=== PATIENT | female | born 1980 | race Caucasian/White ===

== ENCOUNTER → 2016-03-27 | Outpatient (CLI) | payer OTHER ==
--- NOTE | 2016-03-27 14:39 | P.CONS ---
History of Present Illness - Chief Complaint Mid and lower back pain - History of Present Illness This is a 35-year-old female with history of mid and lower back pain for the last 5 years and recent weight loss and nocturnal pain. The pain occasionally radiates down both legs however most of her pain is in the lower back and mid back area. He has any bowel or bladder dysfunction or any weakness in the lower extremities. She did do was to 10 pounds of her weight lately. There is no numbness or tingling in the lower extremities. The pain does not radiate around her chest wall. This pain improves when she lies on her back and gets worse with sitting for prolonged the patient has been on [place] Valium and Lyrica for a few years now but her physician has left but down and she is to give her a different physician now. Prescriptions for these medications. She had an MRI of the lumbar spine which showed only mild degenerative changes and small posterior disc bulge at L5-S1 level with posterior annular fissure. 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 Review of Systems All systems: negative Past Medical History Past Medical History: No Reported History (FM,RLS) History of Any Multi-Drug Resistant Organisms: None Reported Past Surgical History: No Surgical Hx Reported Past Psychological History: Anxiety Smoking Status: Current every day smoker Past Alcohol Use History: None Reported Past Drug Use History: None Reported Medications and Allergies Home Medications Medication Instructions Recorded Confirmed Type Pregabalin [Lyrica] 75 mg PO BID PRN 06/05/15 06/05/15 History oxyCODONE-APAP 10-325MG [Percocet 1 tab PO Q6HR PRN 06/05/15 06/05/15 History 10-325 mg] rOPINIRole HCL [Requip Xl] 12 mg PO HS 06/05/15 06/05/15 History DULoxetine HCL [Cymbalta] 60 mg PO DAILY 03/27/16 03/27/16 History Diazepam [Valium] 10 PO BID 03/27/16 History Allergies Allergy/AdvReac Type Severity Reaction Status Date / Time No Known Allergies Allergy Verified 03/27/16 13:53 Physical Exam Vitals: Vital Signs Temp Pulse Resp BP Pulse Ox 03/27/16 13:35 98.5 F 106 H 16 132/91 97 Intake and Output 03/26/16 03/27/16 03/27/16 22:59 06:59 14:59 Other: Weight 52.163 kg Patient Weight 03/28/16 06:59 Weight 52.163 kg - Constitutional General appearance: thin - EENT Eyes: PERRLA Ears: bilateral: normal - Respiratory Respiratory: bilateral: CTA - Cardiovascular Rhythm: regular Heart sounds: normal: S1, S2 - Gastrointestinal General gastrointestinal: soft - Psychiatric Psychiatric: A&O x's 3 (The patient has widespread tenderness in the thoracic and lumbar paravertebral areas.) Neuro exam of the lower extremities showed normal and symmetrical deep tendon reflexes decreased knee extension to 4 out of 5 bilaterally and symmetrically the rest of the muscle strength exam is within normal limits. She has tenderness in the lumbar and thoracic paravertebral musculature. Straight leg raising test negative bilaterally. She has normal range of motion of the lumbar spine. Amari's test negative bilaterally internal and external rotation of the hip joints did not elicit any pain. Assessment and Plan Plan: This is a 35-year-old female with history of fibromyalgia and mid and lower back pain with no significant changes on the MRI of the lumbar spine. The patient doesn't report weight loss of 10 pounds over the last few months and nocturnal pain that's why I'm going to order an MRI on the thoracic spine without and with contrast. With the current objective findings I cannot justify prescribing opioids for this patient. The patient was not happy about that but she was willing to try tramadol for her pain and I will continue with her Lyrica but I will not prescribe Valium for her. The patient tried physical therapy for long time ago on a think she might benefit FROM ANOTHER SESSION OF PHYSICAL THERAPY. WE WILL AWAIT THE RESULTS OF THE THORACIC MRI BUT ifTHE SPINE DOES NOT SHOW ANY SIGNIFICANT CHANGE I THINK MOST OF HER PAIN may be comingFROM HER FIBROMYALGIA AND THEN SHE WILL NEED TO BE TREATED WITH THE TYPICAL TREATMENTS FOR FIBROMYALGIA, WHICH INCLUDES NO OPIOIDS.
== END | disposition home or self-care (01) ==
CPT/HCPCS: 99211

== ENCOUNTER → 2016-04-23 | Outpatient (CLI) | payer OTHER ==
[2016-04-23 13:22] VITALS: BP 123/79; PULSE 97; RESP 20
--- NOTE | 2016-04-23 14:15 | P.PN ---
Progress Note - Text This is a 35-year-old female with thoracic and lumbar spine pain with radiation to both legs down to the feet as the patient states. The patient's previous lumbar spine MRI did not show significant changes however she does feel pain in the thoracic spine that as the patient states that has been getting worse. The patient denies any weight loss however. 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 She does see another pain clinic and receives [facility]. The patient claims that she comes to our clinic because it is close and she feels that we do more for her job than her other pain clinic. The patient understands that we will not prescribe her any controlled substances. I send the patient last month to have thoracic spine MRI however she has not done that some going to send her lidocaine the thoracic and lumbar spine MRIs and if there isn't any significant change in on this MRI the patient would not be a candidate for any opioid treatment. I think this patient is at high risk for opioid abuse and we should be careful in the future prescribing any opioids for her. Her treatment should be dependent on objective measures including the results of the MRI and if there are no reasonable objective changes we do not have to prescribe strong analgesics . I will see the patient next month for reevaluation after she gets her MRI done. No prescriptions are given today.
== END | disposition home or self-care (01) ==
LOC: PNWHC3 13:04
PROVIDERS: ATTEND Anesthesiology
DX: M54.5 Low back pain (principal); M54.6 Pain in thoracic spine
CPT/HCPCS: 99211

== ENCOUNTER → 2016-05-02 | Outpatient (CLI) | payer OTHER ==
[2016-05-02 15:44] LABS: Basophils # (A) 0.1 k/uL (0-0.2); Basophils % (A) 1 %; CH 30.2; CHCM 32.9; Eosinophils % (A) 0 %; HCT 38.5 % (34.0-46.0); HDW 2.27; Luc # (Auto) 0.14; Luc % (Auto) 3; Lymphocytes # (A) 1.4 k/uL (1.0-4.8); Lymphocytes % (A) 28 %; MCH 31.2 pg (25.0-35.0); MCHC 33.8 g/dL (31.0-37.0); MCV 92.3 fL (80.0-100.0); Mean Platelet Volume 7.4; Monocytes # (A) 0.4 k/uL (0-1.0); Monocytes % (A) 7 %; Neutrophils # (A) 3.2 k/uL (1.3-7.7); Neutrophils % (A) 61 %; RBC 4.17 m/uL (3.80-5.40); RDW 13.3 % (11.5-15.5); WBC 5.2 k/uL (3.8-10.6); WBC (Perox) 5.38
[2016-05-02 16:36] LABS: ALT 72 U/L (9-52); AST 25 U/L (14-36); Alkaline Phosphatase 80 U/L (38-126); Anion Gap 11 mmol/L; Bilirubin, Delta 0.2 mg/dL (0.0-0.2); Blood Urea Nitrogen 10 mg/dL (7-17); Calcium 9.1 mg/dL (8.4-10.2); Carbon Dioxide 23 mmol/L (22-30); Chloride 107 mmol/L (98-107); Glucose 88 mg/dL (74-99); Non-African American GFR(MDRD) >60 (>60 ml/min/1.73 sqM); Potassium 3.7 mmol/L (3.5-5.1); Sodium 141 mmol/L (137-145); Total Bilirubin 0.4 mg/dL (0.2-1.3)
[2016-05-02 17:52] LABS: Hemoglobin A1C 5.2 % (4.2-6.1)
== END | disposition home or self-care (01) ==
LOC: LABWHC1 15:06
PROVIDERS: ATTEND Psychiatry & Neurology Psychiatry
DX: F31.32 Bipolar disorder, current episode depressed, moderate (principal)
CPT/HCPCS: 36415; 80053; 82248; 83036; 84439; 84443; 84479; 85025

== ENCOUNTER → 2016-05-29 | Outpatient (CLI) | payer OTHER ==
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
== END | disposition home or self-care (01) ==
LOC: RADMRIMAIN 20:37
PROVIDERS: ATTEND Anesthesiology
DX: M46.96 Unspecified inflammatory spondylopathy, lumbar region (principal); R93.7 Abnormal findings on diagnostic imaging of other parts of musculoskeletal system; M47.814 Spondylosis without myelopathy or radiculopathy, thoracic region
CPT/HCPCS: 72157; 72158; A9577

== ENCOUNTER → 2016-06-27 | Outpatient (CLI) | payer OTHER ==
[2016-06-27 14:48] VITALS: BP 108/69; PULSE 80; RESP 18; TEMP 98.7
--- NOTE | 2016-06-27 15:13 | P.PN ---
Progress Note - Text Patient returns for followup for chronic back pain with radiation to the hips and down the legs. Patient denies adverse drug effects from medications. Today , pt denies new-onset weakness, bowel/bladder incontinence, or any other signs or symptoms of cauda equina syndrome. There are no signs of acute intoxication, and no indications of medication diversion or overuse. In addition to above, 13-point review of systems is also negative for chest pain , shortness of breath, changes in vision, changes in hearing, new onset weakness , abdominal pain, diarrhea, extreme fatigue, malaise, fever, skin changes, homicidal or suicidal ideation, or bowel or bladder incontinence. Vital Signs: Reviewed in EMR Gen: WDWN, AAOx3, NAD HEENT: NCAT, EOMI, hearing grossly normal Pulm: resp unlabored Abd: soft, NT, ND Neck: supple, trachea midline ROM in flexion lumbar spine: reduced ROM in extension lumbar spine: reduced Lumbar paravertebral tenderness: + Facet loading: +bilateral SI joint tenderness: + L > R Amari's test: + L > R Straight leg raise: neg bilateral Lower extremity: decreased ROM dorsiflexion/plantarflexion strength, hip flexion/extension, and knee flexion/extension secondary to pain Neuro: CN II-XII grossly intact, muscle strength lower extremities PRESERVED Imaging: MRI lumbar spine demonstrates only some facet arthropathy without any focal disc herniation or spinal stenosis. MRI thoracic spine demonstrates only some abnormal signal enhancement in the upper thoracic spinal cord which may be consistent with myelitis. There is no demonstrated disc herniations or spondylosis in the thoracic spine. Assessment: 1. SI joint dysfunction 2. lumbar spondylosis without myelopathy 3. chronic pain syndrome Plan: 1. Explanation: Opioid and psychological risk scores were reviewed. Diagnoses , prognoses, and multiple treatment options including but not limited to physical therapy, interventional therapies, adjuvant medical therapies, narcotic medication therapies, and surgery were discussed with the patient and all questions were answered to the patient's satisfaction. 2. Opioid agreement: no opioids prescribed today 3. Counseling: The patient was counseled extensively on SMOKING CESSATION, BODY MASS INDEX, EXERCISE. Specifically, the patient was instructed regarding the importance of smoking cessation, obesity, and exercise in the context of both chronic pain and overall health. 4. Procedures: bilateral SIJ injection 5. Consultations: None 6. Investigations: None 7. Medications: none prescribed 8. Disposition: f/u for procedure as scheduled PQRS measures: 1-Patient's medications are documented in the chart. 2-Tobacco use is positive, counseling given 3-Patient has not had a pneumococcal vaccine. 4-Advanced care planning discussed, patient unable to give. 5-Opioid contract NOT signed with the patient. 6-Pain positive, follow-up visit or procedure scheduled 7-Patient's blood pressure measured and documented, WNL. 8-Patient's weight was measured, and body mass index within the normal limits. 9-Patient WAS NOT identified as an unhealthy alcohol user.
== END | disposition home or self-care (01) ==
LOC: PNWHC3 14:00
PROVIDERS: ATTEND Anesthesiology
DX: M47.816 Spondylosis without myelopathy or radiculopathy, lumbar region (principal); M53.3 Sacrococcygeal disorders, not elsewhere classified; G89.4 Chronic pain syndrome
CPT/HCPCS: 99211

== ENCOUNTER 2016-10-06 12:47 | Inpatient (IN) | payer MEDICAID, OTHER ==
--- NOTE | 2016-10-06 14:03 | ED ---
General Adult HPI - General Chief complaint: Psychiatric Symptoms Stated complaint: ear & jaw pain Time Seen by Provider: 10/06/16 13:04 Source: patient, RN notes reviewed Mode of arrival: ambulatory Limitations: no limitations - History of Present Illness Initial comments: Patient is a 36-year-old female presents to the emergency room for evaluation. Patient states she was recently diagnosed with schizoaffective disorder. Patient states over the past few weeks she's been hearing "voices". Patient states she will hear people talking in her ear. Patient states that she thought her mother was on the phone with someone yesterday when she really wasn' t. Patient states the voices have become worse over the past 2 days. Patient also stated she's been having pressure behind her left eye and in her left ear over the past 2 days. Patient states she's had slight decrease in hearing of her left ear. Patient denies ear pain. Patient denies headache or dizziness. Patient denies fevers or chills. Patient denies suicidal or homicidal ideations. Patient denies visual hallucinations. patient's mother and aunt are present with patient. Patient's mother and states that patient has not been acting herself and does not make sense and she talks. Patient's family states that they've been receiving text messages that do not make sense. Patient denies recent head trauma. - Related Data Home Medications Medication Instructions Recorded Confirmed Pregabalin [Lyrica] 75 mg PO BID 06/05/15 10/06/16 Sertraline HCl [Zoloft] 150 mg PO DAILY 04/23/16 10/06/16 Buta/APAP/Caf/Cod [id number] 1 tab PO DAILY PRN 06/27/16 10/06/16 [Fioricet w/Cod [id number]] HYDROcodone/APAP 10-325MG [[place] 1 tab PO TID 06/27/16 10/06/16 10-325] DULoxetine HCL [Cymbalta] 30 mg PO DAILY 10/06/16 10/06/16 Diazepam [Valium] 10 mg PO BID 10/06/16 10/06/16 Allergies Allergy/AdvReac Type Severity Reaction Status Date / Time No Known Allergies Allergy Verified 10/06/16 13:25 Review of Systems ROS Statement: Those systems with pertinent positive or pertinent negative responses have been documented in the HPI. ROS Other: All systems not noted in ROS Statement are negative. Past Medical History Past Medical History: Fibromyalgia History of Any Multi-Drug Resistant Organisms: None Reported Past Surgical History: Tonsillectomy Past Anesthesia/Blood Transfusion Reactions: No Reported Reaction Past Psychological History: Anxiety, Schizoaffective Disorder Smoking Status: Current every day smoker Past Alcohol Use History: Occasional Past Drug Use History: None Reported General Exam - General Exam Comments Initial Comments: sitting in exam room, no acute distress. Limitations: no limitations General appearance: alert, in no apparent distress Head exam: Present: atraumatic, normocephalic, normal inspection Eye exam: Present: normal appearance, PERRL, EOMI Pupils: Present: normal accommodation ENT exam: Present: normal exam, normal oropharynx, mucous membranes moist, TM's normal bilaterally, normal external ear exam Neck exam: Present: normal inspection, full ROM. Absent: tenderness, lymphadenopathy Respiratory exam: Present: normal lung sounds bilaterally. Absent: respiratory distress Cardiovascular Exam: Present: regular rate, normal rhythm, normal heart sounds Extremities exam: Present: normal inspection Back exam: Present: normal inspection Neurological exam: Present: alert, oriented X3, CN II-XII intact Psychiatric exam: Present: normal affect, anxious Skin exam: Present: warm, dry, intact, normal color. Absent: rash Course Vital Signs 10/06/16 10/06/16 12:51 16:08 Temperature 98.8 F 98.3 F Pulse Rate 96 78 Respiratory 18 16 Rate Blood Pressure 110/67 131/68 O2 Sat by Pulse 97 98 Oximetry Medical Decision Making - Medical Decision Making Patient is a 36-year-old female presents emergency room for evaluation of left eye/ear pressure and hearing voices. Labs and CT show no significant findings. Patient medically cleared to be evaluated by psych. Patient evaluated by psych and meets admission criteria. - Lab Data Result diagrams: 10/06/16 14:30 10/06/16 14:30 Lab Results 10/06/16 10/06/16 10/06/16 Range/Units 14:30 14:30 14:30 WBC 12.2 H (3.8-10.6) k/uL RBC 4.80 (3.80-5.40) m/uL Hgb 14.4 (11.4-16.0) gm/dL Hct 43.0 (34.0-46.0) % MCV 89.4 (80.0-100.0) fL MCH 30.0 (25.0-35.0) pg MCHC 33.6 (31.0-37.0) g/dL RDW 14.1 (11.5-15.5) % Plt Count 449 (150-450) k/uL Neutrophils % 66 % Lymphocytes % 24 % Monocytes % 6 % Eosinophils % 1 % Basophils % 1 % Neutrophils # 8.1 H (1.3-7.7) k/uL Lymphocytes # 2.9 (1.0-4.8) k/uL Monocytes # 0.7 (0-1.0) k/uL Eosinophils # 0.2 (0-0.7) k/uL Basophils # 0.1 (0-0.2) k/uL Sodium (137-145) mmol/L Potassium (3.5-5.1) mmol/L Chloride (98-107) mmol/L Carbon Dioxide (22-30) mmol/L Anion Gap mmol/L BUN (7-17) mg/dL Creatinine (0.52-1.04) mg/dL Est GFR (MDRD) Af Amer (>60 ml/min/1.73 sqM) Est GFR (MDRD) Non-Af (>60 ml/min/1.73 sqM) Glucose (74-99) mg/dL Calcium (8.4-10.2) mg/dL Total Bilirubin (0.2-1.3) mg/dL AST (14-36) U/L ALT (9-52) U/L Alkaline Phosphatase (38-126) U/L Total Protein (6.3-8.2) g/dL Albumin (3.5-5.0) g/dL Urine Color Yellow Urine Appearance Clear (Clear) Urine pH 5.5 (5.0-8.0) Ur Specific [place] 1.037 H (1.001-1.035) Urine Protein 1+ H (Negative) Urine Glucose (UA) Negative (Negative) Urine Ketones Trace H (Negative) Urine Blood Negative (Negative) Urine Nitrite Negative (Negative) Urine Bilirubin Negative (Negative) Urine Urobilinogen 3.0 (<2.0) mg/dL Ur Leukocyte Esterase Negative (Negative) Urine RBC 2 (0-5) /hpf Urine WBC 2 (0-5) /hpf Ur Squamous Epith Cells 1 (0-4) /hpf Hyaline Casts 11 H (0-2) /lpf Urine Mucus Many H (None) /hpf Urine HCG, Qual Not Detected (Not Detectd) Salicylates mg/dL Urine Opiates Screen Detected H (NotDetected) Ur Oxycodone Screen Detected H (NotDetected) Urine Methadone Screen Not Detected (NotDetected) Ur Propoxyphene Screen Not Detected (NotDetected) Acetaminophen ug/mL Ur Barbiturates Screen Detected H (NotDetected) U Tricyclic Antidepress Not Detected (NotDetected) Ur Phencyclidine Scrn Not Detected (NotDetected) Ur Amphetamines Screen Not Detected (NotDetected) U Methamphetamines Scrn Not Detected (NotDetected) U Benzodiazepines Scrn Detected H (NotDetected) Urine Cocaine Screen Not Detected (NotDetected) U Marijuana (THC) Screen Detected H (NotDetected) Serum Alcohol mg/dL 10/06/16 Range/Units 14:30 WBC (3.8-10.6) k/uL RBC (3.80-5.40) m/uL Hgb (11.4-16.0) gm/dL Hct (34.0-46.0) % MCV (80.0-100.0) fL MCH (25.0-35.0) pg MCHC (31.0-37.0) g/dL RDW (11.5-15.5) % Plt Count (150-450) k/uL Neutrophils % % Lymphocytes % % Monocytes % % Eosinophils % % Basophils % % Neutrophils # (1.3-7.7) k/uL Lymphocytes # (1.0-4.8) k/uL Monocytes # (0-1.0) k/uL Eosinophils # (0-0.7) k/uL Basophils # (0-0.2) k/uL Sodium 143 (137-145) mmol/L Potassium 4.1 (3.5-5.1) mmol/L Chloride 107 (98-107) mmol/L Carbon Dioxide 25 (22-30) mmol/L Anion Gap 11 mmol/L BUN 14 (7-17) mg/dL Creatinine 0.67 (0.52-1.04) mg/dL Est GFR (MDRD) Af Amer >60 (>60 ml/min/1.73 sqM) Est GFR (MDRD) Non-Af >60 (>60 ml/min/1.73 sqM) Glucose 90 (74-99) mg/dL Calcium 9.5 (8.4-10.2) mg/dL Total Bilirubin 0.6 (0.2-1.3) mg/dL AST 20 (14-36) U/L ALT 31 (9-52) U/L Alkaline Phosphatase 71 (38-126) U/L Total Protein 7.4 (6.3-8.2) g/dL Albumin 4.7 (3.5-5.0) g/dL Urine Color Urine Appearance (Clear) Urine pH (5.0-8.0) Ur Specific [place] (1.001-1.035) Urine Protein (Negative) Urine Glucose (UA) (Negative) Urine Ketones (Negative) Urine Blood (Negative) Urine Nitrite (Negative) Urine Bilirubin (Negative) Urine Urobilinogen (<2.0) mg/dL Ur Leukocyte Esterase (Negative) Urine RBC (0-5) /hpf Urine WBC (0-5) /hpf Ur Squamous Epith Cells (0-4) /hpf Hyaline Casts (0-2) /lpf Urine Mucus (None) /hpf Urine HCG, Qual (Not Detectd) Salicylates <1.0 mg/dL Urine Opiates Screen (NotDetected) Ur Oxycodone Screen (NotDetected) Urine Methadone Screen (NotDetected) Ur Propoxyphene Screen (NotDetected) Acetaminophen <10.0 ug/mL Ur Barbiturates Screen (NotDetected) U Tricyclic Antidepress (NotDetected) Ur Phencyclidine Scrn (NotDetected) Ur Amphetamines Screen (NotDetected) U Methamphetamines Scrn (NotDetected) U Benzodiazepines Scrn (NotDetected) Urine Cocaine Screen (NotDetected) U Marijuana (THC) Screen (NotDetected) Serum Alcohol <10 mg/dL - Radiology Data Radiology results: report reviewed, image reviewed Disposition Clinical Impression: Psychosis Disposition: TRANSFER TO PSYCH HOSP/UNIT Condition: Stable Referrals: Nonstaff,Physician [Primary Care Provider] - 1-2 days Decision Date: 10/06/16
[2016-10-06 14:46] LABS: Basophils # (A) 0.1 k/uL (0-0.2); Basophils % (A) 1 %; CH 29.9; CHCM 33.6; Eosinophils # (A) 0.2 k/uL (0-0.7); Eosinophils % (A) 1 %; HDW 2.13; HGB 14.4 gm/dL (11.4-16.0); Luc # (Auto) 0.27; Luc % (Auto) 2; Lymphocytes # (A) 2.9 k/uL (1.0-4.8); Lymphocytes % (A) 24 %; MCHC 33.6 g/dL (31.0-37.0); MCV 89.4 fL (80.0-100.0); Mean Platelet Volume 7.1; Monocytes # (A) 0.7 k/uL (0-1.0); Monocytes % (A) 6 %; Neutrophils # (A) 8.1 k/uL (1.3-7.7); Neutrophils % (A) 66 %; RDW 14.1 % (11.5-15.5); WBC 12.2 k/uL (3.8-10.6); WBC (Perox) 11.23
[2016-10-06 14:48] LABS: Appearance,Urine Clear (Clear); Bilirubin,Urine Negative (Negative); Glucose,Urine (UA) Negative (Negative); Ketones,Urine Trace (Negative); Leukocyte Esterase,Urine Negative (Negative); Mucus,Urine Many /hpf; Nitrite,Urine Negative (Negative); PH, Urine 5.5 (5.0-8.0); Particle Count 15574; Protein,Urine 1+ (Negative); RBC,Urine 2 /hpf (0-5); Specific Gravity,Urine 1.037 (1.001-1.035); Squamous Epithelial Cell,Urine 1 /hpf (0-4); UA Billing (MACRO vs. MICRO) MICRO; WBC,Urine 2 /hpf (0-5)
[2016-10-06 14:58] LABS: ALT 31 U/L (9-52); AST 20 U/L (14-36); Acetaminophen <10.0 ug/mL; Alcohol <10 mg/dL; Alkaline Phosphatase 71 U/L (38-126); Anion Gap 11 mmol/L; Blood Urea Nitrogen 14 mg/dL (7-17); Calcium 9.5 mg/dL (8.4-10.2); Carbon Dioxide 25 mmol/L (22-30); Chloride 107 mmol/L (98-107); Glucose 90 mg/dL (74-99); Non-African American GFR(MDRD) >60 (>60 ml/min/1.73 sqM); Potassium 4.1 mmol/L (3.5-5.1); Salicylate <1.0 mg/dL; Sodium 143 mmol/L (137-145); Total Bilirubin 0.6 mg/dL (0.2-1.3); Total Protein 7.4 g/dL (6.3-8.2)
--- NOTE | 2016-10-06 15:57 | CT ---
EXAMINATION TYPE: CT brain wo con DATE OF EXAM: 10/06/2016 COMPARISON: CT brain June 22, 2010 HISTORY: Left sided ear pain. CT DLP: 1036 mGycm. Automated Exposure Control for Dose Reduction was Utilized. TECHNIQUE: CT scan of the head is performed without contrast. FINDINGS: There is no acute intracranial hemorrhage, mass effect, or midline shift identified. The ventricles and sulci are within normal limits in size. Neal-white matter differentiation is maintain ed. The globes are intact and the visualized sinuses are clear. No suspicious opacification of mastoi d air cells is seen. External auditory canals are patent bilaterally. IMPRESSION: No acute intracranial hemorrhage, mass effect, or midline shift is seen. Unremarkable st udy.
[2016-10-06] MEDS ORDERED: MAG HYDROX/AL HYDROX/SIMETH 30 ML CUP PO PRN (17:53)
[2016-10-06] MEDS: PREGABALIN 75 MG CAP PO SCH (21:09)
[2016-10-06] MEDS: DIAZEPAM 5 MG TAB PO SCH (21:09)
[2016-10-07] MEDS: PREGABALIN 75 MG CAP PO SCH (08:54)
[2016-10-07] MEDS: DIAZEPAM 5 MG TAB PO SCH ×2 (08:54→20:45)
[2016-10-07] MEDS ORDERED: DULoxetine HCL 30 MG CAPSULE.DR PO SCH (09:00)
[2016-10-07] MEDS ORDERED: SERTRALINE 50 MG TAB PO SCH (09:00)
[2016-10-07 11:08] LABS: Basophils # (A) 0.1 k/uL (0-0.2); Basophils % (A) 1 %; CH 29.7; CHCM 32.6; Eosinophils # (A) 0.1 k/uL (0-0.7); Eosinophils % (A) 1 %; HCT 42.7 % (34.0-46.0); HDW 2.04; HGB 13.8 gm/dL (11.4-16.0); Luc % (Auto) 2; Lymphocytes # (A) 1.5 k/uL (1.0-4.8); Lymphocytes % (A) 19 %; MCH 29.6 pg (25.0-35.0); MCHC 32.4 g/dL (31.0-37.0); MCV 91.5 fL (80.0-100.0); Mean Platelet Volume 6.9; Monocytes # (A) 0.5 k/uL (0-1.0); Monocytes % (A) 6 %; Neutrophils # (A) 5.9 k/uL (1.3-7.7); Neutrophils % (A) 72 %; RBC 4.67 m/uL (3.80-5.40); RDW 14.1 % (11.5-15.5); WBC 8.2 k/uL (3.8-10.6); WBC (Perox) 8.11
[2016-10-07 11:33] LABS: ALT 30 U/L (9-52); AST 17 U/L (14-36); Alkaline Phosphatase 61 U/L (38-126); Anion Gap 8 mmol/L; Blood Urea Nitrogen 16 mg/dL (7-17); Calcium 9.6 mg/dL (8.4-10.2); Carbon Dioxide 27 mmol/L (22-30); Chloride 107 mmol/L (98-107); Glucose 68 mg/dL (74-99); Non-African American GFR(MDRD) >60 (>60 ml/min/1.73 sqM); Potassium 4.5 mmol/L (3.5-5.1); Sodium 142 mmol/L (137-145); Total Bilirubin 0.6 mg/dL (0.2-1.3)
[2016-10-07] MEDS: HYDROcodone/APAP 5-325MG 1 EACH TAB PO PRN ×2 (13:50→20:46)
[2016-10-07] MEDS ORDERED: HYDROcodone/APAP 10-325MG 1 EACH TAB PO SCH (14:00)
--- NOTE | 2016-10-07 14:39 | P.CONS ---
History of Present Illness - Reason for Consult Consult date: 10/07/16 Medical management Requesting physician: Teto Deneny - Chief Complaint Schizoaffective disorders, chronic lower back pain, polysubstance abuse - History of Present Illness 36-year-old female who presented to [facility] department at [facility] on 7:15 in the afternoon for evaluation apparently was diagnosed with schizoaffective disorders patient has been hearing voices all the time become slightly bit annoying. Symptoms become much worse with the current problem ended up coming to [facility] her left ear has been causing problem patient is not suicidal or homicidal at the time she denies any visual hallucination pump. Patient was with her mother and aunt. Surprisingly her drug screen showed polysubstance abuse from, OxyContin,., Benzodiazepine, barbiturates and marijuana. Patient apparently used to see a psychiatrist in town has not been seeing anybody in the last few month. Also known to have ADHD has been off medication lately. Patient also has been seen pain management in [place] and has been on multiple medication for pain management including hydrocodone, Fioricet with codeine, Cymbalta, Valium and Lyrica. Review of Systems Constitutional: Reports anorexia, Reports fatigue, Reports lethargy, Denies as per HPI, Denies chills, Denies chronic headaches, Denies chronic pain, Denies daytime sleepiness, Denies fever, Denies malaise, Denies night sweats, Denies poor appetite, Denies sweats, Denies weakness, Denies weight gain, Denies weight loss Eyes: bilateral as per HPI Ears: left: tinnitus, bilateral: decreased hearing Ears, nose, mouth and throat: Reports ant. neck pain, Reports nasal discharge, Reports sinus pain, Reports sinus pressure, Denies as per HPI, Denies bleeding gums, Denies dental pain, Denies dysphagia, Denies epistaxis, Denies headache, Denies hoarseness, Denies mouth pain, Denies nasal congestion, Denies neck fullness/pressure, Denies neck lump, Denies nose pain, Denies odynophagia, Denies post-nasal drip, Denies swelling in mouth, Denies swelling in throat, Denies sore throat, Denies vertigo, Denies voice changes Breasts: bilateral: as per HPI Cardiovascular: Reports lightheadedness, Reports orthopnea, Denies as per HPI, Denies chest pain, Denies claudication, Denies decreased exercise tolerance, Denies dyspnea on exertion, Denies edema, Denies high blood pressure, Denies irregular heart beat, Denies leg edema, Denies palpitations, Denies paroxysmal nocturnal dyspnea, Denies phlebitis, Denies rapid heart beat, Denies shortness of breath, Denies syncope Respiratory: Reports congestion, Reports respiratory infections, Reports sleep apnea, Denies as per HPI, Denies cough, Denies cough with sputum, Denies dyspnea , Denies excessive sputum, Denies hemoptysis, Denies home oxygen, Denies pain, Denies pain on inspiration, Denies pleurisy, Denies snoring, Denies wheezing Gastrointestinal: Reports bloating, Reports dyspepsia, Reports early satiety, Reports indigestion, Reports nausea, Denies as per HPI, Denies abdominal pain, Denies belching, Denies BRBPR, Denies change in bowel habits, Denies coffee ground emesis, Denies constipation, Denies diarrhea, Denies excessive gas, Denies heartburn, Denies hematemesis, Denies hematochezia, Denies jaundice, Denies lactose intolerance, Denies loss of appetite, Denies melena, Denies vomiting Genitourinary: Reports nocturia, Reports urge incontinence, Denies as per HPI, Denies abnormal vaginal bleeding, Denies decreased libido, Denies difficulty conceiving, Denies difficulty voiding, Denies dysmenorrhea, Denies dyspareunia, Denies dysuria, Denies flank pain, Denies genital sores, Denies hematuria, Denies hot flashes, Denies incomplete emptying, Denies kidney stones, Denies menorrhagia, Denies mixed incontinence, Denies pelvic pain, Denies post void dribbling, Denies , Denies prolapse symptoms, Denies stress incontinence , Denies urgency, Denies urinary frequency, Denies vaginal discharge, Denies vaginal dryness, Denies vaginal itching, Denies vaginal odor Musculoskeletal: Reports loss of height, Reports low back pain, Reports myalgias , Reports neck pain, Reports neck stiffness, Denies as per HPI, Denies arm numbness/tingling, Denies atrophy, Denies fractures, Denies frequent falls, Denies gait dysfunction, Denies hot joints, Denies leg numbness/tingling, Denies limitation of motion, Denies morning stiffness, Denies muscle cramps, Denies muscle weakness, Denies prior amputations, Denies redness of joints, Denies shooting arm pain, Denies shooting leg pain Integumentary: Reports rash, Reports sores, Denies as per HPI, Denies acne, Denies boils, Denies brittle nails, Denies change in hair/nails, Denies color changes, Denies darkening of skin, Denies depigmentation, Denies dryness, Denies foot/leg ulcers, Denies growths, Denies hirsutism, Denies lesions, Denies onychomycosis, Denies pruritus, Denies striae, Denies unusual bruising, Denies wounds Neurological: Reports ataxia, Reports balance difficulties, Reports burning pain , Reports paresthesias, Reports tingling, Reports weakness, Denies as per HPI, Denies aphasia, Denies change in mentation, Denies change in smell/taste, Denies change in speech, Denies confusion, Denies convulsions, Denies double vision, Denies gait dysfunction, Denies head injury, Denies headaches, Denies hearing difficulties, Denies lack of coordination, Denies loss of vision, Denies memory loss, Denies migraines, Denies motor disturbance, Denies numbness , Denies paralysis, Denies seizures, Denies sensory deficit, Denies spasticity, Denies syncope, Denies tic, Denies transient paralysis, Denies tremors, Denies vertigo, Denies visual changes Psychiatric: Reports anhedonia, Reports anxiety, Reports anxiety attacks, Reports change in sleep habits, Reports depression, Reports disorientation, Reports irritability, Reports mood swings, Reports sadness/tearfulness, Reports sleep disturbances, Denies as per HPI, Denies change in appetite, Denies change in libido, Denies confusion, Denies difficulty concentrating, Denies hallucinations, Denies hopelessness, Denies hypersomnia, Denies insomnia, Denies memory loss, Denies paranoia, Denies suicidal ideation Endocrine: Reports fatigue, Reports heat intolerance, Denies as per HPI, Denies cold intolerance, Denies deepening of the voice, Denies excessive sweating, Denies excessive thirst, Denies flushing, Denies high blood sugars, Denies increase in ring/shoe/hat size, Denies low blood sugars, Denies nocturia, Denies palpitations, Denies polydipsia, Denies polyphagia, Denies polyuria, Denies proptosis, Denies recent glucocorticoid use, Denies thyroid mass, Denies weight change Hematologic/Lymphatic: Denies as per HPI, Denies easy bleeding, Denies easy bruising, Denies lymphadenopathy, Denies lymphedema, Denies thrombophilia Allergic/Immunologic: Denies as per HPI, Denies allergic rhinitis, Denies anaphylaxis, Denies angioedema, Denies gluten intolerance, Denies persistent infections, Denies seasonal allergies, Denies urticaria, Denies wheezing Past Medical History Past Medical History: Fibromyalgia History of Any Multi-Drug Resistant Organisms: None Reported Past Surgical History: Tonsillectomy Past Anesthesia/Blood Transfusion Reactions: No Reported Reaction Smoking Status: Current every day smoker Medications and Allergies Home Medications Medication Instructions Recorded Confirmed Type Pregabalin [Lyrica] 75 mg PO BID 06/05/15 10/06/16 History Sertraline HCl [Zoloft] 150 mg PO DAILY 04/23/16 10/06/16 History [place]/APAP/Caf/Cod [id number] 1 tab PO DAILY PRN 06/27/16 10/06/16 History [Fioricet w/Cod 11-759-62-30MG] HYDROcodone/APAP 10-325MG [[place] 1 tab PO TID 06/27/16 10/06/16 History 10-325] DULoxetine HCL [Cymbalta] 30 mg PO DAILY 10/06/16 10/06/16 History Diazepam [Valium] 10 mg PO BID 10/06/16 10/06/16 History Allergies Allergy/AdvReac Type Severity Reaction Status Date / Time No Known Allergies Allergy Verified 10/06/16 13:25 Physical Exam Vitals: Vital Signs Temp Pulse Pulse Resp BP BP Pulse Ox 10/07/16 13:51 89 18 123/71 10/07/16 08:57 94 18 127/79 10/07/16 08:54 74 16 127/79 10/07/16 06:36 98 F 20 122/69 10/06/16 21:09 58 L 18 119/78 10/06/16 18:46 98.4 F 73 14 126/62 96 10/06/16 17:56 97.0 F L 86 18 136/62 98 10/06/16 16:08 98.3 F 78 16 131/68 98 Intake and Output 10/06/16 10/07/16 10/07/16 22:59 06:59 14:59 Other: Weight 53.6 kg Patient Weight 10/08/16 06:59 Weight 53.6 kg - Constitutional General appearance: no average body habitus, cooperative, no disheveled, no mild distress, no morbidly obese, no acute distress, no obese, no severe distress, no thin - EENT Eyes: no abnormal pupil, no anicteric sclerae, no disc margins sharp, no edentulous, no EOMI, no PERRLA, no fundus normal, no photophobia, no dentition normal, no poor dentition, no ptosis, no scleral icterus, normal appearance ENT: no hard of hearing, no hearing grossly normal, no NA/AT, normal oropharynx , no other, no pharyngeal erythema, no thrush, no tonsillar exudates, no tonsillar swelling Ears: bilateral: normal - Neck Neck: no lymphadenopathy, normal ROM, no other, no rigidity, no stridor, no thyromegaly Carotids: bilateral: upstroke normal Thyroid: bilateral: normal size - Respiratory Respiratory: bilateral: CTA - Cardiovascular Rhythm: regular Heart sounds: normal: S1, S2 Abnormal Heart Sounds: systolic murmur - Gastrointestinal General gastrointestinal: no absent bowel sounds, decreased bowel sounds, no distended, no hepatomegaly, no hyperactive bowel sounds, no normal bowel sounds , no organomegaly, no rigid, no scaphoid, soft, no splenomegaly, no tenderness, no umbilical hernia, no ventral hernia - Integumentary Integumentary: no calor, no cellulitis, no cyanotic, decreased turgor, no flushed, no jaundiced, no normal, no normal turgor, no pale, no rash, no ulcer - Neurologic Neurologic: CNII-XII intact - Musculoskeletal Musculoskeletal: gait normal, generalized weakness, strength equal bilaterally, no right sided weakness, no left sided weakness - Psychiatric Psychiatric: A&O x's 3, appropriate affect, no intact judgment & insight Results CBC & Chem 7: 10/07/16 10:45 10/07/16 10:45 Labs: Abnormal Lab Results - Last 24 Hours (Table) 10/06/16 10/06/16 10/07/16 Range/Units 14:30 14:30 10:45 WBC 12.2 H (3.8-10.6) k/uL Neutrophils # 8.1 H (1.3-7.7) k/uL Glucose 68 L (74-99) mg/dL TSH 0.218 L (0.465-4.680) mIU/L Ur Specific [place] 1.037 H (1.001-1.035) Urine Protein 1+ H (Negative) Urine Ketones Trace H (Negative) Hyaline Casts 11 H (0-2) /lpf Urine Mucus Many H (None) /hpf Urine Opiates Screen Detected H (NotDetected) Ur Oxycodone Screen Detected H (NotDetected) Ur Barbiturates Screen Detected H (NotDetected) U Benzodiazepines Scrn Detected H (NotDetected) U Marijuana (THC) Screen Detected H (NotDetected) Assessment and Plan Plan: 1 schizoaffective disorders and psychosis: Was admit to the psych unit continue patient on Valium and Zoloft continue counseling medication will be changed at this point. 2 hearing voices with questionable of tinnitus, patient might have reaction to Lyrica dose will be decreased to 50 mg twice a day apparently according to patient has been on 200 mg twice a day in the past. See if patient can be off medication completely. 3 chronic pain syndrome: Has been on Lyrica Fioricet w/ Codeine, hydrocodone and Valium try to reduce medication and try to lower the dose of hydrocodone. 4 chronic history of fibromyalgia patient should be in much less narcotic and muscle relaxer maybe to use yoga homicides [place] chiropractor and mild anti- inflammatory agent try to avoid any heavy narcotic use. 5 leukocytosis: No sign of infection so far repeat another blood count. 6 abnormal TSH: Free T4 was order if it's abnormal whether it's high or low we' ll make a diagnosis of hypo-or hyperthyroidism depend on and treat patient accordingly. 7 multiple substance abuse: Counseling patient is in the psych unit at this point. 8 GI prophylaxis: Will add Pepcid 20 mg daily. CODE STATUS: Full code. Dr. Denney thank you very much for the consult for can be any further help to please let me know.
[2016-10-07] MEDS ORDERED: ACETAMINOPHEN TAB 325 MG TAB PO PRN (15:00)
[2016-10-07] MEDS: NICOTINE 7MG/24HR PATCH TRANSDERM SCH (16:36)
[2016-10-07] MEDS ORDERED: ZIPRASIDONE 20 MG VIAL IM PRN (16:37)
--- NOTE | 2016-10-07 16:50 | P.HP ---
Psychiatric H&P - . H&P Date: 10/07/16 History & Physical: Allergies Allergy/AdvReac Type Severity Reaction Status Date / Time No Known Allergies Allergy Verified 10/06/16 13:25 Vital Signs Temp 98 F 10/07/16 06:36 Pulse 89 10/07/16 13:51 Resp 18 10/07/16 13:51 BP 123/71 10/07/16 13:51 Pulse Ox 96 10/06/16 18:46 Intake & Output 10/06/16 10/07/16 10/07/16 18:59 06:59 18:59 Weight 53.524 kg 53.6 kg Laboratory Last Values WBC 8.2 k/uL (3.8-10.6) 10/07/16 10:45 RBC 4.67 m/uL (3.80-5.40) 10/07/16 10:45 Hgb 13.8 gm/dL (11.4-16.0) 10/07/16 10:45 Hct 42.7 % (34.0-46.0) 10/07/16 10:45 MCV 91.5 fL (80.0-100.0) 10/07/16 10:45 MCH 29.6 pg (25.0-35.0) 10/07/16 10:45 MCHC 32.4 g/dL (31.0-37.0) 10/07/16 10:45 RDW 14.1 % (11.5-15.5) 10/07/16 10:45 Plt Count 413 k/uL (150-450) 10/07/16 10:45 Neutrophils % 72 % 10/07/16 10:45 Lymphocytes % 19 % 10/07/16 10:45 Monocytes % 6 % 10/07/16 10:45 Eosinophils % 1 % 10/07/16 10:45 Basophils % 1 % 10/07/16 10:45 Neutrophils # 5.9 k/uL (1.3-7.7) 10/07/16 10:45 Lymphocytes # 1.5 k/uL (1.0-4.8) 10/07/16 10:45 Monocytes # 0.5 k/uL (0-1.0) 10/07/16 10:45 Eosinophils # 0.1 k/uL (0-0.7) 10/07/16 10:45 Basophils # 0.1 k/uL (0-0.2) 10/07/16 10:45 Sodium 142 mmol/L (137-145) 10/07/16 10:45 Potassium 4.5 mmol/L (3.5-5.1) 10/07/16 10:45 Chloride 107 mmol/L (98-107) 10/07/16 10:45 Carbon Dioxide 27 mmol/L (22-30) 10/07/16 10:45 Anion Gap 8 mmol/L 10/07/16 10:45 BUN 16 mg/dL (7-17) 10/07/16 10:45 Creatinine 0.62 mg/dL (0.52-1.04) 10/07/16 10:45 Est GFR (MDRD) Af Amer >60 (>60 ml/min/1.73 sqM) 10/07/16 10:45 Est GFR (MDRD) Non-Af >60 (>60 ml/min/1.73 sqM) 10/07/16 10:45 Glucose 68 mg/dL (74-99) L 10/07/16 10:45 Calcium 9.6 mg/dL (8.4-10.2) 10/07/16 10:45 Total Bilirubin 0.6 mg/dL (0.2-1.3) 10/07/16 10:45 AST 17 U/L (14-36) 10/07/16 10:45 ALT 30 U/L (9-52) 10/07/16 10:45 Alkaline Phosphatase 61 U/L (38-126) 10/07/16 10:45 Total Protein 7.0 g/dL (6.3-8.2) 10/07/16 10:45 Albumin 4.4 g/dL (3.5-5.0) 10/07/16 10:45 TSH 0.218 mIU/L (0.465-4.680) L 10/07/16 10:45 Free T4 1.25 ng/dL (0.78-2.19) 10/07/16 10:45 Urine Color Yellow 10/06/16 14:30 Urine Appearance Clear (Clear) 10/06/16 14:30 Urine pH 5.5 (5.0-8.0) 10/06/16 14:30 Ur Specific [place] 1.037 (1.001-1.035) H 10/06/16 14:30 Urine Protein 1+ (Negative) H 10/06/16 14:30 Urine Glucose (UA) Negative (Negative) 10/06/16 14:30 Urine Ketones Trace (Negative) H 10/06/16 14:30 Urine Blood Negative (Negative) 10/06/16 14:30 Urine Nitrite Negative (Negative) 10/06/16 14:30 Urine Bilirubin Negative (Negative) 10/06/16 14:30 Urine Urobilinogen 3.0 mg/dL (<2.0) 10/06/16 14:30 Ur Leukocyte Esterase Negative (Negative) 10/06/16 14:30 Urine RBC 2 /hpf (0-5) 10/06/16 14:30 Urine WBC 2 /hpf (0-5) 10/06/16 14:30 Ur Squamous Epith Cells 1 /hpf (0-4) 10/06/16 14:30 Hyaline Casts 11 /lpf (0-2) H 10/06/16 14:30 Urine Mucus Many /hpf (None) H 10/06/16 14:30 Urine HCG, Qual Not Detected (Not Detectd) 10/06/16 14:30 Salicylates <1.0 mg/dL 10/06/16 14:30 Urine Opiates Screen Detected (NotDetected) H 10/06/16 14:30 Ur Oxycodone Screen Detected (NotDetected) H 10/06/16 14:30 Urine Methadone Screen Not Detected (NotDetected) 10/06/16 14:30 Ur Propoxyphene Screen Not Detected (NotDetected) 10/06/16 14:30 Acetaminophen <10.0 ug/mL 10/06/16 14:30 Ur Barbiturates Screen Detected (NotDetected) H 10/06/16 14:30 U Tricyclic Antidepress Not Detected (NotDetected) 10/06/16 14:30 Ur Phencyclidine Scrn Not Detected (NotDetected) 10/06/16 14:30 Ur Amphetamines Screen Not Detected (NotDetected) 10/06/16 14:30 U Methamphetamines Scrn Not Detected (NotDetected) 10/06/16 14:30 U Benzodiazepines Scrn Detected (NotDetected) H 10/06/16 14:30 Urine Cocaine Screen Not Detected (NotDetected) 10/06/16 14:30 U Marijuana (THC) Screen Detected (NotDetected) H 10/06/16 14:30 Serum Alcohol <10 mg/dL 10/06/16 14:30 10/07/16 16:39 IDENTIFYING DATA: 36-year-old female patient HPI: Patient admitted to the inpatient psychiatric unit [facility] on involuntary basis. Patient reports that she was feeling that she was hearing and seeing things and it's been happening for like 3 months. She says she's had a ringing in her ears and has wondered if it was medication side effects. Says she can actually hear voices and will ask her mom if she is talking to her aunt. Says she never sees people but will think that someone looks like another person. It's been more hearing things than it has been seeing anything. She states that she has been having hand tremor and her anxiety has been going through the roof. She also describes lightheadedness and dizziness. She's also been experiencing some insomnia, diarrhea, sweating, hot flashes. Regarding depression she says she doesn't think depression is a huge thing and denies any thoughts of suicide lately. She does admit to some paranoid type thoughts because she is worried about the medications. She admits to being a worrier about a lot of different things. She said that her tremor is not usual for her. She does admit to a history of trouble with her focus and attention. PAST PSYCHIATRIC HISTORY: She had 1 prior inpatient psychiatric admission she thinks with Dr. Hartman. She's been on Zoloft 150 more grams daily which historically has worked well for her. Cymbalta was added approximately 4 months ago and the time does seem to correlate with the time that she has been hearing things. The Cymbalta was to help her with fibromyalgia. She denies any history of suicide at times. She doesn't history of ADHD. She's been on Strattera in the past but has been off of that for one month without any benefit. She has been on Vyvanse in the past which gave her benefit. She does not see an outpatient psychiatrist currently but is supposed to see someone for medications at [facility] and a counselor there. She's been on Valium up to 10 mg 3 times a day which helped her in the past currently is dosed at 10 mg twice a day. PMH: Fibromyalgia ALLERGIES: No known ALLERGIES MEDICATIONS: Tylenol when necessary, Maalox when necessary, Valium, Pepcid, [place] when necessary, Habitrol patch, Lyrica, Zoloft, Cymbalta CHEMICAL DEPENDENCY HISTORY: Relays that drugs and alcohol are not an issue for her. FAMILY PSYCHIATRIC HISTORY: Depression and anxiety on both sides of the family. FAMILY CHEMICAL DEPENDENCY HISTORY: None known At this time. SOCIAL HISTORY: She says they are going to be moving to another place in the same area. She lives with her mom and 7-year-old son. She has another 15 year- old son that lives with his dad. She has joint custody of both children. She' s been once and . Is not currently working. MENTAL STATUS EXAM: She is alert and cooperative. Her speech is fluent, not rapid or pressured. Her mood is described as "feel not too bad." She denies any thoughts of harm to self or others she denies any current auditory or visual hallucinations. I do not note any significant disorientation or memory disturbance. Cognitively she appears to grossly intact. 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 Generalized anxiety disorder. ADHD by history. PLAN: Patient admitted to the inpatient psychiatric unit [facility] on a voluntary basis. She'll be placed on SP 15 minute precautions. Baseline laboratory workup will be done the patient and medical consultation will be ordered. Her kidney functions and ALT and AST were within normal limits. Due to concerns of symptoms of serotonin syndrome we will discontinue her Cymbalta and lower her dosage of Zoloft to 50 mg daily. Lyrica has also been decreased after medical consultation to 50 mg twice a day as it can also contribute to serotonin syndrome, with plans to taper this off. We'll increase Valium at this time to help alleviate some of the symptomatology with adding a 5 mg dose at [address] Denney will initiate care of this patient starting tomorrow. We'll hold off on antipsychotic treatment at this time as she is not experiencing current active psychosis symptoms and if anything at this time would prefer to minimize number of medications. Estimated length of stay is 3- 5 days. Prognosis is guarded.
[2016-10-07] MEDS: PREGABALIN 50 MG CAP PO SCH (20:45)
[2016-10-08] MEDS: NICOTINE 7MG/24HR PATCH TRANSDERM SCH (08:38)
[2016-10-08] MEDS: DIAZEPAM 5 MG TAB PO SCH ×2 (08:38→21:17)
[2016-10-08] MEDS: FAMOTIDINE 20 MG TAB PO SCH (08:39)
[2016-10-08] MEDS: SERTRALINE 50 MG TAB PO SCH (08:39)
[2016-10-08] MEDS: PREGABALIN 50 MG CAP PO SCH ×2 (08:39→21:17)
[2016-10-08] MEDS: HYDROcodone/APAP 5-325MG 1 EACH TAB PO PRN ×2 (08:40→17:40)
--- NOTE | 2016-10-08 10:15 | P.PN ---
Progress Note - Text Interval history: The patient is found in her room she follows as to an interview room. The patient was admitted with new-onset symptoms of psychosis. She was seen by Dr. Bennett and one of his concerns was that she could be having symptoms of serotonin syndrome. She was prescribed Zoloft Cymbalta and Lyrica. She described having nausea and diarrhea profuse sweating insomnia and find amplitude tremor. She reported experiencing auditory hallucinations and she was concerned that she was becoming schizophrenic. Dr. Bennett discontinue the Cymbalta the Lyrica was reduced the Zoloft was reduced. She states that she is feeling physically better there is some mild sweating but much improved. She is endorsing no hallucination she is reporting no specific delusions. Also confounding the situation the patient presents with a drug screen utilizing use of benzodiazepines oxycodone marijuana and barbiturates. She is prescribed [place], Valium. She see she sees a pain physician and a psychiatric nurse practitioner. Mental status exam: The patient is a thin female appearing her stated age she has to facial piercings she has a disheveled appearance she is dressed in her own clothing. Eye contact is appropriate. Speech is fluent spontaneous mildly pressured but she is easily directed in the interview. She reports her mood is improved she continues to have concern as to why she had hallucinations. She is reporting no suicidal or homicidal ideation intent or plan. She is endorsing no symptoms of psychosis there is no overt evidence of psychosis in observing her. Thought process can be linear she is mildly circumstantial at times. She does have some increased psychomotor activity. She demonstrates no verbal or physical aggressiveness. Insight and judgment improving. Plan: The patient will continue on her current medication we will monitor her for safety and encourage her continued participation in the milieu. We'll monitor vital signs. Social work will be asked to arrange a family meeting. She may be appropriate for discharge in the next 1-2 days depending on her clinical progress
[2016-10-08] MEDS ORDERED: DIAZEPAM 5 MG TAB PO SCH (14:00)
[2016-10-08 16:26] LABS: Mis test requested (Blood) DIAZEPAM(VALIUM)
[2016-10-09 06:38] VITALS: TEMP 98
[2016-10-09] MEDS: HYDROcodone/APAP 5-325MG 1 EACH TAB PO PRN (07:04)
--- NOTE | 2016-10-09 08:49 | P.DS ---
Providers Date of admission: 10/06/16 17:47 Expected date of discharge: 10/09/16 Attending physician: Teto Denney Consults: 10/06/16 17:53 Consult Physician Routine Consulting Provider: Chuck Plummer Consult Reason/Comments: Follow up H & P Do you want consulting provider notified?: Yes Primary care physician: Physician Nonstaff - Discharge Diagnosis(es) (1) Substance or medication-induced psychotic disorder Current Visit: Yes Status: Acute Priority: High (2) Generalized anxiety disorder Current Visit: Yes Status: Acute Priority: Medium Hospital Course: Brief summary of admission note: This patient is a 36-year-old female who was admitted to the mental health unit with symptoms of psychosis. She reported auditory hallucinations for the last 3 months. She described hearing voices and was experiencing a phenomenon that people were looking like other people. She knows that she had a tremor and was describing other physical symptoms such as lightheadedness and dizziness tremor insomnia sweating diarrhea and hot flashes. For full details please refer to the psychiatric evaluation completed on 10/07/2016. Summary of hospital course: The patient was admitted to the mental health unit voluntarily. She was evaluated initially by Dr. Bennett. It was determined that she was likely receiving too many medications working on serotonin. The Zoloft was reduced by two thirds, Cymbalta was discontinued. Lyrica was reduced. Fairly quickly the patient described a resolution of psychotic symptoms. Insomnia resolved. The patient has been able to participate in the milieu she's demonstrated no agitated behavior. Social work has been in contact with the patient's mother who perceives that the patient has greatly improved. A support meeting involving her mother will be held this morning. The patient is able to address her activities of daily living she is demonstrating no aggressive behavior she is reporting no suicidal or homicidal ideation intent or plan. Mental status exam: The patient is a thin female she has a disheveled appearance she is dressed in her own clothing. Eye contact is appropriate speech is fluent and spontaneous nonpressured. She reports that her mood is improved she is reporting no auditory or visual hallucinations she is endorsing no specific delusions. There is no observed evidence of psychosis. She endorses no racing thoughts she has no pressured speech she does not appear hypomanic or manic. She demonstrates no verbal or physical aggressiveness. Insight and judgment have improved. She reports no suicidal or homicidal ideation intent or plan. She is pleasant and cooperative throughout conversation. She demonstrates future oriented thinking. Impressions 1. Medication induced psychosis, generalized anxiety disorder, rule out ADHD 2. Fibromyalgia Plan: The patient will be discharged from the mental health unit return home today. She will participate in a support meeting involving her mother prior to discharge. The patient will continue on Zoloft 50 mg daily Valium 10 mg twice daily. She plans on continuing her psychiatric follow-up at [facility]. We have discussed her use of benzodiazepines opiates Fioricet and marijuana. She has no interest in pursuing chemical dependency treatment. She is encouraged to make efforts to reduce/eliminate these medications as possible. There is no imminent safety risk she is appropriate for transition back to outpatient care. She is aware she may return to the hospital with any acute safety concerns. Patient Condition at Discharge: Stable Plan - Discharge Summary New Discharge Prescriptions: New Nicotine 7Mg/24Hr Patch [Habitrol] 1 patch TRANSDERM DAILY #12 patch Pregabalin [Lyrica] 50 mg PO BID #60 cap Sertraline [Zoloft] 50 mg PO DAILY #30 tab Continue HYDROcodone/APAP 10-325MG [[place] 10-325] 1 tab PO TID Diazepam [Valium] 10 mg PO BID #20 Discontinued Pregabalin [Lyrica] 75 mg PO BID Sertraline HCl [Zoloft] 150 mg PO DAILY [place]/APAP/Caf/Cod [id number] [Fioricet w/Cod [id number]] 1 tab PO DAILY PRN PRN Reason: Migraine Headache DULoxetine HCL [Cymbalta] 30 mg PO DAILY Discharge Medication List HYDROcodone/APAP 10-325MG [[place] 10-325] 1 tab PO TID 06/27/16 [History] Diazepam [Valium] 10 mg PO BID #20 10/09/16 [Rx] Nicotine 7Mg/24Hr Patch [Habitrol] 1 patch TRANSDERM DAILY #12 patch 10/09/16 [ Rx] Pregabalin [Lyrica] 50 mg PO BID #60 cap 10/09/16 [Rx] Sertraline [Zoloft] 50 mg PO DAILY #30 tab 10/09/16 [Rx] Follow up Appointment(s)/Referral(s): Mirza Mullins [Outside] - 10/15/16 2:00 pm Nonstaff,Physician [Primary Care Provider] - 1-2 days
[2016-10-09] MEDS: PREGABALIN 50 MG CAP PO SCH (08:52)
[2016-10-09] MEDS: DIAZEPAM 5 MG TAB PO SCH (08:52)
[2016-10-09] MEDS: FAMOTIDINE 20 MG TAB PO SCH (08:52)
[2016-10-09] MEDS: SERTRALINE 50 MG TAB PO SCH (08:52)
[2016-10-09] MEDS: NICOTINE 7MG/24HR PATCH TRANSDERM SCH (08:53)
[2016-10-09 08:55] VITALS: BP 134/80; PULSE 103; RESP 16
== END 2016-10-09 09:38 | disposition home or self-care (01) | DRG 897 ==
LOC: SUPCPDRO 12:47 → EC 12:47 → 3MHU 17:47
PROVIDERS: ADMIT Psychiatry & Neurology Psychiatry; ATTEND Psychiatry & Neurology Psychiatry
DX: F19.959 Other psychoactive substance use, unspecified with psychoactive substance-induced psychotic disorder, unspecified (principal); F41.1 Generalized anxiety disorder; M79.7 Fibromyalgia; G47.00 Insomnia, unspecified; G89.29 Other chronic pain; M54.5 Low back pain; F90.9 Attention-deficit hyperactivity disorder, unspecified type; F17.200 Nicotine dependence, unspecified, uncomplicated; Z79.899 Other long term (current) drug therapy; Z81.8 Family history of other mental and behavioral disorders
CPT/HCPCS: 36415; 70450; 80053; 80306; 80320; 80346; 81001; 81025; 82075; 83520; 84439; 84443; 85025

== ENCOUNTER 2017-01-23 14:05 | Observation (INO) | payer OTHER ==
[2017-01-23] MEDS ORDERED: SODIUM CHLORIDE 0.9% 1,000 ML IV ONE (14:26)
--- NOTE | 2017-01-23 14:29 | ED ---
General Adult HPI - General Chief complaint: Overdose Stated complaint: Overdose Time Seen by Provider: 01/23/17 14:06 Source: patient, police, EMS, RN notes reviewed Mode of arrival: EMS Limitations: no limitations - History of Present Illness Initial comments: 36 female presents after suspected opiate overdose. Patient admits to taking 30 mg of methadone. Patient is prescribed 10 mg methadone twice daily for chronic pain. Denies any suicidal ideation or suicide attempt. Patient has a prescription of methadone that was filled yesterday, quantity 60, there is 37 tablets remaining. 23 tablets missing. Patient states she only took 3 tablets totaling 30 mg. She is uncertain where the other 20 pupils were, however there was other people in the home. She denies any IV drug use. Denies any other substance ingestion. According to EMS patient was apneic, cyanotic, pinpoint pupils. She was given 2 mg of IV Narcan. Patient has no complaints, evaluation. - Related Data Home Medications Medication Instructions Recorded Confirmed Methadone [Dolophine] 10 mg PO Q12HR 01/23/17 01/23/17 Allergies Allergy/AdvReac Type Severity Reaction Status Date / Time No Known Allergies Allergy Verified 01/23/17 14:14 Review of Systems ROS Statement: Those systems with pertinent positive or pertinent negative responses have been documented in the HPI. ROS Other: All systems not noted in ROS Statement are negative. Past Medical History Past Medical History: No Reported History Additional Past Medical History / Comment(s): spinal migraines, chronic back pain History of Any Multi-Drug Resistant Organisms: None Reported Past Surgical History: No Surgical Hx Reported Past Anesthesia/Blood Transfusion Reactions: No Reported Reaction Past Psychological History: Anxiety Smoking Status: Current every day smoker Past Alcohol Use History: Occasional Past Drug Use History: None Reported General Exam Limitations: no limitations General appearance: alert, in no apparent distress Head exam: Present: atraumatic, normocephalic Eye exam: Present: normal appearance, PERRL ENT exam: Present: normal exam Neck exam: Present: normal inspection. Absent: tenderness, meningismus Respiratory exam: Present: normal lung sounds bilaterally. Absent: respiratory distress Cardiovascular Exam: Present: regular rate, normal rhythm GI/Abdominal exam: Present: soft. Absent: distended, tenderness Extremities exam: Present: normal inspection, normal capillary refill. Absent: pedal edema Neurological exam: Present: alert, oriented X3. Absent: motor sensory deficit Psychiatric exam: Present: normal affect, normal mood. Absent: suicidal ideation Skin exam: Present: warm, dry, intact. Absent: cyanosis, diaphoretic Course Vital Signs 01/23/17 01/23/17 01/23/17 14:07 14:47 14:56 Temperature 97.2 F L Pulse Rate 100 100 94 Respiratory 20 18 16 Rate Blood Pressure 126/65 114/81 117/80 O2 Sat by Pulse 100 97 97 Oximetry 01/23/17 01/23/17 16:00 17:45 Temperature 98.2 F Pulse Rate 100 101 H Respiratory 14 16 Rate Blood Pressure 110/66 O2 Sat by Pulse 94 L 98 Oximetry Medical Decision Making - Medical Decision Making 36 yo female with polysubstance overdose, most concerning of these is methadone. Patient received 2 mg of Narcan by EMS, she requires to repeat dosing of Narcan for hypoxia and apnea in the emergency department. Respiratory rate at its lowest is 68. Patient will require observation for continuous pulse oximetry, given the long-acting nature of methadone. When necessary Narcan is ordered. No need for Narcan drip at this time. Diagnosis: Polysubstance overdose, methadone overdose. - Lab Data Result diagrams: 01/23/17 14:30 01/23/17 14:30 Lab Results 01/23/17 01/23/17 01/23/17 Range/Units 14:30 14:30 15:57 WBC 13.1 H (3.8-10.6) k/uL RBC 4.23 (3.80-5.40) m/uL Hgb 13.0 (11.4-16.0) gm/dL Hct 39.5 (34.0-46.0) % MCV 93.5 (80.0-100.0) fL MCH 30.6 (25.0-35.0) pg MCHC 32.7 (31.0-37.0) g/dL RDW 14.2 (11.5-15.5) % Plt Count 164 (150-450) k/uL Neutrophils % 78 % Lymphocytes % 13 % Monocytes % 6 % Eosinophils % 0 % Basophils % 1 % Neutrophils # 10.2 H (1.3-7.7) k/uL Lymphocytes # 1.8 (1.0-4.8) k/uL Monocytes # 0.7 (0-1.0) k/uL Eosinophils # 0.0 (0-0.7) k/uL Basophils # 0.1 (0-0.2) k/uL Sodium 137 (137-145) mmol/L Potassium 4.2 (3.5-5.1) mmol/L Chloride 104 (98-107) mmol/L Carbon Dioxide 21 L (22-30) mmol/L Anion Gap 12 mmol/L BUN 12 (7-17) mg/dL Creatinine 0.70 (0.52-1.04) mg/dL Est GFR (MDRD) Af Amer >60 (>60 ml/min/1.73 sqM) Est GFR (MDRD) Non-Af >60 (>60 ml/min/1.73 sqM) Glucose 102 H (74-99) mg/dL Calcium 8.6 (8.4-10.2) mg/dL Total Bilirubin 0.4 (0.2-1.3) mg/dL AST 57 H (14-36) U/L ALT 46 (9-52) U/L Alkaline Phosphatase 61 (38-126) U/L Total Protein 6.8 (6.3-8.2) g/dL Albumin 4.2 (3.5-5.0) g/dL Urine HCG, Qual (Not Detectd) Urine Opiates Screen Detected H (NotDetected) Ur Oxycodone Screen Not Detected (NotDetected) Urine Methadone Screen Detected H (NotDetected) Ur Propoxyphene Screen Not Detected (NotDetected) Ur Barbiturates Screen Detected H (NotDetected) U Tricyclic Antidepress Not Detected (NotDetected) Ur Phencyclidine Scrn Not Detected (NotDetected) Ur Amphetamines Screen Detected H (NotDetected) U Methamphetamines Scrn Detected H (NotDetected) U Benzodiazepines Scrn Detected H (NotDetected) Urine Cocaine Screen Not Detected (NotDetected) U Marijuana (THC) Screen Detected H (NotDetected) 01/23/17 Range/Units 15:57 WBC (3.8-10.6) k/uL RBC (3.80-5.40) m/uL Hgb (11.4-16.0) gm/dL Hct (34.0-46.0) % MCV (80.0-100.0) fL MCH (25.0-35.0) pg MCHC (31.0-37.0) g/dL RDW (11.5-15.5) % Plt Count (150-450) k/uL Neutrophils % % Lymphocytes % % Monocytes % % Eosinophils % % Basophils % % Neutrophils # (1.3-7.7) k/uL Lymphocytes # (1.0-4.8) k/uL Monocytes # (0-1.0) k/uL Eosinophils # (0-0.7) k/uL Basophils # (0-0.2) k/uL Sodium (137-145) mmol/L Potassium (3.5-5.1) mmol/L Chloride (98-107) mmol/L Carbon Dioxide (22-30) mmol/L Anion Gap mmol/L BUN (7-17) mg/dL Creatinine (0.52-1.04) mg/dL Est GFR (MDRD) Af Amer (>60 ml/min/1.73 sqM) Est GFR (MDRD) Non-Af (>60 ml/min/1.73 sqM) Glucose (74-99) mg/dL Calcium (8.4-10.2) mg/dL Total Bilirubin (0.2-1.3) mg/dL AST (14-36) U/L ALT (9-52) U/L Alkaline Phosphatase (38-126) U/L Total Protein (6.3-8.2) g/dL Albumin (3.5-5.0) g/dL Urine HCG, Qual Not Detected (Not Detectd) Urine Opiates Screen (NotDetected) Ur Oxycodone Screen (NotDetected) Urine Methadone Screen (NotDetected) Ur Propoxyphene Screen (NotDetected) Ur Barbiturates Screen (NotDetected) U Tricyclic Antidepress (NotDetected) Ur Phencyclidine Scrn (NotDetected) Ur Amphetamines Screen (NotDetected) U Methamphetamines Scrn (NotDetected) U Benzodiazepines Scrn (NotDetected) Urine Cocaine Screen (NotDetected) U Marijuana (THC) Screen (NotDetected) Critical Care Time Critical Care Time: Yes Total Critical Care Time: 35 Disposition Clinical Impression: Poisoning by opiate or related narcotic Disposition: ADMITTED IP TO THIS HOSP Condition: Stable Instructions: Opioid Overdose (ED) Referrals: Zaid Dasilva DO [Primary Care Provider] - 1-2 days Decision to Admit Reason: Admit from EC Decision Date: 01/23/17 Decision Time: 18:03
[2017-01-23 14:52] LABS: Basophils # (A) 0.1 k/uL (0-0.2); Basophils % (A) 1 %; CH 29.5; CHCM 31.7; Eosinophils % (A) 0 %; HCT 39.5 % (34.0-46.0); HDW 2.27; Luc # (Auto) 0.36; Luc % (Auto) 3; Lymphocytes # (A) 1.8 k/uL (1.0-4.8); Lymphocytes % (A) 13 %; MCH 30.6 pg (25.0-35.0); MCHC 32.7 g/dL (31.0-37.0); MCV 93.5 fL (80.0-100.0); Mean Platelet Volume 7.6; Monocytes # (A) 0.7 k/uL (0-1.0); Monocytes % (A) 6 %; Neutrophils # (A) 10.2 k/uL (1.3-7.7); Neutrophils % (A) 78 %; RBC 4.23 m/uL (3.80-5.40); RDW 14.2 % (11.5-15.5); WBC 13.1 k/uL (3.8-10.6); WBC (Perox) 13.45
[2017-01-23 15:03] LABS: ALT 46 U/L (9-52); AST 57 U/L (14-36); Alkaline Phosphatase 61 U/L (38-126); Anion Gap 12 mmol/L; Blood Urea Nitrogen 12 mg/dL (7-17); Calcium 8.6 mg/dL (8.4-10.2); Carbon Dioxide 21 mmol/L (22-30); Chloride 104 mmol/L (98-107); Glucose 102 mg/dL (74-99); Non-African American GFR(MDRD) >60 (>60 ml/min/1.73 sqM); Potassium 4.2 mmol/L (3.5-5.1); Sodium 137 mmol/L (137-145); Total Bilirubin 0.4 mg/dL (0.2-1.3); Total Protein 6.8 g/dL (6.3-8.2)
--- NOTE | 2017-01-23 16:27 | XR ---
EXAMINATION TYPE: XR wrist complete RT DATE OF EXAM: 01/23/2017 CLINICAL HISTORY: Right wrist pain after fall injury. TECHNIQUE: Frontal, lateral and oblique images of the right wrist are obtained. COMPARISON: None FINDINGS: There is no acute fracture/dislocation evident in the right wrist. The joint spaces in th e right wrist appear within normal limits. Peripheral IV overlies dorsum of right wrist. There are pu nctate soft tissue foreign bodies volar radial aspect right wrist. IMPRESSION: There is no acute fracture or dislocation in the right wrist.
[2017-01-23] MEDS ORDERED: NALOXONE 0.4 MG/ML 1 ML VIAL IV STA ×2 (16:47→17:59)
[2017-01-23] MEDS ORDERED: NALOXONE 0.4 MG/ML 10 ML VIAL IVP STA (16:47)
[2017-01-23] MEDS ORDERED: ONDANSETRON 4 MG/2 ML VIAL IVP PRN (17:59)
[2017-01-23] MEDS ORDERED: NALOXONE 0.4 MG/ML 1 ML VIAL IV PRN (17:59)
[2017-01-23] MEDS ORDERED: ACETAMINOPHEN TAB 325 MG TAB PO PRN (17:59)
[2017-01-23] MEDS ORDERED: ACETAMINOPHEN TAB 500 MG TAB PO STA (18:51)
[2017-01-23] MEDS ORDERED: NICOTINE 14MG/24HR PATCH TRANSDERM SCH (20:00)
[2017-01-23] MEDS: HEPARIN SODIUM,PORCINE 5,000 UNIT/ML 1 ML VIAL SQ SCH (21:45)
--- NOTE | 2017-01-23 21:49 | HP ---
HISTORY AND PHYSICAL DATE OF SERVICE: 01/23/2017 CHIEF COMPLAINT: Overdose. HISTORY OF PRESENT ILLNESS: This 36-year-old woman with a past history of multiple medical problems, including history of spinal migraines, chronic back pain, history of anxiety being followed by primary physician elsewhere. Apparently in the primary doctor's office, the patient took 3 tablets of [place] and some methadone, according to her also. The patient is taking 10 mg of methadone daily for chronic pain. The patient was drowsy. The patient came to [facility] and was admitted for further evaluation and treatment. Narcan initiation has been planned at this time. There is no history of fever, rigors. No history of headache, loss of consciousness, seizures at this time. The patient also had bilateral tracks in the distal arms, both forearm and the distal aspect and the patient reports that those happened as a result of trimming the pine tree. PAST MEDICAL HISTORY: History of chronic pain syndrome, history of anxiety, history of spinal migraines, chronic back pain. MEDICATIONS PRIOR TO ADMISSION: Include home medications of methadone 10 mg b.i.d. ALLERGIES: None. FAMILY HISTORY: No history of heart disease or strokes in the family. SOCIAL HISTORY: History of alcohol, cocaine, heroin, marijuana, smoking per chart. REVIEW OF SYSTEMS: ENT: No diminished hearing, diminished vision. CARDIOVASCULAR: No angina. RESPIRATORY: No cough, hemoptysis. GI: No nausea, vomiting. : No dysuria. NERVOUS: No numbness, weakness. Otherwise mentioned earlier ALLERGIES/IMMUNOLOGY: No asthma or hay fever. MUSCULOSKELETAL: As mentioned earlier. HEMATOLOGY/ONCOLOGY: No history of anemia. ENDOCRINE: As mentioned earlier. CONSTITUTIONAL: As mentioned earlier. DERMATOLOGY: Negative. RHEUMATOLOGY: Negative. PSYCHIATRY: As mentioned earlier. PHYSICAL EXAMINATION: Alert and oriented x3. The patient is drowsy, but arousable. Pulse is 101, blood pressure 110/63, respirations 16, temperature 98.2, pulse ox 98% on 2L. HEENT: Conjunctivae normal. Oral mucosa moist. NECK: No jugular venous distention. No carotid bruits. No lymph nodes enlargement. CARDIOVASCULAR: S1, S2 muffled. No S3. No S4. RESPIRATORY: Breath sounds diminished in the bases. A few rhonchi. No crackles. ABDOMEN: Soft, nontender. No mass palpable. LEGS: No edema. No swelling. NERVOUS SYSTEM: Higher functions as mentioned earlier. Moves all 4 limbs. No focal motor or sensory deficits. LYMPHATIC: No lymphadenopathy in neck or axillae. SKIN: No ulcer, rash or bleeding. LABS: At this time show WBC 13.2, hemoglobin is 13. Other labs are noted. ASSESSMENT: 1. Change in mental status and drug overdoses with metabolic encephalopathy. 2. Polysubstance abuse including alcohol, cocaine, heroin and marijuana, smoking per chart. 3. Multiple excoriations and abrasions on both the forearms, possibly self-inflicted. 4. Anxiety. 5. History of splenomegaly. 6. Chronic back pain and chronic pain syndrome. 7. FULL CODE. RECOMMENDATIONS AND DISCUSSION: This 36-year-old woman admitted with complex medical issues. At this time, I recommend to continue current management, continue symptomatic treatment. Will administer the naloxone on a p.r.n. basis. Psych instituted one-to-one precautions. Also inpatient psych evaluation. Drug rehab is also recommended. Prognosis guarded because of multiple complex medical issues. Further recommendations to follow. See orders for further details. MMODL / IJN: [id number] /
[2017-01-23] MEDS ORDERED: traMADol 50 MG TAB PO STA (22:11)
[2017-01-23] MEDS: LORazepam 0.5 MG TAB PO PRN (22:20)
[2017-01-24 07:18] LABS: Basophils % (A) 1 %; CH 29.9; CHCM 32.4; Eosinophils # (A) 0.1 k/uL (0-0.7); Eosinophils % (A) 1 %; HCT 34.5 % (34.0-46.0); HDW 2.26; HGB 10.9 gm/dL (11.4-16.0); Luc # (Auto) 0.16; Luc % (Auto) 4; Lymphocytes # (A) 1.4 k/uL (1.0-4.8); Lymphocytes % (A) 32 %; MCH 29.5 pg (25.0-35.0); MCHC 31.7 g/dL (31.0-37.0); MCV 92.8 fL (80.0-100.0); Mean Platelet Volume 7.1; Monocytes # (A) 0.4 k/uL (0-1.0); Monocytes % (A) 9 %; Neutrophils # (A) 2.4 k/uL (1.3-7.7); Neutrophils % (A) 53 %; RBC 3.71 m/uL (3.80-5.40); RDW 13.4 % (11.5-15.5); WBC 4.5 k/uL (3.8-10.6); WBC (Perox) 4.47
[2017-01-24 07:20] LABS: ALT 55 U/L (9-52); AST 49 U/L (14-36); Alkaline Phosphatase 102 U/L (38-126); Anion Gap 8 mmol/L; Blood Urea Nitrogen 9 mg/dL (7-17); Calcium 7.9 mg/dL (8.4-10.2); Carbon Dioxide 24 mmol/L (22-30); Chloride 106 mmol/L (98-107); Glucose 83 mg/dL (74-99); Non-African American GFR(MDRD) >60 (>60 ml/min/1.73 sqM); Potassium 3.9 mmol/L (3.5-5.1); Sodium 138 mmol/L (137-145); Total Bilirubin 0.1 mg/dL (0.2-1.3); Total Protein 5.2 g/dL (6.3-8.2)
[2017-01-24] MEDS ORDERED: PANTOPRAZOLE 40 MG TABLET PO SCH (07:30)
[2017-01-24] MEDS: HEPARIN SODIUM,PORCINE 5,000 UNIT/ML 1 ML VIAL SQ SCH (09:05)
[2017-01-24] MEDS ORDERED: ACETAMINOPHEN IV (For NPO) 1,000 MG in EMPTY BAG 1 BAG IVPB PRN (09:13)
[2017-01-24] MEDS: LORazepam 0.5 MG TAB PO PRN (10:10)
[2017-01-24 10:56] VITALS: RESP 18
[2017-01-24 12:36] VITALS: BP 96/53; PULSE 79; TEMP 97.8
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
--- NOTE | 2017-01-24 17:16 | P.DS ---
Providers Date of admission: 01/23/17 17:59 Attending physician: David Graham Consults: 01/24/17 07:50 Consult Physician Routine Consulting Provider: Florentin Portillo Consult Reason/Comments: suicidal Do you want consulting provider notified?: Yes Primary care physician: Zaid Dasilva Hospital Course: This 36 old was admitted with the overdose. Patient was seen by psychiatric. Psychiatric recommended the patient be discharged in a stable condition with guarded prognosis should be discharged with further plans to follow up with the patient's on psychiatric and as well as primary physician in the preceding. Also recommended the drug rehab. Patient understands and agrees. On exam vitals stable. Cardio S1 and S2 normal. Respirator system clear to auscultation. Abdomen soft nontender. Final diagnosis 1. Change in mental status with the low-dose metabolic considerably. 2. Polysubstance abuse 3. Multiple excoriations and abrasions of both arms. 4. Anxiety. Patient Condition at Discharge: Stable Plan - Discharge Summary New Discharge Prescriptions: New Acetaminophen Tab [Tylenol] 650 mg PO Q6HR PRN tab PRN Reason: Mild Pain Or Fever > 100.5 Nicotine 14Mg/24Hr Patch [Habitrol] 1 patch TRANSDERM DAILY #30 patch Pantoprazole Sodium [Protonix] 40 mg PO DAILY #30 tablet. Discontinued Methadone [Dolophine] 10 mg PO Q12HR Discharge Medication List Acetaminophen Tab [Tylenol] 650 mg PO Q6HR PRN tab 01/24/17 [Rx] Nicotine 14Mg/24Hr Patch [Habitrol] 1 patch TRANSDERM DAILY #30 patch 01/24/17 [ Rx] Pantoprazole Sodium [Protonix] 40 mg PO DAILY #30 tablet. 01/24/17 [Rx] Follow up Appointment(s)/Referral(s): Zaid Dasilva DO [Primary Care Provider] - 3 Days (Please call office to schedule appointment. ) Patient Instructions/Handouts: Opioid Overdose (ED) Activity/Diet/Wound Care/Special Instructions: follow up with psychiatrist. Please call to make appointment. Discharge Disposition: TRANSFER TO PSYCH HOSP/UNIT
== END 2017-01-24 16:16 ==
LOC: EC 14:05 → 6SEL 17:59
PROVIDERS: ADMIT Hospitalist; ATTEND Hospitalist
DX: T40.3X2A Poisoning by methadone, intentional self-harm, initial encounter (principal); F11.10 Opioid abuse, uncomplicated; G93.41 Metabolic encephalopathy; F10.10 Alcohol abuse, uncomplicated; F14.10 Cocaine abuse, uncomplicated; F12.10 Cannabis abuse, uncomplicated; F41.9 Anxiety disorder, unspecified; G89.4 Chronic pain syndrome; M54.9 Dorsalgia, unspecified; F17.200 Nicotine dependence, unspecified, uncomplicated; S50.812A Abrasion of left forearm, initial encounter; S50.811A Abrasion of right forearm, initial encounter; X58.XXXA Exposure to other specified factors, initial encounter; G43.809 Other migraine, not intractable, without status migrainosus; Z79.899 Other long term (current) drug therapy; Z81.8 Family history of other mental and behavioral disorders
CPT/HCPCS: 99291 ×2; 96375 ×2; 96376 ×2; 96361 ×2; 96365; 96372; 82075; 36415; 80053 ×2; 85025 ×2; 81025; 80306; 73110; G0378 ×2; J1644; J2310; J0131

== ENCOUNTER → 2017-02-20 | Outpatient (CLI) | payer OTHER ==
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
== END | disposition home or self-care (01) ==
LOC: SLEEP 13:55
PROVIDERS: ATTEND Internal Medicine
DX: G47.10 Hypersomnia, unspecified (principal); M26.19 Other specified anomalies of jaw-cranial base relationship; G25.81 Restless legs syndrome; M79.7 Fibromyalgia; M54.2 Cervicalgia; M54.6 Pain in thoracic spine; Z79.899 Other long term (current) drug therapy; Z98.890 Other specified postprocedural states
CPT/HCPCS: 99211

== ENCOUNTER → 2017-03-21 | Outpatient (CLI) | payer OTHER ==
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
== END | disposition home or self-care (01) ==
LOC: SLEEP 13:42
PROVIDERS: ATTEND Internal Medicine
DX: G47.419 Narcolepsy without cataplexy (principal); M54.2 Cervicalgia; Z98.890 Other specified postprocedural states; Z87.828 Personal history of other (healed) physical injury and trauma

== ENCOUNTER 2017-08-07 20:59 | Emergency (ER) | payer OTHER ==
[2017-08-07 21:08] VITALS: RESP 18
--- NOTE | 2017-08-07 21:37 | ED ---
Psych HPI - General Chief Complaint: Psychiatric Symptoms Stated Complaint: Mental Health Eval Time Seen by Provider: 08/07/17 21:14 Source: patient Mode of arrival: ambulatory - History of Present Illness Initial Comments: This patient is a 37-year-old woman who is here for Court ordered psychiatric evaluation. The papers accompanying the patient show that the patient's mother alleges that the patient is making delusional statements both in person and on social media. There is no mention of suicidal or homicidal ideation. Patient reportedly has history of psychosis related to drug use. The patient is not having any medical complaints at the time of interview. Patient denies auditory or visual hallucinations. She denies suicidal or homicidal ideation. MD Complaint: other -: week(s) Associated Psychiatric Symptoms: delusions History of same: Yes Quality: constant Improves With: none Worsens With: drug use - Related Data Home Medications Medication Instructions Recorded Confirmed Omeprazole 20 mg PO DAILY PRN 08/07/17 08/07/17 Pregabalin [Lyrica] 200 mg PO BID 08/07/17 08/07/17 clonazePAM [KlonoPIN] 0.5 mg PO TID PRN 08/07/17 08/07/17 Allergies Allergy/AdvReac Type Severity Reaction Status Date / Time No Known Allergies Allergy Verified 08/07/17 22:14 Review of Systems ROS Statement: Those systems with pertinent positive or pertinent negative responses have been documented in the HPI. ROS Other: All systems not noted in ROS Statement are negative. Constitutional: Denies: fever, chills Respiratory: Denies: cough, dyspnea Cardiovascular: Denies: chest pain Gastrointestinal: Denies: abdominal pain, nausea, vomiting Musculoskeletal: Denies: back pain Neurological: Denies: headache, weakness, confusion Psychiatric: Denies: depression, auditory hallucinations, visual hallucinations , homicidal thoughts, suicidal thoughts Past Medical History Past Medical History: No Reported History Additional Past Medical History / Comment(s): spinal migraines, chronic back pain History of Any Multi-Drug Resistant Organisms: None Reported Past Surgical History: Tonsillectomy Past Anesthesia/Blood Transfusion Reactions: No Reported Reaction Past Psychological History: Anxiety Smoking Status: Current every day smoker Past Alcohol Use History: Occasional Past Drug Use History: None Reported - Past Family History Mother Family Medical History: No Reported History General Exam Limitations: no limitations General appearance: alert, in no apparent distress Head exam: Present: atraumatic, normocephalic Eye exam: Present: normal appearance. Absent: scleral icterus, conjunctival injection ENT exam: Present: normal oropharynx Respiratory exam: Present: normal lung sounds bilaterally. Absent: respiratory distress, wheezes, rales, rhonchi, stridor Cardiovascular Exam: Present: regular rate, normal rhythm, normal heart sounds. Absent: systolic murmur, diastolic murmur, rubs, gallop GI/Abdominal exam: Present: soft. Absent: tenderness Extremities exam: Present: normal inspection, normal capillary refill. Absent: pedal edema, calf tenderness Neurological exam: Present: alert, oriented X3, normal gait. Absent: motor sensory deficit Psychiatric exam: Absent: depressed, agitated, anxious, flat affect, manic, homicidal ideation, suicidal ideation Skin exam: Present: warm, dry, intact, normal color. Absent: rash Course Vital Signs 08/07/17 08/07/17 21:05 23:20 Temperature 97.8 F 98.6 F Pulse Rate 99 68 Respiratory 18 18 Rate Blood Pressure 116/61 122/76 O2 Sat by Pulse 96 98 Oximetry Medical Decision Making - Medical Decision Making This patient is a 37-year-old woman brought for Court ordered psychiatric evaluation. I have performed a medical clearance, and the patient is seen by behavioral health. After discussion with the psychiatrist, the environmental services manager states that the patient is displaying some delusional thought content, she is not currently meeting admission criteria. They are recommending outpatient follow-up. At this point the patient is not manifesting any hallucinations. She is not having any suicidal ideation or homicidal ideation. There is some paranoid delusional thought content, but this probably does not rise to the level of holding patient against her will. - Lab Data Lab Results 08/07/17 Range/Units 21:25 Urine Opiates Screen Not Detected (NotDetected) Ur Oxycodone Screen Not Detected (NotDetected) Urine Methadone Screen Detected H (NotDetected) Ur Propoxyphene Screen Not Detected (NotDetected) Ur Barbiturates Screen Not Detected (NotDetected) U Tricyclic Antidepress Not Detected (NotDetected) Ur Phencyclidine Scrn Not Detected (NotDetected) Ur Amphetamines Screen Not Detected (NotDetected) U Methamphetamines Scrn Not Detected (NotDetected) U Benzodiazepines Scrn Not Detected (NotDetected) Urine Cocaine Screen Not Detected (NotDetected) U Marijuana (THC) Screen Not Detected (NotDetected) Disposition Clinical Impression: Examination, medicolegal reason Disposition: HOME SELF-CARE Condition: Fair Instructions: Medical Clearance for Psychiatric Care (ED) Is patient prescribed a controlled substance at d/c from ED?: No Referrals: David Pimentel Jr, DO [Primary Care Provider] - 1-2 days
[2017-08-07 21:41] LABS: Amphetamine Screen,Urine Not Detected (NotDetected); Barbiturate Screen,Urine Not Detected (NotDetected); Benzodiazepines Screen,Urine Not Detected (NotDetected); Cocaine Screen,Urine Not Detected (NotDetected); Methadone Screen, Urine Detected (NotDetected); Opiate Screen,Urine Not Detected (NotDetected); Oxycodone Screen, Urine Not Detected (NotDetected); Phencyclidine Screen,Urine Not Detected (NotDetected); Tricyclic Antidepressant,Urine Not Detected (NotDetected); Urn Cannabinoid Scrn Not Detected (NotDetected)
[2017-08-07 23:22] VITALS: BP 122/76; PULSE 68; TEMP 98.6
== END 2017-08-07 23:20 | disposition home or self-care (01) ==
LOC: EC 20:59
DX: Z04.6 Encounter for general psychiatric examination, requested by authority (principal); F41.9 Anxiety disorder, unspecified; F17.200 Nicotine dependence, unspecified, uncomplicated; Z79.899 Other long term (current) drug therapy
CPT/HCPCS: 80306; 82075; 99284

== ENCOUNTER 2017-10-13 18:55 | Emergency (ER) | payer OTHER ==
[2017-10-13 19:01] VITALS: RESP 16; TEMP 98
[2017-10-13] MEDS ORDERED: KETOROLAC 30 MG/ML 1 ML VIAL IVP STA (19:26)
[2017-10-13] MEDS ORDERED: CYCLOBENZAPRINE 10MG STARTER 3 TAB BTL PO STA (19:26)
[2017-10-13] MEDS ORDERED: ORPHENADRINE 30 MG/ML 2 ML VIAL IM STA (19:27)
[2017-10-13] MEDS ORDERED: KETOROLAC 30 MG/ML 1 ML VIAL IM STA (19:38)
--- NOTE | 2017-10-13 19:38 | ED ---
General Adult HPI - General Chief complaint: Back Pain/Injury Stated complaint: low back pain Time Seen by Provider: 10/13/17 19:04 Source: patient Mode of arrival: ambulatory Limitations: no limitations - History of Present Illness Initial comments: 37 yoF presenting with chronic back pain. She states it has been worsening over the last 6-8 months. States she's been having night sweats at that time as well. Patient states she followed with primary care doctor today who told her that she had low white blood cell and red blood cell counts. Patient states she is concerned that she could have something like cancer. Sensation states she is also concerned because she found out an old boyfriend had been cheating on her. She states that she has been tested for HIV recently and that was negative. She denies any vaginal bleeding discharge and does not want to be tested for STDs at this point. It isn't sutured. Going to a pain doctor for her chronic back pain. 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 She's been taking Motrin with some mild improvement but without resolution. She denies any trauma to the back, focal weakness, numbness, paresthesias. She denies any saddle anesthesia or bowel or bladder dysfunction. Since that she would like information to see a neurologist and autoimmune Drs. she concerned that she could be rheumatoid arthritis or "nerve problems." He denies any IV drug abuse, alcohol abuse, fevers chills, urinary symptoms, cough, abdominal pain. - Related Data Home Medications Medication Instructions Recorded Confirmed Omeprazole 20 mg PO DAILY PRN 08/07/17 08/07/17 Pregabalin [Lyrica] 200 mg PO BID 08/07/17 08/07/17 clonazePAM [KlonoPIN] 0.5 mg PO TID PRN 08/07/17 08/07/17 Allergies Allergy/AdvReac Type Severity Reaction Status Date / Time No Known Allergies Allergy Verified 10/13/17 18:58 Review of Systems ROS Statement: Those systems with pertinent positive or pertinent negative responses have been documented in the HPI. Review of Systems Constitutional: Denies fever, chills. Positive night sweats Eyes: Denies change in vision, Denies pain Ears, nose, mouth, throat: Denies headaches, Denies sore throat Cardiovascular: Denies chest pain. Denies palpitations Respiratory: Denies shortness of breath, Denies cough Gastrointestinal: Denies abdominal pain. Denies nausea, vomiting, diarrhea. Genitourinary: Denies hematuria, Denies infections Musculoskeletal: Positive back pain, Denies swelling Integumentary: Denies rash Neurological: Denies headache, focal weakness, focal numbness Psychiatric: Denies anxiety, Denies depression Hematologic/Lymphatic: Denies easy bleeding or bruising ROS Other: All systems not noted in ROS Statement are negative. Past Medical History Past Medical History: No Reported History Additional Past Medical History / Comment(s): spinal migraines, chronic back pain History of Any Multi-Drug Resistant Organisms: None Reported Past Surgical History: Tonsillectomy Past Anesthesia/Blood Transfusion Reactions: No Reported Reaction Past Psychological History: Anxiety Smoking Status: Current every day smoker Past Alcohol Use History: Occasional Past Drug Use History: None Reported - Past Family History Mother Family Medical History: No Reported History General Exam - General Exam Comments Initial Comments: General: Awake, alert, No acute Distress HENT: Normocephalic. Atraumatic Eyes: PERRL. EOMI. No scleral icterus. No injected conjunctiva Neck: Full ROM Chest/Lungs: Clear to auscultation bilaterally. No wheezing, rhonchi, or rales Cardiac: Regular rate, rhythm. No murmurs or rubs Abdomen/GI: Soft, nontender, nondistended. No rebound, guarding, or rigidity. Musculoskeletal: Full ROM. Thoracic paraspinal hypertonicity bilaterally. No midline cervical, thoracic, or lumbar spine tenderness. Skin: Warm, dry, intact Neurologic: A/Ox3, no weakness, no sensory deficit, no abnormal gait, no coordination deficit. C5-T1 sensation intact and symmetric bilaterally. L3-S1 sensation intact and symmetric bilaterally Limitations: no limitations Course Vital Signs 10/13/17 18:58 Temperature 98 F Pulse Rate 86 Respiratory 16 Rate Blood Pressure 112/70 O2 Sat by Pulse 98 Oximetry Medical Decision Making - Medical Decision Making 37-year-old female presenting with chronic back pain. Initial exam the patient is an her cell phone and asked me to return to the room. Upon returning the patient is awake, alert, in no acute distress. VSS. Patient is nontoxic appearing. Discussion is had with the patient regarding her concerns for underlying chronic medical conditions. This with her following with a different primary care physician if she feels the one she is seeing is not adequately addressing her concerns. She works Saturday through Saturday of this week and a new job. States she does not want a work note and wants to go to work. His constipation that she should work on finding a new primary care physician and that she would be provided with some referrals here as well as referrals for neurology and rheumatology. She declined any STI testing. Patient had an MRI in May 2016 and no masses were seen. Was discussed with the patient following back up in the pain clinic as she states Requip and gabapentin used to work well for this pain. Discussed with the patient the emergency department 's policy on giving prescriptions for controlled substances for chronic pain. She verbalized understanding. The patient does have some thoracic hypertonicity. She was given a dose of Norflex and Toradol here as well as a starter pack for Flexeril. Patient was instructed not to drive or operate heavy machinery while taking the Flexeril. He was instructed not to take it before going to work. The patient was agreeable to plan and all her questions were answered. She is nontoxic appearing and serious etiology such as epidural abscess are low likelihood. No further emergent workup indicated. The patient was given return to ED instructions. They were instructed to follow up with their primary care provider. Stable for discharge at this time. Disposition Clinical Impression: Chronic back pain greater than 3 months duration Disposition: HOME SELF-CARE Condition: Good Instructions: Chronic Back Pain (ED) Additional Instructions: Call Dr. Agee for neurology follow up and for rheumatology follow up. Call Dr Erik Vela's office if you would like a new PCP. Is patient prescribed a controlled substance at d/c from ED?: No Referrals: Kathy Matson PAC [REFERRING] - 1-2 days Kofi Agee MD [STAFF PHYSICIAN] - 1-2 days Laquita Khalil MD [STAFF PHYSICIAN] - 1-2 days Mica Vela MD [STAFF PHYSICIAN] - 1-2 days
[2017-10-13 20:11] VITALS: BP 115/72; PULSE 84
== END 2017-10-13 20:10 | disposition home or self-care (01) ==
LOC: EC 18:55
DX: G89.29 Other chronic pain (principal); M54.5 Low back pain; F41.9 Anxiety disorder, unspecified; F17.200 Nicotine dependence, unspecified, uncomplicated; Z79.899 Other long term (current) drug therapy
CPT/HCPCS: 99283; 96372 ×2; J2360; J1885

== ENCOUNTER 2017-11-09 17:16 | Emergency (ER) | payer OTHER ==
[2017-11-09] MEDS ORDERED: SODIUM CHLORIDE 0.9% 500 ML IV SCH (18:45)
[2017-11-09 19:11] LABS: Basophils # (A) 0.1 k/uL (0-0.2); Basophils % (A) 1 %; Eosinophils # (A) 0.1 k/uL (0-0.7); Eosinophils % (A) 2 %; HCT 39.6 % (34.0-46.0); HGB 13.5 gm/dL (11.4-16.0); Lymphocytes % (A) 21 %; MCH 28.9 pg (25.0-35.0); Mean Platelet Volume 6.9; Monocytes # (A) 0.7 k/uL (0-1.0); Monocytes % (A) 7 %; Neutrophils # (A) 6.4 k/uL (1.3-7.7); Neutrophils % (A) 68 %; Platelet Count 330 k/uL (150-450); RBC 4.66 m/uL (3.80-5.40); RDW 13.3 % (11.5-15.5); WBC 9.4 k/uL (3.8-10.6)
[2017-11-09 19:23] LABS: Acetaminophen <10.0 ug/mL; Alcohol <10 mg/dL; Salicylate <1.0 mg/dL
[2017-11-09 19:45] LABS: Amphetamine Screen,Urine Detected (NotDetected); Barbiturate Screen,Urine Detected (NotDetected); Benzodiazepines Screen,Urine Detected (NotDetected); Cocaine Screen,Urine Detected (NotDetected); Methadone Screen, Urine Detected (NotDetected); Opiate Screen,Urine Not Detected (NotDetected); Oxycodone Screen, Urine Not Detected (NotDetected); Phencyclidine Screen,Urine Not Detected (NotDetected); Tricyclic Antidepressant,Urine Not Detected (NotDetected); Urn Cannabinoid Scrn Detected (NotDetected)
[2017-11-09 19:50] VITALS: BP 124/79; PULSE 76; RESP 20; TEMP 98.3
[2017-11-09] MEDS ORDERED: KETOROLAC 30 MG/ML 1 ML VIAL IVP STA (19:53)
--- NOTE | 2017-11-09 20:05 | ED ---
General Adult HPI - General Chief complaint: Weakness Stated complaint: weakness Time Seen by Provider: 11/09/17 17:32 Source: patient, RN notes reviewed, old records reviewed Mode of arrival: wheelchair Limitations: no limitations - History of Present Illness Initial comments: Chief complaint and history of present illness a 37-year-old female with a history of methadone daily. States she missed her dose today. The patient was unable to stay awake during the initial interview. After approximately one hour the patient awakened and wants to leave. She is requesting Toradol. - Related Data Home Medications Medication Instructions Recorded Confirmed Omeprazole 20 mg PO DAILY PRN 08/07/17 11/09/17 Pregabalin [Lyrica] 200 mg PO DAILY 08/07/17 11/09/17 clonazePAM [KlonoPIN] 0.5 mg PO TID PRN 08/07/17 11/09/17 Allergies Allergy/AdvReac Type Severity Reaction Status Date / Time No Known Allergies Allergy Verified 11/09/17 17:21 Review of Systems ROS Statement: Those systems with pertinent positive or pertinent negative responses have been documented in the HPI. Review of systems. The patient for she has aches and pains all over. States she missed her methadone today. States she slept through the visit. It is noted the patient nods off every few seconds. After approximate 45 minutes to an hour the patient became wide-awake and decided she wants to go home. Offered Toradol which she's accepted. Past medical problems significant for fibromyalgia and spinal migraines. Surgeries tonsillectomy. ROS Other: All systems not noted in ROS Statement are negative. Past Medical History Past Medical History: Fibromyalgia Additional Past Medical History / Comment(s): spinal migraines, chronic back pain, lupus History of Any Multi-Drug Resistant Organisms: None Reported Past Surgical History: Tonsillectomy Past Anesthesia/Blood Transfusion Reactions: No Reported Reaction Past Psychological History: Anxiety Smoking Status: Former smoker Past Alcohol Use History: Occasional Past Drug Use History: None Reported, Prescription Drug Abuse - Past Family History Mother Family Medical History: No Reported History General Exam - General Exam Comments Initial Comments: General: The patient is somnolent. When she awakened she states that she has pain everywhere. After one hour the patient was wide awake, alert and wants to go home. She states that she missed her dose of methadone today. Denies taking any narcotics or anything that may make her so somnolent. Denies overdosing on methadone. Patient states that he takes 160 mg of methadone daily. Vital signs shows temperature 98.0 pulse 89 respiratory rate 18 pulse ox 90% room air blood pressure 101/65 Eye: Pupils are equal, round and reactive to light, extra-ocular movements are intact ; there is normal conjunctiva bilaterally. No signs of icterus. Ears, nose, mouth and throat: There are moist mucous membranes. Neck: The neck is supple, . No complaint of neck pain. Cardiovascular: There is a regular rate and rhythm. No murmur,. Respiratory: No complaints of respiratory distress or shortness of breath.. Gastrointestinal: Denies abdominal pain Back: Complains of chronic pain from fibromyalgia. Musculoskeletal: Patient able to move upper and lower extremities without apparent difficulty or discomfort. Neurological: Patient is somnolent during the beginning of the interview and wide-awake afterwards. Skin: Skin is warm and dry Psychiatric: Patient denies suicidal thoughts. States she has had a past history of depression. Denies being depressed but this time. Patient is not cooperative. Limitations: no limitations Course Vital Signs 11/09/17 11/09/17 11/09/17 17:21 17:58 19:07 Temperature 98.1 F Pulse Rate 89 70 Respiratory 18 18 18 Rate Blood Pressure 101/65 122/65 O2 Sat by Pulse 98 99 Oximetry 11/09/17 19:48 Temperature 98.3 F Pulse Rate 76 Respiratory 20 Rate Blood Pressure 124/79 O2 Sat by Pulse 98 Oximetry Medical Decision Making - Medical Decision Making Medical decision making; this is a 37-year-old female comes in with a complaint of hurting everywhere. Patient was significantly noted to be somnolent for the first 45 minutes in emergency room but easily arousable. Patient states she missed her methadone today. Urine was positive for methadone, barbiturates, amphetamines, methamphetamines, benzodiazepines, cocaine and marijuana. Patient denies doing these drugs other than methadone. The patient is a 77 eye AGAINST MEDICAL ADVICE. Was offered Toradol and accepted Toradol. Advised to follow-up with drug rehab in her family doctor. Return emergency room as needed - Lab Data Result diagrams: 11/09/17 18:54 Lab Results 11/09/17 11/09/17 11/09/17 Range/Units 18:54 18:54 19:11 WBC 9.4 (3.8-10.6) k/uL RBC 4.66 (3.80-5.40) m/uL Hgb 13.5 (11.4-16.0) gm/dL Hct 39.6 (34.0-46.0) % MCV 85.0 (80.0-100.0) fL MCH 28.9 (25.0-35.0) pg MCHC 34.0 (31.0-37.0) g/dL RDW 13.3 (11.5-15.5) % Plt Count 330 (150-450) k/uL Neutrophils % 68 % Lymphocytes % 21 % Monocytes % 7 % Eosinophils % 2 % Basophils % 1 % Neutrophils # 6.4 (1.3-7.7) k/uL Lymphocytes # 2.0 (1.0-4.8) k/uL Monocytes # 0.7 (0-1.0) k/uL Eosinophils # 0.1 (0-0.7) k/uL Basophils # 0.1 (0-0.2) k/uL Urine HCG, Qual (Not Detectd) Salicylates <1.0 mg/dL Urine Opiates Screen Not Detected (NotDetected) Ur Oxycodone Screen Not Detected (NotDetected) Urine Methadone Screen Detected H (NotDetected) Ur Propoxyphene Screen Not Detected (NotDetected) Acetaminophen <10.0 ug/mL Ur Barbiturates Screen Detected H (NotDetected) U Tricyclic Antidepress Not Detected (NotDetected) Ur Phencyclidine Scrn Not Detected (NotDetected) Ur Amphetamines Screen Detected H (NotDetected) U Methamphetamines Scrn Detected H (NotDetected) U Benzodiazepines Scrn Detected H (NotDetected) Urine Cocaine Screen Detected H (NotDetected) U Marijuana (THC) Screen Detected H (NotDetected) Serum Alcohol <10 mg/dL 11/09/17 Range/Units 19:11 WBC (3.8-10.6) k/uL RBC (3.80-5.40) m/uL Hgb (11.4-16.0) gm/dL Hct (34.0-46.0) % MCV (80.0-100.0) fL MCH (25.0-35.0) pg MCHC (31.0-37.0) g/dL RDW (11.5-15.5) % Plt Count (150-450) k/uL Neutrophils % % Lymphocytes % % Monocytes % % Eosinophils % % Basophils % % Neutrophils # (1.3-7.7) k/uL Lymphocytes # (1.0-4.8) k/uL Monocytes # (0-1.0) k/uL Eosinophils # (0-0.7) k/uL Basophils # (0-0.2) k/uL Urine HCG, Qual Not Detected (Not Detectd) Salicylates mg/dL Urine Opiates Screen (NotDetected) Ur Oxycodone Screen (NotDetected) Urine Methadone Screen (NotDetected) Ur Propoxyphene Screen (NotDetected) Acetaminophen ug/mL Ur Barbiturates Screen (NotDetected) U Tricyclic Antidepress (NotDetected) Ur Phencyclidine Scrn (NotDetected) Ur Amphetamines Screen (NotDetected) U Methamphetamines Scrn (NotDetected) U Benzodiazepines Scrn (NotDetected) Urine Cocaine Screen (NotDetected) U Marijuana (THC) Screen (NotDetected) Serum Alcohol mg/dL Disposition Clinical Impression: Polysubstance (excluding opioids) dependence, daily use Disposition: Left Against Medical Advice Condition: Fair Instructions: Methamphetamine Abuse (ED), Polysubstance Abuse (ED) Additional Instructions: Follow-up family doctor. Follow-up with drug rehab program. Return emergency room at any time for any problem. Is patient prescribed a controlled substance at d/c from ED?: No Referrals: None,Stated [Primary Care Provider] - 1-2 days Time of Disposition: 20:06
== END 2017-11-09 20:18 | disposition left against medical advice (07) ==
LOC: EC 17:16
DX: F19.20 Other psychoactive substance dependence, uncomplicated (principal); M79.7 Fibromyalgia; Z87.891 Personal history of nicotine dependence; Z79.899 Other long term (current) drug therapy
CPT/HCPCS: 36415; 85025; 81025; 80306; 83520 ×2; 80320; 99285; 96374; 96361; J1885

== ENCOUNTER → 2018-06-12 | Outpatient (CLI) | payer OTHER ==
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
== END ==
LOC: SLEEP 13:28
PROVIDERS: ATTEND Internal Medicine
DX: G47.411 Narcolepsy with cataplexy (principal); G47.10 Hypersomnia, unspecified; M79.7 Fibromyalgia; M54.9 Dorsalgia, unspecified; M54.2 Cervicalgia; Z90.89 Acquired absence of other organs; Z79.899 Other long term (current) drug therapy

== ENCOUNTER 2018-10-31 09:10 | Observation (INO) | payer OTHER ==
[2018-10-31] MEDS ORDERED: SODIUM CHLORIDE 0.9% 1,000 ML IV STA (09:15)
--- NOTE | 2018-10-31 09:17 | ED ---
Altered Mental Status HPI - General Stated Complaint: Overdose Time Seen by Provider: 10/31/18 09:13 Source: RN notes reviewed, old records reviewed - History of Present Illness Initial Comments: This is a 38-year-old female to the ER for evaluation. Patient presents by EMS for evaluation regards to an appropriate for altered mental status. Patient is apparently fell not acting appropriately left-sided throat. Patiently currently walking from [facility], patient was in for ER recently frequent and the methadone clinic. Patient is refusing to participate in questioning MD Complaint: altered mental status, confusion, decreased responsiveness Consistency of Symptoms: waxing and waning Context: other (Opiate abuse) Associated Symptoms: denies other symptoms - Related Data Home Medications Medication Instructions Recorded Confirmed Dextroamphetamine/Amphetamine 30 mg PO BID 10/31/18 10/31/18 [Adderall] Methadone (Unknown Dose) 1 dose PO DAILY 10/31/18 10/31/18 Pregabalin [Lyrica] 200 mg PO TID 10/31/18 10/31/18 clonazePAM [KlonoPIN] 1 mg PO BID 10/31/18 10/31/18 Allergies Allergy/AdvReac Type Severity Reaction Status Date / Time No Known Allergies Allergy Verified 10/31/18 09:27 Review of Systems ROS Statement: Those systems with pertinent positive or pertinent negative responses have been documented in the HPI. ROS Other: All systems not noted in ROS Statement are negative. Past Medical History Past Medical History: Fibromyalgia Additional Past Medical History / Comment(s): spinal migraines, chronic back pain, lupus History of Any Multi-Drug Resistant Organisms: None Reported Past Surgical History: Tonsillectomy Past Anesthesia/Blood Transfusion Reactions: No Reported Reaction Past Psychological History: Anxiety Smoking Status: Former smoker Past Alcohol Use History: Occasional Past Drug Use History: None Reported, Prescription Drug Abuse - Past Family History Mother Family Medical History: No Reported History General Exam General appearance: alert, in no apparent distress, lethargic Head exam: Present: atraumatic, normocephalic, normal inspection Eye exam: Present: normal appearance, PERRL, EOMI. Absent: scleral icterus, conjunctival injection, periorbital swelling ENT exam: Present: normal exam, mucous membranes moist Neck exam: Present: normal inspection. Absent: tenderness, meningismus, lymphadenopathy Respiratory exam: Present: normal lung sounds bilaterally. Absent: respiratory distress, wheezes, rales, rhonchi, stridor Cardiovascular Exam: Present: regular rate, normal rhythm, normal heart sounds. Absent: systolic murmur, diastolic murmur, rubs, gallop, clicks GI/Abdominal exam: Present: soft, normal bowel sounds. Absent: distended, tenderness, guarding, rebound, rigid Extremities exam: Present: normal inspection, full ROM, normal capillary refill. Absent: tenderness, pedal edema, joint swelling, calf tenderness Back exam: Present: normal inspection Neurological exam: Present: alert, oriented X3, CN II-XII intact Psychiatric exam: Present: normal affect, normal mood Skin exam: Present: warm, dry, intact, normal color. Absent: rash Course Vital Signs 10/31/18 10/31/18 10/31/18 09:15 09:30 09:33 Temperature 97.9 F Pulse Rate 75 77 Respiratory 7 L 15 6 L Rate Blood Pressure 106/76 106/76 O2 Sat by Pulse 98 99 Oximetry 10/31/18 10/31/18 10/31/18 09:37 10:00 10:30 Temperature Pulse Rate 76 80 Respiratory 18 13 16 Rate Blood Pressure 155/99 148/97 O2 Sat by Pulse 97 99 99 Oximetry - Reevaluation(s) Reevaluation #1: 10/31/18 11:28 Medical record is reviewed Reevaluation #2: 10/31/18 11:29 Symptoms improved with Narcan Medical Decision Making - Medical Decision Making 38 female to the ED w unresponsiveness, AMS, not acting appropriately. PAtient recently got [facility] in [place] and was found not acting appropriately, ,atient is responsive to narcan, will admit for monitoring of respiratory status. - Lab Data Result diagrams: 10/31/18 09:46 10/31/18 09:46 Lab Results 10/31/18 10/31/18 10/31/18 Range/Units 09:46 09:46 09:46 WBC 8.7 (3.8-10.6) k/uL RBC 4.33 (3.80-5.40) m/uL Hgb 12.2 (11.4-16.0) gm/dL Hct 37.8 (34.0-46.0) % MCV 87.4 (80.0-100.0) fL MCH 28.1 (25.0-35.0) pg MCHC 32.1 (31.0-37.0) g/dL RDW 15.5 (11.5-15.5) % Plt Count 305 (150-450) k/uL Neutrophils % 44 % Lymphocytes % 41 % Monocytes % 8 % Eosinophils % 3 % Basophils % 1 % Neutrophils # 3.8 (1.3-7.7) k/uL Lymphocytes # 3.6 (1.0-4.8) k/uL Monocytes # 0.7 (0-1.0) k/uL Eosinophils # 0.3 (0-0.7) k/uL Basophils # 0.1 (0-0.2) k/uL Sodium 142 (137-145) mmol/L Potassium 3.6 (3.5-5.1) mmol/L Chloride 107 (98-107) mmol/L Carbon Dioxide 25 (22-30) mmol/L Anion Gap 10 mmol/L BUN 25 H (7-17) mg/dL Creatinine 1.58 H (0.52-1.04) mg/dL Est GFR (CKD-EPI)AfAm 48 (>60 ml/min/1.73 sqM) Est GFR (CKD-EPI)NonAf 41 (>60 ml/min/1.73 sqM) Glucose 94 (74-99) mg/dL Calcium 8.8 (8.4-10.2) mg/dL Phosphorus 6.0 H (2.5-4.5) mg/dL Magnesium 2.1 (1.6-2.3) mg/dL Total Bilirubin 0.6 (0.2-1.3) mg/dL AST 46 H (14-36) U/L ALT 34 (9-52) U/L Alkaline Phosphatase 66 (38-126) U/L Ammonia 36 H (<30) umol/L Creatine Kinase 625 H (30-135) U/L Total Protein 7.4 (6.3-8.2) g/dL Albumin 4.3 (3.5-5.0) g/dL Lipase 70 (23-300) U/L Salicylates <1.0 mg/dL Acetaminophen <10.0 ug/mL Serum Alcohol <10 mg/dL - EKG Data -: EKG Interpreted by Me (EKG shows sinus rhythm rate of 86, AL 1:30, QRS 70, QTc 405) Disposition Clinical Impression: Poisoning by opiate or related narcotic, Drug overdose Disposition: ADMITTED IP TO THIS HOSP Condition: Fair Is patient prescribed a controlled substance at d/c from ED?: No Referrals: Zaid Dasilva DO [Primary Care Provider] - 1-2 days
[2018-10-31] MEDS ORDERED: NALOXONE 0.4 MG/ML 1 ML VIAL IV STA (09:23)
[2018-10-31 10:25] LABS: ALT 34 U/L (9-52); AST 46 U/L (14-36); Acetaminophen <10.0 ug/mL; African American GFR (CKD) 48 (>60 ml/min/1.73 sqM); Albumin 4.3 g/dL (3.5-5.0); Alcohol <10 mg/dL; Alkaline Phosphatase 66 U/L (38-126); Anion Gap 10 mmol/L; Blood Urea Nitrogen 25 mg/dL (7-17); Calcium 8.8 mg/dL (8.4-10.2); Carbon Dioxide 25 mmol/L (22-30); Chloride 107 mmol/L (98-107); Creatine Kinase 625 U/L (30-135); Glucose 94 mg/dL (74-99); Magnesium 2.1 mg/dL (1.6-2.3); Potassium 3.6 mmol/L (3.5-5.1); Salicylate <1.0 mg/dL; Sodium 142 mmol/L (137-145); Total Bilirubin 0.6 mg/dL (0.2-1.3); Total Protein 7.4 g/dL (6.3-8.2)
[2018-10-31 10:53] LABS: Basophils # (A) 0.1 k/uL (0-0.2); Basophils % (A) 1 %; Eosinophils # (A) 0.3 k/uL (0-0.7); Eosinophils % (A) 3 %; HCT 37.8 % (34.0-46.0); HGB 12.2 gm/dL (11.4-16.0); Lymphocytes # (A) 3.6 k/uL (1.0-4.8); Lymphocytes % (A) 41 %; MCH 28.1 pg (25.0-35.0); MCHC 32.1 g/dL (31.0-37.0); MCV 87.4 fL (80.0-100.0); Mean Platelet Volume 7.3; Monocytes # (A) 0.7 k/uL (0-1.0); Monocytes % (A) 8 %; Neutrophils # (A) 3.8 k/uL (1.3-7.7); Neutrophils % (A) 44 %; Platelet Count 305 k/uL (150-450); RBC 4.33 m/uL (3.80-5.40); RDW 15.5 % (11.5-15.5); WBC 8.7 k/uL (3.8-10.6)
[2018-10-31 15:10] LABS: Appearance,Urine Cloudy (Clear); Bacteria,Urine Moderate /hpf; Bilirubin,Urine Negative (Negative); Blood,Urine Trace (Negative); Color,Urine Yellow; Glucose,Urine (UA) Negative (Negative); Hyaline Casts,Urine 10 /lpf (0-2); Ketones,Urine Negative (Negative); Leukocyte Esterase,Urine Large (Negative); Mucus,Urine Occasional /hpf; Nitrite,Urine Positive (Negative); PH, Urine 5.5 (5.0-8.0); Protein,Urine Trace (Negative); RBC,Urine 50 /hpf (0-5); Specific Gravity,Urine 1.023 (1.001-1.035); Squamous Epithelial Cell,Urine 1 /hpf (0-4); WBC,Urine >182 /hpf (0-5)
[2018-10-31 15:21] LABS: Phencyclidine Screen,Urine Not Detected (NotDetected); Urn Cannabinoid Scrn Detected (NotDetected)
[2018-10-31 15:22] LABS: Amphetamine Screen,Urine Detected (NotDetected); Barbiturate Screen,Urine Detected (NotDetected); Benzodiazepines Screen,Urine Detected (NotDetected); Cocaine Screen,Urine Detected (NotDetected); Methadone Screen, Urine Detected (NotDetected); Opiate Screen,Urine Not Detected (NotDetected); Oxycodone Screen, Urine Not Detected (NotDetected); Tricyclic Antidepressant,Urine Not Detected (NotDetected)
[2018-10-31] MEDS: SODIUM CHLORIDE 0.9% 1,000 ML IV SCH (21:06)
[2018-10-31] MEDS: clonazePAM 1 MG TAB PO PRN (21:06)
[2018-10-31] MEDS: PREGABALIN 100 MG CAP PO SCH (21:06)
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
[2018-11-01 06:58] LABS: Basophils % (A) 0 %; Eosinophils # (A) 0.3 k/uL (0-0.7); Eosinophils % (A) 3 %; HCT 35.8 % (34.0-46.0); HGB 11.1 gm/dL (11.4-16.0); Lymphocytes # (A) 1.8 k/uL (1.0-4.8); Lymphocytes % (A) 22 %; MCH 27.7 pg (25.0-35.0); MCHC 30.9 g/dL (31.0-37.0); MCV 89.7 fL (80.0-100.0); Mean Platelet Volume 7.2; Monocytes # (A) 0.5 k/uL (0-1.0); Monocytes % (A) 5 %; Neutrophils # (A) 5.6 k/uL (1.3-7.7); Neutrophils % (A) 67 %; Platelet Count 243 k/uL (150-450); RDW 14.6 % (11.5-15.5); WBC 8.4 k/uL (3.8-10.6)
[2018-11-01 07:11] LABS: Calcium 8.4 mg/dL (8.4-10.2); Potassium 3.8 mmol/L (3.5-5.1)
[2018-11-01] MEDS ORDERED: METHADONE HCL PO SCH ×2 (09:00→16:45)
[2018-11-01] MEDS: MELOXICAM 7.5 MG TAB PO SCH (09:12)
[2018-11-01] MEDS: PREGABALIN 100 MG CAP PO SCH ×3 (09:13→21:14)
[2018-11-01] MEDS: CYANOCOBALAMIN 500 MCG TAB PO SCH (09:13)
[2018-11-01] MEDS: clonazePAM 1 MG TAB PO PRN ×2 (09:29→21:17)
[2018-11-01] MEDS ORDERED: NON FORMULARY DRUG (Dextroamphetamine/Amphetamine [Adderall] 30 MG) PO SCH (16:45)
[2018-11-01] MEDS: SODIUM CHLORIDE 0.9% 1,000 ML IV SCH ×2 (17:04→21:15)
[2018-11-01 17:15] VITALS: RESP 14
[2018-11-01] MEDS: NON FORMULARY DRUG (Dextroamphetamine/Amphetamine [Adderall] 30 MG) PO SCH ×2 (19:11→19:12)
--- NOTE | 2018-11-01 22:47 | PN ---
PROGRESS NOTE DATE OF SERVICE: 11/01/2018. This 38-year-old woman was admitted with change in mental status also had possible drug induced metabolic encephalopathy. Patient being closely monitored. No chest pain. No palpitations. No fever. EXAM: Alert and oriented times three. Pulse is 76. Blood pressure 106/64, respiration 14, temperature 98.7, pulse ox 98% on room air. HEENT: Conjunctivae normal. NECK: No jugular venous distention. CARDIOVASCULAR: S1, S2. RESPIRATIONS: Breath sounds diminished in the bases. No rhonchi. No crackles. Abdomen is soft, nontender. LEGS are no edema. No swelling. CENTRAL NERVOUS SYSTEM: No focal deficits. LABS: Hemoglobin 11.1. Sodium 142, potassium 3.8. UA noted. Drug screen noted. ASSESSMENT: 1. Change in mental status, possibly drug-induced metabolic encephalopathy, acute. 2. Polysubstance abuse. 3. Acute urinary tract infection present on admission. 4. Increased creatinine kinase. 5. Increased creatinine with mild acute renal failure. 6. Chronic pain syndrome. 7. Fibromyalgia. 8. Spinal migraine. 9. Lupus. 10.Anxiety. 11.History of nicotine dependence. 12.History of prescription drug abuse remotely. RECOMMENDATIONS AND DISCUSSION: Recommend to continue current medications, continue with monitoring, symptomatic treatment. Continue with IV fluids. Continue with antibiotics. Closely follow. Increase ambulation. Advance diet. Further recommendations to follow. MMODL / IJN: [id number] /
[2018-11-02 06:03] VITALS: BP 103/66; PULSE 62; TEMP 97.9
[2018-11-02] MEDS: clonazePAM 1 MG TAB PO PRN (09:54)
[2018-11-02] MEDS: CYANOCOBALAMIN 500 MCG TAB PO SCH (09:54)
[2018-11-02] MEDS: PREGABALIN 100 MG CAP PO SCH (09:54)
[2018-11-02] MEDS: MELOXICAM 7.5 MG TAB PO SCH (09:54)
--- NOTE | 2018-11-03 05:39 | DS ---
DISCHARGE SUMMARY DATE OF SERVICE: 11/02/2018 FINAL DIAGNOSES: 1. Change in mental status, possibly drug-induced metabolic encephalopathy, acute. 2. Polysubstance abuse. 3. Acute urinary tract infection, present on admission. 4. Increased creatine kinase with mild rhabdomyolysis, possibly. 5. Increased creatinine with mild acute renal failure with possible prerenal factors. 6. Chronic pain syndrome. 7. Fibromyalgia. 8. Spinal migraine. 9. History of lupus. 10.Anxiety. 11.History nicotine dependence. 12.History of prescription drug abuse remotely. DISCHARGE DISPOSITION: Patient will be discharged in stable condition. HISTORY OF PRESENT ILLNESS: This 38-year-old woman with a past medical history of multiple medical problems admitted with change in mental status and possibly metabolic encephalopathy secondary to drug induced. The patient was treated symptomatically. Patient improved significantly and UTI was also treated and the patient will be discharged in stable condition with guarded prognosis. Recommend close followup in the outpatient setting, possible substance abuse rehab also. On exam, vitals are stable. CARDIOVASCULAR: S1, S2 muffled. ABDOMEN: Soft. NERVOUS SYSTEM: No focal deficits. DISCHARGE ADVICE: 1. Diet is cardiac. 2. Activity limited until followup. 3. Follow up up with Dr. Dasilva in 1 to 2 days. 4. Follow up with Methadone Clinic as recommended. MEDICATION: 1. Adderall 30 mg p.o. b.i.d. 2. Celebrex 200 mg p.o. daily. 3. Klonopin 1 mg p.o. b.i.d. 4. Lyrica 200 mg p.o. t.i.d. 5. Methadone 200 mg p.o. daily as from the clinic. 6. Vitamin B-12, 500 mcg p.o. daily. 7. Ceftin 500 mg p.o. b.i.d. for 3 days. MMODL / IJN: [id number] /
== END 2018-11-02 11:21 | disposition home or self-care (01) ==
LOC: EC 09:10 → UNDOADMIN 12:18 → 3SCARD 12:18 → INTOOBSV 12:18 → 3SCARD 13:18 → UNDODISIN 11-01 16:38 → 3SCARD 11-01 18:55 → 4MS4W 11-01 18:55 → UNDODISIN 11-02 11:21
PROVIDERS: ADMIT Hospitalist; ATTEND Hospitalist
DX: R41.82 Altered mental status, unspecified (principal); F19.10 Other psychoactive substance abuse, uncomplicated; N39.0 Urinary tract infection, site not specified; N17.9 Acute kidney failure, unspecified; G89.4 Chronic pain syndrome; M54.9 Dorsalgia, unspecified; M79.7 Fibromyalgia; F11.90 Opioid use, unspecified, uncomplicated; G43.909 Migraine, unspecified, not intractable, without status migrainosus; M32.9 Systemic lupus erythematosus, unspecified; F41.9 Anxiety disorder, unspecified; Z87.891 Personal history of nicotine dependence; Z79.899 Other long term (current) drug therapy
CPT/HCPCS: 96365; 96366; 96361; 96375; 99285; 36415; 93005; 80053; 80048; 82140; 82550; 83690; 83735; 84100; 85025 ×2; 81001; 81025; 80306; 83520; G0378 ×3; G0480 ×2; J2310; J0696 ×3; 80320; 80329; 96374

== ENCOUNTER 2019-04-02 05:08 | Inpatient (IN) | payer MEDICAID, OTHER ==
[2019-04-02] MEDS ORDERED: diphenhydrAMINE 50 MG/ML 1 ML VIAL IM STA ×2 (05:33→11:50)
[2019-04-02] MEDS ORDERED: LORazepam 2 MG/ML INJ IM STA ×2 (05:34→11:48)
--- NOTE | 2019-04-02 05:57 | ED ---
Psych HPI - General Chief Complaint: Psychiatric Symptoms Stated Complaint: Mental Health Time Seen by Provider: 04/02/19 05:24 Source: police Mode of arrival: ambulatory - History of Present Illness Initial Comments: Nikki is a 38-year-old female who is brought to the emergency department today by police. Per the police, patient walking outside around 4:30 this morning. Patient was yelling nearly incoherently. Patient repeatedly stated that she has a implant in her back, a chip that was placed in her back so that he can be monitored or controlled. She stated that she was thinking about [facility] the [facility] from her spine because sh e would rather be paralyzed and be controlled by the government. At that time merchant police decided to bring the patient to the ER for further psychiatric evaluation. Upon arrival the patient is acutely yelling that she does repeatedly state that the chip is been implanted in her back she needs to shoot herself. She does state multiple people's names does seem to be targeting her. He states that she believes she is being followed by her previous psychiatrist and that he's can ago after her children and if he does she will have to kill him. - Related Data Home Medications Medication Instructions Recorded Confirmed Celecoxib [CeleBREX] 200 mg PO DAILY 10/31/18 04/02/19 Ibuprofen [Motrin] 800 mg PO TID PRN 04/02/19 04/02/19 Allergies Allergy/AdvReac Type Severity Reaction Status Date / Time No Known Allergies Allergy Verified 04/02/19 21:05 Review of Systems ROS Statement: Those systems with pertinent positive or pertinent negative responses have been documented in the HPI. ROS Other: All systems not noted in ROS Statement are negative. Past Medical History Past Medical History: Fibromyalgia Additional Past Medical History / Comment(s): spinal migraines, chronic back pa in, lupus History of Any Multi-Drug Resistant Organisms: None Reported Past Surgical History: Tonsillectomy Past Anesthesia/Blood Transfusion Reactions: No Reported Reaction Past Psychological History: Anxiety Smoking Status: Current every day smoker Past Alcohol Use History: Occasional Past Drug Use History: None Reported, Prescription Drug Abuse - Past Family History Mother Family Medical History: No Reported History General Exam - General Exam Comments Initial Comments: Physical Exam GENERAL: Unkempt appearance HENT: Normocephalic, Atraumatic. EYES: PERRL, EOMI PULMONARY: Unlabored respirations. CARDIOVASCULAR: Cardiac, warm and well perfused extremities ABDOMEN: Non-distended SKIN: No rashes or bruising Multiple tattoos : Deferred NEUROLOGIC: Awake alert oriented moving all extremities MUSCULOSKELETAL: Moving all extremities with no apparent injury PSYCHIATRIC: Acutely psychotic, paranoid Limitations: altered mental status Course Vital Signs 04/02/19 04/02/19 05:31 08:17 Temperature 98.1 F Pulse Rate 120 H 89 Respiratory 18 18 Rate Blood Pressure 136/88 109/69 O2 Sat by Pulse 100 98 Oximetry Medical Decision Making - Medical Decision Making Patient was seen and evaluated history was obtained from patient and police Patient with acute psychosis, breath alcohol is negative patient is medically cleared for evaluation by EPS I do feel the patient will more inpatient psychiatric care therefore certification was completed. - Lab Data Result diagrams: 04/02/19 05:58 04/02/19 05:58 Lab Results 04/02/19 04/02/19 Range/Units 05:58 05:58 WBC 7.8 (3.8-10.6) k/uL RBC 4.35 (3.80-5.40) m/uL Hgb 12.5 (11.4-16.0) gm/dL Hct 37.5 (34.0-46.0) % MCV 86.3 (80.0-100.0) fL MCH 28.7 (25.0-35.0) pg MCHC 33.2 (31.0-37.0) g/dL RDW 12.7 (11.5-15.5) % Plt Count 362 (150-450) k/uL Neutrophils % 66 % Lymphocytes % 27 % Monocytes % 4 % Eosinophils % 1 % Basophils % 0 % Neutrophils # 5.1 (1.3-7.7) k/uL Lymphocytes # 2.1 (1.0-4.8) k/uL Monocytes # 0.3 (0-1.0) k/uL Eosinophils # 0.1 (0-0.7) k/uL Basophils # 0.0 (0-0.2) k/uL Sodium 144 (137-145) mmol/L Potassium 3.9 (3.5-5.1) mmol/L Chloride 110 H (98-107) mmol/L Carbon Dioxide 26 (22-30) mmol/L Anion Gap 8 mmol/L BUN 15 (7-17) mg/dL Creatinine 0.81 (0.52-1.04) mg/dL Est GFR (CKD-EPI)AfAm >90 (>60 ml/min/1.73 sqM) Est GFR (CKD-EPI)NonAf >90 (>60 ml/min/1.73 sqM) Glucose 92 (74-99) mg/dL Calcium 9.7 (8.4-10.2) mg/dL Salicylates <1.0 mg/dL Acetaminophen <10.0 ug/mL Serum Alcohol <10 mg/dL Disposition Clinical Impression: Psychosis Disposition: TRANSFER TO PSYCH HOSP/UNIT Condition: Stable Is patient prescribed a controlled substance at d/c from ED?: No
[2019-04-02 06:15] LABS: Basophils % (A) 0 %; Eosinophils # (A) 0.1 k/uL (0-0.7); Eosinophils % (A) 1 %; HCT 37.5 % (34.0-46.0); HGB 12.5 gm/dL (11.4-16.0); Lymphocytes # (A) 2.1 k/uL (1.0-4.8); Lymphocytes % (A) 27 %; MCH 28.7 pg (25.0-35.0); MCHC 33.2 g/dL (31.0-37.0); MCV 86.3 fL (80.0-100.0); Monocytes # (A) 0.3 k/uL (0-1.0); Monocytes % (A) 4 %; Neutrophils # (A) 5.1 k/uL (1.3-7.7); Neutrophils % (A) 66 %; Platelet Count 362 k/uL (150-450); RBC 4.35 m/uL (3.80-5.40); RDW 12.7 % (11.5-15.5); WBC 7.8 k/uL (3.8-10.6)
[2019-04-02 06:23] LABS: Acetaminophen <10.0 ug/mL; African American GFR (CKD) >90 (>60 ml/min/1.73 sqM); Alcohol <10 mg/dL; Anion Gap 8 mmol/L; Blood Urea Nitrogen 15 mg/dL (7-17); Calcium 9.7 mg/dL (8.4-10.2); Carbon Dioxide 26 mmol/L (22-30); Chloride 110 mmol/L (98-107); Glucose 92 mg/dL (74-99); Non-African American GFR(CKD) >90 (>60 ml/min/1.73 sqM); Potassium 3.9 mmol/L (3.5-5.1); Salicylate <1.0 mg/dL; Sodium 144 mmol/L (137-145)
[2019-04-02] MEDS ORDERED: diphenhydrAMINE 50 MG/ML 1 ML VIAL IVP STA (11:58)
[2019-04-02] MEDS ORDERED: LORazepam 2 MG/ML INJ IV STA (11:59)
[2019-04-02] MEDS ORDERED: MAGNESIUM HYDROXIDE 2,400 MG/10 ML CUP PO PRN (12:47)
[2019-04-02] MEDS ORDERED: ZIPRASIDONE 20 MG VIAL IM PRN (12:47)
[2019-04-02] MEDS ORDERED: MAG HYDROX/AL HYDROX/SIMETH 30 ML CUP PO PRN (12:47)
[2019-04-02] MEDS ORDERED: ACETAMINOPHEN TAB 325 MG TAB PO PRN (12:47)
[2019-04-02] MEDS ORDERED: IBUPROFEN 800 MG TAB PO PRN (12:49)
[2019-04-02] MEDS ORDERED: QUEtiapine 25 MG TAB PO PRN (12:50)
[2019-04-02] MEDS ORDERED: QUEtiapine 50 MG TAB PO PRN (12:50)
[2019-04-02] MEDS ORDERED: MELOXICAM 7.5 MG TAB PO SCH (13:00)
[2019-04-02 14:33] VITALS: BP 108/67; PULSE 99; RESP 16; TEMP 97.3
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
--- NOTE | 2019-04-02 15:09 | P.DS ---
Providers Date of admission: 04/02/19 12:42 Attending physician: Chuck Agustin MD Consults: 04/02/19 12:47 Consult Physician Routine Consulting Provider: Jordy Physician Consult Reason/Comments: H& P Medical Managment Do you want consulting provider notified?: Yes Primary care physician: Stated None - Discharge Diagnosis(es) (1) Delusional disorder Current Visit: Yes Status: Chronic Priority: Low (2) Amphetamine user Current Visit: Yes Status: Chronic Priority: Medium (3) Opioid abuse Current Visit: Yes Status: Chronic Priority: Medium (4) Benzodiazepine abuse Current Visit: Yes Status: Chronic Priority: Medium Hospital Course: She is a 38-year-old female admitted to the psychiatric unit involuntarily. The police brought her to the emergency room and completed a Petition that read "stated she has a chip in her back and stated she wanted a gun to shoot out." She had difficulty explaining herself as she was vague, circumstantial and tangential. She complained that she was "walking along minding my own business" when she "accidentally knocked on the door. ... They grabbed me by the stomach, put me in the car and took me to [address] She admitted that she believes that she has a chip implanted in her back and a chip allows "the government" to control her. However she stated that she can resist control. She would like to have the trip removed and has thought about shooting herself in the stomach. She believes this would dislodge the chip. She realizes that this would harm her and she denies that she has plan or intent to shoot herself. She denied suicidal ideation, intent or plan. She denied homicidal ideation. She was living with a friend for an unspecified period time. She appeared to have difficulty remembering how long she had been with this friend whom she referred to as "double D." She does not wish to return to this environment and alleged she plans to either enter a three-quarter house or return to [place] to seek admission at the [facility] ([facility] homeless recovery services). Although she has no income she can ask her mother for bus fare. I told her that she does not meet criteria for involuntary hospitalization and asked if she would be willing to agree to a voluntary admission. She inquired about what medications I patsy prescribe and talked about having been prescribed Xanax, Klonopin, Adderall and Suboxone. When I told her that at most we could prescribe her a medication like Seroquel she replied that "I have been at home" and would not agree to a voluntary admission. We discharged her from the inpatient unit with a referral to [facility]. Patient Condition at Discharge: Stable Plan - Discharge Summary New Discharge Prescriptions: Continue Celecoxib [CeleBREX] 200 mg PO DAILY Ibuprofen [Motrin] 800 mg PO TID PRN PRN Reason: Pain Discontinued clonazePAM [KlonoPIN] 1 mg PO BID Dextroamphetamine/Amphetamine [Adderall] 30 mg PO BID Buprenorphine HCl/Naloxone HCl [Suboxone 8 mg-2 mg Sl Film] 1 film SL DAILY Discharge Medication List Celecoxib [CeleBREX] 200 mg PO DAILY 10/31/18 [History] Ibuprofen [Motrin] 800 mg PO TID PRN 04/02/19 [History] Follow up Appointment(s)/Referral(s): None,Stated [Primary Care Provider] - 1-2 days Discharge Disposition: HOME SELF-CARE
[2019-04-03] MEDS ORDERED: NICOTINE 21MG/24HR PATCH TRANSDERM SCH (09:00)
== END 2019-04-02 15:28 | disposition home or self-care (01) | DRG 885 ==
LOC: EC 05:08 → 3MHU 12:42
PROVIDERS: ADMIT Psychiatry & Neurology Psychiatry; ATTEND Psychiatry & Neurology Psychiatry
DX: F22 Delusional disorders (principal); F11.10 Opioid abuse, uncomplicated; F13.10 Sedative, hypnotic or anxiolytic abuse, uncomplicated; F17.200 Nicotine dependence, unspecified, uncomplicated; F41.1 Generalized anxiety disorder; G43.909 Migraine, unspecified, not intractable, without status migrainosus; F90.9 Attention-deficit hyperactivity disorder, unspecified type; M32.9 Systemic lupus erythematosus, unspecified; M79.7 Fibromyalgia; Z56.0 Unemployment, unspecified; Z79.1 Long term (current) use of non-steroidal anti-inflammatories (NSAID); Z90.89 Acquired absence of other organs
CPT/HCPCS: 36415; 80048; 80320; 80329; 82075; 83520; 85025; 96372; 96374; 96375; 99285

== ENCOUNTER 2019-11-12 00:55 | Emergency (ER) | payer OTHER ==
--- NOTE | 2019-11-12 01:43 | ED ---
General Adult HPI - General Chief complaint: Psychiatric Symptoms Stated complaint: Mental Health Time Seen by Provider: 11/12/19 01:05 Source: patient, police Mode of arrival: ambulatory Limitations: no limitations - History of Present Illness Initial comments: This patient is 39-year-old woman who presents for evaluation of altered mental status. Police had been called for a person sleeping in a public. They went and not found the patient sleeping. They were able to arouse her but she falls asleep again. They brought her here to have a medical versus possible psychiatric evaluation. When I initially interview the patient, she denies trauma. She denies pain and dyspnea. Patient states she is just tired. -: unknown Severity scale (1-10): 0 Improves with: none Worsens with: none Associated Symptoms: denies other symptoms Treatments Prior to Arrival: none - Related Data Previous Rx's Medication Instructions Recorded Acetaminophen Tab [Tylenol] 650 mg PO Q4HR PRN 14 Days tab 04/07/19 Gabapentin [Neurontin] 300 mg PO TID 3 Days cap 04/07/19 Ibuprofen [Motrin] 600 mg PO Q8H PRN 14 Days tab 04/07/19 Lidocaine 5% Patch [Lidoderm 5% 1 patch TOPICAL DAILY 14 Days 04/07/19 Patch] patch Nicotine 14Mg/24Hr Patch [Habitrol] 1 patch TRANSDERM DAILY #14 patch 04/07/19 hydrOXYzine pamoate [Vistaril] 25 mg PO BID 14 Days cap 04/07/19 risperiDONE ODT [RisperDAL M-TAB] 2 mg PO HS 14 Days tab 04/07/19 traZODone HCL [Desyrel] 50 mg PO HS 14 Days tab 04/07/19 Allergies Allergy/AdvReac Type Severity Reaction Status Date / Time No Known Allergies Allergy Verified 11/12/19 01:03 Review of Systems ROS Statement: Those systems with pertinent positive or pertinent negative responses have been documented in the HPI. ROS Other: All systems not noted in ROS Statement are negative. Constitutional: Denies: fever, chills Eyes: Denies: vision change Respiratory: Denies: cough, dyspnea Cardiovascular: Denies: chest pain Gastrointestinal: Denies: abdominal pain, vomiting Musculoskeletal: Denies: back pain Neurological: Denies: headache Psychiatric: Denies: depression, suicidal thoughts Past Medical History Past Medical History: Fibromyalgia Additional Past Medical History / Comment(s): spinal migraines, chronic back pain, lupus History of Any Multi-Drug Resistant Organisms: None Reported Past Surgical History: Tonsillectomy Additional Past Surgical History / Comment(s): spinal tap 2013 Past Anesthesia/Blood Transfusion Reactions: No Reported Reaction Past Psychological History: Anxiety, PTSD Smoking Status: Current every day smoker Past Alcohol Use History: Occasional Past Drug Use History: Cocaine, Heroin, Marijuana, Prescription Drug Abuse - Past Family History Mother Family Medical History: No Reported History General Exam Limitations: no limitations General appearance: in no apparent distress, other (Patient is somnolent but arouses to tactile stimuli) Head exam: Present: atraumatic, normocephalic Eye exam: Present: normal appearance, PERRL, EOMI. Absent: scleral icterus, conjunctival injection ENT exam: Present: mucous membranes dry Neck exam: Present: normal inspection, full ROM. Absent: tenderness, meningi smus Respiratory exam: Present: normal lung sounds bilaterally. Absent: respiratory distress, wheezes, rales, rhonchi, stridor Cardiovascular Exam: Present: regular rate, normal rhythm, normal heart sounds. Absent: systolic murmur, diastolic murmur, rubs, gallop GI/Abdominal exam: Present: soft. Absent: distended, tenderness, guarding, rebound, rigid, mass Extremities exam: Present: normal inspection, normal capillary refill. Absent: pedal edema, calf tenderness Back exam: Present: normal inspection. Absent: CVA tenderness (R), CVA tenderness (L) Neurological exam: Present: altered (Somnolent but arousable.), oriented X3, CN II-XII intact, other (GCS 15.). Absent: motor sensory deficit Psychiatric exam: Absent: depressed, suicidal ideation Skin exam: Present: warm, dry, intact, normal color. Absent: rash Course Vital Signs 11/12/19 11/12/19 11/12/19 01:00 03:00 04:00 Temperature 97.4 F L Pulse Rate 65 65 71 Respiratory 18 18 Rate Blood Pressure 110/66 81/46 O2 Sat by Pulse 98 100 100 Oximetry 11/12/19 11/12/19 11/12/19 04:51 07:00 07:28 Temperature 97.9 F Pulse Rate 67 70 Respiratory 15 Rate Blood Pressure 90/54 101/58 O2 Sat by Pulse 100 99 Oximetry Disposition Clinical Impression: Benzodiazepine abuse Disposition: HOME SELF-CARE Condition: Good Instructions (If sedation given, give patient instructions): Polysubstance Abuse (ED) Is patient prescribed a controlled substance at d/c from ED?: No Referrals: Zaid Dasilva DO [Primary Care Provider] - 1-2 days
--- NOTE | 2019-11-12 03:16 | CT ---
EXAMINATION TYPE: CT brain wo con DATE OF EXAM: 11/12/2019 COMPARISON: 10/06/2016 HISTORY: AMS CT DLP: 1113.4 mGycm Automated exposure control for dose reduction was used. Images obtained of the brain without contrast. Ventricles and sulci appear normal. There is no mass effect nor midline shift. There is no sign of in tracranial hemorrhage. Calvarium is intact. The skull base is intact. There is no evidence of cerebra l edema. IMPRESSION: Negative CT scan of the brain. No change.
[2019-11-12 04:52] VITALS: RESP 15
[2019-11-12 07:04] VITALS: BP 101/58; PULSE 70
[2019-11-12 07:29] VITALS: TEMP 97.9
== END 2019-11-12 07:29 | disposition home or self-care (01) ==
LOC: EC 00:55
DX: F13.10 Sedative, hypnotic or anxiolytic abuse, uncomplicated (principal); F17.200 Nicotine dependence, unspecified, uncomplicated
CPT/HCPCS: 70450; 82075; 99285

== ENCOUNTER 2019-11-16 06:52 | Inpatient (IN) | payer OTHER ==
[2019-11-16] MEDS ORDERED: DEXTROSE 50% SYRINGE 50 ML IVP STA ×2 (07:10→08:51)
[2019-11-16] MEDS ORDERED: ADENOSINE 3 MG/ML 2 ML VIAL IVP STA ×2 (07:12→07:15)
[2019-11-16 07:15] LABS: Glucose,Whole Blood 43 mg/dL (75-99)
[2019-11-16] MEDS ORDERED: METOPROLOL TARTRATE 5 MG/5 ML VIAL IVP STA (07:20)
[2019-11-16] MEDS ORDERED: SODIUM CHLORIDE 0.9% 1,000 ML IV STA ×2 (07:24)
--- NOTE | 2019-11-16 07:32 | ED ---
Altered Mental Status HPI - General Chief Complaint: Altered Mental Status Stated Complaint: Altered Mental Status Time Seen by Provider: 11/16/19 07:00 Source: patient, EMS, RN notes reviewed Mode of arrival: EMS Limitations: altered mental status - History of Present Illness Initial Comments: This is a 39-year-old female with a history of schizoaffective disorder as well as medication abuse who is apparently found be unresponsive by family members. EMS was called she was found have be hypoglycemic. She was given glucose. She did recover become awake though she was still confused. She complains been thirsty. She was found upon arrival to be an apparent SVT. Patient denies any chest pain chills sweats she was found have a temperature 103 the patient any fevers chills nausea vomiting sweats cough or other symptoms. No other modifying factors or complaints at this time MD Complaint: altered mental status - Related Data Previous Rx's Medication Instructions Recorded Acetaminophen Tab [Tylenol] 650 mg PO Q4HR PRN 14 Days tab 04/07/19 Gabapentin [Neurontin] 300 mg PO TID 3 Days cap 04/07/19 Ibuprofen [Motrin] 600 mg PO Q8H PRN 14 Days tab 04/07/19 Lidocaine 5% Patch [Lidoderm 5% 1 patch TOPICAL DAILY 14 Days 04/07/19 Patch] patch Nicotine 14Mg/24Hr Patch [Habitrol] 1 patch TRANSDERM DAILY #14 patch 04/07/19 hydrOXYzine pamoate [Vistaril] 25 mg PO BID 14 Days cap 04/07/19 risperiDONE ODT [RisperDAL M-TAB] 2 mg PO HS 14 Days tab 04/07/19 traZODone HCL [Desyrel] 50 mg PO HS 14 Days tab 04/07/19 Allergies Allergy/AdvReac Type Severity Reaction Status Date / Time No Known Allergies Allergy Verified 11/12/19 01:03 Review of Systems ROS Statement: Those systems with pertinent positive or pertinent negative responses have been documented in the HPI. ROS Other: All systems not noted in ROS Statement are negative. Past Medical History Past Medical History: Fibromyalgia Additional Past Medical History / Comment(s): spinal migraines, chronic back pain, lupus History of Any Multi-Drug Resistant Organisms: None Reported Past Surgical History: Tonsillectomy Additional Past Surgical History / Comment(s): spinal tap 2012 Past Anesthesia/Blood Transfusion Reactions: No Reported Reaction Past Psychological History: Anxiety, PTSD Smoking Status: Current every day smoker Past Alcohol Use History: Occasional Past Drug Use History: Cocaine, Heroin, Marijuana, Prescription Drug Abuse - Past Family History Mother Family Medical History: No Reported History General Exam Limitations: altered mental status General appearance: alert, anxious Head exam: Present: atraumatic, normocephalic, normal inspection Eye exam: Present: normal appearance, PERRL, EOMI. Absent: scleral icterus, conjunctival injection, periorbital swelling ENT exam: Present: normal exam, mucous membranes moist Neck exam: Present: normal inspection. Absent: tenderness, meningismus, lymphadenopathy Respiratory exam: Present: normal lung sounds bilaterally. Absent: respiratory distress, wheezes, rales, rhonchi, stridor Cardiovascular Exam: Present: normal rhythm, tachycardia, normal heart sounds. Absent: systolic murmur, diastolic murmur, rubs, gallop, clicks GI/Abdominal exam: Present: soft, normal bowel sounds. Absent: distended, tenderness, guarding, rebound, rigid Extremities exam: Present: normal inspection, full ROM, normal capillary refill. Absent: tenderness, pedal edema, joint swelling, calf tenderness Back exam: Present: normal inspection Neurological exam: Present: alert, oriented X3, CN II-XII intact Psychiatric exam: Present: normal affect, anxious Skin exam: Present: warm, dry, intact, normal color. Absent: rash Course Vital Signs 11/16/19 11/16/19 11/16/19 06:57 07:10 07:35 Temperature 103.1 F H Pulse Rate 115 H 230 H 118 H Respiratory 16 16 Rate Blood Pressure 107/71 O2 Sat by Pulse 97 Oximetry 11/16/19 08:34 Temperature 101.0 F H Pulse Rate 120 H Respiratory 18 Rate Blood Pressure 79/61 O2 Sat by Pulse 96 Oximetry - Reevaluation(s) Reevaluation #1: 11/16/19 07:36 The patient didn't appear to be in SVT and was given initially 6 mg of adenosine without response 12 mg did briefly slow her heart rate and rhythm down. This did resume the 200+ level. Patient was given a dose of IV metoprolol Reevaluation #2: 11/16/19 08:07 Reevaluation patient reveals her resting comfortably the pulse rate is in the 115 range so this does not correlate with the monitor however screen which is reading approximately 230. I believe the current monitor is reading the T waves in addition to the QRS complexes. This is different than the original presentation. Reevaluation #3: 11/16/19 09:09 Patient did meet sepsis criteria though she did not have a period and blood pressure did respond to IV fluids. She was awake and alert oriented 3. Heart demonstrates mild tachycardia about 1 15 bpm. Lungs are clear at the soft nontender Reevaluation #4: 11/16/19 09:22 Further information the patient apparently had been using methamphetamine recently. She had also slept almost 18 solid hours prior to the episode today. Reevaluation #5: 11/16/19 09:23 The case is discussed also with nephrology Dr. Gilmore Procedures - Procedures Initial comment: The patient did need additional IV access a left external jugular was performed. This was without difficulty did tolerate it well. I was at bedside and did explain to the patient. Medical Decision Making - Lab Data Result diagrams: 11/16/19 07:51 11/16/19 08:58 Lab Results 11/16/19 11/16/19 11/16/19 Range/Units 06:54 07:19 07:51 WBC 16.5 H (3.8-10.6) k/uL RBC 4.60 (3.80-5.40) m/uL Hgb 12.9 (11.4-16.0) gm/dL Hct 44.0 (34.0-46.0) % MCV 95.6 (80.0-100.0) fL MCH 28.0 (25.0-35.0) pg MCHC 29.3 L (31.0-37.0) g/dL RDW 13.9 (11.5-15.5) % Plt Count 423 (150-450) k/uL Neutrophils % 87 % Lymphocytes % 6 % Monocytes % 6 % Eosinophils % 0 % Basophils % 0 % Neutrophils # 14.3 H (1.3-7.7) k/uL Lymphocytes # 0.9 L (1.0-4.8) k/uL Monocytes # 0.9 (0-1.0) k/uL Eosinophils # 0.1 (0-0.7) k/uL Basophils # 0.0 (0-0.2) k/uL Hypochromasia Marked PT (9.0-12.0) sec INR (<1.2) APTT (22.0-30.0) sec D-Dimer (<0.60) mg/L FEU Sodium (137-145) mmol/L Potassium (3.5-5.1) mmol/L Chloride (98-107) mmol/L Carbon Dioxide (22-30) mmol/L Anion Gap mmol/L BUN (7-17) mg/dL Creatinine (0.52-1.04) mg/dL Est GFR (CKD-EPI)AfAm (>60 ml/min/1.73 sqM) Est GFR (CKD-EPI)NonAf (>60 ml/min/1.73 sqM) Glucose (74-99) mg/dL POC Glucose (mg/dL) 43 L 182 H (75-99) mg/dL POC Glu Lead Generation Representative ID Anitha Atrhur Ashley Plasma Lactic Acid Tommy (0.7-2.0) mmol/L Calcium (8.4-10.2) mg/dL Magnesium (1.6-2.3) mg/dL Total Bilirubin (0.2-1.3) mg/dL AST (14-36) U/L ALT (4-34) U/L Alkaline Phosphatase (38-126) U/L Creatine Kinase (30-135) U/L Troponin I (0.000-0.034) ng/mL Total Protein (6.3-8.2) g/dL Albumin (3.5-5.0) g/dL Serum Alcohol mg/dL 11/16/19 11/16/19 11/16/19 Range/Units 07:51 07:51 07:51 WBC (3.8-10.6) k/uL RBC (3.80-5.40) m/uL Hgb (11.4-16.0) gm/dL Hct (34.0-46.0) % MCV (80.0-100.0) fL MCH (25.0-35.0) pg MCHC (31.0-37.0) g/dL RDW (11.5-15.5) % Plt Count (150-450) k/uL Neutrophils % % Lymphocytes % % Monocytes % % Eosinophils % % Basophils % % Neutrophils # (1.3-7.7) k/uL Lymphocytes # (1.0-4.8) k/uL Monocytes # (0-1.0) k/uL Eosinophils # (0-0.7) k/uL Basophils # (0-0.2) k/uL Hypochromasia PT 13.1 H (9.0-12.0) sec INR 1.3 H (<1.2) APTT 24.9 (22.0-30.0) sec D-Dimer 1.73 H (<0.60) mg/L FEU Sodium 141 (137-145) mmol/L Potassium 8.1 H* (3.5-5.1) mmol/L Chloride 106 (98-107) mmol/L Carbon Dioxide 18 L (22-30) mmol/L Anion Gap 17 mmol/L BUN 28 H (7-17) mg/dL Creatinine 4.00 H (0.52-1.04) mg/dL Est GFR (CKD-EPI)AfAm 15 (>60 ml/min/1.73 sqM) Est GFR (CKD-EPI)NonAf 13 (>60 ml/min/1.73 sqM) Glucose 184 H (74-99) mg/dL POC Glucose (mg/dL) (75-99) mg/dL POC Glu Lead Generation Representative ID Plasma Lactic Acid Tommy (0.7-2.0) mmol/L Calcium 6.9 L (8.4-10.2) mg/dL Magnesium 2.1 (1.6-2.3) mg/dL Total Bilirubin 1.2 (0.2-1.3) mg/dL AST 2513 H (14-36) U/L ALT 820 H (4-34) U/L Alkaline Phosphatase 85 (38-126) U/L Creatine Kinase 25473 H* (30-135) U/L Troponin I 1.180 H* (0.000-0.034) ng/mL Total Protein 6.7 (6.3-8.2) g/dL Albumin 4.0 (3.5-5.0) g/dL Serum Alcohol <10 mg/dL 11/16/19 11/16/19 Range/Units 07:51 08:58 WBC (3.8-10.6) k/uL RBC (3.80-5.40) m/uL Hgb (11.4-16.0) gm/dL Hct (34.0-46.0) % MCV (80.0-100.0) fL MCH (25.0-35.0) pg MCHC (31.0-37.0) g/dL RDW (11.5-15.5) % Plt Count (150-450) k/uL Neutrophils % % Lymphocytes % % Monocytes % % Eosinophils % % Basophils % % Neutrophils # (1.3-7.7) k/uL Lymphocytes # (1.0-4.8) k/uL Monocytes # (0-1.0) k/uL Eosinophils # (0-0.7) k/uL Basophils # (0-0.2) k/uL Hypochromasia PT (9.0-12.0) sec INR (<1.2) APTT (22.0-30.0) sec D-Dimer (<0.60) mg/L FEU Sodium (137-145) mmol/L Potassium 8.6 H* (3.5-5.1) mmol/L Chloride (98-107) mmol/L Carbon Dioxide (22-30) mmol/L Anion Gap mmol/L BUN (7-17) mg/dL Creatinine (0.52-1.04) mg/dL Est GFR (CKD-EPI)AfAm (>60 ml/min/1.73 sqM) Est GFR (CKD-EPI)NonAf (>60 ml/min/1.73 sqM) Glucose (74-99) mg/dL POC Glucose (mg/dL) (75-99) mg/dL POC Glu Lead Generation Representative ID Plasma Lactic Acid Tommy 7.0 H* (0.7-2.0) mmol/L Calcium (8.4-10.2) mg/dL Magnesium (1.6-2.3) mg/dL Total Bilirubin (0.2-1.3) mg/dL AST (14-36) U/L ALT (4-34) U/L Alkaline Phosphatase (38-126) U/L Creatine Kinase (30-135) U/L Troponin I (0.000-0.034) ng/mL Total Protein (6.3-8.2) g/dL Albumin (3.5-5.0) g/dL Serum Alcohol mg/dL - Radiology Data Radiology results: report reviewed (I did review the imaging and report no acute findings.), image reviewed Critical Care Time Critical Care Time: Yes Total Critical Care Time: 45 Critical Care Time: 45 minutes of critical care time which includes initial presentation with history physical labs x-rays multiple reevaluation the patient to responsive therapy review of old charting was available. Discussion with the admitting p stefani admission orders documentation the above also discussion with the hammerer. Dr. Mills around him is the attending physician Disposition Clinical Impression: Sepsis, Acute renal failure (ARF), Hyperkalemia, Supraventricular tachycardia, Febrile illness, acute Disposition: ADMITTED IP TO THIS HOSP Condition: Serious Referrals: Zaid Dasilva DO [Primary Care Provider] - 1-2 days
[2019-11-16 07:39] LABS: Glucose,Whole Blood 182 mg/dL (75-99)
[2019-11-16 08:10] LABS: Basophils % (A) 0 %; Eosinophils # (A) 0.1 k/uL (0-0.7); Eosinophils % (A) 0 %; HGB 12.9 gm/dL (11.4-16.0); Hypochromasia Marked; Lymphocytes # (A) 0.9 k/uL (1.0-4.8); Lymphocytes % (A) 6 %; MCHC 29.3 g/dL (31.0-37.0); MCV 95.6 fL (80.0-100.0); Mean Platelet Volume 7.2; Monocytes # (A) 0.9 k/uL (0-1.0); Monocytes % (A) 6 %; Neutrophils # (A) 14.3 k/uL (1.3-7.7); Neutrophils % (A) 87 %; Platelet Count 423 k/uL (150-450); RDW 13.9 % (11.5-15.5); WBC 16.5 k/uL (3.8-10.6)
--- NOTE | 2019-11-16 08:21 | XR ---
EXAMINATION TYPE: XR chest 2V DATE OF EXAM: 11/16/2019 COMPARISON: None HISTORY: 39-year-old female with dysrhythmia and altered mental status, confusion TECHNIQUE: AP and lateral views FINDINGS: The cardiomediastinal silhouette, aorta, and pulmonary vasculature are within normal limits. Lungs an d pleural spaces are clear. IMPRESSION: No acute cardiopulmonary process.
[2019-11-16 08:22] LABS: INR 1.3 (<1.2); Partial Thromboplastin Time 24.9 sec (22.0-30.0); Prothrombin Time 13.1 sec (9.0-12.0)
[2019-11-16 08:24] LABS: African American GFR (CKD) 15 (>60 ml/min/1.73 sqM); Alcohol <10 mg/dL; Alkaline Phosphatase 85 U/L (38-126); Anion Gap 17 mmol/L; Blood Urea Nitrogen 28 mg/dL (7-17); Calcium 6.9 mg/dL (8.4-10.2); Carbon Dioxide 18 mmol/L (22-30); Chloride 106 mmol/L (98-107); Glucose 184 mg/dL (74-99); Magnesium 2.1 mg/dL (1.6-2.3); Non-African American GFR(CKD) 13 (>60 ml/min/1.73 sqM); Sodium 141 mmol/L (137-145); Total Bilirubin 1.2 mg/dL (0.2-1.3); Total Protein 6.7 g/dL (6.3-8.2)
[2019-11-16] MEDS ORDERED: SODIUM CHLORIDE 0.9% 1,000 ML IV ONE ×2 (08:28→09:26)
[2019-11-16 08:37] LABS: ALT 820 U/L (4-34)
[2019-11-16 08:38] LABS: D-Dimer 1.73 mg/L FEU (<0.60)
[2019-11-16 08:39] LABS: Potassium 8.1 mmol/L (3.5-5.1)
[2019-11-16] MEDS ORDERED: cefTRIAXone IN SWFI 1,000 MG/10 ML SYRINGE IVP STA (08:40)
[2019-11-16] MEDS ORDERED: SODIUM CHLORIDE 0.9% 500 ML 500 ML IV STA (08:41)
[2019-11-16] MEDS ORDERED: ALBUTEROL NEBULIZED (CONC) 20 MG, SODIUM CHLORIDE 0.9% NEBULIZ 3 ML INHALATION ONE ×2 (08:50)
[2019-11-16] MEDS ORDERED: CALCIUM CHLORIDE 100 MG/ML 10 ML SYRINGE IVP STA (08:51)
[2019-11-16] MEDS ORDERED: INSULIN REGULAR 100 UNIT/ML VIAL IV ONE (08:51)
[2019-11-16] MEDS ORDERED: SODIUM BICARB 8.4% 50 ML SYR (1 MEQ/ML) IV STA ×2 (08:53→09:38)
[2019-11-16] MEDS ORDERED: FUROSEMIDE 10 MG/ML 4 ML VIAL IV STA (08:53)
[2019-11-16 08:57] LABS: AST 2513 U/L (14-36)
[2019-11-16 09:24] LABS: Creatine Kinase 18955 U/L (30-135)
[2019-11-16] MEDS ORDERED: VANCOMYCIN IV PER PHARMACY 1 EACH MISC MISCELLANE PRN (10:01)
[2019-11-16] MEDS ORDERED: VANCOMYCIN 1,500 MG in SODIUM CHLORIDE 0.9% 250 ML IVPB SCH (10:15)
[2019-11-16] MEDS ORDERED: HEPARIN SODIUM,PORCINE 5,000 UNIT/ML 1 ML VIAL IV PRN (10:37)
[2019-11-16] MEDS ORDERED: HEPARIN SODIUM,PORCINE 10,000 UNIT/ML 1 ML VIAL IV ONE (10:37)
[2019-11-16 10:41] LABS: Amorphous Sediment,Urine Rare /hpf; Appearance,Urine Cloudy (Clear); Bacteria,Urine Rare /hpf; Bilirubin,Urine Negative (Negative); Blood,Urine Large (Negative); Color,Urine Yellow; Glucose,Urine (UA) Trace (Negative); Hyaline Casts,Urine 7 /lpf (0-2); Ketones,Urine Negative (Negative); Leukocyte Esterase,Urine Negative (Negative); Mucus,Urine Moderate /hpf; Nitrite,Urine Negative (Negative); Protein,Urine 1+ (Negative); RBC,Urine 2 /hpf (0-5); Specific Gravity,Urine 1.028 (1.001-1.035); Squamous Epithelial Cell,Urine 2 /hpf (0-4); WBC,Urine 4 /hpf (0-5)
[2019-11-16 10:45] LABS: Amphetamine Screen,Urine Detected (NotDetected); Barbiturate Screen,Urine Not Detected (NotDetected); Benzodiazepines Screen,Urine Detected (NotDetected); Cocaine Screen,Urine Detected (NotDetected); Methadone Screen, Urine Not Detected (NotDetected); Opiate Screen,Urine Detected (NotDetected); Oxycodone Screen, Urine Detected (NotDetected); Phencyclidine Screen,Urine Not Detected (NotDetected); Tricyclic Antidepressant,Urine Detected (NotDetected); Urn Cannabinoid Scrn Detected (NotDetected)
[2019-11-16] MEDS ORDERED: HEPARIN SOD,PORK IN 0.45% NACL 25,000 UNIT in 0.45% NACL 1 250ML.BAG IV SCH (10:45)
--- NOTE | 2019-11-16 10:46 | P.NPCON ---
History of Present Illness - Reason for Consult acute renal failure, hyperkalemia - History of Present Illness Reason for consultation: Acute kidney injury and hyperkalemia History of present illness: Patient is a 39-year-old female seen in renal consultation for acute kidney injury and hyperkalemia. Patient's creatinine was 0.67 in March 2019. It is elevated at 4.0 today. Potassium level 8.1. Patient has history of schizoaffective disorder. She was found unresponsive by her family members and was brought to the hospital. She was noted to be hypoglycemic and was given glucose. Patient is currently awake but still confused. She is not a reliable historian. She was noted to be febrile with a temperature of 103.1F on admission. There is also concern for potential drug abuse. Patient denies hearing or cocaine. She denies use of nonsteroidals. Patient's does mention that she has taken Neurontin and Lyrica in the past. She has received 2 L of normal saline since admission and is now maintained on normal saline at 1 30 mL an hour. Natarajan catheter to be inserted. She will also be receiving multiple medications to control the hyperkalemia. Vital signs are stable. General: The patient appeared well nourished and normally developed. HEENT: Head exam is unremarkable. Neck is without jugular venous distension. LUNGS: Breath sounds decreased. HEART: Rate and Rhythm are regular. ABDOMEN: Soft, nontender. EXTREMITITES: No clubbing, cyanosis, or edema. Past Medical History Past Medical History: Fibromyalgia Additional Past Medical History / Comment(s): spinal migraines, chronic back pain, lupus History of Any Multi-Drug Resistant Organisms: None Reported Past Surgical History: Tonsillectomy Additional Past Surgical History / Comment(s): spinal tap 2013 Past Anesthesia/Blood Transfusion Reactions: No Reported Reaction Past Psychological History: Anxiety, PTSD Smoking Status: Current every day smoker Past Alcohol Use History: Occasional Past Drug Use History: Cocaine, Heroin, Marijuana, Prescription Drug Abuse - Past Family History Mother Family Medical History: No Reported History Medications and Allergies Home Medications Medication Instructions Recorded Confirmed Type Dextroamphetamine/Amphetamine 30 mg PO BID 11/16/19 11/16/19 History [Adderall] HYDROcodone/APAP 5-325MG [[place] 1 tab PO Q6HR PRN 11/16/19 11/16/19 History 5-325] Pregabalin [Lyrica] 100 mg PO BID 11/16/19 11/16/19 History clonazePAM [KlonoPIN] 0.5 mg PO BID PRN 11/16/19 11/16/19 History Allergies Allergy/AdvReac Type Severity Reaction Status Date / Time No Known Allergies Allergy Verified 11/16/19 09:46 Physical Exam Vitals: Vital Signs Temp Pulse Resp BP Pulse Ox 11/16/19 10:01 103 H 11/16/19 10:00 103 H 18 101/70 97 11/16/19 09:48 103 H 11/16/19 09:25 103 H 18 73/43 97 11/16/19 08:34 101.0 F H 120 H 18 79/61 96 11/16/19 07:35 118 H 11/16/19 07:10 230 H 16 11/16/19 06:57 103.1 F H 115 H 16 107/71 97 Intake and Output 11/15/19 11/16/19 11/16/19 22:59 06:59 14:59 Other: Weight 54.431 kg Results - Lab Results Most recent lab results Calcium 6.9 mg/dL (8.4-10.2) L 11/16/19 07:51 Magnesium 2.1 mg/dL (1.6-2.3) 11/16/19 07:51 11/16/19 07:51 11/16/19 08:58 Assessment and Plan Plan: Assessment: 1. Acute kidney injury mostly prerenal secondary to hypotension and possible sepsis. Also component of rhabdomyolysis. Creatinine 4 on admission. Baseline creatinine near 1 from March 2019. 2. Hyperkalemia secondary to rhabdomyolysis, acute kidney injury and metabolic acidosis. 3. Possible drug overdose. Urine drug screen pending. 4. Metabolic acidosis secondary to acute kidney injury and lactic acidosis. Serum alcohol negative. 5. Hypocalcemia secondary to acute kidney injury. 6. Possible sepsis. Currently on broad-spectrum antibiotics. Plan: Check UA and renal ultrasound. Maintain normal saline - I will increase the rate to 150 mL an hour. Patient will be given 1 g of IV calcium along with IV Lasix, nebulized albuterol, 2 A of sodium bicarb IV push as well as IV insulin with D50. Insert Natarajan catheter. Strict I's and Os. Repeat BMP in 2 hours. If no improvement in her potassium level, will need renal replacement therapy. Follow-up cultures. Repeat CK level again tomorrow. Follow-up echocardiogram. Check volatile acid screen. Thank you for the consultation. I will continue to follow the patient with you during her hospital stay.
[2019-11-16] MEDS ORDERED: NALOXONE 0.4 MG/ML 1 ML VIAL IV PRN (10:58)
[2019-11-16] MEDS ORDERED: ONDANSETRON 4 MG/2 ML VIAL IVP PRN (10:58)
[2019-11-16] MEDS ORDERED: ACETAMINOPHEN TAB 325 MG TAB PO PRN (10:58)
[2019-11-16] MEDS ORDERED: CEFEPIME 1 GM in SODIUM CHLORIDE 0.9% 50 ML IVPB SCH (11:00)
[2019-11-16] MEDS ORDERED: VANCOMYCIN 1,000 MG in SODIUM CHLORIDE 0.9% 250 ML IVPB ONE (11:00)
[2019-11-16 11:30] LABS: Basophils # (A) 0.1 k/uL (0-0.2); Basophils % (A) 0 %; Eosinophils % (A) 0 %; HCT 40.9 % (34.0-46.0); HGB 12.2 gm/dL (11.4-16.0); Hypochromasia Marked; Lymphocytes # (A) 0.9 k/uL (1.0-4.8); Lymphocytes % (A) 7 %; MCH 28.1 pg (25.0-35.0); MCHC 29.9 g/dL (31.0-37.0); Mean Platelet Volume 7.5; Monocytes # (A) 0.5 k/uL (0-1.0); Monocytes % (A) 4 %; Neutrophils # (A) 11.6 k/uL (1.3-7.7); Neutrophils % (A) 87 %; Platelet Count 319 k/uL (150-450); RBC 4.35 m/uL (3.80-5.40); RDW 13.9 % (11.5-15.5); WBC 13.4 k/uL (3.8-10.6)
[2019-11-16 11:38] LABS: Calcium 7.2 mg/dL (8.4-10.2); Potassium 5.2 mmol/L (3.5-5.1)
--- NOTE | 2019-11-16 12:03 | ECHOF ---
Referral Reason: MEASUREMENTS -------- HEIGHT: 165.1 cm WEIGHT: 54.4 kg BP: RVIDd: 2.6 cm (< 3.3) IVSd: 0.8 cm (0.6 - 1.1) LVIDd: 3.0 cm (3.9 - 5.3) LVPWd: 1.0 cm (0.6 - 1.1) IVSs: 1.1 cm LVIDs: 1.8 cm LVPWs: 1.7 cm LAESV Index (A-L): 13.87 ml/m Ao Diam: 2.5 cm (2.0 - 3.7) AV Cusp: 1.5 cm (1.5 - 2.6) LA Diam: 1.7 cm (2.7 - 3.8) MV EXCURSION: 14.273 mm (> 18.000) MV EF SLOPE: 52 mm/s (70 - 150) EPSS: 0.5 cm MV E Maury: 0.66 m/s MV DecT: 140 ms MV A Maury: 0.80 m/s MV E/A Ratio: 0.83 RAP: 20.00 mmHg RVSP: 39.76 mmHg FINDINGS -------- Sinus rhythm. This was a technically good study. The left ventricular size is normal. Left ventricular wall thickness is normal. Overall left vent ricular systolic function is normal with, an EF between 55 - 60 %. The diastolic filling pattern is normal for the age of the patient 7.05. The right ventricle is normal in size. Normal LA size by volume 22+/-6 ml/m2. The right atrial size is normal. Interatrial and interventricular septum intact. The aortic valve is trileaflet, and appears structurally normal. No aortic stenosis or regurgitation. The mitral valve is normal. Mild mitral regurgitation is present. The tricuspid valve appears structurally normal. Mild tricuspid regurgitation present. There is m ild pulmonary hypertension. The right ventricular systolic pressure, as measured by Doppler, is 39. 76mmHg. There is no pulmonic regurgitation present. The aortic root size is normal. The inferior vena cava is dilated with no significant inspiratory collapse which is consistent estima sonal right atrial pressure of >20 mmHg. There is a small, generalized pericardial effusion present. CONCLUSIONS -------- 1. Left ventricular wall thickness is normal. 2. Overall left ventricular systolic function is normal with, an EF between 55 - 60 %. 3. The diastolic filling pattern is normal for the age of the patient 7.05 4. Normal LA size by volume 22+/-6 ml/m2. 5. The aortic valve is trileaflet, and appears structurally normal. No aortic stenosis or regurgitati on. 6. Mild mitral regurgitation is present. 7. Mild tricuspid regurgitation present. 8. There is mild pulmonary hypertension. 9. The inferior vena cava is dilated with no significant inspiratory collapse which is consistent est imated right atrial pressure of >20 mmHg. 10. There is a small, generalized pericardial effusion present. MAINTENANCE MECHANIC HELPER: Kati Arevalo RDCS
--- NOTE | 2019-11-16 12:07 | US ---
EXAMINATION TYPE: US venous doppler duplex LE DATE OF EXAM: 11/16/2019 11:16 AM COMPARISON: NONE CLINICAL HISTORY: elevate D Dimer. SIDE PERFORMED: Bilateral TECHNIQUE: The lower extremity deep venous system is examined utilizing real time linear array sonog deidre with graded compression, doppler sonography and color-flow sonography. VESSELS IMAGED: External Iliac Vein (EIV) Common Femoral Vein Deep Femoral Vein Greater Saphenous Vein * Femoral Vein Popliteal Vein Small Saphenous Vein * Proximal Calf Veins (* superficial vessels) Right Leg: Negative for DVT. There is normal flow, compressibility, vascular waveforms. Left Leg: Negative for DVT. There is normal flow, compressibility, vascular waveforms. IMPRESSION: No DVT of the bilateral lower extremities.
[2019-11-16 12:18] LABS: Glucose,Whole Blood 174 mg/dL (75-99)
--- NOTE | 2019-11-16 12:33 | US ---
EXAMINATION TYPE: US liver DATE OF EXAM: 11/16/2019 COMPARISON: NONE CLINICAL HISTORY: Transaminitis. EXAM MEASUREMENTS: Liver Length: 19.9 cm Gallbladder Wall: 0.2 cm CBD: 0.3 cm Right Kidney: 10.6 x 4.9 x 4.8 cm Pancreas: Visualized portions normal. Liver: No focal abnormality. There is pericholecystic edema. Gallbladder: No cholelithiasis or wall thickening. There is pericholecystic edema. Line O Scribe Operator reports negative sonographic Delong sign. CBD: Normal. No intrahepatic or extrahepatic biliary ductal dilatation. Right Kidney: No hydronephrosis. Trace amounts of ascites seen around the gallbladder, right kidney, and liver. IMPRESSION: 1. Pericholecystic fluid is seen, with no signs of acute cholecystitis. Differential includes third s pacing from low-protein state or portal hypertension, hepatitis, or volume overload. Acute cholecysti tis is unlikely due to lack of wall thickening or sonographic Delong sign. 2. Trace right upper quadrant ascites.
--- NOTE | 2019-11-16 12:36 | US ---
EXAMINATION TYPE: US kidneys/renal and bladder DATE OF EXAM: 11/16/2019 COMPARISON: NONE CLINICAL HISTORY: elevated Cr. EXAM MEASUREMENTS: Right Kidney: 11.1 x 4.9 x 5.3 cm Left Kidney: 10.1 x 5.6 x 4.5 cm Trace right upper quadrant ascites. Right Kidney: Mildly echogenic cortex. No cortical thinning. No hydronephrosis or mass. Left Kidney: Normal. Bladder: Decompressed with Natarajan catheter. Bilateral Jets seen: No IMPRESSION: 1. Mildly echogenic cortex of the right kidney. Findings may reflect medical renal disease. 2. No hydronephrosis bilaterally. 3. Urinary bladder decompressed with Natarajan catheter.
[2019-11-16] MEDS: IOPAMIDOL CONTRAST (ORAL USE) VIAL PO PRN ×2 (13:34→14:31)
--- NOTE | 2019-11-16 13:52 | P.HPIM ---
History of Present Illness H&P Date: 11/16/19 Chief Complaint: Altered mental status 39-year-old female with schizoaffective disorder and polysubstance abuse including IV drug use is brought to the ED by EMS. Apparently, family members found the patient unresponsive and EMS was called. She was found to be hypoglycemic and she was given glucose. This did improve her mentation. On arrival to the ED, she was found to be in SVT. She was given adenosine 6 mg and 12 mg along with metoprolol 2.5 mg IV which improved her heart rate. In the ED, she was found to be febrile with a T-max of 101, tachycardic with a heart rate of 120 and hypotensive with a blood pressure 96/61. CBC showed leukocytosis of 16.5. Her INR was 1.3. Her d-dimer was 1.73. CMP showed potassium of 8.1, bicarbonate of 18, B1 of 28, creatinine of 4, glucose of 184, calcium 6.9, AST of 2513, ALT of 820. Lactic acid was 7. Her CPK was 18,955. Troponin was 1.18. Serum alcohol was negative. She was aggressively treated with albuterol neb, calcium gluconate, insulin with D50 and Lasix and arrangements were made to transfer the patient to ICU. Nephrology and pulmonology was consulted by the ED physician. Patient was seen and examined at bedside. Patient appears lethargic but her mentation seems to have improved since admission. She is alert and oriented 3 and is able to recall her address, the month and year along with the president. Patient currently reports recently being diagnosed with trichomonal infection. She is otherwise unsure of the preceding events that led to this hospital admission. She currently reports some swelling in her ankles bilaterally along with intense thirst and nausea but no vomiting. She denies any headache, fever or chills, cough, chest pain, shortness of breath, palpitations, changes in urination or bowel habits. She denies any abdominal pain. She denies any dizziness, numbness/weakness/tingling of the extremities. She does report history of [place] use and methamphetamine use. Patient reports her last IV drug use was one month ago. Review of Systems Pertinent positives and negatives as discussed in HPI, a complete review of systems was performed and all other systems are negative. Past Medical History Past Medical History: Fibromyalgia Additional Past Medical History / Comment(s): spinal migraines, chronic back pain, lupus History of Any Multi-Drug Resistant Organisms: None Reported Past Surgical History: Tonsillectomy Additional Past Surgical History / Comment(s): spinal tap 2013 Past Anesthesia/Blood Transfusion Reactions: No Reported Reaction Past Psychological History: Anxiety, PTSD Smoking Status: Current every day smoker Past Alcohol Use History: Occasional Past Drug Use History: Cocaine, Heroin, Marijuana, Prescription Drug Abuse - Past Family History Mother Family Medical History: No Reported History Father Family Medical History: No Reported History Additional Family Medical History / Comment(s): Pt states father is healthy. Medications and Allergies Home Medications Medication Instructions Recorded Confirmed Type Dextroamphetamine/Amphetamine 30 mg PO BID 11/16/19 11/16/19 History [Adderall] HYDROcodone/APAP 5-325MG [[place] 1 tab PO Q6HR PRN 11/16/19 11/16/19 History 5-325] Pregabalin [Lyrica] 100 mg PO BID 11/16/19 11/16/19 History clonazePAM [KlonoPIN] 0.5 mg PO BID PRN 11/16/19 11/16/19 History Allergies Allergy/AdvReac Type Severity Reaction Status Date / Time No Known Allergies Allergy Verified 11/16/19 09:46 Physical Exam Vitals: Vital Signs Temp Pulse Resp BP Pulse Ox 11/16/19 10:01 103 H 11/16/19 10:00 103 H 18 101/70 97 11/16/19 09:48 103 H 11/16/19 09:25 103 H 18 73/43 97 11/16/19 08:34 101.0 F H 120 H 18 79/61 96 11/16/19 07:35 118 H 11/16/19 07:10 230 H 16 11/16/19 06:57 103.1 F H 115 H 16 107/71 97 Intake and Output 11/15/19 11/16/19 11/16/19 22:59 06:59 14:59 Other: Weight 54.431 kg General: [non toxic], [lethargic], [appears at stated age] Derm: [warm], [dry] Head: [atraumatic], [normocephalic], [symmetric] Eyes: [EOMI], [no lid lag], [anicteric sclera] Mouth: [no lip lesion], [mucus membranes moist] Cardiovascular: [S1S2 reg], [tachycardic], [positive DP pulse bilateral], Lungs: [CTA bilateral], [no rhonchi, no rales] , [no accessory muscle use] Abdominal: [soft], [ nontender to palpation], [no guarding], [no appreciable organomegaly] Ext: [no gross muscle atrophy], [no edema], [no contractures] Neuro: [no focal neuro deficits] Psych: [Alert], [oriented], [appropriate affect] Results CBC & Chem 7: 11/16/19 11:05 11/16/19 11:05 Labs: Abnormal Lab Results - Last 24 Hours (Table) 11/16/19 11/16/19 11/16/19 Range/Units 06:54 07:19 07:51 WBC 16.5 H (3.8-10.6) k/uL MCHC 29.3 L (31.0-37.0) g/dL Neutrophils # 14.3 H (1.3-7.7) k/uL Lymphocytes # 0.9 L (1.0-4.8) k/uL PT (9.0-12.0) sec INR (<1.2) D-Dimer (<0.60) mg/L FEU Potassium (3.5-5.1) mmol/L Carbon Dioxide (22-30) mmol/L BUN (7-17) mg/dL Creatinine (0.52-1.04) mg/dL Glucose (74-99) mg/dL POC Glucose (mg/dL) 43 L 182 H (75-99) mg/dL Plasma Lactic Acid Tommy (0.7-2.0) mmol/L Calcium (8.4-10.2) mg/dL AST (14-36) U/L ALT (4-34) U/L Creatine Kinase (30-135) U/L Troponin I (0.000-0.034) ng/mL 11/16/19 11/16/19 11/16/19 Range/Units 07:51 07:51 07:51 WBC (3.8-10.6) k/uL MCHC (31.0-37.0) g/dL Neutrophils # (1.3-7.7) k/uL Lymphocytes # (1.0-4.8) k/uL PT 13.1 H (9.0-12.0) sec INR 1.3 H (<1.2) D-Dimer 1.73 H (<0.60) mg/L FEU Potassium 8.1 H* (3.5-5.1) mmol/L Carbon Dioxide 18 L (22-30) mmol/L BUN 28 H (7-17) mg/dL Creatinine 4.00 H (0.52-1.04) mg/dL Glucose 184 H (74-99) mg/dL POC Glucose (mg/dL) (75-99) mg/dL Plasma Lactic Acid Tommy (0.7-2.0) mmol/L Calcium 6.9 L (8.4-10.2) mg/dL AST 2513 H (14-36) U/L ALT 820 H (4-34) U/L Creatine Kinase 42734 H* (30-135) U/L Troponin I 1.180 H* (0.000-0.034) ng/mL 11/16/19 11/16/19 Range/Units 07:51 08:58 WBC (3.8-10.6) k/uL MCHC (31.0-37.0) g/dL Neutrophils # (1.3-7.7) k/uL Lymphocytes # (1.0-4.8) k/uL PT (9.0-12.0) sec INR (<1.2) D-Dimer (<0.60) mg/L FEU Potassium 8.6 H* (3.5-5.1) mmol/L Carbon Dioxide (22-30) mmol/L BUN (7-17) mg/dL Creatinine (0.52-1.04) mg/dL Glucose (74-99) mg/dL POC Glucose (mg/dL) (75-99) mg/dL Plasma Lactic Acid Tommy 7.0 H* (0.7-2.0) mmol/L Calcium (8.4-10.2) mg/dL AST (14-36) U/L ALT (4-34) U/L Creatine Kinase (30-135) U/L Troponin I (0.000-0.034) ng/mL Assessment and Plan Assessment: Acute encephalopathy, resolving Sepsis of unknown etiology with lactic acidosis Acute renal failure with hyperkalemia Acute rhabdomyolysis Transaminitis Elevated troponin likely demand ischemia Elevated D-Dimer Hypoglycemia Polysubstance abuse SVT now resolved Her altered mental status is likely multifactorial. She has a history of methamphetamine use, she was hypoglycemic on the field and appears to be septic on presentation. There is no clear signs of infection at this time. Her mentation is improving. Serum alcohol is negative. Plans: Treatment of sepsis. UDS is pending. Admission to ICU. Fall and seizure precautions. Patient meets sepsis criteria. She is tachycardic. She has a leukocytosis. Chest x-ray is negative. She does have a history of IV drug use. Plans: Empiric treatment with vancomycin and cefepime. Blood cultures, urinalysis pending. Infectious disease consulted. Repeat lactic acid until negative. Telemetry monitoring. Continue normal saline at 130 mL per hour. Creatinine 4. Potassium 8.1. Possibly prerenal. Plans: Continue IVF as above. Avoid nephrotoxins. Received calcium chloride, Lasix and insulin in the ED. Also received 2 amps of bicarb. Nephrology is consulted. Follow renal ultrasound. Repeat potassium at 12 PM. CPK 18,955. Possibly related to methamphetamine use? Plans: Continue IVF as above. Repeat CPK tomorrow morning. AST 2513, ALT 820. Unknown etiology. Possibly related to shock? Total bilirubin within normal limits. Plans: Continue IVF as above. Repeat CMP tomorrow morning. Obtain liver ultrasound. Acute hep panel. Troponin 1.18 with initial EKG showing wide QRS tachycardia. Likely SVT. Plans: Trend Troponin/EKG to rule out ACS. Follow Echocardiogram. Follow Cardiology consultation. S1Q3T3 present on EKG along with elevated D-Dimer there is concerns for PE. Unable to CTA chest due to elevated creatinine. Plans: Start Heparin drip. C onsider CTA chest once renal function improves. Order Duplex bilateral lower extremities. Blood glucose 43 on admission. Unknown etiology. Plans: Regular Accu-Cheks. Hypoglycemic precautions. Plans: Follow UDS. Plans: Now resolved. Telemetry monitoring. DVT prophylaxis: [Heparin drip] Discussed with: [Patient] Anticipated discharge: [2-3 days] Anticipated discharge place: [Home] A total of [45] minutes was spent on the care of this complex patient more than 50% of the time was spent in counseling and care coordination.
[2019-11-16 14:54] LABS: Ethanol Negative (Negative); Isopropanol Negative (Negative)
--- NOTE | 2019-11-16 15:51 | CT ---
EXAMINATION TYPE: CT abdomen pelvis wo con DATE OF EXAM: 11/16/2019 COMPARISON: None INDICATION: Generalized pain. DLP: 404.3 mGycm, Automated exposure control for dose reduction was used. CONTRAST: 0 mL of Isovue 300. Study performed with Oral Contrast TECHNIQUE: Axial images were obtained from above the diaphragm to the pubic rami in the axial plane a t 5 mm thick sections. Reconstructed images are reviewed on the computer in the coronal plane. FINDINGS: Limited CT sections are obtained the lung bases. There is some compressive atelectasis at the bilate ral lung bases. A small right pleural effusion is present.. CT ABDOMEN: Noncontrast imaging causes some limitation. Liver: Normal Spleen: Normal Pancreas: Normal Adrenal glands: The adrenal glands are normal. Gallbladder: Normal Kidneys: No masses are evident. No hydronephrosis is present. No cysts are present. No renal stone s are evident Aorta: Normal Inferior vena cava: Normal. CT PELVIS: Oral contrast extends through the loops of bowel to the colon. There are some loops of bowel incomple te distention limiting their evaluation. Within the lower pelvis some thickening of its distal small bowel loops and ileum is present. Correlate for ileitis. Appendix: Not visualized Urinary bladder: Decompressed with Natarajan catheter. Some air is present likely related to instrumentat ion. Genitourinary structures: Uterus is normal. Adnexal regions are clear. Uterus resides within the righ t hemipelvis. Some debris may be within the vaginal canal. Osseous structures: No suspicious lytic or sclerotic lesions. IMPRESSIONS: 1. Findings suggestive for distal ileitis. 2. Some debris within the vaginal canal may be present.
[2019-11-16] MEDS: SODIUM CHLORIDE 0.9% 1,000 ML IV SCH ×2 (16:43→23:48)
[2019-11-16 17:15] LABS: Hepatitis A Antibody IgM Non-Reactive (Non-Reactive)
[2019-11-16 17:55] LABS: Glucose,Whole Blood 182 mg/dL (75-99)
[2019-11-16 20:18] LABS: Glucose,Whole Blood 210 mg/dL (75-99)
[2019-11-16] MEDS ORDERED: PIPERACILLIN-TAZOBACTAM 3.375 GM in SODIUM CHLORIDE 0.9% 100 ML IVPB SCH (21:00)
--- NOTE | 2019-11-16 22:49 | P.CONS ---
History of Present Illness - Reason for Consult Consult date: 11/16/19 Sepsis Requesting physician: Austin Steiner - Chief Complaint Unresponsive x 1 day - History of Present Illness Patient is a [age] female with a past medical history significant for shows affected disorder and polysubstance drug abuse including IV drugs patient was brought into the ER by EMS after the patient family found her unresponsive at home on arrival to the medicine patient was noticed to have low blood sugar she was given IV dextrose did have some improvement in mentation subsequently patient has been pressure. On arrival to the ER the patient was noticed to be febrile with temperature of 101F patient was tachycardic and hypotensive patient noticed to have elevated white count of 16.5 also noticed to have a creatinine of 4 patient urine dressing was positive for multiple drugs urine was negative, chest x-ray was negative for any acute infiltrate patient has been started on cefepime and vancomycin she has been admitted to the ICU infection he was consulted for further management of antibiotic therapy at this time I will ration the patient's telemetry more awake and alert complaining of pain in the lower abdominal area however she is unable to return for follow-up the patient will have this pain patient did have some nausea but no vomiting and denies any diarrhea or constipation and no burning or frequency of urine overall the daniela ent is not a good historian Review of Systems Positive point has been mentioned in the HPI rest of the systems are negative Past Medical History Past Medical History: Fibromyalgia Additional Past Medical History / Comment(s): spinal migraines, chronic back pain, lupus History of Any Multi-Drug Resistant Organisms: None Reported Past Surgical History: Tonsillectomy Additional Past Surgical History / Comment(s): spinal tap 2012 Past Anesthesia/Blood Transfusion Reactions: No Reported Reaction Past Psychological History: Anxiety, PTSD Smoking Status: Current every day smoker Past Alcohol Use History: Occasional Past Drug Use History: Cocaine, Heroin, Marijuana, Prescription Drug Abuse - Past Family History Mother Family Medical History: No Reported History Additional Family Medical History / Comment(s): Pt states mother is healthy. Father Family Medical History: No Reported History Additional Family Medical History / Comment(s): Pt states father is healthy. Medications and Allergies Home Medications Medication Instructions Recorded Confirmed Type Dextroamphetamine/Amphetamine 30 mg PO BID 11/16/19 11/16/19 History [Adderall] HYDROcodone/APAP 5-325MG [[place] 1 tab PO Q6HR PRN 11/16/19 11/16/19 History 5-325] Pregabalin [Lyrica] 100 mg PO BID 11/16/19 11/16/19 History clonazePAM [KlonoPIN] 0.5 mg PO BID PRN 11/16/19 11/16/19 History Allergies Allergy/AdvReac Type Severity Reaction Status Date / Time No Known Allergies Allergy Verified 11/16/19 09:46 Physical Exam Vitals: Vital Signs Temp Pulse Resp BP Pulse Ox 11/16/19 13:24 98 11/16/19 13:00 96 12 112/70 97 11/16/19 12:15 98.4 F 96 12 107/76 96 11/16/19 11:53 100.0 F H 94 18 101/78 98 11/16/19 10:30 104 H 18 112/64 11/16/19 10:01 103 H 11/16/19 10:00 103 H 18 101/70 97 11/16/19 09:48 103 H 11/16/19 09:25 103 H 18 73/43 97 11/16/19 08:34 101.0 F H 120 H 18 79/61 96 11/16/19 07:35 118 H 11/16/19 07:10 230 H 16 11/16/19 06:57 103.1 F H 115 H 16 107/71 97 Intake and Output 11/15/19 11/16/19 11/16/19 22:59 06:59 14:59 Intake Total 162.5 Output Total 605 Balance -442.5 Intake: IV 162.5 Cefepime 1 gm In Sodium 12.5 Chloride 0.9% 50 ml @ 12. 5 mls/hr IVPB Q12HR [facility] Rx#:[id number] Sodium Chloride 0.9% 1, 150 000 ml @ 150 mls/hr IV . Q6H40M [facility] Rx#:[id number] Output: Urine 605 Other: Voiding Method Indwelling Catheter Weight 54.431 kg 54.431 kg GENERAL DESCRIPTION: Middle-aged female lying in bed, no distress. No tachypnea or accessory muscle of respiration use. HEENT: Shows Pallor , no scleral icterus. Oral mucous membrane is dry. No pharyngeal erythema or thrush NECK: Trachea central, no thyromegaly. LUNGS: Unlabored breathing. Clear to auscultation anteriorly. No wheeze or crackle. HEART: S1, S2, regular rate and rhythm. No loud murmur ABDOMEN: Soft, mild abdominal distention and tenderness , no guarding or rigidity, no organomegaly EXTREMITIES: No edema of feet. SKIN: No rash, no masses palpable. NEUROLOGICAL: The patient is lethargic but arousable, mood and affect normal. Results CBC & Chem 7: 11/16/19 11:05 11/16/19 11:05 Labs: Abnormal Lab Results - Last 24 Hours (Table) 11/16/19 11/16/19 11/16/19 Range/Units 06:54 07:19 07:51 WBC 16.5 H (3.8-10.6) k/uL MCHC 29.3 L (31.0-37.0) g/dL Neutrophils # 14.3 H (1.3-7.7) k/uL Lymphocytes # 0.9 L (1.0-4.8) k/uL PT (9.0-12.0) sec INR (<1.2) D-Dimer (<0.60) mg/L FEU Potassium (3.5-5.1) mmol/L Chloride (98-107) mmol/L Carbon Dioxide (22-30) mmol/L BUN (7-17) mg/dL Creatinine (0.52-1.04) mg/dL Glucose (74-99) mg/dL POC Glucose (mg/dL) 43 L 182 H (75-99) mg/dL Plasma Lactic Acid Tommy (0.7-2.0) mmol/L Calcium (8.4-10.2) mg/dL AST (14-36) U/L ALT (4-34) U/L Creatine Kinase (30-135) U/L Troponin I (0.000-0.034) ng/mL Urine Appearance (Clear) Urine Protein (Negative) Urine Glucose (UA) (Negative) Urine Blood (Negative) Amorphous Sediment (None) /hpf Urine Bacteria (None) /hpf Hyaline Casts (0-2) /lpf Urine Mucus (None) /hpf Urine Opiates Screen (NotDetected) Ur Oxycodone Screen (NotDetected) U Tricyclic Antidepress (NotDetected) Ur Amphetamines Screen (NotDetected) U Methamphetamines Scrn (NotDetected) U Benzodiazepines Scrn (NotDetected) Urine Cocaine Screen (NotDetected) U Marijuana (THC) Screen (NotDetected) 11/16/19 11/16/19 11/16/19 Range/Units 07:51 07:51 07:51 WBC (3.8-10.6) k/uL MCHC (31.0-37.0) g/dL Neutrophils # (1.3-7.7) k/uL Lymphocytes # (1.0-4.8) k/uL PT 13.1 H (9.0-12.0) sec INR 1.3 H (<1.2) D-Dimer 1.73 H (<0.60) mg/L FEU Potassium 8.1 H* (3.5-5.1) mmol/L Chloride (98-107) mmol/L Carbon Dioxide 18 L (22-30) mmol/L BUN 28 H (7-17) mg/dL Creatinine 4.00 H (0.52-1.04) mg/dL Glucose 184 H (74-99) mg/dL POC Glucose (mg/dL) (75-99) mg/dL Plasma Lactic Acid Tommy (0.7-2.0) mmol/L Calcium 6.9 L (8.4-10.2) mg/dL AST 2513 H (14-36) U/L ALT 820 H (4-34) U/L Creatine Kinase 03847 H* (30-135) U/L Troponin I 1.180 H* (0.000-0.034) ng/mL Urine Appearance (Clear) Urine Protein (Negative) Urine Glucose (UA) (Negative) Urine Blood (Negative) Amorphous Sediment (None) /hpf Urine Bacteria (None) /hpf Hyaline Casts (0-2) /lpf Urine Mucus (None) /hpf Urine Opiates Screen (NotDetected) Ur Oxycodone Screen (NotDetected) U Tricyclic Antidepress (NotDetected) Ur Amphetamines Screen (NotDetected) U Methamphetamines Scrn (NotDetected) U Benzodiazepines Scrn (NotDetected) Urine Cocaine Screen (NotDetected) U Marijuana (THC) Screen (NotDetected) 11/16/19 11/16/19 11/16/19 Range/Units 07:51 08:58 10:15 WBC (3.8-10.6) k/uL MCHC (31.0-37.0) g/dL Neutrophils # (1.3-7.7) k/uL Lymphocytes # (1.0-4.8) k/uL PT (9.0-12.0) sec INR (<1.2) D-Dimer (<0.60) mg/L FEU Potassium 8.6 H* (3.5-5.1) mmol/L Chloride (98-107) mmol/L Carbon Dioxide (22-30) mmol/L BUN (7-17) mg/dL Creatinine (0.52-1.04) mg/dL Glucose (74-99) mg/dL POC Glucose (mg/dL) (75-99) mg/dL Plasma Lactic Acid Tommy 7.0 H* (0.7-2.0) mmol/L Calcium (8.4-10.2) mg/dL AST (14-36) U/L ALT (4-34) U/L Creatine Kinase (30-135) U/L Troponin I (0.000-0.034) ng/mL Urine Appearance Cloudy H (Clear) Urine Protein 1+ H (Negative) Urine Glucose (UA) Trace H (Negative) Urine Blood Large H (Negative) Amorphous Sediment Rare H (None) /hpf Urine Bacteria Rare H (None) /hpf Hyaline Casts 7 H (0-2) /lpf Urine Mucus Moderate H (None) /hpf Urine Opiates Screen Detected H (NotDetected) Ur Oxycodone Screen Detected H (NotDetected) U Tricyclic Antidepress Detected H (NotDetected) Ur Amphetamines Screen Detected H (NotDetected) U Methamphetamines Scrn Detected H (NotDetected) U Benzodiazepines Scrn Detected H (NotDetected) Urine Cocaine Screen Detected H (NotDetected) U Marijuana (THC) Screen Detected H (NotDetected) 11/16/19 11/16/19 11/16/19 Range/Units 10:30 11:05 11:05 WBC 13.4 H (3.8-10.6) k/uL MCHC 29.9 L (31.0-37.0) g/dL Neutrophils # 11.6 H (1.3-7.7) k/uL Lymphocytes # 0.9 L (1.0-4.8) k/uL PT (9.0-12.0) sec INR (<1.2) D-Dimer (<0.60) mg/L FEU Potassium 5.2 H (3.5-5.1) mmol/L Chloride 113 H (98-107) mmol/L Carbon Dioxide 20 L (22-30) mmol/L BUN 30 H (7-17) mg/dL Creatinine 3.42 H (0.52-1.04) mg/dL Glucose 198 H (74-99) mg/dL POC Glucose (mg/dL) (75-99) mg/dL Plasma Lactic Acid Tommy (0.7-2.0) mmol/L Calcium 7.2 L (8.4-10.2) mg/dL AST (14-36) U/L ALT (4-34) U/L Creatine Kinase (30-135) U/L Troponin I 1.190 H* (0.000-0.034) ng/mL Urine Appearance (Clear) Urine Protein (Negative) Urine Glucose (UA) (Negative) Urine Blood (Negative) Amorphous Sediment (None) /hpf Urine Bacteria (None) /hpf Hyaline Casts (0-2) /lpf Urine Mucus (None) /hpf Urine Opiates Screen (NotDetected) Ur Oxycodone Screen (NotDetected) U Tricyclic Antidepress (NotDetected) Ur Amphetamines Screen (NotDetected) U Methamphetamines Scrn (NotDetected) U Benzodiazepines Scrn (NotDetected) Urine Cocaine Screen (NotDetected) U Marijuana (THC) Screen (NotDetected) 11/16/19 11/16/19 11/16/19 Range/Units 11:05 12:17 12:34 WBC (3.8-10.6) k/uL MCHC (31.0-37.0) g/dL Neutrophils # (1.3-7.7) k/uL Lymphocytes # (1.0-4.8) k/uL PT (9.0-12.0) sec INR (<1.2) D-Dimer (<0.60) mg/L FEU Potassium (3.5-5.1) mmol/L Chloride (98-107) mmol/L Carbon Dioxide (22-30) mmol/L BUN (7-17) mg/dL Creatinine (0.52-1.04) mg/dL Glucose (74-99) mg/dL POC Glucose (mg/dL) 174 H (75-99) mg/dL Plasma Lactic Acid Tommy 2.8 H* (0.7-2.0) mmol/L Calcium (8.4-10.2) mg/dL AST (14-36) U/L ALT (4-34) U/L Creatine Kinase (30-135) U/L Troponin I 1.530 H* (0.000-0.034) ng/mL Urine Appearance (Clear) Urine Protein (Negative) Urine Glucose (UA) (Negative) Urine Blood (Negative) Amorphous Sediment (None) /hpf Urine Bacteria (None) /hpf Hyaline Casts (0-2) /lpf Urine Mucus (None) /hpf Urine Opiates Screen (NotDetected) Ur Oxycodone Screen (NotDetected) U Tricyclic Antidepress (NotDetected) Ur Amphetamines Screen (NotDetected) U Methamphetamines Scrn (NotDetected) U Benzodiazepines Scrn (NotDetected) Urine Cocaine Screen (NotDetected) U Marijuana (THC) Screen (NotDetected) Assessment and Plan Assessment: 1- patient presented to hospital with sepsis in this patient who did have a fever tachycardia hypotension patient was found to be unresponsive at home and noticed to be hyperglycemic in this patient who did have a history of IV drugs abuse and urine toxin has been positive for multiple drugs, patient had been complaining of some lower abdominal pain and she was noticed to be mildly tender with a question of possible intra-abdominal source for her sepsis as the patient's chest x-ray was negative for any acute infiltrate use has been negative and as no evidence of any cellulitis 2- patient with elevated creatinine the high risk of nephrotoxicity from the vancomycin (1) Sepsis Current Visit: Yes Status: Acute Code(s): A41.9 - SEPSIS, UNSPECIFIED ORGANISM SNOMED Code(s): 68139650 Plan: 1- discontinue the vancomycin and cefepime 2- CT abdominal pelvis with oral contrast 3- Zosyn 3.375 g every 12 hours 4- IV fluids We will follow on clinical condition and cultures to further adjust medication if needed Thank you for this consultation will follow this patient with you Time with Patient: Greater than 30
[2019-11-17] MEDS: metroNIDAZOLE-NS PMX 500 MG in SALINE 1 100ML.BAG IVPB SCH ×2 (00:52→09:19)
[2019-11-17 01:45] LABS: Glucose,Whole Blood 147 mg/dL (75-99)
[2019-11-17] MEDS: DOXYCYCLINE 100 MG in SODIUM CHLORIDE 0.9% 100 ML IVPB SCH ×2 (02:26→14:23)
[2019-11-17 04:50] LABS: Albumin 2.9 g/dL (3.5-5.0); Calcium 6.5 mg/dL (8.4-10.2); Potassium 5.1 mmol/L (3.5-5.1); Total Bilirubin 0.9 mg/dL (0.2-1.3); Total Protein 5.2 g/dL (6.3-8.2)
[2019-11-17 04:59] LABS: Basophils % (A) 0 %; Eosinophils % (A) 0 %; HCT 40.1 % (34.0-46.0); HGB 12.2 gm/dL (11.4-16.0); Hypochromasia Moderate; Lymphocytes # (A) 1.2 k/uL (1.0-4.8); Lymphocytes % (A) 10 %; MCH 28.3 pg (25.0-35.0); MCHC 30.5 g/dL (31.0-37.0); MCV 92.8 fL (80.0-100.0); Mean Platelet Volume 7.5; Monocytes # (A) 0.4 k/uL (0-1.0); Monocytes % (A) 3 %; Neutrophils # (A) 10.3 k/uL (1.3-7.7); Neutrophils % (A) 86 %; Platelet Count 253 k/uL (150-450); RBC 4.32 m/uL (3.80-5.40); RDW 13.9 % (11.5-15.5)
[2019-11-17 05:04] LABS: INR 1.6 (<1.2)
[2019-11-17] MEDS ORDERED: VANCOMYCIN 1,000 MG in SODIUM CHLORIDE 0.9% 250 ML IVPB ONE (06:00)
[2019-11-17 07:15] LABS: Glucose,Whole Blood 117 mg/dL (75-99)
--- NOTE | 2019-11-17 07:17 | ED ---
Medical Decision Making - Medical Decision Making I was asked to evaluate the patient as the patient has an undifferentiated sepsis, computed tomography scan revealed there was debris in the vaginal vault, given the patient's history positive drug screen there is concerned she may have packed drugs in her vagina versus infection. This was discussed with the patient who requested that a female perform her pelvic exam. Print Shop Manager on- call at that time was a male, given that the patient has undifferentiated sepsis and possible foreign body in the vagina it was deemed to be urgent pelvic exam be performed and I agreed to perform the exam. I saw and evaluated the patient, patient was able to tell me her name and identify that she is in a hospital. She repeatedly told me she does not feel good. I discussed with her that I was there to perform a pelvic exam with swabs for possible infection, patient agreed to this and was cooperative with the exam. Patient denied recent sexual activity or history of sexually transmitted infection. PHYSICAL EXAM GENERAL: Ill appearing HENT: Normocephalic, Atraumatic. EYES: PERRL, EOMI PULMONARY: Unlabored respirations. No audible rales rhonchi or wheezing was noted. CARDIOVASCULAR: Tachycardia ABDOMEN: Soft and nontender with normal bowel sounds. SKIN: Skin is clear with no lesions or rashes and otherwise unremarkable. : External genitalia reveals dark purple bruising to the left left labia minora on the left side of the mons pubis, no signs of cellulitis or abscess Profuse purulent vaginal discharge was noted from the vaginal canal Purulent discharge was noted from a closed cervical os No evidence of vaginal lacerations or injuries No foreign bodies noted in the vagina Cervical motion tenderness noted on exam Patient did not lateralize tenderness on bimanual exam but complained of discomfort NEUROLOGIC: Patient is alert and oriented x2. Moving all extremities spontaneously MUSCULOSKELETAL: Normal extremities with adequate strength and full range of motion. No lower extremity swelling or edema. No calf tenderness. PSYCHIATRIC: Altered MDM I saw the patient she consented to a pelvic exam I performed a pelvic exam which is concerning for PID. Swabs were obtained. Given that the patient has undifferentiated sepsis, I would recommend broad-spectrum antibiotics to cover possible PID and a consult to gynecology. This recommendation was discussed with attending physician Dr. Jon who agreed. He will place orders for cultures and determine if gynecology consult as appropriate. - Lab Data Result diagrams: 11/17/19 04:05 11/17/19 04:05 Lab Results 11/16/19 11/16/19 11/16/19 Range/Units 06:54 07:19 07:51 WBC 16.5 H (3.8-10.6) k/uL RBC 4.60 (3.80-5.40) m/uL Hgb 12.9 (11.4-16.0) gm/dL Hct 44.0 (34.0-46.0) % MCV 95.6 (80.0-100.0) fL MCH 28.0 (25.0-35.0) pg MCHC 29.3 L (31.0-37.0) g/dL RDW 13.9 (11.5-15.5) % Plt Count 423 (150-450) k/uL Neutrophils % 87 % Lymphocytes % 6 % Monocytes % 6 % Eosinophils % 0 % Basophils % 0 % Neutrophils # 14.3 H (1.3-7.7) k/uL Lymphocytes # 0.9 L (1.0-4.8) k/uL Monocytes # 0.9 (0-1.0) k/uL Eosinophils # 0.1 (0-0.7) k/uL Basophils # 0.0 (0-0.2) k/uL Hypochromasia Marked PT (9.0-12.0) sec INR (<1.2) APTT (22.0-30.0) sec D-Dimer (<0.60) mg/L FEU Sodium (137-145) mmol/L Potassium (3.5-5.1) mmol/L Chloride (98-107) mmol/L Carbon Dioxide (22-30) mmol/L Anion Gap mmol/L BUN (7-17) mg/dL Creatinine (0.52-1.04) mg/dL Est GFR (CKD-EPI)AfAm (>60 ml/min/1.73 sqM) Est GFR (CKD-EPI)NonAf (>60 ml/min/1.73 sqM) Glucose (74-99) mg/dL POC Glucose (mg/dL) 43 L 182 H (75-99) mg/dL POC Glu [employer] Salvage Processor Anitha Shabazz Ashley Lactic Ac Sepsis Rflx Plasma Lactic Acid Tommy (0.7-2.0) mmol/L Calcium (8.4-10.2) mg/dL Magnesium (1.6-2.3) mg/dL Total Bilirubin (0.2-1.3) mg/dL AST (14-36) U/L ALT (4-34) U/L Alkaline Phosphatase (38-126) U/L Creatine Kinase (30-135) U/L Troponin I (0.000-0.034) ng/mL Total Protein (6.3-8.2) g/dL Albumin (3.5-5.0) g/dL Serum Alcohol mg/dL 11/16/19 11/16/19 11/16/19 Range/Units 07:51 07:51 07:51 WBC (3.8-10.6) k/uL RBC (3.80-5.40) m/uL Hgb (11.4-16.0) gm/dL Hct (34.0-46.0) % MCV (80.0-100.0) fL MCH (25.0-35.0) pg MCHC (31.0-37.0) g/dL RDW (11.5-15.5) % Plt Count (150-450) k/uL Neutrophils % % Lymphocytes % % Monocytes % % Eosinophils % % Basophils % % Neutrophils # (1.3-7.7) k/uL Lymphocytes # (1.0-4.8) k/uL Monocytes # (0-1.0) k/uL Eosinophils # (0-0.7) k/uL Basophils # (0-0.2) k/uL Hypochromasia PT 13.1 H (9.0-12.0) sec INR 1.3 H (<1.2) APTT 24.9 (22.0-30.0) sec D-Dimer 1.73 H (<0.60) mg/L FEU Sodium 141 (137-145) mmol/L Potassium 8.1 H* (3.5-5.1) mmol/L Chloride 106 (98-107) mmol/L Carbon Dioxide 18 L (22-30) mmol/L Anion Gap 17 mmol/L BUN 28 H (7-17) mg/dL Creatinine 4.00 H (0.52-1.04) mg/dL Est GFR (CKD-EPI)AfAm 15 (>60 ml/min/1.73 sqM) Est GFR (CKD-EPI)NonAf 13 (>60 ml/min/1.73 sqM) Glucose 184 H (74-99) mg/dL POC Glucose (mg/dL) (75-99) mg/dL POC Glu [employer] Salvage Processor ID Lactic Ac Sepsis Rflx Plasma Lactic Acid Tommy (0.7-2.0) mmol/L Calcium 6.9 L (8.4-10.2) mg/dL Magnesium 2.1 (1.6-2.3) mg/dL Total Bilirubin 1.2 (0.2-1.3) mg/dL AST 2513 H (14-36) U/L ALT 820 H (4-34) U/L Alkaline Phosphatase 85 (38-126) U/L Creatine Kinase 83586 H* (30-135) U/L Troponin I 1.180 H* (0.000-0.034) ng/mL Total Protein 6.7 (6.3-8.2) g/dL Albumin 4.0 (3.5-5.0) g/dL Serum Alcohol <10 mg/dL 11/16/19 11/16/19 11/16/19 Range/Units 07:51 08:46 08:58 WBC (3.8-10.6) k/uL RBC (3.80-5.40) m/uL Hgb (11.4-16.0) gm/dL Hct (34.0-46.0) % MCV (80.0-100.0) fL MCH (25.0-35.0) pg MCHC (31.0-37.0) g/dL RDW (11.5-15.5) % Plt Count (150-450) k/uL Neutrophils % % Lymphocytes % % Monocytes % % Eosinophils % % Basophils % % Neutrophils # (1.3-7.7) k/uL Lymphocytes # (1.0-4.8) k/uL Monocytes # (0-1.0) k/uL Eosinophils # (0-0.7) k/uL Basophils # (0-0.2) k/uL Hypochromasia PT (9.0-12.0) sec INR (<1.2) APTT (22.0-30.0) sec D-Dimer (<0.60) mg/L FEU Sodium (137-145) mmol/L Potassium 8.6 H* (3.5-5.1) mmol/L Chloride (98-107) mmol/L Carbon Dioxide (22-30) mmol/L Anion Gap mmol/L BUN (7-17) mg/dL Creatinine (0.52-1.04) mg/dL Est GFR (CKD-EPI)AfAm (>60 ml/min/1.73 sqM) Est GFR (CKD-EPI)NonAf (>60 ml/min/1.73 sqM) Glucose (74-99) mg/dL POC Glucose (mg/dL) (75-99) mg/dL POC Glu [employer] Salvage Processor ID Lactic Ac Sepsis Rflx Y Plasma Lactic Acid Tommy 7.0 H* (0.7-2.0) mmol/L Calcium (8.4-10.2) mg/dL Magnesium (1.6-2.3) mg/dL Total Bilirubin (0.2-1.3) mg/dL AST (14-36) U/L ALT (4-34) U/L Alkaline Phosphatase (38-126) U/L Creatine Kinase (30-135) U/L Troponin I (0.000-0.034) ng/mL Total Protein (6.3-8.2) g/dL Albumin (3.5-5.0) g/dL Serum Alcohol mg/dL Disposition Clinical Impression: Sepsis, Acute renal failure (ARF), Hyperkalemia, Supraventricular tachycardia, Febrile illness, acute Disposition: ADMITTED IP TO THIS HOSP Condition: Serious
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
--- NOTE | 2019-11-17 08:25 | XR ---
EXAMINATION TYPE: XR chest 1V DATE OF EXAM: 11/17/2019 CLINICAL HISTORY: Pleural effusion TECHNIQUE: Semiupright portable view of the chest obtained COMPARISON: 11/16/2019 chest radiograph FINDINGS: The cardiomediastinal silhouette is within normal limits for size. Pulmonary vasculature i s normal. There is small right pleural effusion and right basilar airspace opacity. Mild linear subse gmental atelectasis of the left lung base. No pneumothorax. The osseous structures are intact. IMPRESSION: Small right pleural effusion and right basilar airspace opacities.
--- NOTE | 2019-11-17 08:50 | US ---
EXAMINATION TYPE: US venous doppler duplex UE LT DATE OF EXAM: 11/17/2019 COMPARISON: NONE CLINICAL HISTORY: swelling /pain. SIDE PERFORMED: Left upper extremity Left Arm: Grayscale, color doppler, spectral doppler imaging performed of the deep veins of the upper extremities. There is normal flow, compressibility and vascular waveforms of the deep veins. There is superficial venous thrombus in the cephalic and basilic veins. IMPRESSION: 1. No deep venous thrombosis of the left upper extremity. 2. There is superficial thrombosis of the cephalic and basilic veins.
[2019-11-17] MEDS ORDERED: NALOXONE 0.4 MG/ML 1 ML VIAL IV PRN (09:05)
[2019-11-17] MEDS: PANTOPRAZOLE 40 MG/10 ML VIAL IV SCH (09:18)
[2019-11-17] MEDS: HEPARIN SODIUM,PORCINE 5,000 UNIT/ML 1 ML VIAL SQ SCH ×3 (09:19→23:05)
[2019-11-17] MEDS: SODIUM CHLORIDE 0.9% 1,000 ML IV SCH ×3 (09:20→19:48)
--- NOTE | 2019-11-17 09:40 | P.PN ---
Subjective Patient is seen in follow-up for acute kidney injury. Renal function a little better. Urine output about 30 mL an hour. Maintained on normal saline at 1 50 mL an [place] [address]39 this morning. Remains confused. Vital signs are stable. General: The patient appeared well nourished and normally developed. HEENT: Head exam is unremarkable. Neck is without jugular venous distension. LUNGS: Lungs are clear to auscultation and percussion. Breath sounds decreased. HEART: Rate and Rhythm are regular. First and second heart sounds normal. No murmurs, rubs or gallops. ABDOMEN: Soft, nontender. EXTREMITITES: No clubbing, cyanosis, or edema. Objective - Vital Signs Vital signs: Vital Signs Temp 98.2 F 11/17/19 04:00 Pulse 84 11/17/19 06:00 Resp 5 L 11/17/19 06:00 BP 88/67 11/17/19 06:00 Pulse Ox 95 11/17/19 06:00 Intake & Output 11/16/19 11/17/19 11/17/19 18:59 06:59 18:59 Intake Total 1345.0 2956.854 170.321 Output Total 1230 405 30 Balance 115 2551.854 140.321 Weight 54.431 kg 61.7 kg Intake: IV 745.0 2300 150 Cefepime 1 gm In Sodium 25.0 Chloride 0.9% 50 ml @ 12. 5 mls/hr IVPB Q12HR [facility] Rx#:[id number] Doxycycline 100 mg In 100 Sodium Chloride 0.9% 100 ml @ 100 mls/hr IVPB Q12H [facility] Rx#:[id number] Piperacillin-Tazobactam 3 100 .375 gm In Sodium Chloride 0.9% 100 ml @ 25 mls/hr IVPB Q12HR [facility] Rx #:[id number] Sodium Chloride 0.9% 1, 720 1800 150 000 ml @ 150 mls/hr IV . Q6H40M [facility] Rx#:[id number] cefOXitin 2 gm In Sodium 200 Chloride 0.9% 100 ml @ 200 mls/hr IVPB Q6H [facility] Rx#:[id number] metroNIDAZOLE-NS PMX 500 100 mg In Saline 1 100ml.bag @ 100 mls/hr IVPB Q8H [facility] Rx#:[id number] Intake, IV Titration 176.854 20.321 Amount Heparin Sod,Pork in 0.45% 176.854 20.321 NaCl 25,000 unit In 0.45 % NaCl 1 250ml.bag @ 18 UNITS/KG/HR 9.798 mls/hr IV .Q24H [facility] Rx#: [id number] Oral 600 480 Output: Urine 1230 405 30 Other: Voiding Method Indwelling Catheter Indwelling Catheter - Labs CBC & Chem 7: 11/17/19 04:05 11/17/19 04:05 Labs: Abnormal Lab Results - Last 24 Hours (Table) 11/16/19 11/16/19 11/16/19 Range/Units 10:15 10:30 11:05 WBC 13.4 H (3.8-10.6) k/uL MCHC 29.9 L (31.0-37.0) g/dL Neutrophils # 11.6 H (1.3-7.7) k/uL Lymphocytes # 0.9 L (1.0-4.8) k/uL PT (9.0-12.0) sec INR (<1.2) APTT (22.0-30.0) sec Sodium (137-145) mmol/L Potassium (3.5-5.1) mmol/L Chloride (98-107) mmol/L Carbon Dioxide (22-30) mmol/L BUN (7-17) mg/dL Creatinine (0.52-1.04) mg/dL Glucose (74-99) mg/dL POC Glucose (mg/dL) (75-99) mg/dL Plasma Lactic Acid Tommy (0.7-2.0) mmol/L Calcium (8.4-10.2) mg/dL AST (14-36) U/L ALT (4-34) U/L Creatine Kinase (30-135) U/L Troponin I 1.190 H* (0.000-0.034) ng/mL Total Protein (6.3-8.2) g/dL Albumin (3.5-5.0) g/dL Urine Appearance Cloudy H (Clear) Urine Protein 1+ H (Negative) Urine Glucose (UA) Trace H (Negative) Urine Blood Large H (Negative) Amorphous Sediment Rare H (None) /hpf Urine Bacteria Rare H (None) /hpf Hyaline Casts 7 H (0-2) /lpf Urine Mucus Moderate H (None) /hpf Urine Opiates Screen Detected H (NotDetected) Ur Oxycodone Screen Detected H (NotDetected) U Tricyclic Antidepress Detected H (NotDetected) Ur Amphetamines Screen Detected H (NotDetected) U Methamphetamines Scrn Detected H (NotDetected) U Benzodiazepines Scrn Detected H (NotDetected) Urine Cocaine Screen Detected H (NotDetected) U Marijuana (THC) Screen Detected H (NotDetected) 11/16/19 11/16/19 11/16/19 Range/Units 11:05 11:05 12:17 WBC (3.8-10.6) k/uL MCHC (31.0-37.0) g/dL Neutrophils # (1.3-7.7) k/uL Lymphocytes # (1.0-4.8) k/uL PT (9.0-12.0) sec INR (<1.2) APTT (22.0-30.0) sec Sodium (137-145) mmol/L Potassium 5.2 H (3.5-5.1) mmol/L Chloride 113 H (98-107) mmol/L Carbon Dioxide 20 L (22-30) mmol/L BUN 30 H (7-17) mg/dL Creatinine 3.42 H (0.52-1.04) mg/dL Glucose 198 H (74-99) mg/dL POC Glucose (mg/dL) 174 H (75-99) mg/dL Plasma Lactic Acid Tommy 2.8 H* (0.7-2.0) mmol/L Calcium 7.2 L (8.4-10.2) mg/dL AST (14-36) U/L ALT (4-34) U/L Creatine Kinase (30-135) U/L Troponin I (0.000-0.034) ng/mL Total Protein (6.3-8.2) g/dL Albumin (3.5-5.0) g/dL Urine Appearance (Clear) Urine Protein (Negative) Urine Glucose (UA) (Negative) Urine Blood (Negative) Amorphous Sediment (None) /hpf Urine Bacteria (None) /hpf Hyaline Casts (0-2) /lpf Urine Mucus (None) /hpf Urine Opiates Screen (NotDetected) Ur Oxycodone Screen (NotDetected) U Tricyclic Antidepress (NotDetected) Ur Amphetamines Screen (NotDetected) U Methamphetamines Scrn (NotDetected) U Benzodiazepines Scrn (NotDetected) Urine Cocaine Screen (NotDetected) U Marijuana (THC) Screen (NotDetected) 11/16/19 11/16/19 11/16/19 Range/Units 12:34 17:54 18:35 WBC (3.8-10.6) k/uL MCHC (31.0-37.0) g/dL Neutrophils # (1.3-7.7) k/uL Lymphocytes # (1.0-4.8) k/uL PT (9.0-12.0) sec INR (<1.2) APTT 58.7 H (22.0-30.0) sec Sodium (137-145) mmol/L Potassium (3.5-5.1) mmol/L Chloride (98-107) mmol/L Carbon Dioxide (22-30) mmol/L BUN (7-17) mg/dL Creatinine (0.52-1.04) mg/dL Glucose (74-99) mg/dL POC Glucose (mg/dL) 182 H (75-99) mg/dL Plasma Lactic Acid Tommy (0.7-2.0) mmol/L Calcium (8.4-10.2) mg/dL AST (14-36) U/L ALT (4-34) U/L Creatine Kinase (30-135) U/L Troponin I 1.530 H* (0.000-0.034) ng/mL Total Protein (6.3-8.2) g/dL Albumin (3.5-5.0) g/dL Urine Appearance (Clear) Urine Protein (Negative) Urine Glucose (UA) (Negative) Urine Blood (Negative) Amorphous Sediment (None) /hpf Urine Bacteria (None) /hpf Hyaline Casts (0-2) /lpf Urine Mucus (None) /hpf Urine Opiates Screen (NotDetected) Ur Oxycodone Screen (NotDetected) U Tricyclic Antidepress (NotDetected) Ur Amphetamines Screen (NotDetected) U Methamphetamines Scrn (NotDetected) U Benzodiazepines Scrn (NotDetected) Urine Cocaine Screen (NotDetected) U Marijuana (THC) Screen (NotDetected) 11/16/19 11/17/19 11/17/19 Range/Units 20:16 01:43 04:05 WBC (3.8-10.6) k/uL MCHC (31.0-37.0) g/dL Neutrophils # (1.3-7.7) k/uL Lymphocytes # (1.0-4.8) k/uL PT (9.0-12.0) sec INR (<1.2) APTT (22.0-30.0) sec Sodium 135 L (137-145) mmol/L Potassium (3.5-5.1) mmol/L Chloride 108 H (98-107) mmol/L Carbon Dioxide 19 L (22-30) mmol/L BUN 46 H (7-17) mg/dL Creatinine 3.42 H (0.52-1.04) mg/dL Glucose 113 H (74-99) mg/dL POC Glucose (mg/dL) 210 H 147 H (75-99) mg/dL Plasma Lactic Acid Tommy (0.7-2.0) mmol/L Calcium 6.5 L (8.4-10.2) mg/dL AST 5627 H (14-36) U/L ALT 2295 H (4-34) U/L Creatine Kinase 30849 H* (30-135) U/L Troponin I (0.000-0.034) ng/mL Total Protein 5.2 L (6.3-8.2) g/dL Albumin 2.9 L (3.5-5.0) g/dL Urine Appearance (Clear) Urine Protein (Negative) Urine Glucose (UA) (Negative) Urine Blood (Negative) Amorphous Sediment (None) /hpf Urine Bacteria (None) /hpf Hyaline Casts (0-2) /lpf Urine Mucus (None) /hpf Urine Opiates Screen (NotDetected) Ur Oxycodone Screen (NotDetected) U Tricyclic Antidepress (NotDetected) Ur Amphetamines Screen (NotDetected) U Methamphetamines Scrn (NotDetected) U Benzodiazepines Scrn (NotDetected) Urine Cocaine Screen (NotDetected) U Marijuana (THC) Screen (NotDetected) 11/17/19 11/17/19 11/17/19 Range/Units 04:05 04:05 07:13 WBC 12.0 H (3.8-10.6) k/uL MCHC 30.5 L (31.0-37.0) g/dL Neutrophils # 10.3 H (1.3-7.7) k/uL Lymphocytes # (1.0-4.8) k/uL PT 16.0 H (9.0-12.0) sec INR 1.6 H (<1.2) APTT 87.0 H (22.0-30.0) sec Sodium (137-145) mmol/L Potassium (3.5-5.1) mmol/L Chloride (98-107) mmol/L Carbon Dioxide (22-30) mmol/L BUN (7-17) mg/dL Creatinine (0.52-1.04) mg/dL Glucose (74-99) mg/dL POC Glucose (mg/dL) 117 H (75-99) mg/dL Plasma Lactic Acid Tommy (0.7-2.0) mmol/L Calcium (8.4-10.2) mg/dL AST (14-36) U/L ALT (4-34) U/L Creatine Kinase (30-135) U/L Troponin I (0.000-0.034) ng/mL Total Protein (6.3-8.2) g/dL Albumin (3.5-5.0) g/dL Urine Appearance (Clear) Urine Protein (Negative) Urine Glucose (UA) (Negative) Urine Blood (Negative) Amorphous Sediment (None) /hpf Urine Bacteria (None) /hpf Hyaline Casts (0-2) /lpf Urine Mucus (None) /hpf Urine Opiates Screen (NotDetected) Ur Oxycodone Screen (NotDetected) U Tricyclic Antidepress (NotDetected) Ur Amphetamines Screen (NotDetected) U Methamphetamines Scrn (NotDetected) U Benzodiazepines Scrn (NotDetected) Urine Cocaine Screen (NotDetected) U Marijuana (THC) Screen (NotDetected) Microbiology - Last 24 Hours (Table) 11/16/19 10:30 Blood Culture Gram Stain - Preliminary Blood 11/16/19 10:30 Blood Culture - Final Blood Assessment and Plan Plan: Assessment: 1. Acute kidney injury secondary to ATN secondary to rhabdomyolysis and hypotension. Creatinine 4 on admission - 3.42. Baseline creatinine near 1 from March 2019. No hydronephrosis noted on kidney ultrasound. Large blood with only 2 RBCs on UA suggestive of myoglobinuria. 2. Hyperkalemia secondary to rhabdomyolysis, acute kidney injury and metabolic acidosis. Improved with medical management. 3. Polysubstance drug abuse. 4. Metabolic acidosis secondary to acute kidney injury and lactic acidosis. Serum alcohol negative. 5. Hypocalcemia secondary to acute kidney injury. 6. Sepsis secondary to gram-positive bacteremia. Maintained on antibiotics. Plan: Maintain normal saline at 150 mL an hour. Repeat CK level this evening. If trending up, I will further increase the rate of IV fluids. 1 g IV calcium gluconate today. Add oral sodium bicarbonate. Follow-up cultures. Continue to monitor renal function and urine output closely.
[2019-11-17] MEDS ORDERED: CALCIUM GLUCONATE 1 GM in SODIUM CHLORIDE 0.9% 100 ML IVPB ONE (10:00)
[2019-11-17] MEDS ORDERED: PIPERACILLIN-TAZOBACTAM 3.375 GM in SODIUM CHLORIDE 0.9% 100 ML IVPB SCH (10:00)
[2019-11-17] MEDS: SODIUM BICARBONATE TAB 650 MG TAB PO SCH ×3 (10:42→20:37)
--- NOTE | 2019-11-17 10:58 | P.PN ---
Subjective Progress Note Date: 11/17/19 39-year-old female patient who got transferred to the intensive care unit for complications of acute kidney injury, acute hyperkalemia. The patient is 39. She has history of schizoaffective disorder. She was found to be unresponsive by family members and she was brought into the hospital accordingly. The patient was confused. The patient was not a reliable historian. The patient was febrile with a temperature 103.1. There was a concern for a potential drug abuse as the patient mentioned that she has taken Lyrica and Neurontin in the past. In the ED, the urine drug screen was positive for opiates, oxycodone, tricyclics, amphetamines, methamphetamine, benzodiazepine, cocaine and marijuana. The patient's white cell count was at 13.4 with a hemoglobin of 12.2. Platelets were 319. The initial sodium level was at 141 with a potassium of 8.1 and a serum bicarb of 18 and a BUN was 28 with a creatinine of 4.0. The patient had a lactic acid level of 7.0. The patient had an [place] [address] and the troponin was at 1.18 with AST of 2513 and ALT of 820. The patient had a UA that showed +1 glucose. The coagulation profile was within normal. D-dimer was at 1.73. The white cell count was at 16.5 To 13.4. Acute hyperkalemia was treated and the potassium level dropped down to 5.2. Creatinine is also improving is down to 3.4 to as the patient is receiving IV fluids. The patient received a total of 2 L of normal saline and currently she is on normal state rate of 130 mL an hour. Natarajan catheter is in place. The Doppler of the lower extremity was negative. The ultrasound the kidneys showed no signs of an acute cholecystitis. The ultrasound the kidneys showed no acute abnormalities or hydronephrosis. The echo showed an ejection fraction of 55-60% without any acute abnormalities. There was only mild pulmonary hypertension. The chest x-ray shows no acute abnormalities. Note that the initial EKG that was done in emergency department was reviewed. The patient was given adenosine by emergency department. Obviously the rhythm was sinus and the patient had hyperacute T waves related to underlying hyperkalemia and the rate was not that much tachycardic. On 11/17/2019 the patient is doing well. She is awake and alert and she is following commands and answering questions. She does have some swelling in her left shoulder area and she has some soreness. The CPK is still on the rise in the CPKs up to 3100 325. LFTs are also abnormal and the patient continues to be shock liver with AST of 567 and ALT of 2295 and a coagulation profile is also abnormal with an INR of 1.6 with a PT of 16 and PTT of 87. No nausea. No vomiting. No abdominal pain. CAT scan of the abdomen that was done yesterday showed questionable distal ileitis and there was also some degrees within the vaginal cavity for that reason the patient underwent a vaginal examination the findings are essentially negative. There is a single set of blood cultures showing gram-positive cocci. Antibiotic management is per ID. She has no chest pain. Troponin peaked at 1.5. Echocardiogram is within normal limits. IV heparin will be discontinued. No further bouts of fever since yesterday. Her last temperature spike was yesterday noontime where she had a temperature 100.0. I performed a ultrasound Doppler of the left upper extremity and the patient was found to have no evidence of DVT in the left upper extremity. There was superficial thrombosis of the cephalic and basilic veins. The chest x-ray showed a small right-sided pleural effusion and right basilar airspace disease. X-ray of the right shoulder is still pending for now. The patient remains on normal saline today to 150 mL an hour. Objective - Vital Signs Vital signs: Vital Signs Temp 97.2 F L 11/17/19 08:00 Pulse 86 11/17/19 10:00 Resp 6 L 11/17/19 10:00 BP 114/89 11/17/19 10:00 Pulse Ox 95 11/17/19 10:00 Intake & Output 11/16/19 11/17/19 11/17/19 18:59 06:59 18:59 Intake Total 1345.0 2956.854 570.321 Output Total 1230 405 90 Balance 115 2551.854 480.321 Weight 54.431 kg 61.7 kg 61.7 kg Intake: IV 745.0 2300 550 Cefepime 1 gm In Sodium 25.0 Chloride 0.9% 50 ml @ 12. 5 mls/hr IVPB Q12HR [facility] Rx#:[id number] Doxycycline 100 mg In 100 Sodium Chloride 0.9% 100 ml @ 100 mls/hr IVPB Q12H [facility] Rx#:[id number] Piperacillin-Tazobactam 3 100 .375 gm In Sodium Chloride 0.9% 100 ml @ 25 mls/hr IVPB Q12HR [facility] Rx #:[id number] Sodium Chloride 0.9% 1, 720 1800 450 000 ml @ 150 mls/hr IV . Q6H40M [facility] Rx#:[id number] cefOXitin 2 gm In Sodium 200 Chloride 0.9% 100 ml @ 200 mls/hr IVPB Q6H [facility] Rx#:[id number] metroNIDAZOLE-NS PMX 500 100 100 mg In Saline 1 100ml.bag @ 100 mls/hr IVPB Q8H [facility] Rx#:[id number] Intake, IV Titration 176.854 20.321 Amount Heparin Sod,Pork in 0.45% 176.854 20.321 NaCl 25,000 unit In 0.45 % NaCl 1 250ml.bag @ 18 UNITS/KG/HR 9.798 mls/hr IV .Q24H [facility] Rx#: [id number] Oral 600 480 Output: Urine 1230 405 90 Other: Voiding Method Indwelling Catheter Indwelling Catheter - Exam The patient appeared well nourished and normally developed. Vital signs as documented. Head exam is unremarkable. No scleral icterus or corneal arcus noted. Neck is without jugular venous distension, thyromegaly, or carotid bruits. Carotid upstrokes are brisk bilaterally. Lungs are clear to auscultation and percussion. Cardiac exam reveals the PMI to be normally sized and situated. Rhythm is regular. First and second heart sounds normal. No murmurs, rubs or gallops. Abdominal exam reveals normal bowel sounds, no masses, no organomegaly and no aortic enlargement. Extremities are nonedematous and both femoral and pedal pulses are normal.Examination of the skin revealed no evidence of significant rashes, suspicious appearing nevi or other concerning lesions.Neurologically, the patient is awake and alert and the patient does not have any focal neurological deficit. Cranial nerves are essentially intact. The left shoulder is slightly swollen and tender to palpation. Pulses in the left upper extremity are within normal limits. There is no ecchymosis. - Labs CBC & Chem 7: 11/17/19 04:05 11/17/19 04:05 Labs: Abnormal Lab Results - Last 24 Hours (Table) 11/16/19 11/16/19 11/16/19 Range/Units 10:30 11:05 11:05 WBC 13.4 H (3.8-10.6) k/uL MCHC 29.9 L (31.0-37.0) g/dL Neutrophils # 11.6 H (1.3-7.7) k/uL Lymphocytes # 0.9 L (1.0-4.8) k/uL PT (9.0-12.0) sec INR (<1.2) APTT (22.0-30.0) sec Sodium (137-145) mmol/L Potassium 5.2 H (3.5-5.1) mmol/L Chloride 113 H (98-107) mmol/L Carbon Dioxide 20 L (22-30) mmol/L BUN 30 H (7-17) mg/dL Creatinine 3.42 H (0.52-1.04) mg/dL Glucose 198 H (74-99) mg/dL POC Glucose (mg/dL) (75-99) mg/dL Plasma Lactic Acid Tommy (0.7-2.0) mmol/L Calcium 7.2 L (8.4-10.2) mg/dL AST (14-36) U/L ALT (4-34) U/L Creatine Kinase (30-135) U/L Troponin I 1.190 H* (0.000-0.034) ng/mL Total Protein (6.3-8.2) g/dL Albumin (3.5-5.0) g/dL 11/16/19 11/16/19 11/16/19 Range/Units 11:05 12:17 12:34 WBC (3.8-10.6) k/uL MCHC (31.0-37.0) g/dL Neutrophils # (1.3-7.7) k/uL Lymphocytes # (1.0-4.8) k/uL PT (9.0-12.0) sec INR (<1.2) APTT (22.0-30.0) sec Sodium (137-145) mmol/L Potassium (3.5-5.1) mmol/L Chloride (98-107) mmol/L Carbon Dioxide (22-30) mmol/L BUN (7-17) mg/dL Creatinine (0.52-1.04) mg/dL Glucose (74-99) mg/dL POC Glucose (mg/dL) 174 H (75-99) mg/dL Plasma Lactic Acid Tommy 2.8 H* (0.7-2.0) mmol/L Calcium (8.4-10.2) mg/dL AST (14-36) U/L ALT (4-34) U/L Creatine Kinase (30-135) U/L Troponin I 1.530 H* (0.000-0.034) ng/mL Total Protein (6.3-8.2) g/dL Albumin (3.5-5.0) g/dL 11/16/19 11/16/19 11/16/19 Range/Units 17:54 18:35 20:16 WBC (3.8-10.6) k/uL MCHC (31.0-37.0) g/dL Neutrophils # (1.3-7.7) k/uL Lymphocytes # (1.0-4.8) k/uL PT (9.0-12.0) sec INR (<1.2) APTT 58.7 H (22.0-30.0) sec Sodium (137-145) mmol/L Potassium (3.5-5.1) mmol/L Chloride (98-107) mmol/L Carbon Dioxide (22-30) mmol/L BUN (7-17) mg/dL Creatinine (0.52-1.04) mg/dL Glucose (74-99) mg/dL POC Glucose (mg/dL) 182 H 210 H (75-99) mg/dL Plasma Lactic Acid Tommy (0.7-2.0) mmol/L Calcium (8.4-10.2) mg/dL AST (14-36) U/L ALT (4-34) U/L Creatine Kinase (30-135) U/L Troponin I (0.000-0.034) ng/mL Total Protein (6.3-8.2) g/dL Albumin (3.5-5.0) g/dL 11/17/19 11/17/19 11/17/19 Range/Units 01:43 04:05 04:05 WBC 12.0 H (3.8-10.6) k/uL MCHC 30.5 L (31.0-37.0) g/dL Neutrophils # 10.3 H (1.3-7.7) k/uL Lymphocytes # (1.0-4.8) k/uL PT (9.0-12.0) sec INR (<1.2) APTT (22.0-30.0) sec Sodium 135 L (137-145) mmol/L Potassium (3.5-5.1) mmol/L Chloride 108 H (98-107) mmol/L Carbon Dioxide 19 L (22-30) mmol/L BUN 46 H (7-17) mg/dL Creatinine 3.42 H (0.52-1.04) mg/dL Glucose 113 H (74-99) mg/dL POC Glucose (mg/dL) 147 H (75-99) mg/dL Plasma Lactic Acid Tommy (0.7-2.0) mmol/L Calcium 6.5 L (8.4-10.2) mg/dL AST 5627 H (14-36) U/L ALT 2295 H (4-34) U/L Creatine Kinase 36374 H* (30-135) U/L Troponin I (0.000-0.034) ng/mL Total Protein 5.2 L (6.3-8.2) g/dL Albumin 2.9 L (3.5-5.0) g/dL 11/16/11/17/19 Range/Units 04:05 07:13 WBC (3.8-10.6) k/uL MCHC (31.0-37.0) g/dL Neutrophils # (1.3-7.7) k/uL Lymphocytes # (1.0-4.8) k/uL PT 16.0 H (9.0-12.0) sec INR 1.6 H (<1.2) APTT 87.0 H (22.0-30.0) sec Sodium (137-145) mmol/L Potassium (3.5-5.1) mmol/L Chloride (98-107) mmol/L Carbon Dioxide (22-30) mmol/L BUN (7-17) mg/dL Creatinine (0.52-1.04) mg/dL Glucose (74-99) mg/dL POC Glucose (mg/dL) 117 H (75-99) mg/dL Plasma Lactic Acid Tommy (0.7-2.0) mmol/L Calcium (8.4-10.2) mg/dL AST (14-36) U/L ALT (4-34) U/L Creatine Kinase (30-135) U/L Troponin I (0.000-0.034) ng/mL Total Protein (6.3-8.2) g/dL Albumin (3.5-5.0) g/dL Microbiology - Last 24 Hours (Table) 11/16/19 07:51 Blood Culture - Preliminary Blood No Growth after 24 hours 11/16/19 10:30 Blood Culture Gram Stain - Preliminary Blood 11/16/19 10:30 Blood Culture - Final Blood Assessment and Plan Plan: 1 acute change in mental status, likely secondary to drugs/metabolic encephalopathy. Neurologic exam is nonfocal. Noted the patient's neurologic exam remains nonfocal and the patient is back to normal mentation and she has no focal neurological deficit at this point in time. 2 acute rhabdomyolysis, with ongoing rise in CPK secondary to rhabdomyolysis 3 acute kidney injury, and the creatinine is stable at 3.4 and the patient is still on IV fluids normal saline at rate of 1 50 mL an hour 4 acute hyperkalemia, recovered 5 cocaine abuse\ 6 marijuana abuse 7 methamphetamine abuse 8 opiates abuse 9 nicotine dependence 10 schizoaffective disorder with previous history of psychosis 11 lactic acidosis, improving 12 troponin leak, underlying ischemic cardiac event is felt to be less likely 13 fever with gram-positive cocci in clusters, awaiting final cultures. Currently on daptomycin 14 mild leukocytosis 15 superficial basilic and cephalic vein thrombosis in the left upper extremity with some swelling and tenderness Plan Continue IV fluids at 150 mL an hour Monitor CPK Monitor renal function Ultrasound the kidneys are within normal Ultrasound the gallbladder is within normal Echocardiogram is within normal Stop the IV heparin and put the patient Reportedly prophylaxis Monitor the cultures and antibiotic management is per ID We'll continue to follow
[2019-11-17] MEDS ORDERED: HALOPERIDOL LACTATE 5 MG/ML 1 ML VIAL IM PRN (11:11)
--- NOTE | 2019-11-17 11:23 | P.CN ---
Psychiatric Consult - . Consult date: 11/17/19 Consult:: 11/17/19 10:04 IDENTIFYING DATA: She is a 39-year-old female with a history of psychosis and polysubstance abuse. HISTORY OF PRESENT ILLNESS: Patient presented to the ER by EMS after police were called due to patient apparently "sleeping in public". As per ER report, patient was minimally responsive and appeared to be confused and was brought into the hospital. Patient was hypoglycemic and had SVT. Patient also was found to be tachycardic and hypertensive. Patient's potassium was 8.1 and BUN/creatinine was elevated significantly. Patient also had elevation in her LFTs and creatinine kinase was later than 18,000. Patient had elevation in her troponins. Patient was found to have acute renal failure and sepsis and was admitted to the ICU for further treatment. Patient has a history of psychosis and polysubstance abuse and was last discharged from the mental health unit in March 2019 on Risperdal, trazodone and Vistaril. Psychiatry was consulted for evaluation today. Patient's nurse claims the patient has been confused drowsy and has been saying bizarre things including "Nadeem Orta is a president". Patient was seen at the bedside and appeared to be drowsy with poor attention span. Patient appeared to have poor insight and judgment and was a poor historian when asked about the events leading up to her hospitalization. She states that she is in the hospital because "they're trying to rule out meningitis". When asked about her drug use she states that "I take Risperdal and trazodone" and was evasive about the recreational drug use. She denied any depression or anxiety at this time. Patient was bizarre and illogical at times. He did not endorse any delusions however was paranoid. Patient was oriented 3. She did mention that she had thoughts of suicide however he did not endorse a specific plan. She denied any homicidal ideations intent or plan and denied any auditory or visual hallucinations at this time. Patient's UDS was positive for opiates, oxycodone, TCAs, methamphetamine, benzodiazepines, cocaine, TCH. PAST PSYCHIATRIC HISTORY: Patient has had 2 previous admissions to the mental health unit, her discharge diagnoses were substance-induced psychotic disorder and generalized anxiety disorder. Patient's last admission was March 2019. She was admitted to one suicide attempt in the past. She alleged that she is receiving psychiatric services since she was 16 years old but "should have" began receiving services which she was [age] years old. Unclear as to whether patient is receiving outpatient treatment. Patient was previously on Risperdal, trazodone and Vistaril when she was last discharged from the mental health unit. PAST MEDICAL HISTORY: Fibromyalgia, chronic pain for which she has been prescribed methadone and Suboxone ALLERGIES: NO KNOWN DRUG ALLERGIES SUBSTANCE USE HISTORY: Please refer to HPI. FAMILY PSYCHIATRIC/SUBSTANCE USE HISTORY: Her mother has a history of alcohol use problems LEGAL HISTORY: Patient denied any legal problems at this time however according to previous notes patient has a substantial legal history with several charges related to drug use. SOCIAL HISTORY: She is unemployed and has no income. Currently homeless. 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 She is and has 2 children, both of whom are in custody of her father. MENTAL STATUS EXAM: General Appearance: Patient appears to be older than stated age is drowsy, difficult to redirect with poor attention span, confused at times. Patient has poor hygiene and grooming wearing hospital gown and has bleach blonde hair. Behavior: Patient is seated without any agitated behavior. Patient appears to be confused and bizarre. Speech: Patient's speech is fluent and nonpressured. Soft tone Mood/Affect: Patient reports their mood is "bad", affect is congruent. Suicidality/Homicidality: Patient denies having any suicidal or homicidal ideation intent or plan. Perceptions: Patient denies anyvisual hallucinations. She denies any auditory hallucinations. Though content/process: Patient has poor insight judgment is irritable, illogical at times and is guarded, is a poor historian. Memory and concentration: A0x3, grossly intact for the purposes of this session. Judgment and insight: Poor/impulsive IMPRESSIONS: Psychosis unspecified, rule out secondary to polysubstance abuse. Benzodiazepine abuse Cocaine abuse Marijuana abuse Methamphetamine abuse Opiate abuse Nicotine dependence PLAN: -At this time patient DOES NOT meet criteria for inpatient psychiatric hospitalization due to patient being severely medically ill. However will continue to follow along patient's condition and progress to see if patient will qualify for inpatient psychiatric hospitalization once she is medically cleared. -Patient DOES NOT have decision making capacity at this time and is unable to reason through and communicate/appreciate the risks, benefits and alternatives to treatment. -Delirium precautions recommended with patient including - avoiding use of narcotics and ELECTROCARDIOGRAM TECHNICIAN sedatives, limit anticholinergic medications when possible, frequent re-orientation, minimize use of restraints, open window shades during the day and close them at night -Would recommend the following medication changes/additions: Trazodone 50 mg daily at bedtime when necessary for insomnia, Haldol 4 mg IM every 6 hours when necessary for agitation/acute psychosis. -Start 1:1 sitter for safety and elopement precautions.] -annot leave AMA at this time. Patient will need a petition and certification if attempting to leave AMA.] would be ideal if patient's mother came in to complete a petition for patient. -ill continue to follow along peripherally until patient is medically cleared and stabilized. -Please contact with any questions.
[2019-11-17 11:45] LABS: Glucose,Whole Blood 118 mg/dL (75-99)
--- NOTE | 2019-11-17 11:49 | XR ---
EXAMINATION TYPE: XR shoulder complete LT DATE OF EXAM: 11/17/2019 CLINICAL HISTORY: Pain and swelling TECHNIQUE: Three views of the left shoulder are obtained. COMPARISON: None. FINDINGS: There is no acute fracture/dislocation evident in the left shoulder. The acromioclavicula r and glenohumeral joint spaces appear within normal limits. The visualized ribs are intact and unre markable. IMPRESSION: Unremarkable left shoulder radiograph.
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
[2019-11-17 13:26] LABS: Hemoglobin A1C 5.9 % (4.0-6.0)
[2019-11-17 16:28] LABS: Hepatitis B Core IgM Non-Reactive (Non-Reactive); Hepatitis B Surface Antigen Non-Reactive (Non-Reactive); Hepatitis C IgG Antibody Reactive (Non-Reactive)
--- NOTE | 2019-11-17 16:30 | P.PN ---
Subjective Progress Note Date: 11/17/19 Patient was seen and examined. No acute events overnight. Patient reports left arm swelling and pain. She denies any chest pain, shortness breath or palpitations. No nausea or vomiting. No fever or chills. She is petitioned by her mother. Case was discussed with her mother, patient with long-standing history of polysubstance abuse including methamphetamine, opiates. Mother is unsure of IV drug use. Objective - Vital Signs Vital signs: Vital Signs Temp 96.8 F L 11/17/19 12:00 Pulse 91 11/17/19 15:00 Resp 6 L 11/17/19 15:00 BP 118/88 11/17/19 15:00 Pulse Ox 94 L 11/17/19 15:00 Intake & Output 11/16/19 11/17/19 11/17/19 18:59 06:59 18:59 Intake Total 1345.0 2956.854 2570.321 Output Total 1230 405 270 Balance 115 2551.854 2300.321 Weight 54.431 kg 61.7 kg 61.7 kg Intake: IV 745.0 2300 2550 Cefepime 1 gm In Sodium 25.0 Chloride 0.9% 50 ml @ 12. 5 mls/hr IVPB Q12HR [facility] Rx#:[id number] Doxycycline 100 mg In 100 100 Sodium Chloride 0.9% 100 ml @ 100 mls/hr IVPB Q12H [facility] Rx#:[id number] Piperacillin-Tazobactam 3 100 100 .375 gm In Sodium Chloride 0.9% 100 ml @ 25 mls/hr IVPB Q12HR [facility] Rx #:[id number] Sodium Chloride 0.9% 1, 1350 000 ml @ 150 mls/hr IV . Q6H40M [facility] Rx#:[id number] Sodium Chloride 0.9% 1, 720 1800 900 000 ml @ 150 mls/hr IV . Q6H40M [facility] Rx#:[id number] cefOXitin 2 gm In Sodium 200 Chloride 0.9% 100 ml @ 200 mls/hr IVPB Q6H [facility] Rx#:[id number] metroNIDAZOLE-NS PMX 500 100 100 mg In Saline 1 100ml.bag @ 100 mls/hr IVPB Q8H [facility] Rx#:[id number] Intake, IV Titration 176.854 20.321 Amount Heparin Sod,Pork in 0.45% 176.854 20.321 NaCl 25,000 unit In 0.45 % NaCl 1 250ml.bag @ 18 UNITS/KG/HR 9.798 mls/hr IV .Q24H [facility] Rx#: [id number] Oral 600 480 Output: Urine 1230 405 270 Other: Voiding Method Indwelling Catheter Indwelling Catheter Indwelling Catheter - Exam General: [non toxic], [lethargic], [appears at stated age] Derm: [warm], [dry] Head: [atraumatic], [normocephalic], [symmetric] Eyes: [EOMI], [no lid lag], [anicteric sclera] Mouth: [no lip lesion], [mucus membranes moist] Cardiovascular: [S1S2 reg], [tachycardic], [positive DP pulse bilateral], Lungs: [CTA bilateral], [no rhonchi, no rales] , [no accessory muscle use] Abdominal: [soft], [ nontender to palpation], [no guarding], [no appreciable organomegaly] Ext: [no gross muscle atrophy], [no edema], [no contractures] Neuro: [no focal neuro deficits] Psych: [Alert and oriented 1-2] - Labs CBC & Chem 7: 11/17/19 04:05 11/17/19 04:05 Labs: Abnormal Lab Results - Last 24 Hours (Table) 11/16/19 11/16/19 11/16/19 Range/Units 17:54 18:35 20:16 WBC (3.8-10.6) k/uL MCHC (31.0-37.0) g/dL Neutrophils # (1.3-7.7) k/uL PT (9.0-12.0) sec INR (<1.2) APTT 58.7 H (22.0-30.0) sec Sodium (137-145) mmol/L Chloride (98-107) mmol/L Carbon Dioxide (22-30) mmol/L BUN (7-17) mg/dL Creatinine (0.52-1.04) mg/dL Glucose (74-99) mg/dL POC Glucose (mg/dL) 182 H 210 H (75-99) mg/dL Calcium (8.4-10.2) mg/dL AST (14-36) U/L ALT (4-34) U/L Creatine Kinase (30-135) U/L Total Protein (6.3-8.2) g/dL Albumin (3.5-5.0) g/dL 11/17/19 11/17/19 11/17/19 Range/Units 01:43 04:05 04:05 WBC 12.0 H (3.8-10.6) k/uL MCHC 30.5 L (31.0-37.0) g/dL Neutrophils # 10.3 H (1.3-7.7) k/uL PT (9.0-12.0) sec INR (<1.2) APTT (22.0-30.0) sec Sodium 135 L (137-145) mmol/L Chloride 108 H (98-107) mmol/L Carbon Dioxide 19 L (22-30) mmol/L BUN 46 H (7-17) mg/dL Creatinine 3.42 H (0.52-1.04) mg/dL Glucose 113 H (74-99) mg/dL POC Glucose (mg/dL) 147 H (75-99) mg/dL Calcium 6.5 L (8.4-10.2) mg/dL AST 5627 H (14-36) U/L ALT 2295 H (4-34) U/L Creatine Kinase 96991 H* (30-135) U/L Total Protein 5.2 L (6.3-8.2) g/dL Albumin 2.9 L (3.5-5.0) g/dL 11/17/19 11/17/19 11/17/19 Range/Units 04:05 07:13 11:43 WBC (3.8-10.6) k/uL MCHC (31.0-37.0) g/dL Neutrophils # (1.3-7.7) k/uL PT 16.0 H (9.0-12.0) sec INR 1.6 H (<1.2) APTT 87.0 H (22.0-30.0) sec Sodium (137-145) mmol/L Chloride (98-107) mmol/L Carbon Dioxide (22-30) mmol/L BUN (7-17) mg/dL Creatinine (0.52-1.04) mg/dL Glucose (74-99) mg/dL POC Glucose (mg/dL) 117 H 118 H (75-99) mg/dL Calcium (8.4-10.2) mg/dL AST (14-36) U/L ALT (4-34) U/L Creatine Kinase (30-135) U/L Total Protein (6.3-8.2) g/dL Albumin (3.5-5.0) g/dL Microbiology - Last 24 Hours (Table) 11/16/19 10:30 Blood Culture Gram Stain - Preliminary Blood 11/16/19 23:35 Genital Culture - Preliminary Vaginal 11/16/19 07:51 Blood Culture - Preliminary Blood No Growth after 24 hours 11/16/19 10:30 Blood Culture - Final Blood Assessment and Plan Assessment: Acute encephalopathy, resolving Sepsis of unknown etiology with lactic acidosis Acute renal failure Acute rhabdomyolysis Transaminitis Elevated troponin likely demand ischemia Elevated D-Dimer Polysubstance abuse Hypoglycemia and hyperkalemia resolved Her altered mental status is likely multifactorial. She has a history of methamphetamine use, she was hypoglycemic on the field and appears to be septic on presentation. There is no clear signs of infection at this time. Her mentation is improving. Serum alcohol is negative. UDS positive for opiates, oxycodone, TCA, amphetamines, methamphetamine, benzodiazepine, cocaine, marijuana. Plans: Treatment of sepsis. Admission to ICU. Fall and seizure precautions. Patient was petitioned by her mother. Patient meets sepsis criteria. She is tachycardic. She has a leukocytosis. Chest x-ray is negative. She does have a history of IV drug use. CT abdomen a nd pelvis negative for acute pathology. Blood culture prelim negative. Urinalysis negative for nitrites or leukocyte esterase. Plans: Vancomycin and cefepime discontinued. Patient started on daptomycin, Zosyn, doxycycline by infectious disease. Follow final blood cultures. Infectious disease consulted. Telemetry monitoring. Continue normal saline at 150 mL per hour. Creatinine 4-3.42. Hyperkalemia resolved. Possibly ATN from rhabdomyolysis. Renal ultrasound shows medical renal disease. Plans: Continue IVF as above. Avoid nephrotoxins. Nephrology is consulted. CPK [phone]. Possibly related to methamphetamine use? Plans: Continue IVF as above. Repeat CPK tomorrow morning. AST 5758-6699, ALT 820-2295. Unknown etiology. Possibly related to rhabdomyolysis. Total bilirubin within normal limits. Pericholecystic fluid with no evidence of acute cholecystitis, third spacing. Plans: Continue IVF as above. Repeat CMP tomorrow morning. Troponin 1.18, 1.19, 1.53 with initial EKG showing wide QRS tachycardia. Echocardiogram shows EF 55-60%. Plans: Telemetry monitoring. Follow Cardiology consultation. S1Q3T3 present on EKG along with elevated D-Dimer there is concerns for PE. Unable to CTA chest due to elevated creatinine. Lower extremity duplex negative. Plans: Heparin drip discontinued. Consider CTA chest once renal function improves. UDS positive for opiates, oxycodone, TCA, amphetamine, methamphetamine, benzodiazepine, cocaine, marijuana. Plans: Petitioned by mother. She is at risk for self-harm. Continue one-to-one sitter. Follow psychiatry recommendations. DVT prophylaxis: [Heparin subcutaneous] Discussed with: [Patient] Anticipated discharge: [2-3 days] Anticipated discharge place: [Mental health unit] A total of [25] minutes was spent on the care of this complex patient more than 50% of the time was spent in counseling and care coordination.
--- NOTE | 2019-11-17 16:43 | PN ---
PROGRESS NOTE DATE OF SERVICE: 11/17/2019 REASON FOR FOLLOWUP: Sepsis, possible abdominal source. INTERVAL HISTORY: Patient is currently afebrile. The patient is hemodynamically stable, not on any pressor support. The patient is more awake, alert, slightly upset with a sitter at the bedside. No nausea, no vomiting. Breathing comfortably on room air and no diarrhea has been reported. PHYSICAL EXAMINATION: Blood pressure 119/88 with a pulse of 91, temperature 96.8. She is 94% on room air. General description is a middle-aged female, lying in bed in no distress. RESPIRATORY SYSTEM: Unlabored breathing, clear to auscultation anteriorly. HEART: S1, S2. Regular rate and rhythm. ABDOMEN: Soft, mildly tender. No guarding or rigidity. LABS: White count 12,000, BUN of 46, creatinine 3.42. Liver enzymes are elevated as well as CK. Blood culture with gram-positive cocci. Abdominal cultures currently pending. DIAGNOSTIC IMPRESSION AND PLAN: Patient with sepsis, source is likely abdominal. This patient with gram-positive bacteremia, some abnormality seen on the uterus. On admission patient had pelvic exam and general cultures obtained. Patient covered with Zosyn. Daptomycin has been added to cover for the gram-positive blood cultures, repeat to document clearance of bacteremia and monitor clinical course. MMODL / IJN: [id number] /
[2019-11-17 17:12] LABS: Glucose,Whole Blood 132 mg/dL (75-99)
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
[2019-11-17 20:13] LABS: Glucose,Whole Blood 106 mg/dL (75-99)
[2019-11-17] MEDS: PIPERACILLIN-TAZOBACTAM 3.375 GM in SODIUM CHLORIDE 0.9% 100 ML IVPB SCH (20:37)
[2019-11-18] MEDS: SODIUM CHLORIDE 0.9% 1,000 ML IV SCH ×3 (01:05→15:41)
[2019-11-18] MEDS: DOXYCYCLINE 100 MG in SODIUM CHLORIDE 0.9% 100 ML IVPB SCH ×2 (01:05→14:59)
[2019-11-18] MEDS: ONDANSETRON 4 MG/2 ML VIAL IVP PRN ×3 (01:22→23:25)
[2019-11-18 01:55] LABS: Glucose,Whole Blood 103 mg/dL (75-99)
[2019-11-18 04:44] LABS: Basophils % (A) 0 %; Eosinophils # (A) 0.1 k/uL (0-0.7); Eosinophils % (A) 2 %; Hypochromasia Moderate; Lymphocytes # (A) 1.1 k/uL (1.0-4.8); Lymphocytes % (A) 16 %; MCH 28.6 pg (25.0-35.0); MCHC 30.9 g/dL (31.0-37.0); MCV 92.7 fL (80.0-100.0); Mean Platelet Volume 7.3; Monocytes # (A) 0.3 k/uL (0-1.0); Monocytes % (A) 5 %; Neutrophils % (A) 76 %; Platelet Count 176 k/uL (150-450); RBC 4.21 m/uL (3.80-5.40); RDW 13.9 % (11.5-15.5); WBC 6.6 k/uL (3.8-10.6)
[2019-11-18 04:52] LABS: Albumin 2.4 g/dL (3.5-5.0); Calcium 6.5 mg/dL (8.4-10.2); Potassium 4.4 mmol/L (3.5-5.1); Total Bilirubin 0.9 mg/dL (0.2-1.3); Total Protein 4.6 g/dL (6.3-8.2)
[2019-11-18 06:34] LABS: Glucose,Whole Blood 72 mg/dL (75-99)
[2019-11-18] MEDS ORDERED: FUROSEMIDE 10 MG/ML 10 ML VIAL IV STA (08:12)
[2019-11-18] MEDS: HEPARIN SODIUM,PORCINE 5,000 UNIT/ML 1 ML VIAL SQ SCH ×2 (08:27→15:41)
[2019-11-18] MEDS: PANTOPRAZOLE 40 MG/10 ML VIAL IV SCH (08:27)
[2019-11-18] MEDS: SODIUM BICARBONATE TAB 650 MG TAB PO SCH ×2 (08:28→21:20)
[2019-11-18] MEDS: PIPERACILLIN-TAZOBACTAM 3.375 GM in SODIUM CHLORIDE 0.9% 100 ML IVPB SCH ×2 (08:28→21:23)
--- NOTE | 2019-11-18 09:31 | P.PN ---
Subjective Patient is seen in follow-up for acute kidney injury. Renal function stable. Urine output about 30-40 mL an hour. Maintained on normal saline at 150 mL an hour. CK level trending down. Remains confused. Vital signs are stable. General: The patient appeared well nourished and normally developed. HEENT: Head exam is unremarkable. Neck is without jugular venous distension. LUNGS: Lungs are clear to auscultation and percussion. Breath sounds decreased. HEART: Rate and Rhythm are regular. First and second heart sounds normal. No murmurs, rubs or gallops. ABDOMEN: Soft, nontender. EXTREMITITES: No clubbing, cyanosis, or edema. Objective - Vital Signs Vital signs: Vital Signs Temp 98 F 11/18/19 04:00 Pulse 98 11/18/19 07:00 Resp 8 L 11/18/19 07:00 BP 119/83 11/18/19 07:00 Pulse Ox 95 11/18/19 07:00 Intake & Output 11/17/19 11/18/19 11/18/19 18:59 06:59 18:59 Intake Total 2870.321 2000 150 Output Total 330 605 40 Balance 2540.321 1395 110 Weight 61.7 kg 61.7 kg Intake: IV 2850 2000 150 Doxycycline 100 mg In 100 100 Sodium Chloride 0.9% 100 ml @ 100 mls/hr IVPB Q12H [facility] Rx#:[id number] Piperacillin-Tazobactam 3 100 100 .375 gm In Sodium Chloride 0.9% 100 ml @ 25 mls/hr IVPB Q12HR [facility] Rx #:[id number] Sodium Chloride 0.9% 1, 1650 1800 150 000 ml @ 150 mls/hr IV . Q6H40M [facility] Rx#:[id number] Sodium Chloride 0.9% 1, 900 000 ml @ 150 mls/hr IV . Q6H40M [facility] Rx#:[id number] metroNIDAZOLE-NS PMX 500 100 mg In Saline 1 100ml.bag @ 100 mls/hr IVPB Q8H [facility] Rx#:[id number] Intake, IV Titration 20.321 Amount Heparin Sod,Pork in 0.45% 20.321 NaCl 25,000 unit In 0.45 % NaCl 1 250ml.bag @ 18 UNITS/KG/HR 9.798 mls/hr IV .Q24H [facility] Rx#: [id number] Output: Urine 330 605 40 Other: Voiding Method Indwelling Catheter Indwelling Catheter - Labs CBC & Chem 7: 11/18/19 03:55 11/18/19 03:55 Labs: Abnormal Lab Results - Last 24 Hours (Table) 11/16/19 11/17/19 11/17/19 Range/Units 10:30 11:43 16:56 MCHC (31.0-37.0) g/dL Sodium (137-145) mmol/L Chloride (98-107) mmol/L Carbon Dioxide (22-30) mmol/L BUN (7-17) mg/dL Creatinine (0.52-1.04) mg/dL Glucose (74-99) mg/dL POC Glucose (mg/dL) 118 H (75-99) mg/dL Calcium (8.4-10.2) mg/dL AST (14-36) U/L ALT (4-34) U/L Creatine Kinase 63132 H* (30-135) U/L Total Protein (6.3-8.2) g/dL Albumin (3.5-5.0) g/dL Hep C IgG Ab Reactive H (Non-Reactive) 11/17/19 11/17/19 11/18/19 Range/Units 17:11 20:11 01:53 MCHC (31.0-37.0) g/dL Sodium (137-145) mmol/L Chloride (98-107) mmol/L Carbon Dioxide (22-30) mmol/L BUN (7-17) mg/dL Creatinine (0.52-1.04) mg/dL Glucose (74-99) mg/dL POC Glucose (mg/dL) 132 H 106 H 103 H (75-99) mg/dL Calcium (8.4-10.2) mg/dL AST (14-36) U/L ALT (4-34) U/L Creatine Kinase (30-135) U/L Total Protein (6.3-8.2) g/dL Albumin (3.5-5.0) g/dL Hep C IgG Ab (Non-Reactive) 11/18/19 11/18/19 11/18/19 Range/Units 03:55 03:55 06:32 MCHC 30.9 L (31.0-37.0) g/dL Sodium 135 L (137-145) mmol/L Chloride 111 H (98-107) mmol/L Carbon Dioxide 18 L (22-30) mmol/L BUN 55 H (7-17) mg/dL Creatinine 3.44 H (0.52-1.04) mg/dL Glucose 73 L (74-99) mg/dL POC Glucose (mg/dL) 72 L (75-99) mg/dL Calcium 6.5 L (8.4-10.2) mg/dL AST 2295 H (14-36) U/L ALT 1695 H (4-34) U/L Creatine Kinase 42835 H* (30-135) U/L Total Protein 4.6 L (6.3-8.2) g/dL Albumin 2.4 L (3.5-5.0) g/dL Hep C IgG Ab (Non-Reactive) Microbiology - Last 24 Hours (Table) 11/16/19 10:30 Blood Culture Gram Stain - Preliminary Blood Blood Culture - Preliminary Coagulase Negative Staph 11/16/19 23:35 Genital Culture - Preliminary Vaginal 11/16/19 07:51 Blood Culture - Preliminary Blood No Growth after 24 hours 11/16/19 10:30 Blood Culture - Final Blood Assessment and Plan Plan: Assessment: 1. Acute kidney injury secondary to ATN secondary to rhabdomyolysis and hypote nsion. Creatinine 4 on admission - stable at 3.44 today. Baseline creatinine near 1 from March 2019. No hydronephrosis noted on kidney ultrasound. Large blood with only 2 RBCs on UA suggestive of myoglobinuria. 2. Hyperkalemia secondary to rhabdomyolysis, acute kidney injury and metabolic acidosis. Improved with medical management. 3. Polysubstance drug abuse. 4. Metabolic acidosis secondary to acute kidney injury and lactic acidosis. Serum alcohol negative. 5. Hypocalcemia secondary to acute kidney injury. Better. Corrected calcium 7.7. 6. Sepsis secondary to gram-positive bacteremia. Maintained on antibiotics. Possibly contamination. Plan: Decrease normal saline to 100 mL an hour. Increase dose of oral sodium bicarbonate. Follow-up cultures. Continue to monitor renal function and urine output closely.
--- NOTE | 2019-11-18 10:50 | P.PN ---
Subjective Progress Note Date: 11/18/19 39-year-old female patient who got transferred to the intensive care unit for complications of acute kidney injury, acute hyperkalemia. The patient is 39. She has history of schizoaffective disorder. She was found to be unresponsive by family members and she was brought into the hospital accordingly. The patient was confused. The patient was not a reliable historian. The patient was febrile with a temperature 103.1. There was a concern for a potential drug abuse as the patient mentioned that she has taken Lyrica and Neurontin in the past. In the ED, the urine drug screen was positive for opiates, oxycodone, tricyclics, amphetamines, methamphetamine, benzodiazepine, cocaine and marijuana. The patient's white cell count was at 13.4 with a hemoglobin of 12.2. Platelets were 319. The initial sodium level was at 141 with a potassium of 8.1 and a serum bicarb of 18 and a BUN was 28 with a creatinine of 4.0. The patient had a lactic acid level of 7.0. The patient had an [place] [address] and the troponin was at 1.18 with AST of 2513 and ALT of 820. The patient had a UA that showed +1 glucose. The coagulation profile was within normal. D-dimer was at 1.73. The white cell count was at 16.5 To 13.4. Acute hyperkalemia was treated and the potassium level dropped down to 5.2. Creatinine is also improving is down to 3.4 to as the patient is receiving IV fluids. The patient received a total of 2 L of normal saline and currently she is on normal state rate of 130 mL an hour. Natarajan catheter is in place. The Doppler of the lower extremity was negative. The ultrasound the kidneys showed no signs of an acute cholecystitis. The ultrasound the kidneys showed no acute abnormalities or hydronephrosis. The echo showed an ejection fraction of 55-60% without any acute abnormalities. There was only mild pulmonary hypertension. The chest x-ray shows no acute abnormalities. Note that the initial EKG that was done in emergency department was reviewed. The patient was given adenosine by emergency department. Obviously the rhythm was sinus and the patient had hyperacute T waves related to underlying hyperkalemia and the rate was not that much tachycardic. On 11/17/2019 the patient is doing well. She is awake and alert and she is following commands and answering questions. She does have some swelling in her left shoulder area and she has some soreness. The CPK is still on the rise in the CPKs up to 3100 325. LFTs are also abnormal and the patient continues to be shock liver with AST of 567 and ALT of 2295 and a coagulation profile is also abnormal with an INR of 1.6 with a PT of 16 and PTT of 87. No nausea. No vomiting. No abdominal pain. CAT scan of the abdomen that was done yesterday showed questionable distal ileitis and there was also some degrees within the vaginal cavity for that reason the patient underwent a vaginal examination the findings are essentially negative. There is a single set of blood cultures showing gram-positive cocci. Antibiotic management is per ID. She has no chest pain. Troponin peaked at 1.5. Echocardiogram is within normal limits. IV heparin will be discontinued. No further bouts of fever since yesterday. Her last temperature spike was yesterday noontime where she had a temperature 100.0. I performed a ultrasound Doppler of the left upper extremity and the patient was found to have no evidence of DVT in the left upper extremity. There was superficial thrombosis of the cephalic and basilic veins. The chest x-ray showed a small right-sided pleural effusion and right basilar airspace disease. X-ray of the right shoulder is still pending for now. The patient remains on normal saline today to 150 mL an hour. On 11/18/2019 and seeing the patient for a follow-up. This morning I was told that the patient was slightly confused. At the time of my arrival, she seems to more appropriate. She was having some vague abdominal pain and nausea. She did not have any emesis. Her CPKs level is improving. [place] [address]. Also, the LFTs are improving as the patient was in a shock liver. AST is at 2295 and ALT is 1695. The patient has a mild component of non-anion gap metabolic acidosis with a serum bicarb of 18. Anion gap is at 6. Renal function continues to be impaired with a creatinine of 3.44. The patient has no fever. No chills. Cultures have been positive for cognitive is negative staph and this is probably contaminant. She was seen by [employer]. No evidence of any PID. The patient was given vaginal cultures and the results are still pending for now. Meanwhile, the patient was kept on a combination of Zosyn and doxycycline. Daptomycin was also given by infectious disease. As mentioned earlier, the patient has some swelling and tenderness along the left shoulder. X-ray showed no fracture. Ultrasound shows some thrombosis of the superficial veins including the cephalic and basilic veins. The patient is af ebrile for now and she is hemodynamically stable. We are going to cut down the IV fluid and the patient is in a positive fluid balance over the past 24 hours. This was discussed with nephrology. The IV fluids will be placed at 100 mL of normal saline per hour. Objective - Vital Signs Vital signs: Vital Signs Temp 98 F 11/18/19 04:00 Pulse 98 11/18/19 07:00 Resp 8 L 11/18/19 07:00 BP 119/83 11/18/19 07:00 Pulse Ox 95 11/18/19 07:00 Intake & Output 11/17/19 11/18/19 11/18/19 18:59 06:59 18:59 Intake Total 2870.321 2000 150 Output Total 330 605 40 Balance 2540.321 1395 110 Weight 61.7 kg 61.7 kg Intake: IV 2850 2000 150 Doxycycline 100 mg In 100 100 Sodium Chloride 0.9% 100 ml @ 100 mls/hr IVPB Q12H [facility] Rx#:[id number] Piperacillin-Tazobactam 3 100 100 .375 gm In Sodium Chloride 0.9% 100 ml @ 25 mls/hr IVPB Q12HR [facility] Rx #:[id number] Sodium Chloride 0.9% 1, 1650 1800 150 000 ml @ 150 mls/hr IV . Q6H40M [facility] Rx#:[id number] Sodium Chloride 0.9% 1, 900 000 ml @ 150 mls/hr IV . Q6H40M [facility] Rx#:[id number] metroNIDAZOLE-NS PMX 500 100 mg In Saline 1 100ml.bag @ 100 mls/hr IVPB Q8H [facility] Rx#:[id number] Intake, IV Titration 20.321 Amount Heparin Sod,Pork in 0.45% 20.321 NaCl 25,000 unit In 0.45 % NaCl 1 250ml.bag @ 18 UNITS/KG/HR 9.798 mls/hr IV .Q24H [facility] Rx#: [id number] Output: Urine 330 605 40 Other: Voiding Method Indwelling Catheter Indwelling Catheter - Exam The patient appeared well nourished and normally developed. Vital signs as documented. Head exam is unremarkable. No scleral icterus or corneal arcus noted . Neck is without jugular venous distension, thyromegaly, or carotid bruits. Carotid upstrokes are brisk bilaterally. Lungs are clear to auscultation and percussion. Cardiac exam reveals the PMI to be normally sized and situated. Rhythm is regular. First and second heart sounds normal. No murmurs, rubs or gallops. Abdominal exam reveals normal bowel sounds, no masses, no organomegaly and no aortic enlargement. Extremities are nonedematous and both femoral and pedal pulses are normal.Examination of the skin revealed no evidence of significant rashes, suspicious appearing nevi or other concerning lesions.Neurologically, the patient is awake and alert and the patient does not have any focal neurological deficit. Cranial nerves are essentially intact. The left shoulder is slightly swollen and tender to palpation. Pulses in the left upper extremity are within normal limits. There is no ecchymosis. - Labs CBC & Chem 7: 11/18/19 03:55 11/18/19 03:55 Labs: Abnormal Lab Results - Last 24 Hours (Table) 11/16/19 11/17/19 11/17/19 Range/Units 10:30 11:43 16:56 MCHC (31.0-37.0) g/dL Sodium (137-145) mmol/L Chloride (98-107) mmol/L Carbon Dioxide (22-30) mmol/L BUN (7-17) mg/dL Creatinine (0.52-1.04) mg/dL Glucose (74-99) mg/dL POC Glucose (mg/dL) 118 H (75-99) mg/dL Calcium (8.4-10.2) mg/dL AST (14-36) U/L ALT (4-34) U/L Creatine Kinase 82670 H* (30-135) U/L Total Protein (6.3-8.2) g/dL Albumin (3.5-5.0) g/dL Hep C IgG Ab Reactive H (Non-Reactive) 11/17/19 11/17/19 11/18/19 Range/Units 17:11 20:11 01:53 MCHC (31.0-37.0) g/dL Sodium (137-145) mmol/L Chloride (98-107) mmol/L Carbon Dioxide (22-30) mmol/L BUN (7-17) mg/dL Creatinine (0.52-1.04) mg/dL Glucose (74-99) mg/dL POC Glucose (mg/dL) 132 H 106 H 103 H (75-99) mg/dL Calcium (8.4-10.2) mg/dL AST (14-36) U/L ALT (4-34) U/L Creatine Kinase (30-135) U/L Total Protein (6.3-8.2) g/dL Albumin (3.5-5.0) g/dL Hep C IgG Ab (Non-Reactive) 11/18/19 11/18/19 11/18/19 Range/Units 03:55 03:55 06:32 MCHC 30.9 L (31.0-37.0) g/dL Sodium 135 L (137-145) mmol/L Chloride 111 H (98-107) mmol/L Carbon Dioxide 18 L (22-30) mmol/L BUN 55 H (7-17) mg/dL Creatinine 3.44 H (0.52-1.04) mg/dL Glucose 73 L (74-99) mg/dL POC Glucose (mg/dL) 72 L (75-99) mg/dL Calcium 6.5 L (8.4-10.2) mg/dL AST 2295 H (14-36) U/L ALT 1695 H (4-34) U/L Creatine Kinase 61034 H* (30-135) U/L Total Protein 4.6 L (6.3-8.2) g/dL Albumin 2.4 L (3.5-5.0) g/dL Hep C IgG Ab (Non-Reactive) Microbiology - Last 24 Hours (Table) 11/16/19 07:51 Blood Culture - Preliminary Blood No Growth after 48 hours 11/16/19 10:30 Blood Culture Gram Stain - Preliminary Blood Blood Culture - Preliminary Coagulase Negative Staph 11/16/19 23:35 Genital Culture - Preliminary Vaginal 11/16/19 10:30 Blood Culture - Final Blood Assessment and Plan Plan: 1 acute change in mental status, likely secondary to drugs/metabolic encephalopathy. Neurologic exam is nonfocal. Noted the patient's neurologic exam remains nonfocal and the patient is back to normal mentation and she has no focal neurological deficit at this point in time. She is having some on and off confusion. For the most part the rise exam remains nonfocal and the patient does not have any focal neurological deficit. Consider underlying metabolic encephalopathy. 2 acute rhabdomyolysis, with ongoing rise in CPK secondary to rhabdomyolysis, improving 3 acute kidney injury, and the creatinine is stable at 3.4 and the creatinine is stable for now 4 acute hyperkalemia, recovered 5 cocaine abuse\ 6 marijuana abuse 7 methamphetamine abuse 8 opiates abuse 9 nicotine dependence 10 schizoaffective disorder with previous history of psychosis 11 lactic acidosis, improving 12 troponin leak, underlying ischemic cardiac event is felt to be less likely 13 fever with gram-positive cocci in clusters, and the cultures are consistent with coagulase-negative staph and I will leave the management up to 4 times a day 14 mild leukocytosis, recovered 15 superficial basilic and cephalic vein thrombosis in the left upper extremity with some swelling and tenderness Plan reduced IV fluids to 100 mL an hour Ultrasound the kidneys are within normal Ultrasound the gallbladder is within normal Echocardiogram is within normal [employer] evaluation was done and there is no clear evidence of any PID Gram-positive and the blood turn operator to be coagulase-negative and this is probably contaminant and daptomycin can be discontinued Will monitor renal function avoid diuretics oral bicarb we'll continue to follow
[2019-11-18 11:48] LABS: Glucose,Whole Blood 79 mg/dL (75-99)
--- NOTE | 2019-11-18 14:17 | P.PN ---
Subjective Progress Note Date: 11/18/19 Patient is awake and alert this morning. There is no acute events overnight reported by nursing staff. Patient is complaining of nausea but no vomiting. She reported poor by mouth intake. Objective - Vital Signs Vital signs: Vital Signs Temp 98 F 11/18/19 12:00 Pulse 96 11/18/19 12:00 Resp 15 11/18/19 12:00 BP 126/85 11/18/19 12:00 Pulse Ox 98 11/18/19 12:00 Intake & Output 11/17/19 11/18/19 11/18/19 18:59 06:59 18:59 Intake Total 2870.321 2000 650 Output Total 330 605 640 Balance 2540.321 1395 10 Weight 61.7 kg 61.7 kg Intake: IV 2850 2000 650 Doxycycline 100 mg In 100 100 Sodium Chloride 0.9% 100 ml @ 100 mls/hr IVPB Q12H [facility] Rx#:[id number] Piperacillin-Tazobactam 3 100 100 .375 gm In Sodium Chloride 0.9% 100 ml @ 25 mls/hr IVPB Q12HR [facility] Rx #:[id number] Piperacillin-Tazobactam 3 100 .375 gm In Sodium Chloride 0.9% 100 ml @ 25 mls/hr IVPB Q12HR [facility] Rx #:[id number] Sodium Chloride 0.9% 1, 1650 1800 550 000 ml @ 100 mls/hr IV . Q10H [facility] Rx#:[id number] Sodium Chloride 0.9% 1, 900 000 ml @ 150 mls/hr IV . Q6H40M [facility] Rx#:[id number] metroNIDAZOLE-NS PMX 500 100 mg In Saline 1 100ml.bag @ 100 mls/hr IVPB Q8H [facility] Rx#:[id number] Intake, IV Titration 20.321 Amount Heparin Sod,Pork in 0.45% 20.321 NaCl 25,000 unit In 0.45 % NaCl 1 250ml.bag @ 18 UNITS/KG/HR 9.798 mls/hr IV .Q24H [facility] Rx#: [id number] Output: Urine 330 605 640 Other: Voiding Method Indwelling Catheter Indwelling Catheter Indwelling Catheter - Exam General: The patient is awake and alert, in no distress Eye: there is normal conjunctiva bilaterally. Neck: The neck is supple, there is no JVD. Cardiovascular: Normal S1-S2, no S3-S4, no murmurs. Respiratory: Lungs clear to auscultation bilaterally Gastrointestinal: Abdomen is soft, nontender Musculoskeletal: There is no pedal edema. Neurological:. Speech is normal. Skin: Skin is warm and dry - Labs CBC & Chem 7: 11/18/19 03:55 11/18/19 03:55 Labs: Abnormal Lab Results - Last 24 Hours (Table) 11/16/19 11/17/19 11/17/19 Range/Units 10:30 16:56 17:11 MCHC (31.0-37.0) g/dL Sodium (137-145) mmol/L Chloride (98-107) mmol/L Carbon Dioxide (22-30) mmol/L BUN (7-17) mg/dL Creatinine (0.52-1.04) mg/dL Glucose (74-99) mg/dL POC Glucose (mg/dL) 132 H (75-99) mg/dL Calcium (8.4-10.2) mg/dL AST (14-36) U/L ALT (4-34) U/L Creatine Kinase 43471 H* (30-135) U/L Total Protein (6.3-8.2) g/dL Albumin (3.5-5.0) g/dL Hep C IgG Ab Reactive H (Non-Reactive) 11/17/19 11/18/19 11/18/19 Range/Units 20:11 01:53 03:55 MCHC 30.9 L (31.0-37.0) g/dL Sodium (137-145) mmol/L Chloride (98-107) mmol/L Carbon Dioxide (22-30) mmol/L BUN (7-17) mg/dL Creatinine (0.52-1.04) mg/dL Glucose (74-99) mg/dL POC Glucose (mg/dL) 106 H 103 H (75-99) mg/dL Calcium (8.4-10.2) mg/dL AST (14-36) U/L ALT (4-34) U/L Creatine Kinase (30-135) U/L Total Protein (6.3-8.2) g/dL Albumin (3.5-5.0) g/dL Hep C IgG Ab (Non-Reactive) 11/18/19 11/18/19 Range/Units 03:55 06:32 MCHC (31.0-37.0) g/dL Sodium 135 L (137-145) mmol/L Chloride 111 H (98-107) mmol/L Carbon Dioxide 18 L (22-30) mmol/L BUN 55 H (7-17) mg/dL Creatinine 3.44 H (0.52-1.04) mg/dL Glucose 73 L (74-99) mg/dL POC Glucose (mg/dL) 72 L (75-99) mg/dL Calcium 6.5 L (8.4-10.2) mg/dL AST 2295 H (14-36) U/L ALT 1695 H (4-34) U/L Creatine Kinase 98183 H* (30-135) U/L Total Protein 4.6 L (6.3-8.2) g/dL Albumin 2.4 L (3.5-5.0) g/dL Hep C IgG Ab (Non-Reactive) Microbiology - Last 24 Hours (Table) 11/16/19 07:51 Blood Culture - Preliminary Blood No Growth after 48 hours 11/16/19 10:30 Blood Culture Gram Stain - Preliminary Blood Blood Culture - Preliminary Coagulase Negative Staph 11/16/19 23:35 Genital Culture - Preliminary Vaginal Assessment and Plan Assessment: This is a 39-year-old female who presented to the emergency room after she was found unresponsive by her family members. She was evaluated in the and admitted to the intensive care unit for further management of her medical problems noted below. 1. Acute encephalopathy, resolved: Her altered mental status is likely multifac torial. She has a history of methamphetamine use, she was hypoglycemic on the field and appears to be septic on presentation. There is no clear signs of infection at this time. Her mentation is improving. Serum alcohol is negative. UDS positive for opiates, oxycodone, TCA, amphetamines, methamphetamine, benzodiazepine, cocaine, marijuana. 2. Sepsis of unknown etiology with lactic acidosis: chest x-ray is negative. She does have a history of IV drug use. CT abdomen and pelvis negative for acute pathology. Blood culture showed gram-negative staph possibly contamination. Urinalysis negative for nitrites or leukocyte esterase. Seen and evaluated by infectious disease, currently on broad-spectrum antibiotic managed by ID 3. Acute renal failure: Nonoliguric, Possibly ATN from rhabdomyolysis. Renal ultrasound shows medical renal disease. Nephrology is consulted, Appreciate recommendation 4. Acute rhabdomyolysis: CPK trending down. Possibly secondary to polysubstance abuse. 5. Transaminitis with acute liver failure probably secondary to liver shock, liver enzymes trending down 6. Elevated troponin likely demand ischemia: initial EKG showing wide QRS tachycardia. Echocardiogram shows EF 55-60%. Cardiology consulted, appreciate recommendation 7. Elevated D-Dimer: This likely PE. Unable to CTA chest due to elevated creatinine. Lower extremity duplex negative. 8. Polysubstance abuse including cocaine, marijuana, and today as a pain, and amphetamine 9. Hypoglycemia and hyperkalemia resolved 10. Coag-negative staph bacteremia, may be contamination Continue ICU care. IV fluid hydration. Repeat lab work in the morning. Appreciate parts consultant's recommendations. Hearing for legal guardian on .
--- NOTE | 2019-11-18 16:35 | PN ---
PROGRESS NOTE DATE OF SERVICE: 11/18/2019 REASON FOR FOLLOWUP: Sepsis and abdominal infection. INTERVAL HISTORY: Patient is currently afebrile, the patient is breathing comfortably. Denies having any chest pain or any cough. No nausea, no vomiting, no abdominal discomfort and no diarrhea. PHYSICAL EXAMINATION: Blood pressure 126/85 with a pulse 93, temperature 98, she is 98% on room air. General description is a middle-aged female, lying in bed in no distress. RESPIRATORY SYSTEM: Unlabored breathing, clear to auscultation anteriorly. HEART: S1, S2. Regular rate and rhythm. ABDOMEN: Soft, mildly tender, no guarding or rigidity. LABS: White count normalized to 6.6, creatinine 3.44. Liver enzymes remains to be elevated. Blood culture with coagulase-negative Staph. Cultures currently pending. DIAGNOSTIC IMPRESSION AND PLAN: 1. Patient admitted to the hospital with sepsis. Source is likely abdominal on this patient noticed to have some abnormality of the vaginal cuff, status post pelvic and genital cultures currently pending. Continue with Zosyn and doxycycline. 2. Positive blood culture with Staph epi likely skin contaminant. Discontinue daptomycin. Continue supportive care. MMODL / IJN: [id number] /
[2019-11-18 17:14] LABS: Glucose,Whole Blood 86 mg/dL (75-99)
[2019-11-18 23:39] LABS: Glucose,Whole Blood 85 mg/dL (75-99)
[2019-11-19] MEDS: SODIUM CHLORIDE 0.9% 1,000 ML IV SCH ×2 (00:57→16:33)
[2019-11-19] MEDS: HEPARIN SODIUM,PORCINE 5,000 UNIT/ML 1 ML VIAL SQ SCH ×4 (01:14→23:41)
[2019-11-19] MEDS: DOXYCYCLINE 100 MG in SODIUM CHLORIDE 0.9% 100 ML IVPB SCH (04:10)
[2019-11-19 05:51] LABS: Basophils % (A) 0 %; Eosinophils # (A) 0.1 k/uL (0-0.7); Eosinophils % (A) 2 %; HCT 36.6 % (34.0-46.0); HGB 11.6 gm/dL (11.4-16.0); Hypochromasia Slight; Lymphocytes # (A) 1.1 k/uL (1.0-4.8); Lymphocytes % (A) 13 %; MCH 28.6 pg (25.0-35.0); MCHC 31.7 g/dL (31.0-37.0); MCV 90.4 fL (80.0-100.0); Mean Platelet Volume 7.3; Monocytes # (A) 0.4 k/uL (0-1.0); Monocytes % (A) 5 %; Neutrophils # (A) 6.8 k/uL (1.3-7.7); Neutrophils % (A) 79 %; Platelet Count 227 k/uL (150-450); RBC 4.05 m/uL (3.80-5.40); RDW 13.9 % (11.5-15.5); WBC 8.6 k/uL (3.8-10.6)
[2019-11-19 06:05] LABS: Albumin 2.2 g/dL (3.5-5.0); Calcium 7.1 mg/dL (8.4-10.2); Potassium 4.1 mmol/L (3.5-5.1); Total Bilirubin 1.2 mg/dL (0.2-1.3); Total Protein 4.2 g/dL (6.3-8.2)
[2019-11-19] MEDS: PANTOPRAZOLE 40 MG/10 ML VIAL IV SCH (08:00)
[2019-11-19] MEDS: PIPERACILLIN-TAZOBACTAM 3.375 GM in SODIUM CHLORIDE 0.9% 100 ML IVPB SCH ×2 (08:01→20:04)
[2019-11-19] MEDS: SODIUM BICARBONATE TAB 650 MG TAB PO SCH ×2 (08:01→20:03)
[2019-11-19 08:16] LABS: C. trachomatis,PCR Negative (Neg,Equiv); Chlamydia trachomatis Source Vagina; N. gonorrhoeae,PCR Negative (Neg,Equiv); Neisseria Source Vagina
[2019-11-19 09:14] LABS: Amylase 31 U/L (30-110)
[2019-11-19] MEDS ORDERED: DEXTROSE 5%-0.45% NACL 1,000 ML IV SCH (10:15)
--- NOTE | 2019-11-19 10:19 | CT ---
EXAMINATION TYPE: CT chest wo con DATE OF EXAM: 11/19/2019 COMPARISON: Chest x-ray [address] abdomen and pelvis 3 days ago. HISTORY: Chest soreness CT DLP: 261.4 mGycm. Automated Exposure Control for Dose Reduction was Utilized. TECHNIQUE: CT scan of the thorax is performed without IV contrast. FINDINGS: LUNGS: Small to moderate-sized right greater left pleural effusions are increased in size over last 3 days. There is associated bibasilar compressive atelectasis. Mild to moderate left greater than righ t biapical linear scarring. No pneumothorax seen bilaterally. MEDIASTINUM: Lack of IV contrast is noted to limit evaluation for mediastinal and especially hilar ad enopathy. There are no definitive greater than 1 cm hilar or mediastinal lymph nodes. No cardiomega ly or pericardial effusion is seen. OTHER: Extremely dense fibroglandular tissue in both breasts. There is mild/moderate diffuse soft tis diana anasarca perhaps slightly greater on the left first right side. This extends to the anterior neck bilaterally. Contrast from recent CT noted still filling colon near the splenic flexure. Patient has little fat making evaluation slightly suboptimal. IMPRESSION: 1. Small to moderate-sized right greater than left pleural effusions. Mild/moderate diffuse soft tiss ue anasarca. Findings consistent with a fluid overload state. There is progression in findings over l ast 2-3 days noted since admission. Correlate clinically. Associated bilateral lower lung compressive atelectasis.
--- NOTE | 2019-11-19 10:26 | P.PN ---
Subjective Progress Note Date: 11/19/19 Patient is complaining of persistent nausea. She is unable to eat much. No vomiting reported by nursing staff. Good urine output. Patient is also complaining of soreness in her left shoulder. Noted to have a lump behind her left shoulder possibly soft tissue swelling versus hematoma. There is some t enderness to palpation. No bruising. Objective - Vital Signs Vital signs: Vital Signs Temp 98.1 F 11/19/19 07:00 Pulse 103 H 11/19/19 07:00 Resp 11 L 11/19/19 06:00 BP 132/96 11/19/19 07:00 Pulse Ox 96 11/19/19 07:00 Intake & Output 11/18/19 11/19/19 11/19/19 18:59 06:59 18:59 Intake Total 1400 1950 140 Output Total 1015 850 50 Balance 385 1100 90 Weight 65.1 kg Intake: IV 1250 1750 100 Doxycycline 100 mg In 100 Sodium Chloride 0.9% 100 ml @ 100 mls/hr IVPB Q12H [facility] Rx#:[id number] Piperacillin-Tazobactam 3 100 100 .375 gm In Sodium Chloride 0.9% 100 ml @ 25 mls/hr IVPB Q12HR [facility] Rx #:[id number] Sodium Chloride 0.9% 1, 1150 500 100 000 ml @ 100 mls/hr IV . Q10H [facility] Rx#:[id number] Sodium Chloride 0.9% 1, 1050 000 ml @ 150 mls/hr IV . Q6H40M [facility] Rx#:[id number] Oral 200 40 Tube Feeding 150 Output: Urine 1015 850 50 Other: Voiding Method Indwelling Catheter Indwelling Catheter - Exam General: The patient is awake and alert, in no distress Eye: there is normal conjunctiva bilaterally. Neck: The neck is supple, there is no JVD. Cardiovascular: Normal S1-S2, no S3-S4, no murmurs. Respiratory: Lungs clear to auscultation bilaterally Gastrointestinal: Abdomen is soft, nontender Musculoskeletal: There is no pedal edema. Neurological:. Speech is normal. Skin: Skin is warm and dry - Labs CBC & Chem 7: 11/19/19 05:32 11/19/19 05:32 Labs: Abnormal Lab Results - Last 24 Hours (Table) 11/19/19 11/19/19 Range/Units 05:30 05:32 Chloride 115 H (98-107) mmol/L Carbon Dioxide 17 L (22-30) mmol/L BUN 54 H (7-17) mg/dL Creatinine 3.30 H (0.52-1.04) mg/dL Calcium 7.1 L (8.4-10.2) mg/dL AST 1053 H (14-36) U/L ALT 1254 H (4-34) U/L Creatine Kinase 5050 H* (30-135) U/L Total Protein 4.2 L (6.3-8.2) g/dL Albumin 2.2 L (3.5-5.0) g/dL Lipase 317 H (23-300) U/L Microbiology - Last 24 Hours (Table) 11/16/19 07:51 Blood Culture - Preliminary Blood No Growth after 72 hours 11/16/19 10:30 Blood Culture Gram Stain - Final Blood Blood Culture - Final Coagulase Negative Staph 11/17/19 11:40 Blood Culture - Preliminary Blood No Growth after 24 hours Assessment and Plan Assessment: This is a 39-year-old female who presented to the emergency room after she was found unresponsive by her family members. She was evaluated in the and admitted to the intensive care unit for further management of her medical problems noted below. 1. Acute encephalopathy, resolved: Her altered mental status is likely multifactorial. She has a history of methamphetamine use, she was hypoglycemic on the field and appears to be septic on presentation. There is no clear signs of infection at this time. Her mentation is improving. Serum alcohol is negative. UDS positive for opiates, oxycodone, TCA, amphetamines, methamphetamine, benzodiazepine, cocaine, marijuana. 2. Sepsis of unknown etiology with lactic acidosis: Thought to be attributed to intra-abdominal infection per ID versus PID. chest x-ray is negative. She does have a history of IV drug use. CT abdomen and pelvis negative for acute pathology. Blood culture showed gram-negative staph possibly contamination. Repeat blood culture negative. Urinalysis negative. Seen and evaluated by infectious disease, currently on broad-spectrum antibiotic managed by ID 3. Acute renal failure: Nonoliguric, Possibly ATN from rhabdomyolysis. Renal ultrasound shows medical renal disease. Nephrology is consulted, Appreciate recommendation 4. Acute rhabdomyolysis: CPK trending down. Possibly secondary to laying on the floor for a prolonged period of time and also polysubstance abuse. 5. Transaminitis with acute liver failure probably secondary to liver shock, liver enzymes trending down 6. Elevated troponin likely demand ischemia: initial EKG showing wide QRS tachycardia. Echocardiogram shows EF 55-60%. Cardiology consulted, appreciate recommendation 7. Elevated D-Dimer: This likely PE. Unable to CTA chest due to elevated creatinine. Lower extremity duplex negative. 8. Polysubstance abuse including cocaine, marijuana, and today as a pain, and amphetamine 9. Hypoglycemia and hyperkalemia resolved 10. Chronic hepatitis C Obtain computed tomography scan of the chest noncontrast for further evaluation Change IV fluid to D5/half-normal saline at 75 mL per hour Schedule Reglan IV 5 mg every 6 hours
--- NOTE | 2019-11-19 11:38 | P.PN ---
Subjective Progress Note Date: 11/19/19 39-year-old female patient who got transferred to the intensive care unit for complications of acute kidney injury, acute hyperkalemia. The patient is 39. She has history of schizoaffective disorder. She was found to be unresponsive by family members and she was brought into the hospital accordingly. The patient was confused. The patient was not a reliable historian. The patient was febrile with a temperature 103.1. There was a concern for a potential drug abuse as the patient mentioned that she has taken Lyrica and Neurontin in the past. In the ED, the urine drug screen was positive for opiates, oxycodone, tricyclics, amphetamines, methamphetamine, benzodiazepine, cocaine and marijuana. The patient's white cell count was at 13.4 with a hemoglobin of 12.2. Platelets were 319. The initial sodium level was at 141 with a potassium of 8.1 and a serum bicarb of 18 and a BUN was 28 with a creatinine of 4.0. The patient had a lactic acid level of 7.0. The patient had an [place] [address] and the troponin was at 1.18 with AST of 2513 and ALT of 820. The patient had a UA that showed +1 glucose. The coagulation profile was within normal. D-dimer was at 1.73. The white cell count was at 16.5 To 13.4. Acute hyperkalemia was treated and the potassium level dropped down to 5.2. Creatinine is also improving is down to 3.4 to as the patient is receiving IV fluids. The patient received a total of 2 L of normal saline and currently she is on normal state rate of 130 mL an hour. Natarajan catheter is in place. The Doppler of the lower extremity was negative. The ultrasound the kidneys showed no signs of an acute cholecystitis. The ultrasound the kidneys showed no acute abnormalities or hydronephrosis. The echo showed an ejection fraction of 55-60% without any acute abnormalities. There was only mild pulmonary hypertension. The chest x-ray shows no acute abnormalities. Note that the initial EKG that was done in emergency department was reviewed. The patient was given adenosine by emergency department. Obviously the rhythm was sinus and the patient had hyperacute T waves related to underlying hyperkalemia and the rate was not that much tachycardic. On 11/17/2019 the patient is doing well. She is awake and alert and she is following commands and answering questions. She does have some swelling in her left shoulder area and she has some soreness. The CPK is still on the rise in the CPKs up to 3100 325. LFTs are also abnormal and the patient continues to be shock liver with AST of 567 and ALT of 2295 and a coagulation profile is also abnormal with an INR of 1.6 with a PT of 16 and PTT of 87. No nausea. No vomiting. No abdominal pain. CAT scan of the abdomen that was done yesterday showed questionable distal ileitis and there was also some degrees within the vaginal cavity for that reason the patient underwent a vaginal examination the findings are essentially negative. There is a single set of blood cultures showing gram-positive cocci. Antibiotic management is per ID. She has no chest pain. Troponin peaked at 1.5. Echocardiogram is within normal limits. IV heparin will be discontinued. No further bouts of fever since yesterday. Her last temperature spike was yesterday noontime where she had a temperature 100.0. I performed a ultrasound Doppler of the left upper extremity and the patient was found to have no evidence of DVT in the left upper extremity. There was superficial thrombosis of the cephalic and basilic veins. The chest x-ray showed a small right-sided pleural effusion and right basilar airspace disease. X-ray of the right shoulder is still pending for now. The patient remains on normal saline today to 150 mL an hour. On 11/18/2019 and seeing the patient for a follow-up. This morning I was told that the patient was slightly confused. At the time of my arrival, she seems to more appropriate. She was having some vague abdominal pain and nausea. She did not have any emesis. Her CPKs level is improving. [place] [address]. Also, the LFTs are improving as the patient was in a shock liver. AST is at 2295 and ALT is 1695. The patient has a mild component of non-anion gap metabolic acidosis with a serum bicarb of 18. Anion gap is at 6. Renal function continues to be impaired with a creatinine of 3.44. The patient has no fever. No chills. Cultures have been positive for cognitive is negative staph and this is probably contaminant. She was seen by [facility]. No evidence of any PID. The patient was given vaginal cultures and the results are still pending for now. Meanwhile, the patient was kept on a combination of Zosyn and doxycycline. Daptomycin was also given by infectious disease. As mentioned earlier, the patient has some swelling and tenderness along the left shoulder. X-ray showed no fracture. Ultrasound shows some thrombosis of the superficial veins including the cephalic and basilic veins. The patient is af ebrile for now and she is hemodynamically stable. We are going to cut down the IV fluid and the patient is in a positive fluid balance over the past 24 hours. This was discussed with nephrology. The IV fluids will be placed at 100 mL of normal saline per hour. On 11/19/2019, the patient is clinically the same. She continues to have some pain and swelling along the left shoulder. There is also some asymmetry in the left posterior back/scapular area where there is slightly swollen. CPK levels are improving. Liver function is also improving. There are creatinine is stable at 3.3. Serum bicarb is at 17. White cell count at 8.6. CPK is down to 5050, AST is 1053 and ALT is at 1254. The patient is afebrile. The patient is hemodynamically stable. On and off she is having some nausea and there is no reported emesis. Abdominal exam is benign. Her blood culture was positive for coagulase-negative staph and the patient was taken off the daptomycin. All of the cultures other otherwise negative. Objective - Vital Signs Vital signs: Vital Signs Temp 98.1 F 11/19/19 07:00 Pulse 103 H 11/19/19 07:00 Resp 11 L 11/19/19 06:00 BP 132/96 11/19/19 07:00 Pulse Ox 96 11/19/19 07:00 Intake & Output 11/18/19 11/19/19 11/19/19 18:59 06:59 18:59 Intake Total 1400 1950 140 Output Total 1015 850 50 Balance 385 1100 90 Weight 65.1 kg Intake: IV 1250 1750 100 Doxycycline 100 mg In 100 Sodium Chloride 0.9% 100 ml @ 100 mls/hr IVPB Q12H [facility] Rx#:[id number] Piperacillin-Tazobactam 3 100 100 .375 gm In Sodium Chloride 0.9% 100 ml @ 25 mls/hr IVPB Q12HR [facility] Rx #:[id number] Sodium Chloride 0.9% 1, 1150 500 100 000 ml @ 100 mls/hr IV . Q10H [facility] Rx#:[id number] Sodium Chloride 0.9% 1, 1050 000 ml @ 150 mls/hr IV . Q6H40M [facility] Rx#:[id number] Oral 200 40 Tube Feeding 150 Output: Urine 1015 850 50 Other: Voiding Method Indwelling Catheter Indwelling Catheter - Exam The patient appeared well nourished and normally developed. Vital signs as documented. Head exam is unremarkable. No scleral icterus or corneal arcus noted. Neck is without jugular venous distension, thyromegaly, or carotid bruits. Carotid upstrokes are brisk bilaterally. Lungs are clear to auscultation and percussion. Cardiac exam reveals the PMI to be normally sized and situated. Rhythm is regular. First and second heart sounds normal. No murmurs, rubs or gallops. Abdominal exam reveals normal bowel sounds, no masses, no organomegaly and no aortic enlargement. Extremities are nonedematous and both femoral and pedal pulses are normal.Examination of the skin revealed no evidence of significant rashes, suspicious appearing nevi or other concerning lesions.Neurologically, the patient is awake and alert and the patient does not have any focal neurological deficit. Cranial nerves are essentially intact. The left shoulder is slightly swollen and tender to palpation. Pulses in the left upper extremity are within normal limits. There is no ecchymosis. - Labs CBC & Chem 7: 11/19/19 05:32 11/19/19 05:32 Labs: Abnormal Lab Results - Last 24 Hours (Table) 11/19/19 11/19/19 Range/Units 05:30 05:32 Chloride 115 H (98-107) mmol/L Carbon Dioxide 17 L (22-30) mmol/L BUN 54 H (7-17) mg/dL Creatinine 3.30 H (0.52-1.04) mg/dL Calcium 7.1 L (8.4-10.2) mg/dL AST 1053 H (14-36) U/L ALT 1254 H (4-34) U/L Creatine Kinase 5050 H* (30-135) U/L Total Protein 4.2 L (6.3-8.2) g/dL Albumin 2.2 L (3.5-5.0) g/dL Lipase 317 H (23-300) U/L Microbiology - Last 24 Hours (Table) 11/16/19 07:51 Blood Culture - Preliminary Blood No Growth after 72 hours 11/16/19 10:30 Blood Culture Gram Stain - Final Blood Blood Culture - Final Coagulase Negative Staph 11/17/19 11:40 Blood Culture - Preliminary Blood No Growth after 24 hours Assessment and Plan Plan: 1 acute change in mental status, likely secondary to drugs/metabolic encephalopathy. Mental status is back to normal 2 acute rhabdomyolysis, with ongoing rise in CPK secondary to rhabdomyolysis, improving 3 acute kidney injury, and the creatinine is stable at 3.3 and the creatinine is stable for now 4 acute hyperkalemia, recovered 5 cocaine abuse\ 6 marijuana abuse 7 methamphetamine abuse 8 opiates abuse 9 nicotine dependence 10 schizoaffective disorder with previous history of psychosis 11 lactic acidosis, improving 12 troponin leak, underlying ischemic cardiac event is felt to be less likely 13 fever with gram-positive cocci in clusters, and the cultures are consistent with coagulase-negative staph and the patient was taken off the daptomycin 14 mild leukocytosis, recovered 15 superficial basilic and cephalic vein thrombosis in the left upper extremity with some swelling and tenderness 60 shock liver and the left is also improving. Plan IV fluids to 100 mL an hour, and continued oral bicarb Discontinue the daptomycin Further simplification of antibiotics for maybe needed by infectious disease Monitor CPK Monitor LFTs CAT scan of the chest to evaluate the posterior chest wall asymmetry and this w ill be done without any contrast we'll continue to follow
[2019-11-19] MEDS ORDERED: FUROSEMIDE 10 MG/ML 10 ML VIAL IV STA (11:39)
[2019-11-19] MEDS: METOCLOPRAMIDE 5 MG/ML 2 ML VIAL IVP SCH ×3 (11:45→23:35)
--- NOTE | 2019-11-19 14:28 | P.PN ---
Subjective Patient is seen in follow-up for acute kidney injury. Renal function stable. Nonoliguric. Received IV Lasix 60 mg once this morning. CK level trending down. Mentation better but still somewhat confused. Vital signs are stable. General: The patient appeared well nourished and normally developed. HEENT: Head exam is unremarkable. Neck is without jugular venous distension. LUNGS: Lungs are clear to auscultation and percussion. Breath sounds decreased. HEART: Rate and Rhythm are regular. First and second heart sounds normal. No murmurs, rubs or gallops. ABDOMEN: Soft, nontender. EXTREMITITES: No clubbing, cyanosis, or edema. Objective - Vital Signs Vital signs: Vital Signs Temp 97 F L 11/19/19 12:00 Pulse 95 11/19/19 13:00 Resp 12 11/19/19 13:00 BP 129/96 11/19/19 13:00 Pulse Ox 94 L 11/19/19 13:00 Intake & Output 11/18/19 11/19/19 11/19/19 18:59 06:59 18:59 Intake Total 1400 1950 765 Output Total 7316 016 8954 Balance 385 1100 -365 Weight 65.1 kg Intake: IV 1250 1750 725 Dextrose 5%-0.45% NaCl 1, 225 000 ml @ 75 mls/hr IV . [id number] [facility] Rx#:[id number] Doxycycline 100 mg In 100 300 Sodium Chloride 0.9% 100 ml @ 100 mls/hr IVPB Q12H [facility] Rx#:[id number] Piperacillin-Tazobactam 3 100 100 100 .375 gm In Sodium Chloride 0.9% 100 ml @ 25 mls/hr IVPB Q12HR [facility] Rx #:[id number] Sodium Chloride 0.9% 1, 1150 500 100 000 ml @ 100 mls/hr IV . Q10H [facility] Rx#:[id number] Sodium Chloride 0.9% 1, 1050 000 ml @ 150 mls/hr IV . Q6H40M [facility] Rx#:[id number] Oral 200 40 Tube Feeding 150 Output: Urine 8604 189 2995 Other: Voiding Method Indwelling Catheter Indwelling Catheter Indwelling Catheter - Labs CBC & Chem 7: 11/19/19 05:32 11/19/19 05:32 Labs: Abnormal Lab Results - Last 24 Hours (Table) 11/19/19 11/19/19 Range/Units 05:30 05:32 Chloride 115 H (98-107) mmol/L Carbon Dioxide 17 L (22-30) mmol/L BUN 54 H (7-17) mg/dL Creatinine 3.30 H (0.52-1.04) mg/dL Calcium 7.1 L (8.4-10.2) mg/dL AST 1053 H (14-36) U/L ALT 1254 H (4-34) U/L Creatine Kinase 5050 H* (30-135) U/L Total Protein 4.2 L (6.3-8.2) g/dL Albumin 2.2 L (3.5-5.0) g/dL Lipase 317 H (23-300) U/L Microbiology - Last 24 Hours (Table) 11/17/19 11:40 Blood Culture - Preliminary Blood No Growth after 48 hours 11/16/19 07:51 Blood Culture - Preliminary Blood No Growth after 72 hours 11/16/19 10:30 Blood Culture Gram Stain - Final Blood Blood Culture - Final Coagulase Negative Staph Assessment and Plan Plan: Assessment: 1. Acute kidney injury secondary to ATN secondary to rhabdomyolysis and hypotension. Creatinine 4 on admission - stable at 3.3 today. Baseline creatinine near 1 from March 2019. No hydronephrosis noted on kidney ultraso und. Large blood with only 2 RBCs on UA suggestive of myoglobinuria. 2. Hyperkalemia secondary to rhabdomyolysis, acute kidney injury and metabolic acidosis. Improved with medical management. 3. Polysubstance drug abuse. 4. Metabolic acidosis secondary to acute kidney injury, IV fluids and lactic acidosis. Serum alcohol negative. Maintained on oral sodium bicarbonate. 5. Hypocalcemia secondary to acute kidney injury. Better. Corrected calcium normal. 6. Sepsis secondary to gram-positive bacteremia. Maintained on antibiotics. Possibly contamination. Plan: Decrease normal saline to 50 mL an hour. Follow-up cultures. Continue to monitor renal function and urine output closely.
--- NOTE | 2019-11-19 15:41 | PN ---
PROGRESS NOTE DATE OF SERVICE: 11/19/2019 REASON FOR FOLLOWUP: 1. Abdominal infection. 2. Bacteremia. INTERVAL HISTORY: The patient is currently afebrile. The patient is breathing comfortably. The patient denies having any chest pain or shortness of breath or cough. Some discomfort in the abdominal area, but no nausea, vomiting or diarrhea. PHYSICAL EXAMINATION: VITAL SIGNS: Blood pressure 129/96 with a pulse of 95, temperature 97. She is 94% on room air. General description is a middle-aged female lying in bed in no distress. RESPIRATORY SYSTEM: Unlabored breathing. Clear to auscultation anteriorly. HEART: S1, S2. Regular rate and rhythm. ABDOMEN: Soft. No tenderness. LABS: Hemoglobin is 11.6, white count 8.6, BUN of 54, creatinine 3.30. Blood culture repeat is so far negative. DIAGNOSTIC IMPRESSION AND PLAN: 1. Patient with sepsis with initial concern about possible abdominal source. There was a question of vaginitis, status post vaginal cultures, currently pending pneumonitis. The patient is covered with Zosyn. White count has normalized. To continue. 2. Positive blood culture with coagulase-negative staphylococcus, likely skin contaminant. No need for further workup for the same. MMODL / IJN: [id number] /
[2019-11-19 16:43] LABS: Glucose,Whole Blood 137 mg/dL (75-99)
[2019-11-19] MEDS: DOXYCYCLINE 100 MG CAP PO SCH (20:03)
--- NOTE | 2019-11-19 20:55 | P.PN ---
Progress Note - Text Progress Note Date: 11/19/19 GC & chlamydia cultures were negative. No signs of PID or TOA on CT scan. Defer antibiotics to infectious disease. No further gynecology input needed.
[2019-11-19 22:35] LABS: Urine Alcohol Negative (Negative); Urine Barbiturate Negative (Negative); Urine Cocaine Negative (Negative); Urine Methadone Negative (Negative); Urine Opiates Negative (Negative); Urine Phencyclidine Negative (Negative)
[2019-11-20 01:59] LABS: Glucose,Whole Blood 168 mg/dL (75-99)
[2019-11-20 05:00] LABS: Basophils # (A) 0.1 k/uL (0-0.2); Basophils % (A) 1 %; Eosinophils # (A) 0.4 k/uL (0-0.7); Eosinophils % (A) 4 %; HCT 34.6 % (34.0-46.0); Lymphocytes # (A) 2.2 k/uL (1.0-4.8); Lymphocytes % (A) 22 %; MCHC 31.9 g/dL (31.0-37.0); MCV 87.7 fL (80.0-100.0); Mean Platelet Volume 8.3; Monocytes # (A) 0.7 k/uL (0-1.0); Monocytes % (A) 7 %; Neutrophils # (A) 6.2 k/uL (1.3-7.7); Neutrophils % (A) 62 %; Platelet Count 209 k/uL (150-450); RBC 3.94 m/uL (3.80-5.40); RDW 14.5 % (11.5-15.5)
[2019-11-20 05:19] LABS: Albumin 2.1 g/dL (3.5-5.0); Calcium 7.3 mg/dL (8.4-10.2); Potassium 2.9 mmol/L (3.5-5.1); Total Bilirubin 1.2 mg/dL (0.2-1.3); Total Protein 4.1 g/dL (6.3-8.2)
[2019-11-20] MEDS: METOCLOPRAMIDE 5 MG/ML 2 ML VIAL IVP SCH ×2 (06:20→11:00)
[2019-11-20] MEDS: POTASSIUM CHLORIDE ER 20 MEQ TAB.ER PO SCH ×6 (06:36→15:19)
[2019-11-20 06:45] LABS: Glucose,Whole Blood 126 mg/dL (75-99)
[2019-11-20] MEDS: HEPARIN SODIUM,PORCINE 5,000 UNIT/ML 1 ML VIAL SQ SCH ×2 (08:46→15:19)
[2019-11-20] MEDS: ACETAMINOPHEN TAB 325 MG TAB PO PRN ×2 (08:46→22:18)
[2019-11-20] MEDS: SODIUM BICARBONATE TAB 650 MG TAB PO SCH ×2 (08:47→20:01)
[2019-11-20] MEDS: PANTOPRAZOLE 40 MG/10 ML VIAL IV SCH (08:47)
[2019-11-20] MEDS: DOXYCYCLINE 100 MG CAP PO SCH ×2 (08:47→20:02)
[2019-11-20] MEDS: PIPERACILLIN-TAZOBACTAM 3.375 GM in SODIUM CHLORIDE 0.9% 100 ML IVPB SCH (08:47)
[2019-11-20] MEDS: SODIUM CHLORIDE 0.9% 1,000 ML IV SCH (08:48)
--- NOTE | 2019-11-20 10:54 | P.PN ---
Subjective Patient is seen in follow-up for acute kidney injury. Renal function slowly improving. Nonoliguric. CK level trending down. Mentation better. No active complaints at this time. Vital signs are stable. General: The patient appeared well nourished and normally developed. HEENT: Head exam is unremarkable. Neck is without jugular venous distension. LUNGS: Lungs are clear to auscultation and percussion. Breath sounds decreased. HEART: Rate and Rhythm are regular. First and second heart sounds normal. No murmurs, rubs or gallops. ABDOMEN: Soft, nontender. EXTREMITITES: No clubbing, cyanosis, or edema. Objective - Vital Signs Vital signs: Vital Signs Temp 97.9 F 11/20/19 08:00 Pulse 78 11/20/19 10:00 Resp 12 11/20/19 10:00 BP 136/96 11/20/19 10:00 Pulse Ox 100 11/20/19 10:00 Intake & Output 11/19/19 11/20/19 11/20/19 18:59 06:59 18:59 Intake Total 1015 850 260 Output Total 3230 1130 290 Balance -2215 -280 -30 Weight 65.4 kg Intake: IV 975 600 260 Dextrose 5%-0.45% NaCl 1, 225 000 ml @ 75 mls/hr IV . [id number] [facility] Rx#:[id number] Doxycycline 100 mg In 300 Sodium Chloride 0.9% 100 ml @ 100 mls/hr IVPB Q12H [facility] Rx#:[id number] Piperacillin-Tazobactam 3 100 100 .375 gm In Sodium Chloride 0.9% 100 ml @ 25 mls/hr IVPB Q12HR [facility] Rx #:[id number] Sodium Chloride 0.9% 1, 100 000 ml @ 100 mls/hr IV . Q10H [facility] Rx#:[id number] Sodium Chloride 0.9% 1, 250 600 160 000 ml @ 50 mls/hr IV . Q20H [facility] Rx#:[id number] Oral 40 250 Output: Urine 3230 1130 290 Other: Voiding Method Indwelling Catheter Indwelling Catheter Indwelling Catheter - Labs CBC & Chem 7: 11/20/19 04:50 11/20/19 04:50 Labs: Abnormal Lab Results - Last 24 Hours (Table) 11/19/19 11/19/19 11/20/19 Range/Units 13:54 16:41 01:58 Hgb (11.4-16.0) gm/dL Potassium (3.5-5.1) mmol/L Chloride (98-107) mmol/L BUN (7-17) mg/dL Creatinine (0.52-1.04) mg/dL Glucose (74-99) mg/dL POC Glucose (mg/dL) 137 H 168 H (75-99) mg/dL Calcium (8.4-10.2) mg/dL AST (14-36) U/L ALT (4-34) U/L Creatine Kinase (30-135) U/L Total Protein (6.3-8.2) g/dL Albumin (3.5-5.0) g/dL Ur Amphetamine Screen Positive H (Negative) ng/mL 11/20/19 11/20/19 11/20/19 Range/Units 04:50 04:50 06:44 Hgb 11.0 L (11.4-16.0) gm/dL Potassium 2.9 L (3.5-5.1) mmol/L Chloride 114 H (98-107) mmol/L BUN 47 H (7-17) mg/dL Creatinine 3.14 H (0.52-1.04) mg/dL Glucose 102 H (74-99) mg/dL POC Glucose (mg/dL) 126 H (75-99) mg/dL Calcium 7.3 L (8.4-10.2) mg/dL AST 468 H (14-36) U/L ALT 893 H (4-34) U/L Creatine Kinase 1159 H* (30-135) U/L Total Protein 4.1 L (6.3-8.2) g/dL Albumin 2.1 L (3.5-5.0) g/dL Ur Amphetamine Screen (Negative) ng/mL Microbiology - Last 24 Hours (Table) 11/16/19 07:51 Blood Culture - Preliminary Blood No Growth after 96 hours 11/17/19 11:40 Blood Culture - Preliminary Blood No Growth after 48 hours 11/16/19 10:30 Blood Culture Gram Stain - Final Blood Blood Culture - Final Coagulase Negative Staph Assessment and Plan Plan: Assessment: 1. Acute kidney injury secondary to ATN secondary to rhabdomyolysis and hypotension. Creatinine 4 on admission - stable at 3.14 today. Baseline creatinine near 1 from March 2019. No hydronephrosis noted on kidney ultrasound. Large blood with only 2 RBCs on UA suggestive of myoglobinuria. 2. Hyperkalemia secondary to rhabdomyolysis, acute kidney injury and metabolic acidosis. Improved with medical management. Now hypokalemic. 3. Polysubstance drug abuse. 4. Metabolic acidosis secondary to acute kidney injury, IV fluids and lactic acidosis. Serum alcohol negative. Maintained on oral sodium bicarbonate. Better. 5. Hypocalcemia secondary to acute kidney injury. Better. Corrected calcium normal. 6. Sepsis secondary to gram-positive bacteremia. Maintained on antibiotics. Possibly contamination. Plan: Hep-Lock IV fluids. Continue to monitor renal function and urine output closely. Monitor bicarb. Can likely decrease dose tomorrow. Potassium being replaced.
--- NOTE | 2019-11-20 11:28 | P.PN ---
Subjective Progress Note Date: 11/20/19 39-year-old female patient who got transferred to the intensive care unit for complications of acute kidney injury, acute hyperkalemia. The patient is 39. She has history of schizoaffective disorder. She was found to be unresponsive by family members and she was brought into the hospital accordingly. The patient was confused. The patient was not a reliable historian. The patient was febrile with a temperature 103.1. There was a concern for a potential drug abuse as the patient mentioned that she has taken Lyrica and Neurontin in the past. In the ED, the urine drug screen was positive for opiates, oxycodone, tricyclics, amphetamines, methamphetamine, benzodiazepine, cocaine and marijuana. The patient's white cell count was at 13.4 with a hemoglobin of 12.2. Platelets were 319. The initial sodium level was at 141 with a potassium of 8.1 and a serum bicarb of 18 and a BUN was 28 with a creatinine of 4.0. The patient had a lactic acid level of 7.0. The patient had an [place] [address] and the troponin was at 1.18 with AST of 2513 and ALT of 820. The patient had a UA that showed +1 glucose. The coagulation profile was within normal. D-dimer was at 1.73. The white cell count was at 16.5 To 13.4. Acute hyperkalemia was treated and the potassium level dropped down to 5.2. Creatinine is also improving is down to 3.4 to as the patient is receiving IV fluids. The patient received a total of 2 L of normal saline and currently she is on normal state rate of 130 mL an hour. Natarajan catheter is in place. The Doppler of the lower extremity was negative. The ultrasound the kidneys showed no signs of an acute cholecystitis. The ultrasound the kidneys showed no acute abnormalities or hydronephrosis. The echo showed an ejection fraction of 55-60% without any acute abnormalities. There was only mild pulmonary hypertension. The chest x-ray shows no acute abnormalities. Note that the initial EKG that was done in emergency department was reviewed. The patient was given adenosine by emergency department. Obviously the rhythm was sinus and the patient had hyperacute T waves related to underlying hyperkalemia and the rate was not that much tachycardic. On 11/17/2019 the patient is doing well. She is awake and alert and she is following commands and answering questions. She does have some swelling in her left shoulder area and she has some soreness. The CPK is still on the rise in the CPKs up to 3100 325. LFTs are also abnormal and the patient continues to be shock liver with AST of 567 and ALT of 2295 and a coagulation profile is also abnormal with an INR of 1.6 with a PT of 16 and PTT of 87. No nausea. No vomiting. No abdominal pain. CAT scan of the abdomen that was done yesterday showed questionable distal ileitis and there was also some degrees within the vaginal cavity for that reason the patient underwent a vaginal examination the findings are essentially negative. There is a single set of blood cultures showing gram-positive cocci. Antibiotic management is per ID. She has no chest pain. Troponin peaked at 1.5. Echocardiogram is within normal limits. IV heparin will be discontinued. No further bouts of fever since yesterday. Her last temperature spike was yesterday noontime where she had a temperature 100.0. I performed a ultrasound Doppler of the left upper extremity and the patient was found to have no evidence of DVT in the left upper extremity. There was superficial thrombosis of the cephalic and basilic veins. The chest x-ray showed a small right-sided pleural effusion and right basilar airspace disease. X-ray of the right shoulder is still pending for now. The patient remains on normal saline today to 150 mL an hour. On 11/18/2019 and seeing the patient for a follow-up. This morning I was told that the patient was slightly confused. At the time of my arrival, she seems to more appropriate. She was having some vague abdominal pain and nausea. She did not have any emesis. Her CPKs level is improving. [place] [address]. Also, the LFTs are improving as the patient was in a shock liver. AST is at 2295 and ALT is 1695. The patient has a mild component of non-anion gap metabolic acidosis with a serum bicarb of 18. Anion gap is at 6. Renal function continues to be impaired with a creatinine of 3.44. The patient has no fever. No chills. Cultures have been positive for cognitive is negative staph and this is probably contaminant. 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 No evidence of any PID. The patient was given vaginal cultures and the results are still pending for now. Meanwhile, the patient was kept on a combination of Zosyn and doxycycline. Daptomycin was also given by infectious disease. As mentioned earlier, the patient has some swelling and tenderness along the left shoulder. X-ray showed no fracture. Ultrasound shows some thrombosis of the superficial veins including the cephalic and basilic veins. The patient is af ebrile for now and she is hemodynamically stable. We are going to cut down the IV fluid and the patient is in a positive fluid balance over the past 24 hours. This was discussed with nephrology. The IV fluids will be placed at 100 mL of normal saline per hour. On 11/19/2019, the patient is clinically the same. She continues to have some pain and swelling along the left shoulder. There is also some asymmetry in the left posterior back/scapular area where there is slightly swollen. CPK levels are improving. Liver function is also improving. There are creatinine is stable at 3.3. Serum bicarb is at 17. White cell count at 8.6. CPK is down to 5050, AST is 1053 and ALT is at 1254. The patient is afebrile. The patient is hemodynamically stable. On and off she is having some nausea and there is no reported emesis. Abdominal exam is benign. Her blood culture was positive for coagulase-negative staph and the patient was taken off the daptomycin. All of the cultures other otherwise negative. 11/20/2019 and seeing the patient for a follow-up. The looking better. No new complaints. Nausea has subsided significantly. Tolerating diet. Renal function is improving and the creatinine is down to 3.14. The CPKs also on the decline and is down to 1159. The AST is down to 468 and ALT is down to 893. The patient has no fever. The patient has no chills. All of the cultures came back negative. Antibiotics will be adjusted and the patient will be taken off the IV cefepime and doxycycline and the patient will be placed on Augmentin per IDs recommendation. IV fluids will be also cut down. The patient was given a dose of Lasix yesterday as the patient was showing signs of fluid overload.she had developed bilateral pleural effusion. patient is still stable with a pulse ox of above 94% on oxygen. Also has some soreness and swelling in his left shoulder area which we believe is the source of the extensive rhabdomyolysis recurrence. Objective - Vital Signs Vital signs: Vital Signs Temp 97.9 F 11/20/19 08:00 Pulse 78 11/20/19 10:00 Resp 12 11/20/19 10:00 BP 136/96 11/20/19 10:00 Pulse Ox 100 11/20/19 10:00 Intake & Output 11/19/19 11/20/19 11/20/19 18:59 06:59 18:59 Intake Total 1015 850 260 Output Total 3230 1130 290 Balance -2215 -280 -30 Weight 65.4 kg 65.4 kg Intake: IV 975 600 260 Dextrose 5%-0.45% NaCl 1, 225 000 ml @ 75 mls/hr IV . [id number] RE[facility]DO Rx#:[id number] Doxycycline 100 mg In 300 Sodium Chloride 0.9% 100 ml @ 100 mls/hr IVPB Q12H RE[facility]DO Rx#:[id number] Piperacillin-Tazobactam 3 100 100 .375 gm In Sodium Chloride 0.9% 100 ml @ 25 mls/hr IVPB Q12HR [facility] Rx #:[id number] Sodium Chloride 0.9% 1, 100 000 ml @ 100 mls/hr IV . Q10H [facility]DO Rx#:[id number] Sodium Chloride 0.9% 1, 250 600 160 000 ml @ 50 mls/hr IV . Q20H RE[facility]ALDO Rx#:[id number] Oral 40 250 Output: Urine 3230 1130 290 Other: Voiding Method Indwelling Catheter Indwelling Catheter Indwelling Catheter - Exam The patient appeared well nourished and normally developed. Vital signs as documented. Head exam is unremarkable. No scleral icterus or corneal arcus noted. Neck is without jugular venous distension, thyromegaly, or carotid bruits. Carotid upstrokes are brisk bilaterally. Lungs are clear to auscultation and percussion. Cardiac exam reveals the PMI to be normally sized and situated. Rhythm is regular. First and second heart sounds normal. No murmurs, rubs or gallops. Abdominal exam reveals normal bowel sounds, no masses, no organomegaly and no aortic enlargement. Extremities are nonedematous and both femoral and pedal pulses are normal.Examination of the skin revealed no evidence of significant rashes, suspicious appearing nevi or other concerning lesions.Neuro logically, the patient is awake and alert and the patient does not have any focal neurological deficit. Cranial nerves are essentially intact. The left shoulder is slightly swollen and tender to palpation. Pulses in the left upper extremity are within normal limits. There is no ecchymosis. - Labs CBC & Chem 7: 11/20/19 04:50 11/20/19 04:50 Labs: Abnormal Lab Results - Last 24 Hours (Table) 11/19/19 11/19/19 11/20/19 Range/Units 13:54 16:41 01:58 Hgb (11.4-16.0) gm/dL Potassium (3.5-5.1) mmol/L Chloride (98-107) mmol/L BUN (7-17) mg/dL Creatinine (0.52-1.04) mg/dL Glucose (74-99) mg/dL POC Glucose (mg/dL) 137 H 168 H (75-99) mg/dL Calcium (8.4-10.2) mg/dL AST (14-36) U/L ALT (4-34) U/L Creatine Kinase (30-135) U/L Total Protein (6.3-8.2) g/dL Albumin (3.5-5.0) g/dL Ur Amphetamine Screen Positive H (Negative) ng/mL 11/20/19 11/20/19 11/20/19 Range/Units 04:50 04:50 06:44 Hgb 11.0 L (11.4-16.0) gm/dL Potassium 2.9 L (3.5-5.1) mmol/L Chloride 114 H (98-107) mmol/L BUN 47 H (7-17) mg/dL Creatinine 3.14 H (0.52-1.04) mg/dL Glucose 102 H (74-99) mg/dL POC Glucose (mg/dL) 126 H (75-99) mg/dL Calcium 7.3 L (8.4-10.2) mg/dL AST 468 H (14-36) U/L ALT 893 H (4-34) U/L Creatine Kinase 1159 H* (30-135) U/L Total Protein 4.1 L (6.3-8.2) g/dL Albumin 2.1 L (3.5-5.0) g/dL Ur Amphetamine Screen (Negative) ng/mL Microbiology - Last 24 Hours (Table) 11/16/19 07:51 Blood Culture - Preliminary Blood No Growth after 96 hours 11/17/19 11:40 Blood Culture - Preliminary Blood No Growth after 48 hours 11/16/19 10:30 Blood Culture Gram Stain - Final Blood Blood Culture - Final Coagulase Negative Staph Assessment and Plan Plan: 1 acute change in mental status, likely secondary to drugs/metabolic encephalopathy. Mental status is back to normal, and altered mental status is recovered 2 acute rhabdomyolysis, with ongoing rise in CPK secondary to rhabdomyolysis, improving, and the CPK is also on the decline 3 acute kidney injury, and the creatinine is stable at 3.14 4 acute hyperkalemia, recovered 5 cocaine abuse 6 marijuana abuse 7 methamphetamine abuse 8 opiates abuse 9 nicotine dependence 10 schizoaffective disorder with previous history of psychosis 11 lactic acidosis, improving 12 troponin leak, underlying ischemic cardiac event is felt to be less likely 13 fever with gram-positive cocci in clusters, and the cultures are consistent with coagulase-negative staph and the patient was taken off the daptomycin 14 mild leukocytosis, recovered 15 superficial basilic and cephalic vein thrombosis in the left upper extremity with some swelling and tenderness 60 shock liver and the left is also improving. Plan IV fluids to KVO Oral Augmentin Monitor CPK Monitor LFTs Advance diet as tolerated Transfer this patient to a medical surgical floor A psychiatric reevaluation needs to be done now that the patient is much more lucid and awake and interactive.
[2019-11-20 11:54] LABS: Glucose,Whole Blood 97 mg/dL (75-99)
--- NOTE | 2019-11-20 12:31 | P.PN ---
Subjective Progress Note Date: 11/20/19 Patient is feeling better today. Nausea improved. She was able to finish her breakfast this morning. No acute events overnight reported by nursing staff. Objective - Vital Signs Vital signs: Vital Signs Temp 97.9 F 11/20/19 08:00 Pulse 78 11/20/19 10:00 Resp 12 11/20/19 10:00 BP 136/96 11/20/19 10:00 Pulse Ox 100 11/20/19 10:00 Intake & Output 11/19/19 11/20/19 11/20/19 18:59 06:59 18:59 Intake Total 1015 850 260 Output Total 3230 1130 290 Balance -2215 -280 -30 Weight 65.4 kg 65.4 kg Intake: IV 975 600 260 Dextrose 5%-0.45% NaCl 1, 225 000 ml @ 75 mls/hr IV . [id number] [facility] Rx#:[id number] Doxycycline 100 mg In 300 Sodium Chloride 0.9% 100 ml @ 100 mls/hr IVPB Q12H RE[facility]DO Rx#:[id number] Piperacillin-Tazobactam 3 100 100 .375 gm In Sodium Chloride 0.9% 100 ml @ 25 mls/hr IVPB Q12HR [facility] Rx #:[id number] Sodium Chloride 0.9% 1, 100 000 ml @ 100 mls/hr IV . Q10H REINALDO Rx#:[id number] Sodium Chloride 0.9% 1, 250 600 160 000 ml @ 50 mls/hr IV . Q20H REINALDO Rx#:[id number] Oral 40 250 Output: Urine 3230 1130 290 Other: Voiding Method Indwelling Catheter Indwelling Catheter Indwelling Catheter - Exam General: The patient is awake and alert, in no distress Eye: there is normal conjunctiva bilaterally. Neck: The neck is supple, there is no JVD. Cardiovascular: Normal S1-S2, no S3-S4, no murmurs. Respiratory: Lungs clear to auscultation bilaterally Gastrointestinal: Abdomen is soft, nontender Musculoskeletal: There is no pedal edema. Neurological:. Speech is normal. Skin: Skin is warm and dry - Labs CBC & Chem 7: 11/20/19 04:50 11/20/19 04:50 Labs: Abnormal Lab Results - Last 24 Hours (Table) 11/19/19 11/19/19 11/20/19 Range/Units 13:54 16:41 01:58 Hgb (11.4-16.0) gm/dL Potassium (3.5-5.1) mmol/L Chloride (98-107) mmol/L BUN (7-17) mg/dL Creatinine (0.52-1.04) mg/dL Glucose (74-99) mg/dL POC Glucose (mg/dL) 137 H 168 H (75-99) mg/dL Calcium (8.4-10.2) mg/dL AST (14-36) U/L ALT (4-34) U/L Creatine Kinase (30-135) U/L Total Protein (6.3-8.2) g/dL Albumin (3.5-5.0) g/dL Ur Amphetamine Screen Positive H (Negative) ng/mL 11/20/19 11/20/19 11/20/19 Range/Units 04:50 04:50 06:44 Hgb 11.0 L (11.4-16.0) gm/dL Potassium 2.9 L (3.5-5.1) mmol/L Chloride 114 H (98-107) mmol/L BUN 47 H (7-17) mg/dL Creatinine 3.14 H (0.52-1.04) mg/dL Glucose 102 H (74-99) mg/dL POC Glucose (mg/dL) 126 H (75-99) mg/dL Calcium 7.3 L (8.4-10.2) mg/dL AST 468 H (14-36) U/L ALT 893 H (4-34) U/L Creatine Kinase 1159 H* (30-135) U/L Total Protein 4.1 L (6.3-8.2) g/dL Albumin 2.1 L (3.5-5.0) g/dL Ur Amphetamine Screen (Negative) ng/mL Microbiology - Last 24 Hours (Table) 11/16/19 07:51 Blood Culture - Preliminary Blood No Growth after 96 hours 11/17/19 11:40 Blood Culture - Preliminary Blood No Growth after 48 hours 11/16/19 10:30 Blood Culture Gram Stain - Final Blood Blood Culture - Final Coagulase Negative Staph Assessment and Plan Assessment: This is a 39-year-old female who presented to the emergency room after she was found unresponsive by her family members. She was evaluated in the and admitted to the intensive care unit for further management of her medical problems noted below. 1. Acute encephalopathy, resolved: Her altered mental status is likely multifa ctorial. She has a history of methamphetamine use, she was hypoglycemic on the field and appears to be septic on presentation. There is no clear signs of infection at this time. Her mentation is improving. Serum alcohol is negative. UDS positive for opiates, oxycodone, TCA, amphetamines, methamphetamine, benzodiazepine, cocaine, marijuana. 2. Sepsis of unknown etiology with lactic acidosis: Thought to be attributed to intra-abdominal infection per ID versus PID. chest x-ray is negative. She does have a history of IV drug use. CT abdomen and pelvis negative for acute pathology. Blood culture showed gram-negative staph possibly contamination. Repeat blood culture negative. Urinalysis negative. Seen and evaluated by infectious disease, down escalate antibiotic to oral Augmentin per ID 3. Acute renal failure: Nonoliguric, Possibly ATN from rhabdomyolysis. Renal ultrasound shows medical renal disease. Nephrology is consulted, Appreciate recommendation 4. Acute rhabdomyolysis: CPK trending down. Possibly secondary to laying on the floor for a prolonged period of time and also polysubstance abuse. 5. Transaminitis with acute liver failure probably secondary to liver shock, liver enzymes trending down 6. Elevated troponin likely demand ischemia: initial EKG showing wide QRS tachycardia. Echocardiogram shows EF 55-60%. Cardiology consulted, appreciate recommendation 7. Elevated D-Dimer: Less likely PE. Unable to obtain CTA chest due to elevated creatinine. Lower extremity duplex negative.no need for anticoagulation at this time 8. Polysubstance abuse including cocaine, marijuana, and today as a pain, and amphetamine 9. Hypoglycemia and hyperkalemia resolved 10. Chronic hepatitis C discontinue IV fluids. down escalates antibiotic awaiting psychiatry evaluation for need for inpatient psych Discharge planning in the next couple of days. transfer out of the ICU to [facility]
[2019-11-20 12:44] LABS: Magnesium 1.5 mg/dL (1.6-2.3); Potassium 3.4 mmol/L (3.5-5.1)
[2019-11-20] MEDS: MAGNESIUM SULFATE-D5W PMX 1 GM in DEXTROSE/WATER 1 100ML.BAG IVPB SCH ×2 (14:33→15:20)
--- NOTE | 2019-11-20 15:54 | PN ---
PROGRESS NOTE DATE OF SERVICE: 11/20/2019 REASON FOR FOLLOWUP: Possible vaginitis INTERVAL HISTORY: The patient is currently afebrile. The patient is breathing comfortably. The patient denies having any chest pain or shortness of breath or cough. No nausea, vomiting, abdominal pain or diarrhea. PHYSICAL EXAMINATION: Her blood pressure is 141/100 with a pulse of 70, temperature 97.5. She is 99% on room air. General description is a middle-aged female lying in bed in no distress. RESPIRATORY SYSTEM: Unlabored breathing with decreased breath sounds at the base. No wheeze. HEART: S1, S2. Regular rate and rhythm. ABDOMEN: Soft. No tenderness. EXTREMITIES: No edema of the feet. LABS: Hemoglobin is 11, white count 10.0, BUN of 47, creatinine 3.14. Liver enzymes have improved. DIAGNOSTIC IMPRESSION AND PLAN: 1. Patient admitted to hospital with sepsis in this patient who did have a fever of 103 degrees Fahrenheit and did have a white count of 16,000, with concern for possible abdominal source. There was question of vaginitis and some purulent drainage was noticed. However, those cultures are so far pending. The patient's blood cultures have been negative for any resistant pathogen. We will discontinue Zosyn and give a short course of oral Augmentin and continue doxycycline. 2. Positive blood culture with coagulase-negative Staph, likely skin contamination. No need for further therapy for the same. MMODL / IJN: [id number] /
[2019-11-20 16:45] LABS: Glucose,Whole Blood 151 mg/dL (75-99)
[2019-11-20] MEDS: AMOXIC-POT CLAV 500-125 MG 1 EACH TAB PO SCH (20:02)
[2019-11-20 21:07] LABS: Glucose,Whole Blood 155 mg/dL (75-99)
[2019-11-20] MEDS: traZODone HCL 50 MG TAB PO PRN (22:17)
[2019-11-21] MEDS: HEPARIN SODIUM,PORCINE 5,000 UNIT/ML 1 ML VIAL SQ SCH ×3 (01:21→16:16)
[2019-11-21 02:44] LABS: Glucose,Whole Blood 107 mg/dL (75-99)
[2019-11-21] MEDS: ACETAMINOPHEN TAB 325 MG TAB PO PRN ×3 (05:45→19:21)
[2019-11-21 07:51] LABS: Basophils # (A) 0.1 k/uL (0-0.2); Basophils % (A) 1 %; Eosinophils # (A) 0.6 k/uL (0-0.7); Eosinophils % (A) 4 %; HCT 36.1 % (34.0-46.0); HGB 11.4 gm/dL (11.4-16.0); Lymphocytes # (A) 2.5 k/uL (1.0-4.8); Lymphocytes % (A) 17 %; MCH 27.7 pg (25.0-35.0); MCHC 31.4 g/dL (31.0-37.0); MCV 88.1 fL (80.0-100.0); Mean Platelet Volume 7.4; Monocytes % (A) 6 %; Neutrophils # (A) 10.4 k/uL (1.3-7.7); Neutrophils % (A) 69 %; Platelet Count 201 k/uL (150-450); RDW 14.9 % (11.5-15.5); WBC 15.2 k/uL (3.8-10.6)
[2019-11-21 08:09] LABS: Potassium 3.9 mmol/L (3.5-5.1); Total Bilirubin 0.7 mg/dL (0.2-1.3); Total Protein 4.2 g/dL (6.3-8.2)
[2019-11-21] MEDS: AMOXIC-POT CLAV 500-125 MG 1 EACH TAB PO SCH ×2 (08:33→21:03)
[2019-11-21] MEDS: PANTOPRAZOLE 40 MG TABLET PO SCH (08:33)
[2019-11-21] MEDS: SODIUM BICARBONATE TAB 650 MG TAB PO SCH ×2 (08:33→21:02)
[2019-11-21] MEDS: DOXYCYCLINE 100 MG CAP PO SCH (08:33)
[2019-11-21 08:50] LABS: Glucose,Whole Blood 138 mg/dL (75-99)
[2019-11-21 10:59] LABS: Glucose,Whole Blood 96 mg/dL (75-99)
--- NOTE | 2019-11-21 11:03 | P.PN ---
Subjective Progress Note Date: 11/21/19 39-year-old female patient who got transferred to the intensive care unit for complications of acute kidney injury, acute hyperkalemia. The patient is 39. She has history of schizoaffective disorder. She was found to be unresponsive by family members and she was brought into the hospital accordingly. The patient was confused. The patient was not a reliable historian. The patient was febrile with a temperature 103.1. There was a concern for a potential drug abuse as the patient mentioned that she has taken Lyrica and Neurontin in the past. In the ED, the urine drug screen was positive for opiates, oxycodone, tricyclics, amphetamines, methamphetamine, benzodiazepine, cocaine and marijuana. The patient's white cell count was at 13.4 with a hemoglobin of 12.2. Platelets were 319. The initial sodium level was at 141 with a potassium of 8.1 and a serum bicarb of 18 and a BUN was 28 with a creatinine of 4.0. The patient had a lactic acid level of 7.0. The patient had an [place] [address] and the troponin was at 1.18 with AST of 2513 and ALT of 820. The patient had a UA that showed +1 glucose. The coagulation profile was within normal. D-dimer was at 1.73. The white cell count was at 16.5 To 13.4. Acute hyperkalemia was treated and the potassium level dropped down to 5.2. Creatinine is also improving is down to 3.4 to as the patient is receiving IV fluids. The patient received a total of 2 L of normal saline and currently she is on normal state rate of 130 mL an hour. Natarajan catheter is in place. The Doppler of the lower extremity was negative. The ultrasound the kidneys showed no signs of an acute cholecystitis. The ultrasound the kidneys showed no acute abnormalities or hydronephrosis. The echo showed an ejection fraction of 55-60% without any acute abnormalities. There was only mild pulmonary hypertension. The chest x-ray shows no acute abnormalities. Note that the initial EKG that was done in emergency department was reviewed. The patient was given adenosine by emergency department. Obviously the rhythm was sinus and the patient had hyperacute T waves related to underlying hyperkalemia and the rate was not that much tachycardic. On 11/17/2019 the patient is doing well. She is awake and alert and she is following commands and answering questions. She does have some swelling in her left shoulder area and she has some soreness. The CPK is still on the rise in the CPKs up to 3100 325. LFTs are also abnormal and the patient continues to be shock liver with AST of 567 and ALT of 2295 and a coagulation profile is also abnormal with an INR of 1.6 with a PT of 16 and PTT of 87. No nausea. No vomiting. No abdominal pain. CAT scan of the abdomen that was done yesterday showed questionable distal ileitis and there was also some degrees within the vaginal cavity for that reason the patient underwent a vaginal examination the findings are essentially negative. There is a single set of blood cultures showing gram-positive cocci. Antibiotic management is per ID. She has no chest pain. Troponin peaked at 1.5. Echocardiogram is within normal limits. IV heparin will be discontinued. No further bouts of fever since yesterday. Her last temperature spike was yesterday noontime where she had a temperature 100.0. I performed a ultrasound Doppler of the left upper extremity and the patient was found to have no evidence of DVT in the left upper extremity. There was superficial thrombosis of the cephalic and basilic veins. The chest x-ray showed a small right-sided pleural effusion and right basilar airspace disease. X-ray of the right shoulder is still pending for now. The patient remains on n ormal saline today to 150 mL an hour. On 11/18/2019 and seeing the patient for a follow-up. This morning I was told that the patient was slightly confused. At the time of my arrival, she seems to more appropriate. She was having some vague abdominal pain and nausea. She did not have any emesis. Her CPKs level is improving. [place] [address]. Also, the LFTs are improving as the patient was in a shock liver. AST is at 2295 and ALT is 1695. The patient has a mild component of non-anion gap metabolic acidosis with a serum bicarb of 18. Anion gap is at 6. Renal function continues to be impaired with a creatinine of 3.44. The patient has no fever. No chills. Cultures have been positive for cognitive is negative staph and this is probably contaminant. She was seen by [employer]. No evidence of any PID. The patient was given vaginal cultures and the results are still pending for now. Meanwhile, the patient was kept on a combination of Zosyn and doxycycline. Daptomycin was also given by infectious disease. As mentioned earlier, the patient has some swelling and tenderness along the left shoulder. X-ray showed no fracture. Ultrasound shows some thrombosis of the superficial veins including the cephalic and basilic veins. The patient is afe brile for now and she is hemodynamically stable. We are going to cut down the IV fluid and the patient is in a positive fluid balance over the past 24 hours. This was discussed with nephrology. The IV fluids will be placed at 100 mL of normal saline per hour. On 11/19/2019, the patient is clinically the same. She continues to have some pain and swelling along the left shoulder. There is also some asymmetry in the left posterior back/scapular area where there is slightly swollen. CPK levels are improving. Liver function is also improving. There are creatinine is stable at 3.3. Serum bicarb is at 17. White cell count at 8.6. CPK is down to 5050, AST is 1053 and ALT is at 1254. The patient is afebrile. The patient is hemodynamically stable. On and off she is having some nausea and there is no reported emesis. Abdominal exam is benign. Her blood culture was positive for coagulase-negative staph and the patient was taken off the daptomycin. All of the cultures other otherwise negative. 11/20/2019 and seeing the patient for a follow-up. The looking better. No new complaints. Nausea has subsided significantly. Tolerating diet. Renal function is improving and the creatinine is down to 3.14. The CPKs also on the decline and is down to 1159. The AST is down to 468 and ALT is down to 893. The patient has no fever. The patient has no chills. All of the cultures came back negative. Antibiotics will be adjusted and the patient will be taken off the IV cefepime and doxycycline and the patient will be placed on Augmentin per IDs recommendation. IV fluids will be also cut down. The patient was given a dose of Lasix yesterday as the patient was showing signs of fluid overload.she had developed bilateral pleural effusion. patient is still stable with a pulse ox of above 94% on oxygen. Also has some soreness and swelling in his left shoulder area which we believe is the source of the extensive rhabdomyolysis recurrence. The patient is seen today 11/21/2019 in follow-up on the regular medical floor. She is awake and alert in no acute distress. Resting quite comfortably in bed. No shortness of breath cough or congestion. Maintaining good O2 saturation 90s on room air. She is still having some upper extremity weakness. Slight edema. No lower extremity edema. White count 15.2. Hemoglobin 11.4. Sodium 136. Potassium 3.9. Creatinine 2.68. AST 194. ALT 580. Creatinine kinase 558. She remains on Augmentin and doxycycline. Continued on sodium bicarb tablets. Objective - Vital Signs Vital signs: Vital Signs Temp 97.5 F L 11/21/19 05:18 Pulse 81 11/21/19 05:18 Resp 16 11/21/19 05:18 BP 136/87 11/21/19 05:18 Pulse Ox 97 11/21/19 05:18 Intake & Output 11/20/19 11/21/19 11/21/19 18:59 06:59 18:59 Intake Total 510 290 Output Total 545 250 Balance -35 40 Weight 65.4 kg 64.5 kg Intake: IV 310 40 .9 kvo 50 40 Piperacillin-Tazobactam 3 100 .375 gm In Sodium Chloride 0.9% 100 ml @ 25 mls/hr IVPB Q12HR [facility] Rx #:[id number] Sodium Chloride 0.9% 1, 160 000 ml @ 50 mls/hr IV . Q20H [facility] Rx#:[id number] Intake, IV Titration 200 Amount Magnesium Sulfate-D5w Pmx 200 1 gm In Dextrose/Water 1 100ml.bag @ 100 mls/hr IVPB Q1H [facility] Rx#: [id number] Oral 250 Output: Urine 545 250 Other: Voiding Method Indwelling Catheter Indwelling Catheter Indwelling Catheter # Voids 1 # Bowel Movements 1 - Exam GENERAL EXAM: Alert, pleasant 39-year-old female patient, on room air comfortable in no apparent distress. HEAD: Normocephalic. EYES: Normal reaction of pupils, equal size. NOSE: Clear with pink turbinates. THROAT: No erythema or exudates. NECK: No masses, no JVD. CHEST: No chest wall deformity. LUNGS: Equal air entry with no crackles, wheeze, rhonchi or dullness. CVS: S1 and S2 normal with no audible murmur, regular rhythm. ABDOMEN: No hepatosplenomegaly, normal bowel sounds, no guarding or rigidity. SPINE: No scoliosis or deformity SKIN: No rashes CENTRAL NERVOUS SYSTEM: Weakness of the upper extremities. No focal deficits, tone is normal in all 4 extremities. EXTREMITIES: There is trace peripheral edema. No clubbing, no cyanosis. Peripheral pulses are intact. - Labs CBC & Chem 7: 11/21/19 07:26 11/21/19 07:26 Labs: Abnormal Lab Results - Last 24 Hours (Table) 11/20/19 11/20/19 11/20/19 Range/Units 12:15 16:44 21:05 WBC (3.8-10.6) k/uL Neutrophils # (1.3-7.7) k/uL Sodium (137-145) mmol/L Potassium 3.4 L (3.5-5.1) mmol/L Chloride (98-107) mmol/L Carbon Dioxide (22-30) mmol/L BUN (7-17) mg/dL Creatinine (0.52-1.04) mg/dL Glucose (74-99) mg/dL POC Glucose (mg/dL) 151 H 155 H (75-99) mg/dL Calcium (8.4-10.2) mg/dL Magnesium 1.5 L (1.6-2.3) mg/dL AST (14-36) U/L ALT (4-34) U/L Creatine Kinase (30-135) U/L Total Protein (6.3-8.2) g/dL Albumin (3.5-5.0) g/dL 11/21/19 11/21/19 11/21/19 Range/Units 02:34 07:26 07:26 WBC 15.2 H (3.8-10.6) k/uL Neutrophils # 10.4 H (1.3-7.7) k/uL Sodium 136 L (137-145) mmol/L Potassium (3.5-5.1) mmol/L Chloride 114 H (98-107) mmol/L Carbon Dioxide 20 L (22-30) mmol/L BUN 43 H (7-17) mg/dL Creatinine 2.68 H (0.52-1.04) mg/dL Glucose 106 H (74-99) mg/dL POC Glucose (mg/dL) 107 H (75-99) mg/dL Calcium 8.0 L (8.4-10.2) mg/dL Magnesium (1.6-2.3) mg/dL AST 194 H (14-36) U/L ALT 580 H (4-34) U/L Creatine Kinase 558 H (30-135) U/L Total Protein 4.2 L (6.3-8.2) g/dL Albumin 2.0 L (3.5-5.0) g/dL 11/21/19 Range/Units 08:35 WBC (3.8-10.6) k/uL Neutrophils # (1.3-7.7) k/uL Sodium (137-145) mmol/L Potassium (3.5-5.1) mmol/L Chloride (98-107) mmol/L Carbon Dioxide (22-30) mmol/L BUN (7-17) mg/dL Creatinine (0.52-1.04) mg/dL Glucose (74-99) mg/dL POC Glucose (mg/dL) 138 H (75-99) mg/dL Calcium (8.4-10.2) mg/dL Magnesium (1.6-2.3) mg/dL AST (14-36) U/L ALT (4-34) U/L Creatine Kinase (30-135) U/L Total Protein (6.3-8.2) g/dL Albumin (3.5-5.0) g/dL Microbiology - Last 24 Hours (Table) 11/16/19 07:51 Blood Culture - Preliminary Blood No Growth after 120 hours 11/16/19 23:35 Genital Culture - Final Vaginal Gardnerella vaginalis 11/17/19 11:40 Blood Culture - Preliminary Blood No Growth after 72 hours Assessment and Plan Assessment: 1 acute change in mental status, likely secondary to drugs/metabolic encephalopathy. Mental status is back to normal, and altered mental status is recovered 2 acute rhabdomyolysis, with ongoing rise in CPK secondary to rhabdomyolysis, improving, and the CPK is also on the decline and down to 558 today 3 acute kidney injury, and the creatinine is stable at 2.68 4 acute hyperkalemia, recovered 5 cocaine abuse 6 marijuana abuse 7 methamphetamine abuse 8 opiates abuse 9 nicotine dependence 10 schizoaffective disorder with previous history of psychosis 11 lactic acidosis, improving 12 troponin leak, underlying ischemic cardiac event is felt to be less likely 13 fever with gram-positive cocci in clusters, and the cultures are consistent with coagulase-negative staph and the patient was taken off the daptomycin 14 mild leukocytosis, recovered 15 superficial basilic and cephalic vein thrombosis in the left upper extremity with some swelling and tenderness 60 shock liver and the left is also improving. Plan The patient was seen and evaluated by Dr. Mane She is stable from the pulmonary critical care standpoint We'll see her as needed I, the cosigning physician, performed a history & physical examination of the patient. Lungs sounds are clear. Maintaining good O2 saturations in the 90s on room air. I discussed the assessment and plan of care with my nurse practitio brandy, Jodie Khan. I attest to the above note as dictated by her.
--- NOTE | 2019-11-21 12:50 | PN ---
PROGRESS NOTE Patient is seen for followup for acute kidney injury. Patient's renal function continues to improve. Her creatinine is down to 2.6. EXAMINATION: Today blood pressure is 146/90, heart rate 84 per minute, patient is afebrile. Examination of the heart S1, S2. Examination of the lungs, bilateral breath sounds are heard. Abdomen is soft, nontender. Examination of lower extremities shows no significant edema. LAB: Sodium 136, potassium 3.9, chloride 114, BUN 43, creatinine 2.68, hemoglobin 11.4 g/dL. ASSESSMENT: 1. Acute kidney injury, currently improved, mostly ATN associated with rhabdomyolysis and hypotension. 2. Hyperkalemia associated with rhabdomyolysis, metabolic acidosis, acute kidney injury now improved. 3. Polysubstance drug abuse. 4. Hypocalcemia associated with acute kidney injury, now improved. 5. Sepsis with gram-positive bacteremia, maintained on antibiotics, possible contamination. PLAN: Encourage to increase oral intake. Continue to avoid nephrotoxic agents. May continue with the sodium bicarb for now. MMODL / IJN: [id number] /
[2019-11-21] MEDS: metroNIDAZOLE 500 MG TAB PO SCH ×2 (14:21→21:27)
--- NOTE | 2019-11-21 15:52 | P.PN ---
Subjective Patient is doing well today. No acute events overnight. Objective - Vital Signs Vital signs: Vital Signs Temp 98.5 F 11/21/19 11:38 Pulse 84 11/21/19 11:38 Resp 18 11/21/19 11:38 BP 146/90 11/21/19 11:38 Pulse Ox 97 11/21/19 11:38 Intake & Output 11/20/19 11/21/19 11/21/19 18:59 06:59 18:59 Intake Total 510 290 600 Output Total 545 250 Balance -35 40 600 Weight 65.4 kg 64.5 kg Intake: IV 310 40 .9 kvo 50 40 Piperacillin-Tazobactam 3 100 .375 gm In Sodium Chloride 0.9% 100 ml @ 25 mls/hr IVPB Q12HR [facility] Rx #:[id number] Sodium Chloride 0.9% 1, 160 000 ml @ 50 mls/hr IV . Q20H [facility] Rx#:[id number] Intake, IV Titration 200 Amount Magnesium Sulfate-D5w Pmx 200 1 gm In Dextrose/Water 1 100ml.bag @ 100 mls/hr IVPB Q1H [facility] Rx#: [id number] Oral 250 600 Output: Urine 545 250 Other: Voiding Method Indwelling Catheter Indwelling Catheter Indwelling Catheter # Voids 1 2 # Bowel Movements 1 2 - Exam General: The patient is awake and alert, in no distress Eye: there is normal conjunctiva bilaterally. Neck: The neck is supple, there is no JVD. Cardiovascular: Normal S1-S2, no S3-S4, no murmurs. Respiratory: Lungs clear to auscultation bilaterally Gastrointestinal: Abdomen is soft, nontender Musculoskeletal: There is no pedal edema. Neurological:. Speech is normal. Skin: Skin is warm and dry - Labs CBC & Chem 7: 11/21/19 07:26 11/21/19 07:26 Labs: Abnormal Lab Results - Last 24 Hours (Table) 11/20/19 11/20/19 11/21/19 Range/Units 16:44 21:05 02:34 WBC (3.8-10.6) k/uL Neutrophils # (1.3-7.7) k/uL Sodium (137-145) mmol/L Chloride (98-107) mmol/L Carbon Dioxide (22-30) mmol/L BUN (7-17) mg/dL Creatinine (0.52-1.04) mg/dL Glucose (74-99) mg/dL POC Glucose (mg/dL) 151 H 155 H 107 H (75-99) mg/dL Calcium (8.4-10.2) mg/dL AST (14-36) U/L ALT (4-34) U/L Creatine Kinase (30-135) U/L Total Protein (6.3-8.2) g/dL Albumin (3.5-5.0) g/dL 11/21/19 11/21/19 11/21/19 Range/Units 07:26 07:26 08:35 WBC 15.2 H (3.8-10.6) k/uL Neutrophils # 10.4 H (1.3-7.7) k/uL Sodium 136 L (137-145) mmol/L Chloride 114 H (98-107) mmol/L Carbon Dioxide 20 L (22-30) mmol/L BUN 43 H (7-17) mg/dL Creatinine 2.68 H (0.52-1.04) mg/dL Glucose 106 H (74-99) mg/dL POC Glucose (mg/dL) 138 H (75-99) mg/dL Calcium 8.0 L (8.4-10.2) mg/dL AST 194 H (14-36) U/L ALT 580 H (4-34) U/L Creatine Kinase 558 H (30-135) U/L Total Protein 4.2 L (6.3-8.2) g/dL Albumin 2.0 L (3.5-5.0) g/dL Microbiology - Last 24 Hours (Table) 11/17/19 11:40 Blood Culture - Preliminary Blood No Growth after 96 hours 11/16/19 07:51 Blood Culture - Preliminary Blood No Growth after 120 hours 11/16/19 23:35 Genital Culture - Final Vaginal Gardnerella vaginalis Assessment and Plan Assessment: This is a 39-year-old female who presented to the emergency room after she was found unresponsive by her family members. She was evaluated in the and admitted to the intensive care unit for further management of her medical problems noted below. 1. Acute encephalopathy, resolved: Her altered mental status is likely multifactorial. She has a history of methamphetamine use, she was hypoglycemic on the field and appears to be septic on presentation. There is no clear signs of infection at this time. Her mentation is improving. Serum alcohol is negativ e. UDS positive for opiates, oxycodone, TCA, amphetamines, methamphetamine, benzodiazepine, cocaine, marijuana. 2. Sepsis of unknown etiology with lactic acidosis: Thought to be attributed to intra-abdominal infection per ID versus PID. chest x-ray is negative. She does have a history of IV drug use. CT abdomen and pelvis negative for acute pathology. Blood culture showed gram-negative staph possibly contamination. Repeat blood culture negative. Urinalysis negative. Seen and evaluated by infectious disease, down escalate antibiotic to oral Augmentin per ID 3. Acute renal failure: Nonoliguric, Possibly ATN from rhabdomyolysis. Renal ultrasound shows medical renal disease. Nephrology is consulted, Appreciate recommendation 4. Acute rhabdomyolysis: CPK trending down. Possibly secondary to laying on the floor for a prolonged period of time and also polysubstance abuse. 5. Transaminitis with acute liver failure probably secondary to liver shock, liver enzymes trending down 6. Elevated troponin likely demand ischemia: initial EKG showing wide QRS tachycardia. Echocardiogram shows EF 55-60%. Cardiology consulted, appreciate recommendation 7. Elevated D-Dimer: Less likely PE. Unable to obtain CTA chest due to elevated creatinine. Lower extremity duplex negative.no need for anticoagulation at this time 8. Polysubstance abuse including cocaine, marijuana, and today as a pain, and amphetamine 9. Hypoglycemia and hyperkalemia resolved 10. Chronic hepatitis C Awaiting psychiatry evaluation for disposition
--- NOTE | 2019-11-21 17:02 | PN ---
PROGRESS NOTE DATE OF SERVICE: 11/21/2019 REASON FOR FOLLOWUP: Abdominal infection, pneumonitis, Gardnerella vaginalis. INTERVAL HISTORY: The patient is currently afebrile. He is complaining of some pain to the lower abdominal area, more of a dull aching. Some nausea but no vomiting. No diarrhea. No chest pain, shortness of breath or cough. PHYSICAL EXAMINATION: Blood pressure 146/90 with a pulse of 84, temperature 98.5, 97% on room air. GENERAL DESCRIPTION: A middle-aged female lying in bed in no distress. RESPIRATORY SYSTEM: Unlabored breathing, decreased breath sounds at the base. No wheeze. HEART: S1, S2. Regular rate and rhythm. ABDOMEN: Soft, mildly tender. No guarding, no rigidity. LABS: Hemoglobin 11.4, white count 15.2, BUN of 43, creatinine 2.68. Abdominal culture with Gardnerella vaginalis. DIAGNOSTIC IMPRESSION AND PLAN: 1. Patient admitted to the hospital with fever and did have elevated white count with initial concern for abdominal source of possible pneumonitis. The patient culture remains to be negative. Antibiotic was switched to Augmentin, however, he was noticed to have slight worsening of the white count. Continue to monitor closely. If any further worsening of the white count or spikes any fever, will re-culture and broaden the antibiotic coverage at that time. 2. Patient with a positive culture with Gardnerella vaginalis. Oral Flagyl has been added and we will see response. MMODL / IJN: [id number] /
--- NOTE | 2019-11-21 17:06 | P.PN ---
Progress Note - Text Progress Note Date: 11/21/19 Reason for consultation: Follow-up psychiatric consultation The patient was initially seen by psychiatric team on 11/16 for psychotic symptoms, altered mental status, and evaluation was not obtained because of the patient's mental condition at the time. Today, the patient was psychiatrically evaluated and reports has been feeling depressed and overdosed on cocaine before she came to the hospital. Patient couldn't deny suicidal attempt and reports couldn't remember what made her to overdose on cocaine, but "probably suicidal". She reports has been feeling depressed, hopeless, with passive suicidal thoughts for the last few weeks prior to admission. She stopped taking her psychiatric medications and relapsing on cocaine use prior to her admission. Reports history of bipolar disorder and she has been on risperidone, Vistaril, and trazodone. She denies any current hallucinations, or homicidal ideation, but reports having paranoid ideation. She still feeling hopeless and suicidal. Patient presents with very flat affect, sad, depressed, and not able to take care of herself be cause she is feeling severely time was lack of energy and loss of motivation. The patient was not fully oriented to time and reports has no outpatient psychiatric follow-up or treatment. Mental status examination; Appearance: The patient appears stated age, not adequately groomed, below average body built, no specific features. Gait/posture: Patient was laying down, Normal arm swinging: No abnormal movements. Attitude and behavior: Cooperative, engaged, poor eye contact. Motor activity: Decreased psychomotor activity Speech: slow, low tone. Mood:depressed Affect:flat Thought form: restricted, but coherent. Thought content: Non-delusional, reports passive suicidal thoughts, denies homicidal thoughts, denies intentions or plans. Perception: Denies any auditory or visual hallucinations Attention: No impairment. Orientation: Patient patient was not oriented to time but oriented to place person and situation. Insight: Patient has fair insight about psychiatric disorder. Judgment: Patient has limited judgment about fair psychiatric treatment. Assessment: Psychosis unspecified, rule out secondary to polysubstance abuse. Benzodiazepine abuse Cocaine abuse Marijuana abuse Methamphetamine abuse Opiate abuse Nicotine dependence Recommendations: Addressed and ensured patient's safety, the patient is severely depressed and has passive SI, severely depressed, not able to take care of herself because of severe depression and admitted for overdose on cocaine because of her depression. Patient is not psychiatrically stable, and does meet the criteria for psychiatric hospitalization. Pt agreed with admission to psych floor once medically cleared. Medication management: Trazodone 50 mg daily at bedtime when necessary for insomnia, Haldol 4 mg IM every 6 hours when necessary for agitation/acute psychosis. Continued 1:1 sitter for safety and elopement precautions According to the patient's current presentation, the patient has a capacity to make her own medical decision. The patient does understand the information about the decision to be made regarding treatment. The patient has been able to retain that information in mind long enough to use it to make an effective decision. The patient was able to weigh that information as part of the decision making process. The patient does understand the benefits, risks, and alternatives of the treatment versus n ot having the treatment or procedure offered. The patient was able to communicate. Discussed the treatment plan with the requesting physician/service. Brief supportive psychotherapy was provided to the patient. Thank you for permitting me to assist in this patient's treatment. Please call psychiatry department if you have any question or need further help with this case.
[2019-11-21 17:09] LABS: Glucose,Whole Blood 170 mg/dL (75-99)
[2019-11-21 21:12] LABS: Glucose,Whole Blood 127 mg/dL (75-99)
[2019-11-21] MEDS: traZODone HCL 50 MG TAB PO PRN (21:27)
[2019-11-21] MEDS: ONDANSETRON 4 MG/2 ML VIAL IVP PRN (22:28)
[2019-11-22] MEDS: HEPARIN SODIUM,PORCINE 5,000 UNIT/ML 1 ML VIAL SQ SCH ×4 (01:05→23:09)
[2019-11-22 02:47] LABS: Glucose,Whole Blood 103 mg/dL (75-99)
[2019-11-22] MEDS: ACETAMINOPHEN TAB 325 MG TAB PO PRN ×4 (03:07→19:58)
[2019-11-22 07:01] LABS: Glucose,Whole Blood 94 mg/dL (75-99)
[2019-11-22] MEDS: AMOXIC-POT CLAV 500-125 MG 1 EACH TAB PO SCH (07:26)
[2019-11-22] MEDS: PANTOPRAZOLE 40 MG TABLET PO SCH (07:26)
[2019-11-22] MEDS: SODIUM BICARBONATE TAB 650 MG TAB PO SCH ×2 (07:26→19:58)
[2019-11-22] MEDS: metroNIDAZOLE 500 MG TAB PO SCH ×2 (07:26→19:58)
[2019-11-22] MEDS: ONDANSETRON 4 MG/2 ML VIAL IVP PRN (07:27)
[2019-11-22 07:41] LABS: Albumin 2.1 g/dL (3.5-5.0); Calcium 8.3 mg/dL (8.4-10.2); Potassium 3.8 mmol/L (3.5-5.1); Total Bilirubin 0.5 mg/dL (0.2-1.3); Total Protein 4.2 g/dL (6.3-8.2)
[2019-11-22 07:46] LABS: Basophils # (A) 0.2 k/uL (0-0.2); Basophils % (A) 1 %; Eosinophils # (A) 0.4 k/uL (0-0.7); Eosinophils % (A) 3 %; HCT 34.4 % (34.0-46.0); HGB 10.9 gm/dL (11.4-16.0); Lymphocytes # (A) 2.2 k/uL (1.0-4.8); Lymphocytes % (A) 12 %; MCHC 31.7 g/dL (31.0-37.0); MCV 88.2 fL (80.0-100.0); Mean Platelet Volume 7.8; Monocytes # (A) 1.2 k/uL (0-1.0); Monocytes % (A) 7 %; Neutrophils # (A) 13.1 k/uL (1.3-7.7); Neutrophils % (A) 74 %; Platelet Count 199 k/uL (150-450); WBC 17.7 k/uL (3.8-10.6)
[2019-11-22] MEDS: METOCLOPRAMIDE 5 MG/ML 2 ML VIAL IVP PRN ×2 (09:41→15:57)
[2019-11-22 11:12] LABS: Glucose,Whole Blood 107 mg/dL (75-99)
[2019-11-22 17:06] LABS: Glucose,Whole Blood 126 mg/dL (75-99)
--- NOTE | 2019-11-22 17:16 | PN ---
PROGRESS NOTE Patient is seen for followup for acute kidney injury. Renal function has improved since admission. Serum creatinine today down to 2.46 from 2.68 yesterday and peak of 4.0 on initial admission. PHYSICAL EXAMINATION: Patient is comfortable. Blood pressure 152/91, heart rate 85 per minute, she is afebrile. Examination shows she is euvolemic with no evidence of edema bilateral lower extremities. Abdomen is soft, nontender. LABS: Show sodium 136, potassium 3.8, chloride 112, BUN 43, creatinine 2.46, hemoglobin of 10.9 g/dL. ASSESSMENT: 1. Acute kidney injury, acute tubular necrosis, currently improving. Patient is encouraged to increase oral intake. 2. Rhabdomyolysis, improved. 3. Hyperkalemia associated with rhabdomyolysis and metabolic acidosis, now improved. 4. History of polysubstance drug abuse. 5. Sepsis with gram-positive bacteremia, possible contamination. PLAN: Continue to encourage increased oral intake. Continue off IV fluids. May continue with oral sodium bicarb for now. MMODL / IJN: [id number] /
--- NOTE | 2019-11-22 17:58 | P.PN ---
Subjective Progress Note Date: 11/22/19 Patient is complaining of a lot of nausea this morning. She is unable to eat much of her breakfast. No vomiting. Objective - Vital Signs Vital signs: Vital Signs Temp 98.7 F 11/22/19 11:28 Pulse 85 11/22/19 11:28 Resp 18 11/22/19 11:28 BP 152/91 11/22/19 11:28 Pulse Ox 99 11/22/19 11:28 Intake & Output 11/21/19 11/22/19 11/22/19 18:59 06:59 18:59 Intake Total 600 1000 600 Output Total 250 Balance 600 1000 350 Weight 66.5 kg Intake: Oral 600 1000 600 Output: Urine 250 Other: Voiding Method Indwelling Catheter Toilet Toilet # Voids 2 2 2 # Bowel Movements 2 0 - Exam General: The patient is awake and alert, in no distress Eye: there is normal conjunctiva bilaterally. Neck: The neck is supple, there is no JVD. Cardiovascular: Normal S1-S2, no S3-S4, no murmurs. Respiratory: Lungs clear to auscultation bilaterally Gastrointestinal: Abdomen is soft, nontender Musculoskeletal: There is no pedal edema. Neurological:. Speech is normal. Skin: Skin is warm and dry - Labs CBC & Chem 7: 11/22/19 06:14 11/22/19 06:14 Labs: Abnormal Lab Results - Last 24 Hours (Table) 11/18/19 11/21/19 11/22/19 Range/Units 03:55 21:07 02:26 WBC (3.8-10.6) k/uL Hgb (11.4-16.0) gm/dL Neutrophils # (1.3-7.7) k/uL Monocytes # (0-1.0) k/uL Sodium (137-145) mmol/L Chloride (98-107) mmol/L Carbon Dioxide (22-30) mmol/L BUN (7-17) mg/dL Creatinine (0.52-1.04) mg/dL POC Glucose (mg/dL) 127 H 103 H (75-99) mg/dL Calcium (8.4-10.2) mg/dL AST (14-36) U/L ALT (4-34) U/L Creatine Kinase (30-135) U/L Total Protein (6.3-8.2) g/dL Albumin (3.5-5.0) g/dL Hepatitis C RNA Quant [id number] H (0-0) IU/mL 11/22/19 11/22/19 11/22/19 Range/Units 06:14 06:14 11:10 WBC 17.7 H (3.8-10.6) k/uL Hgb 10.9 L (11.4-16.0) gm/dL Neutrophils # 13.1 H (1.3-7.7) k/uL Monocytes # 1.2 H (0-1.0) k/uL Sodium 136 L (137-145) mmol/L Chloride 112 H (98-107) mmol/L Carbon Dioxide 20 L (22-30) mmol/L BUN 43 H (7-17) mg/dL Creatinine 2.46 H (0.52-1.04) mg/dL POC Glucose (mg/dL) 107 H (75-99) mg/dL Calcium 8.3 L (8.4-10.2) mg/dL AST 117 H (14-36) U/L ALT 403 H (4-34) U/L Creatine Kinase 522 H (30-135) U/L Total Protein 4.2 L (6.3-8.2) g/dL Albumin 2.1 L (3.5-5.0) g/dL Hepatitis C RNA Quant (0-0) IU/mL 11/22/19 Range/Units 17:05 WBC (3.8-10.6) k/uL Hgb (11.4-16.0) gm/dL Neutrophils # (1.3-7.7) k/uL Monocytes # (0-1.0) k/uL Sodium (137-145) mmol/L Chloride (98-107) mmol/L Carbon Dioxide (22-30) mmol/L BUN (7-17) mg/dL Creatinine (0.52-1.04) mg/dL POC Glucose (mg/dL) 126 H (75-99) mg/dL Calcium (8.4-10.2) mg/dL AST (14-36) U/L ALT (4-34) U/L Creatine Kinase (30-135) U/L Total Protein (6.3-8.2) g/dL Albumin (3.5-5.0) g/dL Hepatitis C RNA Quant (0-0) IU/mL Microbiology - Last 24 Hours (Table) 11/17/19 11:40 Blood Culture - Preliminary Blood No Growth after 120 hours 11/16/19 07:51 Blood Culture - Final Blood No Growth after 144 hours Assessment and Plan Assessment: This is a 39-year-old female who presented to the emergency room after she was found unresponsive by her family members. She was evaluated in the and admitted to the intensive care unit for further management of her medical problems noted below. 1. Acute encephalopathy, resolved: Her altered mental status is likely multifactorial. She has a history of methamphetamine use, she was hypoglycemic on the field and appears to be septic on presentation. There is no clear signs of infection at this time. Her mentation is improving. Serum alcohol is negative. UDS positive for opiates, oxycodone, TCA, amphetamines, methamphetamine, benzodiazepine, cocaine, marijuana. 2. Sepsis of unknown etiology with lactic acidosis: Thought to be attributed to intra-abdominal infection per ID versus PID. chest x-ray is negative. She does have a history of IV drug use. CT abdomen and pelvis negative for acute pathology. Blood culture showed gram-negative staph possibly contamination. Repeat blood culture negative. Urinalysis negative. Seen and evaluated by infectious disease, down escalate antibiotic to oral Augmentin per ID 3. Acute renal failure: Nonoliguric, Possibly ATN from rhabdomyolysis. Renal ultrasound shows medical renal disease. Nephrology is consulted, Appreciate recommendation 4. Acute rhabdomyolysis: CPK trending down. Possibly secondary to laying on the floor for a prolonged period of time and also polysubstance abuse. 5. Transaminitis with acute liver failure probably secondary to liver shock, li marvin enzymes trending down 6. Elevated troponin likely demand ischemia: initial EKG showing wide QRS tachycardia. Echocardiogram shows EF 55-60%. Cardiology consulted, appreciate recommendation 7. Elevated D-Dimer: Less likely PE. Unable to obtain CTA chest due to elevated creatinine. Lower extremity duplex negative.no need for anticoagulation at this time 8. Polysubstance abuse including cocaine, marijuana, and today as a pain, and amphetamine 9. Hypoglycemia and hyperkalemia resolved 10. Chronic hepatitis C Reglan as needed for nausea. Anticipate transfer to psych tomorrow.
[2019-11-22] MEDS: IOPAMIDOL CONTRAST (ORAL USE) VIAL PO PRN ×2 (19:02→19:58)
--- NOTE | 2019-11-22 20:44 | CT ---
EXAMINATION TYPE: CT abdomen pelvis wo con DATE OF EXAM: 11/22/2019 COMPARISON: 11/16/[address] chest 11/19/2019 HISTORY: 39-year-old female Abdominal pain and leukocytosis. CT DLP: 375.6 mGycm. Automated exposure control for dose reduction was used. TECHNIQUE: Contiguous axial scanning of the abdomen and pelvis without IV contrast. Coronal and sagit melly reconstructions performed. FINDINGS: Heart normal size. Continued moderate effusions with bibasilar dependent atelectasis. Increasing air bronchograms in the adjacent right lower lobe could represent airspace disease. Continued anasarca change. New trace perihepatic ascites. Noncontrast appearance of the liver shows it to be enlarged at 20.0 cm. Gallbladder is collapsed. Adrenal glands, kidneys, spleen with anterior splenule, pancreas show no gross abnormality by noncont rast CT. No dilated small bowel or free air. Oral contrast progressed to the proximal transverse colon. There is some circumferential wall thicken ing of some right lower quadrant ileal loops, reference axial image 60. Bladder is nondistended but shows mild wall thickening. Uterus anteverted. This seems to be a 3.8 cm cyst within the left ovary with a high density fluid level, suspect hemorrhagic cyst. Pelvic phleboli ths. Moderate sacral edema. Mild cul-de-sac free fluid. Bones: No osseous destructive changes. IMPRESSION: 1. Continued fluid overload state with anasarca and moderate effusions (again noted to be new from ). Further clinical correlation is advised. Trace abdominopelvic ascites is new from 0. 2. Increasing air bronchograms in the right lower lobe. Correlate to exclude underlying pneumonia. 3. Continuing nonspecific infectious or inflammatory distal ileitis. There may have been some improv ement from 11/16/2019. 4. Circumferential bladder wall thickening could relate to underdistention or cystitis. 5. A 3.8 cm left ovarian cyst has a high density fluid level, possible hemorrhagic cyst.
[2019-11-22 21:02] LABS: Glucose,Whole Blood 148 mg/dL (75-99)
[2019-11-22] MEDS: traZODone HCL 50 MG TAB PO PRN (21:36)
[2019-11-22] MEDS ORDERED: METOCLOPRAMIDE 10 MG TAB PO STA (21:37)
--- NOTE | 2019-11-23 01:28 | PN ---
PROGRESS NOTE DATE OF SERVICE: 11/22/2019. REASON FOR FOLLOWUP: Leukocytosis. INTERVAL HISTORY: The patient is currently afebrile. The patient is breathing comfortably. The patient is complaining of lower abdominal discomfort. She has been reporting multiple loose stools. However, the sitter . The patient denies having any chest pain or shortness of breath or cough. No urinary symptoms. PHYSICAL EXAMINATION: Blood pressure 152/91 with pulse 85, temperature 98.7. She is 99% on room air. General description is a middle-aged female lying in bed in no distress. RESPIRATORY SYSTEM: Unlabored breathing, clear to auscultation anteriorly. HEART: S1, S2. Regular rate and rhythm. ABDOMEN: Soft, mildly distended and tender in the lower quadrant area. LABS: Hemoglobin is 10.9, white count 17.7, BUN of 43, creatinine 2.46. DIAGNOSTIC IMPRESSION AND PLAN: 1. Patient with leukocytosis and lower abdominal pain , possible abdominal source. We will check a CT of abdomen and pelvis with oral contrast. 2. Diarrhea. We will discontinue the Reglan if diarrhea persist or any evidence of colitis. Will check a stool for Clostridium difficile and treat if positive. 3. The patient with positive genital culture with Gardnerella vaginalis for which the patient is currently on oral oral Flagyl. 4. Positive blood culture coagulase negative Staph likely skin contamination. Repeat blood culture has been negative. No therapy for the same thing. MMODL / IJN: [id number] /
[2019-11-23] MEDS: ACETAMINOPHEN TAB 325 MG TAB PO PRN ×4 (02:17→20:45)
[2019-11-23 02:28] LABS: Glucose,Whole Blood 188 mg/dL (75-99)
[2019-11-23 07:02] LABS: Glucose,Whole Blood 144 mg/dL (75-99)
[2019-11-23] MEDS: HEPARIN SODIUM,PORCINE 5,000 UNIT/ML 1 ML VIAL SQ SCH ×3 (07:59→23:56)
[2019-11-23] MEDS: SODIUM BICARBONATE TAB 650 MG TAB PO SCH ×2 (07:59→20:45)
[2019-11-23] MEDS: metroNIDAZOLE 500 MG TAB PO SCH ×2 (08:00→20:45)
[2019-11-23] MEDS: PANTOPRAZOLE 40 MG TABLET PO SCH (08:00)
[2019-11-23 08:18] LABS: Basophils # (A) 0.1 k/uL (0-0.2); Basophils % (A) 1 %; Eosinophils # (A) 0.3 k/uL (0-0.7); Eosinophils % (A) 2 %; HCT 33.2 % (34.0-46.0); HGB 10.5 gm/dL (11.4-16.0); Lymphocytes # (A) 2.1 k/uL (1.0-4.8); Lymphocytes % (A) 12 %; MCH 27.9 pg (25.0-35.0); MCHC 31.8 g/dL (31.0-37.0); MCV 87.9 fL (80.0-100.0); Mean Platelet Volume 8.1; Monocytes # (A) 1.3 k/uL (0-1.0); Monocytes % (A) 7 %; Neutrophils # (A) 13.1 k/uL (1.3-7.7); Neutrophils % (A) 75 %; Platelet Count 204 k/uL (150-450); RBC 3.78 m/uL (3.80-5.40); RDW 15.6 % (11.5-15.5); WBC 17.4 k/uL (3.8-10.6)
[2019-11-23] MEDS ORDERED: LOPERAMIDE 2 MG CAP PO PRN (08:27)
[2019-11-23 08:29] LABS: Albumin 2.5 g/dL (3.5-5.0); Calcium 8.2 mg/dL (8.4-10.2); Potassium 4.2 mmol/L (3.5-5.1); Total Bilirubin 0.5 mg/dL (0.2-1.3); Total Protein 4.7 g/dL (6.3-8.2)
[2019-11-23] MEDS: METOCLOPRAMIDE 5 MG TAB PO PRN ×2 (10:04→21:01)
[2019-11-23 13:25] LABS: Glucose,Whole Blood 117 mg/dL (75-99)
[2019-11-23 15:27] VITALS: BMI 24.2
[2019-11-23] MEDS: VANCOMYCIN 125 MG CAPSULE PO SCH ×3 (15:43→21:01)
[2019-11-23 15:56] LABS: HCV Qualitative Result DETECTED (Not detected); HCV Quant Log 5.17 (<1.08)
[2019-11-23 16:51] LABS: Glucose,Whole Blood 144 mg/dL (75-99)
--- NOTE | 2019-11-23 17:12 | P.PN ---
Subjective Patient is doing better today. She is still having some nausea. No acute events overnight. Objective - Vital Signs Vital signs: Vital Signs Temp 98.7 F 11/23/19 16:09 Pulse 72 11/23/19 16:09 Resp 16 11/23/19 16:09 BP 145/82 11/23/19 16:09 Pulse Ox 99 11/23/19 16:09 Intake & Output 11/22/19 11/23/19 11/23/19 18:59 06:59 18:59 Intake Total 863 857 5551 Output Total 250 250 Balance 402 873 6760 Weight 66 kg 66 kg Intake: IV 800 Sodium Chloride 0.9% 1, 800 000 ml @ 100 mls/hr IV . Q10H REINALDO Rx#:[id number] Oral 600 480 600 Output: Urine 250 250 Other: Voiding Method Toilet Toilet Toilet # Voids 2 1 - Exam General: The patient is awake and alert, in no distress Eye: there is normal conjunctiva bilaterally. Neck: The neck is supple, there is no JVD. Cardiovascular: Normal S1-S2, no S3-S4, no murmurs. Respiratory: Lungs clear to auscultation bilaterally Gastrointestinal: Abdomen is soft, nontender Musculoskeletal: There is no pedal edema. Neurological:. Speech is normal. Skin: Skin is warm and dry - Labs CBC & Chem 7: 11/23/19 07:55 11/23/19 07:55 Labs: Abnormal Lab Results - Last 24 Hours (Table) 11/18/19 11/22/19 11/23/19 Range/Units 03:55 20:57 02:18 WBC (3.8-10.6) k/uL RBC (3.80-5.40) m/uL Hgb (11.4-16.0) gm/dL Hct (34.0-46.0) % RDW (11.5-15.5) % Neutrophils # (1.3-7.7) k/uL Monocytes # (0-1.0) k/uL Chloride (98-107) mmol/L BUN (7-17) mg/dL Creatinine (0.52-1.04) mg/dL POC Glucose (mg/dL) 148 H 188 H (75-99) mg/dL Calcium (8.4-10.2) mg/dL AST (14-36) U/L ALT (4-34) U/L Total Protein (6.3-8.2) g/dL Albumin (3.5-5.0) g/dL HCV RNA Qual (PCR) DETECTED H (Not detected) Hepatitis C RNA Quant 148,033 H (<12) IU/mL HCV RNA PCR log copier repair technician/ml 5.17 H (<1.08) Hepatitis C Genotype 1a H 11/23/19 11/23/19 11/23/19 Range/Units 07:00 07:55 07:55 WBC 17.4 H (3.8-10.6) k/uL RBC 3.78 L (3.80-5.40) m/uL Hgb 10.5 L (11.4-16.0) gm/dL Hct 33.2 L (34.0-46.0) % RDW 15.6 H (11.5-15.5) % Neutrophils # 13.1 H (1.3-7.7) k/uL Monocytes # 1.3 H (0-1.0) k/uL Chloride 112 H (98-107) mmol/L BUN 36 H (7-17) mg/dL Creatinine 1.98 H (0.52-1.04) mg/dL POC Glucose (mg/dL) 144 H (75-99) mg/dL Calcium 8.2 L (8.4-10.2) mg/dL AST 100 H (14-36) U/L ALT 337 H (4-34) U/L Total Protein 4.7 L (6.3-8.2) g/dL Albumin 2.5 L (3.5-5.0) g/dL HCV RNA Qual (PCR) (Not detected) Hepatitis C RNA Quant (<12) IU/mL HCV RNA PCR log copier repair technician/ml (<1.08) Hepatitis C Genotype 11/23/19 11/23/19 Range/Units 13:11 16:49 WBC (3.8-10.6) k/uL RBC (3.80-5.40) m/uL Hgb (11.4-16.0) gm/dL Hct (34.0-46.0) % RDW (11.5-15.5) % Neutrophils # (1.3-7.7) k/uL Monocytes # (0-1.0) k/uL Chloride (98-107) mmol/L BUN (7-17) mg/dL Creatinine (0.52-1.04) mg/dL POC Glucose (mg/dL) 117 H 144 H (75-99) mg/dL Calcium (8.4-10.2) mg/dL AST (14-36) U/L ALT (4-34) U/L Total Protein (6.3-8.2) g/dL Albumin (3.5-5.0) g/dL HCV RNA Qual (PCR) (Not detected) Hepatitis C RNA Quant (<12) IU/mL HCV RNA PCR log copier repair technician/ml (<1.08) Hepatitis C Genotype Microbiology - Last 24 Hours (Table) 11/17/19 11:40 Blood Culture - Final Blood No Growth after 144 hours Assessment and Plan Assessment: This is a 39-year-old female who presented to the emergency room after she was found unresponsive by her family members. She was evaluated in the and admitted to the intensive care unit for further management of her medical problems noted below. 1. Acute encephalopathy, resolved: Her altered mental status is likely multifactorial. She has a history of methamphetamine use, she was hypoglycemic on the field and appears to be septic on presentation. There is no clear signs of infection at this time. Her mentation is improving. Serum alcohol is negative. UDS positive for opiates, oxycodone, TCA, amphetamines, methamphetamine, benzodiazepine, cocaine, marijuana. 2. Sepsis of unknown etiology with lactic acidosis: Thought to be attributed to intra-abdominal infection per ID versus PID. chest x-ray is negative. She does have a history of IV drug use. CT abdomen and pelvis negative for acute pathology. Blood culture showed gram-negative staph possibly contamination. Re peat blood culture negative. Urinalysis negative. Seen and evaluated by infectious disease, down escalate antibiotic to oral Augmentin per ID 3. Acute renal failure: Nonoliguric, Possibly ATN from rhabdomyolysis. Renal ultrasound shows medical renal disease. Nephrology is consulted, Appreciate recommendation 4. Acute rhabdomyolysis: CPK trending down. Possibly secondary to laying on the floor for a prolonged period of time and also polysubstance abuse. 5. Transaminitis with acute liver failure probably secondary to liver shock, liver enzymes trending down 6. Elevated troponin likely demand ischemia: initial EKG showing wide QRS tachycardia. Echocardiogram shows EF 55-60%. Cardiology consulted, appreciate recommendation 7. Elevated D-Dimer: Less likely PE. Unable to obtain CTA chest due to elevated creatinine. Lower extremity duplex negative.no need for anticoagulati on at this time 8. Polysubstance abuse including cocaine, marijuana, and today as a pain, and amphetamine 9. Hypoglycemia and hyperkalemia resolved 10. Chronic hepatitis C Awaiting psych placement. healthcare social worker working on the case.
[2019-11-23] MEDS ORDERED: VANCOMYCIN ORAL SOLUTION 250 MG/5 ML BOTTLE PO SCH (18:00)
--- NOTE | 2019-11-23 18:32 | PN ---
PROGRESS NOTE Patient is seen for followup for acute kidney injury. Her renal function continues to improve. She is awake, comfortable, not in any acute distress. Patient has a sitter. PHYSICAL EXAMINATION: On examination today, blood pressure was 123/74, heart rate 65 per minute. She is afebrile. EXAMINATION OF THE HEART: S1 and S2. EXAMINATION OF LUNGS: Bilateral breath sounds are heard. ABDOMEN: Soft, non-tender. Examination of lower extremities shows no significant edema. LABS: Labs show sodium 139, potassium 4.2, chloride 112, BUN 36, serum creatinine 1.98. ASSESSMENT: 1. Acute kidney injury, acute tubular necrosis, currently improving, although slowly. Serum creatinine down to 1.9 from around 4.0 on initial admission. Previous creatinine was 0.6 on 04/04/2019. 2. Polysubstance drug abuse. 3. Rhabdomyolysis, now improved. 4. Hyperkalemia associated with rhabdomyolysis, acute kidney injury, metabolic acidosis. 5. Coagulase-negative Staphylococcus in one blood culture. Repeat blood cultures are negative. PLAN: Maintain adequate oral intake. Monitor labs as outpatient. Continue with the sodium bicarb for now. The patient will need outpatient followup. MMODL / IJN: [id number] /
[2019-11-23 20:40] LABS: Glucose,Whole Blood 122 mg/dL (75-99)
[2019-11-23] MEDS: traZODone HCL 50 MG TAB PO PRN (21:01)
--- NOTE | 2019-11-23 23:14 | PN ---
PROGRESS NOTE DATE OF SERVICE: 11/23/2019 REASON FOR FOLLOWUP: Leukocytosis, diarrhea and bacterial vaginosis. INTERVAL HISTORY: The patient is currently afebrile, has been complaining of multiple loose stools. Denies having any chest pain or shortness of breath or cough. She is complaining of lower abdominal pain and multiple loose stools. No blood or mucus in the stool. PHYSICAL EXAMINATION: Blood pressure 145/82 with a pulse of 72, temperature 98.7. She is 99% on room air. General description is a middle-aged female lying in bed in no distress. RESPIRATORY SYSTEM: Unlabored breathing. Clear to auscultation anteriorly. HEART: S1, S2. Regular rate and rhythm. ABDOMEN: Soft. Mildly tender in left lower quadrant area. EXTREMITIES: No edema of the feet. LABS: White count is up at 17,000. DIAGNOSTIC IMPRESSION AND PLAN: 1. Patient with leukocytosis and diarrhea with concern for possible Clostridium difficile. Stool for C difficile has been requested. Will add empiric oral vancomycin. 2. Bacterial vaginosis. Continue oral Flagyl 500 mg twice a day to finish a 5 day course of therapy. 3. Chronic hepatitis C, genotype 1a. Further workup in the outpatient setting. MMODL / IJN: [id number] / MTDD
[2019-11-24 02:42] LABS: Glucose,Whole Blood 115 mg/dL (75-99)
[2019-11-24 07:11] LABS: Glucose,Whole Blood 102 mg/dL (75-99)
[2019-11-24] MEDS: METOCLOPRAMIDE 5 MG TAB PO PRN (07:41)
[2019-11-24] MEDS: HEPARIN SODIUM,PORCINE 5,000 UNIT/ML 1 ML VIAL SQ SCH (07:42)
[2019-11-24] MEDS: SODIUM BICARBONATE TAB 650 MG TAB PO SCH (07:42)
[2019-11-24] MEDS: metroNIDAZOLE 500 MG TAB PO SCH (07:42)
[2019-11-24] MEDS: PANTOPRAZOLE 40 MG TABLET PO SCH (07:42)
[2019-11-24 08:44] LABS: Anisocytosis Slight; Basophils # (A) 0.1 k/uL (0-0.2); Basophils % (A) 0 %; Eosinophils # (A) 0.2 k/uL (0-0.7); Eosinophils % (A) 1 %; HCT 32.9 % (34.0-46.0); HGB 10.2 gm/dL (11.4-16.0); Lymphocytes # (A) 2.1 k/uL (1.0-4.8); Lymphocytes % (A) 13 %; MCH 27.7 pg (25.0-35.0); MCHC 31.1 g/dL (31.0-37.0); Mean Platelet Volume 8.3; Monocytes # (A) 1.1 k/uL (0-1.0); Monocytes % (A) 7 %; Neutrophils # (A) 12.3 k/uL (1.3-7.7); Neutrophils % (A) 76 %; Platelet Count 222 k/uL (150-450); RDW 16.1 % (11.5-15.5); WBC 16.1 k/uL (3.8-10.6)
[2019-11-24 09:20] LABS: Albumin 2.8 g/dL (3.5-5.0); Calcium 8.5 mg/dL (8.4-10.2); Total Bilirubin 0.7 mg/dL (0.2-1.3); Total Protein 5.2 g/dL (6.3-8.2)
[2019-11-24] MEDS: VANCOMYCIN 125 MG CAPSULE PO SCH ×2 (09:28→13:15)
[2019-11-24] MEDS: ACETAMINOPHEN TAB 325 MG TAB PO PRN (10:17)
--- NOTE | 2019-11-24 10:18 | P.DS ---
Providers Date of admission: 11/16/19 09:36 Expected date of discharge: 11/24/19 Attending physician: Austin Steiner MD Consults: 11/16/19 09:31 Consult Physician Stat Consulting Provider: Graeme Gilmore Consult Reason/Comments: hyperkalemia poss need for dialysis Do you want consulting provider notified?: Yes 11/16/19 09:39 Consult Physician Stat Consulting Provider: Gilmer Mane Consult Reason/Comments: Intensive care management Do you want consulting provider notified?: Already Contacted 11/16/19 10:03 Consult Physician Stat Consulting Provider: Domenico Andrew Consult Reason/Comments: sepsis Do you want consulting provider notified?: Yes 11/16/19 10:05 Consult Physician Stat Consulting Provider: Jett Royal Consult Reason/Comments: trop elevation, svt Do you want consulting provider notified?: Yes 11/16/19 13:08 Consult Physician Stat Consulting Provider: Jamie Loving Consult Reason/Comments: Schizoaffective, AMS, polysubstance use Do you want consulting provider notified?: Yes 11/17/19 08:45 Consult Physician Routine Consulting Provider: Arik Floyd Consult Reason/Comments: possible PID Do you want consulting provider notified?: Yes Primary care physician: Zaid Dasilva [facility] Course: This is a 39-year-old female who presented to the emergency room after she was found unresponsive by her family members. She was evaluated in the and admitted to the intensive care unit for further management of her medical problems noted below. 1. Acute encephalopathy, resolved: Her altered mental status is likely multifactorial. She has a history of methamphetamine use, she was hypoglycemic on the field and appears to be septic on presentation. Serum alcohol was negative. UDS positive for opiates, oxycodone, TCA, amphetamines, methamphetamine, benzodiazepine, cocaine, marijuana. 2. Sepsis of unknown etiology with lactic acidosis: Thought to be attributed to intra-abdominal infection per ID versus PID. chest x-ray is negative. She does have a history of IV drug use. CT abdomen and pelvis negative for acute pathology. Blood culture showed gram-negative staph possibly contamination. Repeat blood culture negative. Urinalysis negative. Seen and evaluated by infectious disease, down antibiotic eventually discontinued. Currently on Flagyl to finish course for bacterial vaginosis 3. Acute renal failure: Nonoliguric, Possibly ATN from rhabdomyolysis. Creatinine trending down slowly. 1.8 on discharge. Renal ultrasound shows medical renal disease. Nephrology consulted. Avoid nephrotoxic 4. Acute rhabdomyolysis: CPK trending down. Possibly secondary to laying on the floor for a prolonged period of time and also polysubstance abuse. 5. Transaminitis with acute liver failure probably secondary to liver shock, liver enzymes trending down 6. Elevated troponin likely demand ischemia: initial EKG showing wide QRS tachycardia. Echocardiogram shows EF 55-60%. Cardiology consulted, appreciate recommendation 7. Elevated D-Dimer: Less likely PE. Unable to obtain CTA chest due to elevated creatinine. Lower extremity duplex negative.no need for anticoagulation at this time 8. Polysubstance abuse including cocaine, marijuana, and today as a pain, and amphetamine 9. Hypoglycemia and hyperkalemia resolved 10. Chronic hepatitis C, follow-up outpatient 11. Psychosis on presentation with polysubstance abuse: Seen and evaluated by psychiatry. Recommended inpatient psych hospitalization. Patient will be transferred to [facility] Repeat CMP in the next 2-3 days Avoid nephrotoxic Patient Condition at Discharge: Fair Plan - Discharge Summary Discharge Rx Participant: No New Discharge Prescriptions: New metroNIDAZOLE [Flagyl] 500 mg PO BID #10 tab Discontinued clonazePAM [KlonoPIN] 0.5 mg PO BID PRN PRN Reason: Anxiety Dextroamphetamine/Amphetamine [Adderall] 30 mg PO BID Pregabalin [Lyrica] 100 mg PO BID HYDROcodone/APAP 5-325MG [[place] 5-325] 1 tab PO Q6HR PRN PRN Reason: Pain Discharge Medication List metroNIDAZOLE [Flagyl] 500 mg PO BID #10 tab 11/24/19 [Rx] Follow up Appointment(s)/Referral(s): [facility] [Other] - 11/24/19 1:00 pm (transport to facility via ambulance on 11.24.19 at 1300. ) Zaid Dasilva DO [Primary Care Provider] - 1-2 days Discharge Disposition: TRANSFER TO PSYCH HOSP/UNIT
--- NOTE | 2019-11-24 10:55 | P.PN ---
Subjective Patient is seen in follow-up for acute kidney injury. Renal function slowly improving. Nonoliguric. Oral intake is good. No active complaints at this time. Vital signs are stable. General: The patient appeared well nourished and normally developed. HEENT: Head exam is unremarkable. Neck is without jugular venous distension. LUNGS: Lungs are clear to auscultation and percussion. Breath sounds decreased. HEART: Rate and Rhythm are regular. First and second heart sounds normal. No murmurs, rubs or gallops. ABDOMEN: Soft, nontender. EXTREMITITES: No clubbing, cyanosis, or edema. Objective - Vital Signs Vital signs: Vital Signs Temp 99.2 F 11/24/19 05:00 Pulse 69 11/24/19 05:00 Resp 16 11/24/19 05:00 BP 157/96 11/24/19 05:00 Pulse Ox 96 11/24/19 05:00 Intake & Output 11/23/19 11/24/19 11/24/19 18:59 06:59 18:59 Intake Total 1400 1800 Balance 1400 1800 Weight 66 kg 65.5 kg Intake: IV 800 600 Sodium Chloride 0.9% 1, 800 600 000 ml @ 100 mls/hr IV . Q10H [facility] Rx#:[id number] Oral 600 1200 Other: Voiding Method Toilet Toilet # Voids 2 - Labs CBC & Chem 7: 11/24/19 07:41 11/24/19 07:41 Labs: Abnormal Lab Results - Last 24 Hours (Table) 11/18/19 11/23/19 11/23/19 Range/Units 03:55 13:11 16:49 WBC (3.8-10.6) k/uL RBC (3.80-5.40) m/uL Hgb (11.4-16.0) gm/dL Hct (34.0-46.0) % RDW (11.5-15.5) % Neutrophils # (1.3-7.7) k/uL Monocytes # (0-1.0) k/uL Chloride (98-107) mmol/L BUN (7-17) mg/dL Creatinine (0.52-1.04) mg/dL POC Glucose (mg/dL) 117 H 144 H (75-99) mg/dL AST (14-36) U/L ALT (4-34) U/L Creatine Kinase (30-135) U/L Total Protein (6.3-8.2) g/dL Albumin (3.5-5.0) g/dL HCV RNA Qual (PCR) DETECTED H (Not detected) Hepatitis C RNA Quant 148,033 H (<12) IU/mL HCV RNA PCR log copy center specialist/ml 5.17 H (<1.08) Hepatitis C Genotype 1a H 11/23/19 11/24/19 11/24/19 Range/Units 20:36 02:39 07:10 WBC (3.8-10.6) k/uL RBC (3.80-5.40) m/uL Hgb (11.4-16.0) gm/dL Hct (34.0-46.0) % RDW (11.5-15.5) % Neutrophils # (1.3-7.7) k/uL Monocytes # (0-1.0) k/uL Chloride (98-107) mmol/L BUN (7-17) mg/dL Creatinine (0.52-1.04) mg/dL POC Glucose (mg/dL) 122 H 115 H 102 H (75-99) mg/dL AST (14-36) U/L ALT (4-34) U/L Creatine Kinase (30-135) U/L Total Protein (6.3-8.2) g/dL Albumin (3.5-5.0) g/dL HCV RNA Qual (PCR) (Not detected) Hepatitis C RNA Quant (<12) IU/mL HCV RNA PCR log copy center specialist/ml (<1.08) Hepatitis C Genotype 11/24/19 11/24/19 Range/Units 07:41 07:41 WBC 16.1 H (3.8-10.6) k/uL RBC 3.70 L (3.80-5.40) m/uL Hgb 10.2 L (11.4-16.0) gm/dL Hct 32.9 L (34.0-46.0) % RDW 16.1 H (11.5-15.5) % Neutrophils # 12.3 H (1.3-7.7) k/uL Monocytes # 1.1 H (0-1.0) k/uL Chloride 109 H (98-107) mmol/L BUN 29 H (7-17) mg/dL Creatinine 1.79 H (0.52-1.04) mg/dL POC Glucose (mg/dL) (75-99) mg/dL AST 76 H (14-36) U/L ALT 304 H (4-34) U/L Creatine Kinase 390 H (30-135) U/L Total Protein 5.2 L (6.3-8.2) g/dL Albumin 2.8 L (3.5-5.0) g/dL HCV RNA Qual (PCR) (Not detected) Hepatitis C RNA Quant (<12) IU/mL HCV RNA PCR log copy center specialist/ml (<1.08) Hepatitis C Genotype Microbiology - Last 24 Hours (Table) 11/17/19 11:40 Blood Culture - Final Blood No Growth after 144 hours Assessment and Plan Plan: Assessment: 1. Acute kidney injury secondary to ATN secondary to rhabdomyolysis and hypotension. Creatinine 4 on admission -1.79 today. Baseline creatinine near 1 from March 2019. No hydronephrosis noted on kidney ultrasound. Large blood with only 2 RBCs on UA suggestive of myoglobinuria. 2. Hyperkalemia secondary to rhabdomyolysis, acute kidney injury and metabolic acidosis. Improved with medical management. Now hypokalemic, status post placement. 3. Polysubstance drug abuse. 4. Metabolic acidosis secondary to acute kidney injury, IV fluids and lactic acidosis. Serum alcohol negative. Maintained on oral sodium bicarbonate. Better. 5. Hypocalcemia secondary to acute kidney injury. Resolved. 6. Sepsis secondary to gram-positive bacteremia. Maintained on antibiotics. Possibly contamination. 7. Possible C. diff maintained on oral vancomycin. ID following. 8. Hepatitis C. Plan: Stable to be discharged from nephrology standpoint. Follow-up outpatient in 1-2 weeks.
[2019-11-24 12:07] LABS: Glucose,Whole Blood 126 mg/dL (75-99)
[2019-11-24 12:26] VITALS: BP 150/90; PULSE 61; RESP 18; TEMP 99
--- NOTE | 2019-11-24 14:43 | P.PN ---
Progress Note - Text Progress Note Date: 11/24/19 REASON FOR FOLLOWUP: Leukocytosis, diarrhea and bacterial vaginosis. INTERVAL HISTORY: The patient remains to be afebrile, the patient is still complaining of loose stools. Denies having any chest pain or shortness of breath or cough. She is complaining of lower abdominal pain though no worsening then yesterday. PHYSICAL EXAMINATION: Blood pressure 14o/80 with a pulse of 70, temperature 98.7. She is 99% on room air. General description is a middle-aged female lying in bed in no distress. RESPIRATORY SYSTEM: Unlabored breathing. Clear to auscultation anteriorly. HEART: S1, S2. Regular rate and rhythm. ABDOMEN: Soft. Mildly tender in left lower quadrant area. EXTREMITIES: No edema of the feet. LABS: White count is up down to 16,000 DIAGNOSTIC IMPRESSION AND PLAN: 1. Patient with leukocytosis and diarrhea with concern for possible Clostridium difficile. Stool for C difficile came back negative however recommend a short course of oral vancomycin 125 mg by mouth every 6 hours for 10 days. 2. Bacterial vaginosis. Continue oral Flagyl 500 mg twice a day to finish a 5 day course of therapy. 3. Chronic hepatitis C, genotype 1a. Further workup in the outpatient setting.
== END 2019-11-24 13:28 | DRG 871 ==
LOC: EC 06:52 → 2SICU 09:36 → EEVIPCON 09:36 → 2SICU 11:19 → 5NMEDONC 11-20 21:51
PROVIDERS: ADMIT Family Medicine; ATTEND Family Medicine
PROC: 05HD33Z Insertion of Infusion Device into Right Cephalic Vein, Percutaneous Approach (ICD-10-PCS; principal; 2019-11-19 15:00)
DX: A41.9 Sepsis, unspecified organism (principal); N17.0 Acute kidney failure with tubular necrosis; K72.00 Acute and subacute hepatic failure without coma; G92 Toxic encephalopathy; E87.2 Acidosis; M62.82 Rhabdomyolysis; I24.8 Other forms of acute ischemic heart disease; I47.1 Supraventricular tachycardia; R45.851 Suicidal ideations; I82.612 Acute embolism and thrombosis of superficial veins of left upper extremity; J90 Pleural effusion, not elsewhere classified; I27.20 Pulmonary hypertension, unspecified; E83.51 Hypocalcemia; I95.9 Hypotension, unspecified; F25.9 Schizoaffective disorder, unspecified; B18.2 Chronic viral hepatitis C; R65.20 Severe sepsis without septic shock; T40.5X1A Poisoning by cocaine, accidental (unintentional), initial encounter; F11.10 Opioid abuse, uncomplicated; F13.10 Sedative, hypnotic or anxiolytic abuse, uncomplicated; F15.10 Other stimulant abuse, uncomplicated; F14.10 Cocaine abuse, uncomplicated; F31.9 Bipolar disorder, unspecified; E87.5 Hyperkalemia; N76.0 Acute vaginitis; A59.01 Trichomonal vulvovaginitis; I10 Essential (primary) hypertension; F12.10 Cannabis abuse, uncomplicated; F41.1 Generalized anxiety disorder; F43.10 Post-traumatic stress disorder, unspecified; R73.9 Hyperglycemia, unspecified; E16.2 Hypoglycemia, unspecified; M79.7 Fibromyalgia; G89.29 Other chronic pain; M54.2 Cervicalgia; M54.9 Dorsalgia, unspecified; G47.00 Insomnia, unspecified; F17.200 Nicotine dependence, unspecified, uncomplicated; Z71.6 Tobacco abuse counseling; Z79.899 Other long term (current) drug therapy; Z86.69 Personal history of other diseases of the nervous system and sense organs; Z87.39 Personal history of other diseases of the musculoskeletal system and connective tissue; Z90.89 Acquired absence of other organs; Z90.49 Acquired absence of other specified parts of digestive tract; Z87.19 Personal history of other diseases of the digestive system; Z98.890 Other specified postprocedural states; Z59.0 Homelessness
CPT/HCPCS: 36410; 36415; 71045; 71046; 71250; 74176; 76705; 76770; 76937; 80048; 80053; 80074; 80306; 80320; 81001; 82150; 82550; 83036; 83605; 83690; 83735; 84132; 84484; 84600; 85025; 85379; 85610; 85730; 87040; 87070; 87324; 87491; 87522; 87591; 93005; 93306; 93970; 94640; 96361; 96365; 96368; 96375; 96376; 99291

== ENCOUNTER 2019-12-13 01:58 | Emergency (ER) | payer OTHER ==
[2019-12-13] MEDS ORDERED: LORazepam 2 MG/ML INJ IV STA (02:24)
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
[2019-12-13 03:08] LABS: Basophils % (A) 0 %; Eosinophils # (A) 0.3 k/uL (0-0.7); Eosinophils % (A) 3 %; HCT 36.8 % (34.0-46.0); HGB 11.7 gm/dL (11.4-16.0); Lymphocytes # (A) 1.9 k/uL (1.0-4.8); Lymphocytes % (A) 21 %; MCH 27.7 pg (25.0-35.0); MCHC 31.7 g/dL (31.0-37.0); MCV 87.2 fL (80.0-100.0); Mean Platelet Volume 6.4; Monocytes # (A) 0.7 k/uL (0-1.0); Monocytes % (A) 7 %; Neutrophils % (A) 65 %; RBC 4.22 m/uL (3.80-5.40); RDW 14.4 % (11.5-15.5); WBC 9.1 k/uL (3.8-10.6)
[2019-12-13 03:12] LABS: ALT 85 U/L (4-34); AST 78 U/L (14-36); Acetaminophen <10.0 ug/mL; African American GFR (CKD) >90 (>60 ml/min/1.73 sqM); Alcohol <10 mg/dL; Alkaline Phosphatase 126 U/L (38-126); Anion Gap 10 mmol/L; Blood Urea Nitrogen 28 mg/dL (7-17); Calcium 9.7 mg/dL (8.4-10.2); Carbon Dioxide 25 mmol/L (22-30); Chloride 103 mmol/L (98-107); Glucose 101 mg/dL (74-99); Magnesium 2.1 mg/dL (1.6-2.3); Non-African American GFR(CKD) >90 (>60 ml/min/1.73 sqM); Platelet Count 524 k/uL (150-450); Salicylate <1.0 mg/dL; Sodium 138 mmol/L (137-145); Total Bilirubin 0.6 mg/dL (0.2-1.3); Total Protein 7.1 g/dL (6.3-8.2)
[2019-12-13] MEDS ORDERED: SODIUM CHLORIDE 0.9% 1,000 ML IV ONE (03:39)
[2019-12-13 04:19] LABS: T4, Free (Free Thyroxine) 1.81 ng/dL (0.78-2.19)
[2019-12-13 06:44] LABS: Appearance,Urine Clear (Clear); Bacteria,Urine Rare /hpf; Bilirubin,Urine Negative (Negative); Blood,Urine Negative (Negative); Color,Urine Yellow; Glucose,Urine (UA) Negative (Negative); Hyaline Casts,Urine 11 /lpf (0-2); Ketones,Urine Negative (Negative); Leukocyte Esterase,Urine Small (Negative); Mucus,Urine Many /hpf; Nitrite,Urine Negative (Negative); PH, Urine 5.5 (5.0-8.0); Protein,Urine Trace (Negative); RBC,Urine <1 /hpf (0-5); Squamous Epithelial Cell,Urine 1 /hpf (0-4); WBC,Urine 13 /hpf (0-5)
[2019-12-13 06:46] LABS: Cocaine Screen,Urine Not Detected (NotDetected); Opiate Screen,Urine Detected (NotDetected); Phencyclidine Screen,Urine Not Detected (NotDetected); Urn Cannabinoid Scrn Detected (NotDetected)
[2019-12-13 06:47] LABS: Amphetamine Screen,Urine Detected (NotDetected); Barbiturate Screen,Urine Not Detected (NotDetected); Benzodiazepines Screen,Urine Not Detected (NotDetected); Methadone Screen, Urine Not Detected (NotDetected); Oxycodone Screen, Urine Not Detected (NotDetected); Tricyclic Antidepressant,Urine Detected (NotDetected)
[2019-12-13 12:41] VITALS: BP 120/79; PULSE 98; RESP 18; TEMP 97.7
== END 2019-12-13 12:41 | disposition other institution (70) ==
LOC: EC 01:58
DX: F25.9 Schizoaffective disorder, unspecified (principal); F17.200 Nicotine dependence, unspecified, uncomplicated
CPT/HCPCS: 82075; 36415; 84439; 80053; 84443; 82140; 83735; 84100; 85025; 81001; 81025; 80306; 83520; 87086; 99285; 96360; G0480 ×2; 80320; 80329

== ENCOUNTER → 2020-02-04 | Outpatient (CLI) | payer OTHER ==
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
== END | disposition home or self-care (01) ==
LOC: SLEEP 15:30
PROVIDERS: ATTEND Internal Medicine
DX: G47.419 Narcolepsy without cataplexy (principal); M54.5 Low back pain; M54.2 Cervicalgia; Z87.39 Personal history of other diseases of the musculoskeletal system and connective tissue; Z98.890 Other specified postprocedural states; Z79.899 Other long term (current) drug therapy

== ENCOUNTER 2020-03-09 18:09 | Emergency (ER) | payer OTHER ==
[2020-03-09] MEDS ORDERED: SODIUM CHLORIDE 0.9% 1,000 ML IV STA (18:10)
[2020-03-09] MEDS ORDERED: NALOXONE 0.4 MG/ML 1 ML VIAL IV STA (18:10)
[2020-03-09] MEDS ORDERED: ONDANSETRON 4 MG/2 ML VIAL IVP STA (18:12)
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
[2020-03-09 18:26] LABS: Basophils # (A) 0.1 k/uL (0-0.2); Basophils % (A) 1 %; Eosinophils # (A) 0.3 k/uL (0-0.7); Eosinophils % (A) 3 %; HCT 42.5 % (34.0-46.0); HGB 13.8 gm/dL (11.4-16.0); Lymphocytes # (A) 4.9 k/uL (1.0-4.8); Lymphocytes % (A) 41 %; MCH 28.6 pg (25.0-35.0); MCHC 32.5 g/dL (31.0-37.0); Mean Platelet Volume 6.7; Monocytes # (A) 0.5 k/uL (0-1.0); Monocytes % (A) 5 %; Neutrophils # (A) 5.5 k/uL (1.3-7.7); Neutrophils % (A) 47 %; Platelet Count 446 k/uL (150-450); RBC 4.83 m/uL (3.80-5.40); RDW 14.2 % (11.5-15.5); WBC 11.9 k/uL (3.8-10.6)
[2020-03-09 18:39] LABS: ALT 48 U/L (4-34); AST 32 U/L (14-36); Acetaminophen <10.0 ug/mL; African American GFR (CKD) >90 (>60 ml/min/1.73 sqM); Albumin 4.3 g/dL (3.5-5.0); Alcohol <10 mg/dL; Alkaline Phosphatase 70 U/L (38-126); Anion Gap 7 mmol/L; Blood Urea Nitrogen 11 mg/dL (7-17); Calcium 9.6 mg/dL (8.4-10.2); Carbon Dioxide 24 mmol/L (22-30); Chloride 106 mmol/L (98-107); Creatine Kinase 42 U/L (30-135); Glucose 132 mg/dL (74-99); Lipase 73 U/L (23-300); Non-African American GFR(CKD) 88 (>60 ml/min/1.73 sqM); Potassium 4.5 mmol/L (3.5-5.1); Salicylate <1.0 mg/dL; Sodium 137 mmol/L (137-145); Total Bilirubin 0.3 mg/dL (0.2-1.3); Total Protein 7.5 g/dL (6.3-8.2)
[2020-03-09 18:48] LABS: Prothrombin Time 10.4 sec (9.0-12.0)
--- NOTE | 2020-03-09 18:54 | XR ---
EXAMINATION TYPE: XR chest 1V portable DATE OF EXAM: 03/09/2020 COMPARISON: 11/17/2019 HISTORY: Overdose. Altered mental status TECHNIQUE: FINDINGS: Heart and mediastinum are normal. Lungs are clear. Diaphragm is normal. Bony thorax appears normal. IMPRESSION: Normal chest. There is clearing of the infiltrate and atelectasis at the lung bases [place] red to old exam.
[2020-03-09 19:05] VITALS: BP 110/55; PULSE 85; RESP 18
== END 2020-03-09 19:03 | disposition left against medical advice (07) ==
LOC: EC 18:09
DX: T40.1X1A Poisoning by heroin, accidental (unintentional), initial encounter (principal); R06.03 Acute respiratory distress; I51.7 Cardiomegaly; F17.200 Nicotine dependence, unspecified, uncomplicated; Z53.29 Procedure and treatment not carried out because of patient's decision for other reasons
CPT/HCPCS: 82075; 93005; 80053; 82550; 83690; 84484; 85025; 85610; 83520; 71045; 99285; 96374; 96375; G0480 ×2; J2310; J2405; 80320; 80329

== ENCOUNTER 2020-04-11 17:36 | Emergency (ER) | payer OTHER ==
[2020-04-11] MEDS ORDERED: SODIUM CHLORIDE 0.9% 1,000 ML IV STA (17:44)
[2020-04-11] MEDS ORDERED: NALOXONE 0.4 MG/ML 1 ML VIAL IVP STA (17:45)
[2020-04-11 17:49] VITALS: BP 141/103; PULSE 105; TEMP 97.9
[2020-04-11 17:59] LABS: Basophils # (A) 0.1 k/uL (0-0.2); Basophils % (A) 1 %; Eosinophils # (A) 0.2 k/uL (0-0.7); Eosinophils % (A) 3 %; HCT 39.1 % (34.0-46.0); HGB 12.8 gm/dL (11.4-16.0); Lymphocytes # (A) 2.7 k/uL (1.0-4.8); Lymphocytes % (A) 43 %; MCH 28.2 pg (25.0-35.0); MCHC 32.8 g/dL (31.0-37.0); Mean Platelet Volume 7.1; Monocytes # (A) 0.3 k/uL (0-1.0); Monocytes % (A) 4 %; Neutrophils # (A) 2.8 k/uL (1.3-7.7); Neutrophils % (A) 44 %; Platelet Count 340 k/uL (150-450); RBC 4.55 m/uL (3.80-5.40); RDW 14.2 % (11.5-15.5); WBC 6.2 k/uL (3.8-10.6)
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
[2020-04-11 18:15] LABS: ALT 183 U/L (4-34); AST 157 U/L (14-36); Acetaminophen <10.0 ug/mL; African American GFR (CKD) >90 (>60 ml/min/1.73 sqM); Albumin 4.2 g/dL (3.5-5.0); Alcohol <10 mg/dL; Alkaline Phosphatase 70 U/L (38-126); Anion Gap 8 mmol/L; Blood Urea Nitrogen 18 mg/dL (7-17); Calcium 9.1 mg/dL (8.4-10.2); Carbon Dioxide 26 mmol/L (22-30); Chloride 108 mmol/L (98-107); Creatine Kinase 102 U/L (30-135); Glucose 183 mg/dL (74-99); Non-African American GFR(CKD) >90 (>60 ml/min/1.73 sqM); Potassium 3.5 mmol/L (3.5-5.1); Salicylate <1.0 mg/dL; Sodium 142 mmol/L (137-145); Total Bilirubin 0.5 mg/dL (0.2-1.3); Total Protein 7.1 g/dL (6.3-8.2)
[2020-04-11 18:43] VITALS: RESP 18
== END 2020-04-11 18:30 | disposition left against medical advice (07) ==
LOC: EC 17:36
DX: T40.1X1A Poisoning by heroin, accidental (unintentional), initial encounter (principal); F17.200 Nicotine dependence, unspecified, uncomplicated
CPT/HCPCS: 36415; 93005; 80053; 82550; 83605; 85025; 83520; 80143; 99285; 96374; 96361; G0480; J2310; 80320

== ENCOUNTER 2020-06-24 20:24 | Inpatient (IN) | payer OTHER, MEDICAID ==
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
[2020-06-24 22:14] LABS: Basophils # (A) 0.1 k/uL (0-0.2); Basophils % (A) 1 %; Eosinophils # (A) 0.2 k/uL (0-0.7); Eosinophils % (A) 2 %; HCT 41.9 % (34.0-46.0); HGB 14.3 gm/dL (11.4-16.0); Lymphocytes # (A) 3.2 k/uL (1.0-4.8); Lymphocytes % (A) 29 %; MCH 28.8 pg (25.0-35.0); MCV 84.7 fL (80.0-100.0); Mean Platelet Volume 6.3; Monocytes # (A) 0.5 k/uL (0-1.0); Monocytes % (A) 5 %; Neutrophils # (A) 6.7 k/uL (1.3-7.7); Neutrophils % (A) 62 %; Platelet Count 386 k/uL (150-450); RBC 4.95 m/uL (3.80-5.40); RDW 13.3 % (11.5-15.5); WBC 10.8 k/uL (3.8-10.6)
[2020-06-24 22:26] LABS: African American GFR (CKD) >90 (>60 ml/min/1.73 sqM); Anion Gap 9 mmol/L; Blood Urea Nitrogen 18 mg/dL (7-17); Calcium 9.3 mg/dL (8.4-10.2); Carbon Dioxide 22 mmol/L (22-30); Chloride 106 mmol/L (98-107); Glucose 94 mg/dL (74-99); Non-African American GFR(CKD) >90 (>60 ml/min/1.73 sqM); Potassium 3.9 mmol/L (3.5-5.1); Sodium 137 mmol/L (137-145)
[2020-06-25] MEDS ORDERED: MAG HYDROX/AL HYDROX/SIMETH 30 ML CUP PO PRN (00:04)
[2020-06-25] MEDS ORDERED: MAGNESIUM HYDROXIDE 2,400 MG/10 ML CUP PO PRN (00:04)
[2020-06-25 00:13] LABS: Cocaine Screen,Urine Not Detected (NotDetected); Opiate Screen,Urine Not Detected (NotDetected); Phencyclidine Screen,Urine Not Detected (NotDetected); Urn Cannabinoid Scrn Not Detected (NotDetected)
[2020-06-25 00:14] LABS: Amphetamine Screen,Urine Detected (NotDetected); Barbiturate Screen,Urine Not Detected (NotDetected); Benzodiazepines Screen,Urine Detected (NotDetected); Methadone Screen, Urine Detected (NotDetected); Oxycodone Screen, Urine Not Detected (NotDetected); Tricyclic Antidepressant,Urine Not Detected (NotDetected)
[2020-06-25] MEDS: LORazepam 1 MG TAB PO PRN ×3 (02:25→21:05)
[2020-06-25] MEDS: ACETAMINOPHEN TAB 325 MG TAB PO PRN ×3 (02:26→21:03)
[2020-06-25] MEDS: NICOTINE 14MG/24HR PATCH TRANSDERM SCH (07:52)
[2020-06-25] MEDS ORDERED: HALOPERIDOL LACTATE 5 MG/ML 1 ML VIAL IM PRN (11:11)
[2020-06-25] MEDS: haloperidoL 5 MG TAB PO PRN (11:15)
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
[2020-06-25] MEDS: DULoxetine HCL 30 MG CAPSULE.DR PO SCH (14:21)
[2020-06-25] MEDS ORDERED: haloperidoL 5 MG TAB PO SCH (16:00)
[2020-06-25] MEDS: OLANZapine 10 MG TAB PO SCH (21:03)
[2020-06-26] MEDS: DULoxetine HCL 30 MG CAPSULE.DR PO SCH (07:47)
[2020-06-26] MEDS: NICOTINE 14MG/24HR PATCH TRANSDERM SCH (07:47)
[2020-06-26] MEDS: ACETAMINOPHEN TAB 325 MG TAB PO PRN (07:49)
[2020-06-26 08:09] LABS: Basophils % (A) 1 %; Eosinophils # (A) 0.3 k/uL (0-0.7); Eosinophils % (A) 5 %; HCT 39.1 % (34.0-46.0); HGB 13.2 gm/dL (11.4-16.0); Lymphocytes # (A) 1.8 k/uL (1.0-4.8); Lymphocytes % (A) 33 %; MCH 28.9 pg (25.0-35.0); MCHC 33.8 g/dL (31.0-37.0); MCV 85.7 fL (80.0-100.0); Mean Platelet Volume 6.3; Monocytes # (A) 0.3 k/uL (0-1.0); Monocytes % (A) 5 %; Neutrophils % (A) 55 %; Platelet Count 318 k/uL (150-450); RBC 4.56 m/uL (3.80-5.40); RDW 13.1 % (11.5-15.5); WBC 5.5 k/uL (3.8-10.6)
[2020-06-26] MEDS ORDERED: OLANZapine 10 MG TAB PO SCH (09:00)
[2020-06-26] MEDS ORDERED: DULoxetine HCL 30 MG CAPSULE.DR PO SCH (09:00)
[2020-06-26 09:05] LABS: ALT 16 U/L (4-34); AST 23 U/L (14-36); African American GFR (CKD) >90 (>60 ml/min/1.73 sqM); Albumin 3.7 g/dL (3.5-5.0); Alkaline Phosphatase 58 U/L (38-126); Anion Gap 4 mmol/L; Blood Urea Nitrogen 19 mg/dL (7-17); Carbon Dioxide 26 mmol/L (22-30); Chloride 107 mmol/L (98-107); Cholesterol 186 mg/dL (<200); Glucose 80 mg/dL (74-99); HDL Cholesterol 37 mg/dL (40-60); LDL Cholesterol,Calculated 119 mg/dL (0-99); Non-African American GFR(CKD) >90 (>60 ml/min/1.73 sqM); Potassium 4.2 mmol/L (3.5-5.1); Sodium 137 mmol/L (137-145); Total Bilirubin 0.7 mg/dL (0.2-1.3); Total Protein 6.7 g/dL (6.3-8.2); Triglycerides 149 mg/dL (<150)
[2020-06-26] MEDS: LORazepam 1 MG TAB PO PRN ×2 (09:47→20:44)
[2020-06-26] MEDS: PREGABALIN 100 MG CAP PO SCH ×4 (09:47→20:43)
--- NOTE | 2020-06-26 12:25 | P.PN ---
Progress Note - Text Progress Note Date: 06/26/20 At the time of admission she was very tangential and difficult to get history from. She stated her phone is linked to her email. She is very paranoid and thinks that her phone numbers are continuously being changed to take her identity over and to commit fraud in her name. Her mood is very labile and she will start crying and then would become angry for no apparent reason. This patient was seen in the milieu. She stated that she slept better last night. She stated that medical doctor has not seen her as yet. She is complaining of constant pain. She was taking Lyrica and I started her back on Lyrica 200 mg 3 times a day. She feels less anxious and is not loud and agitated as before. She is compliant with her medication and does not show any side effects of affect. She will be encouraged to participate in the milieu activities.
[2020-06-26 13:53] LABS: Hemoglobin A1C 5.3 % (4.0-6.0)
[2020-06-26] MEDS: OLANZapine 10 MG TAB PO SCH (20:43)
[2020-06-27] MEDS: PREGABALIN 100 MG CAP PO SCH ×2 (08:13→21:13)
[2020-06-27] MEDS: DULoxetine HCL 30 MG CAPSULE.DR PO SCH (08:13)
[2020-06-27] MEDS: NICOTINE 14MG/24HR PATCH TRANSDERM SCH (08:13)
[2020-06-27] MEDS: LORazepam 1 MG TAB PO PRN ×2 (09:15→18:12)
[2020-06-27] MEDS: ACETAMINOPHEN TAB 325 MG TAB PO PRN (09:15)
[2020-06-27] MEDS ORDERED: DULoxetine HCL 30 MG CAPSULE.DR PO ONE (10:15)
--- NOTE | 2020-06-27 10:21 | P.PN ---
Progress Note - Text Progress Note Date: 06/27/20 Interval History: Patient was seen wandering the hallways and was directable and agreeable to nikkie robertson with science writer in the office. Patient appears to be disheveled in appearance. She spoke with a soft tone of voice initially however became more irritable as a conversation and on. She claims that she was picked up on the streets because she was trying to castaneda a check and states that "apparently I was acting psychotic and paranoid". She was fairly vague and evasive about what she was doing before being found near the bank. She states that she was not using any drugs however once questioned about her UDS she states "I may have used a little bit of meth". She states that she is mainly having back pain and was preoccupied with her pain medications and other controlled drugs during the conversation. She also asked about being discharged today. She has poor insight into her condition and was refusing rehab. She claims that her mood is "fine" however claims that she has anxiety today. She states that she only slept approximately 2 hours last name. She states that "somebody's been falsifying my name and getting fake prescriptions filled at the pharmacy" when asked about her [facility] record. At this time patient denies any suicidal or homical ideations, intent or plan. Patient denies any auditory, visual hallucinations and denies. Endorsing mild paranoia. Patient denies any side effects from the medications and has been compliant with meds. Mental Status Exam: General Appearance: Patient appears to be thin, disheveled, older than stated age is alert, directable, and evasive/guarded. Behavior: Patient is calmly seated without any agitated behavior. Irritable towards the end. Speech: Patient's speech is fluent and nonpressured. Mood/Affect: Mood is improving mildly, affect is congruent and constricted. Suicidality/Homicidality: Patient denies having any suicidal or homicidal ideation intent or plan. Perceptions: Patient denies any visual hallucinations and denies any auditory hallucinations Though content/process: There is no evidence of any delusional thought content and thought process is linear and goal-directed. Paranoid. Focused on her medications. Memory and concentration: AOX3, grossly intact for the purposes of this session Judgment and insight: Chronically poor Assessment Bipolar disorder mixed with psychotic features Opioid abuse Fibromyalgia Hepatitis C Benzodiazepine abuse Methamphetamine abuse Nicotine dependence Plan: -Patient continues to meet criteria for inpatient psychiatric admission for symptom stabilization and safety. Patient has signed adult voluntary form and medication consent and was placed in patient's chart. Patient signed AMA form which will be due on 06/29/20. -Medications: Increase Cymbalta to 60 mg daily for mood/anxiety/pain. Increased Zyprexa to 15 mg daily at bedtime for mood stabilization/psychosis. We'll continue her current dose of Lyrica for pain and added ibuprofen and Tylenol when necessary. -When necessary Ativan and Haldol for agitation/aggression. -NRT - nicotine patch -SW on board for discharge planning. Encouraged the patient to participate in milieu.
[2020-06-27] MEDS: IBUPROFEN 600 MG TAB PO PRN (18:12)
[2020-06-27] MEDS: OLANZapine 5 MG TAB PO SCH (21:13)
[2020-06-27] MEDS: haloperidoL 5 MG TAB PO PRN (21:14)
[2020-06-28] MEDS: LORazepam 1 MG TAB PO PRN ×3 (02:05→18:50)
[2020-06-28] MEDS: DULoxetine HCL 60 MG CAPSULE.DR PO SCH (08:13)
[2020-06-28] MEDS: PREGABALIN 100 MG CAP PO SCH ×2 (08:13→20:04)
[2020-06-28] MEDS: NICOTINE 14MG/24HR PATCH TRANSDERM SCH (08:13)
[2020-06-28] MEDS: IBUPROFEN 600 MG TAB PO PRN ×2 (08:14→20:04)
--- NOTE | 2020-06-28 10:25 | P.PN ---
Progress Note - Text Progress Note Date: 06/28/20 Interval History: Patient was seen wandering the hallways and was directable and agreeable to sp eak with singer songwriter in the office. Mild improvement in her hygiene today. She claims that she was able to sleep a bit better approximately 3-4 hours last night. She spoke with a soft tone of voice and was less argumentative with singer songwriter today and less irritable. She spoke more about being picked up. [employer] and states that "they were trying to steal my money from the stimulus check" and now claims that she will be going to another bank because she knows that she is not allowed back at that particular one. She continues to be focused on controlled medications and pain medications while on the unit. She states that she only went to 1 group yesterday. She claims that she took Haldol by mouth last night however does not remember why. She has poor insight into her condition and was refusing rehab. She claims that her mood is "fine" today and denies any anxiety. At this time patient denies any suicidal or homical ideations, intent or plan. Patient denies any auditory, visual hallucinations and denies. Endorsing mild paranoia towards her family stating the "I think they're trying to steal my stuff". Patient denies any side effects from the medications and has been compliant with meds. Mental Status Exam: General Appearance: Patient appears to be thin, older than stated age is alert, directable, and evasive/guarded. Behavior: Patient is calmly seated without any agitated behavior. Mildly more cooperative today Speech: Patient's speech is fluent and nonpressured. Mood/Affect: Mood is improving mildly, affect is congruent and constricted. Suicidality/Homicidality: Patient denies having any suicidal or homicidal ideation intent or plan. Perceptions: Patient denies any visual hallucinations and denies any auditory hallucinations Though content/process: There is no evidence of any delusional thought content and thought process is linear and goal-directed. Paranoid. Focused on controlled medications. Memory and concentration: AOX3, grossly intact for the purposes of this session Judgment and insight: Chronically poor Assessment Bipolar disorder mixed with psychotic features Opioid abuse Fibromyalgia Hepatitis C Benzodiazepine abuse Methamphetamine abuse Nicotine dependence Plan: -Patient continues to meet criteria for inpatient psychiatric admission for symptom stabilization and safety. Patient is admitted involuntarily. Patient signed AMA form which will be due on 06/29/20. -Medications: Continue with Cymbalta to 60 mg daily for mood/anxiety/pain. Continue with Zyprexa to 15 mg daily at bedtime for mood stabilization/psychosis. We'll continue her current dose of Lyrica for pain and ibuprofen and Tylenol when necessary. -When necessary Ativan and Haldol for agitation/aggression. -NRT - nicotine patch -SW on board for discharge planning. Encouraged the patient to participate in milieu. Awaiting deferral meeting with inspector bullet slugs. Likely discharge in 2-3 days.
[2020-06-28 15:12] VITALS: BMI 17.7
[2020-06-28] MEDS: ACETAMINOPHEN TAB 325 MG TAB PO PRN (20:04)
[2020-06-28] MEDS: OLANZapine 5 MG TAB PO SCH (20:04)
[2020-06-29] MEDS: NICOTINE 14MG/24HR PATCH TRANSDERM SCH (08:11)
[2020-06-29] MEDS: DULoxetine HCL 60 MG CAPSULE.DR PO SCH (08:12)
[2020-06-29] MEDS: PREGABALIN 100 MG CAP PO SCH ×2 (08:12→20:00)
[2020-06-29] MEDS: LORazepam 1 MG TAB PO PRN ×2 (08:13→15:17)
[2020-06-29] MEDS: MELOXICAM 7.5 MG TAB PO SCH (08:41)
--- NOTE | 2020-06-29 09:03 | P.PN ---
Progress Note - Text Progress Note Date: 06/29/20 Interval History: Patient was seen lying in bed this morning and was directable and agreeable to speak with health science writer in the office. She had mild improvement in her hygiene today. She claims that she was able to sleep a bit better last night. She continues to state that she sleeps and not during the day. She is continuing to be focused on her pain medications and continues to ask for Neurontin or an increase in her Lyrica. She is agreeable to take Mobic today instead. She spoke with a soft tone of voice and was less argumentative with health science writer today and less irritable. She states that she has not been interested in going to groups. She has poor insight into her condition and was refusing rehab. She claims that she is denying any paranoia today and feels safer on the unit. She claims that her mood is "ok" today and denies any anxiety. At this time patient denies any suicidal or homical ideations, intent or plan. Patient denies any auditory, visual hallucinations and denies. Patient denies any side effects from the medications and has been compliant with meds. Mental Status Exam: General Appearance: Patient appears to be thin, older than stated age is alert, directable, and evasive/guarded. Behavior: Patient is calmly seated without any agitated behavior. Mildly more cooperative today Speech: Patient's speech is fluent and nonpressured. soft tone of voice. Mood/Affect: Mood is improving mildly, affect is congruent and constricted. Suicidality/Homicidality: Patient denies having any suicidal or homicidal ideation intent or plan. Perceptions: Patient denies any visual hallucinations and denies any auditory hallucinations Though content/process: There is no evidence of any delusional thought content and thought process is linear and goal-directed. Focused on controlled medications and her pain. Memory and concentration: AOX3, grossly intact for the purposes of this session Judgment and insight: Chronically poor Assessment Bipolar disorder mixed with psychotic features Opioid abuse Fibromyalgia Hepatitis C Benzodiazepine abuse Methamphetamine abuse Nicotine dependence Plan: -Patient continues to meet criteria for inpatient psychiatric admission for symptom stabilization and safety. Patient is admitted involuntarily. Patient signed AMA form which will be due on 06/29/20. -Medications: Continue with Cymbalta to 60 mg daily for mood/anxiety/pain. Continue with Zyprexa to 15 mg daily at bedtime for mood stabilization/psychosis. We'll continue her current dose of Lyrica for pain and Tylenol when necessary. Added Mobic 7.5mg daily for pain. -When necessary Ativan and Haldol for agitation/aggression. -NRT - nicotine patch -SW on board for discharge planning. Encouraged the patient to participate in milieu. Awaiting deferral meeting with commercial real estate attorney tomorrow. Likely discharge tomorrow if patient defers and agrees to treatment plan.
[2020-06-29] MEDS: ACETAMINOPHEN TAB 325 MG TAB PO PRN ×2 (12:06→15:54)
[2020-06-29] MEDS: OLANZapine 5 MG TAB PO SCH (20:00)
[2020-06-30 07:04] VITALS: BP 114/66; PULSE 78; RESP 16; TEMP 97.6
[2020-06-30] MEDS: NICOTINE 14MG/24HR PATCH TRANSDERM SCH (08:11)
[2020-06-30] MEDS: MELOXICAM 7.5 MG TAB PO SCH (08:11)
[2020-06-30] MEDS: DULoxetine HCL 60 MG CAPSULE.DR PO SCH (08:12)
[2020-06-30] MEDS: PREGABALIN 100 MG CAP PO SCH (08:12)
[2020-06-30] MEDS: LORazepam 1 MG TAB PO PRN (08:13)
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
[2020-06-30] MEDS: ACETAMINOPHEN TAB 325 MG TAB PO PRN (09:24)
--- NOTE | 2020-06-30 09:26 | P.DS ---
Providers Date of admission: 06/24/20 23:53 Expected date of discharge: 06/30/20 Attending physician: Jamie Loving MD Consults: 06/25/20 00:04 Consult Physician Routine Consulting Provider: Jordy Physician Consult Reason/Comments: h and p Do you want consulting provider notified?: Yes Primary care physician: [facility] Diagnosis(es) (1) Bipolar disorder, current episode mixed, severe, with psychotic features Current Visit: Yes Status: Acute Priority: High (2) Opioid abuse Current Visit: Yes Status: Acute Priority: Medium (3) Fibromyalgia Current Visit: Yes Status: Acute Priority: Medium (4) Hepatitis C Current Visit: Yes Status: Acute Priority: Low (5) Benzodiazepine abuse Current Visit: Yes Status: Acute Priority: Medium (6) Methamphetamine abuse Current Visit: Yes Status: Acute Priority: Medium (7) Nicotine dependence Current Visit: Yes Status: Acute Priority: Low Hospital Course: Admission HPI: Admission note was completed by Dr. Mccormick "This patient has a guardian and she stated that someone called her guardian and she does not know why. She was very tangential and difficult to get history from. She stated her phone is linked to her email. She goes from talking about bank to talking about kids to talking about emails and going to methadone clinic. She is very paranoid and thinks that her phone numbers are continuously being changed to take her identity over and to commit fraud in her name. Her mood is very labile and she will start crying and then would become angry for no apparent reason. She stated she has not done any crimes and she only has a hepatitis C and nobody is treating her for that. She stated that "they" change her password, her pin number, and people are abusing her Social Security number. She believes that she has autoimmune disease. She believes that somebody is out to get her. She stated that people do not like her. She stated her bank does not want her to be on their property and somebody is taking prescriptions on her name. She stated there are at least 15 people who were messing up with her phone with some secret codes." Hospital course: Upon admission to the unit patient was initially psychotic and paranoid. Patient was however petitioned and 2 clinical certificates were completed and faxed to the courts. Patient ended up meeting with her securities attorney on day of discharge and signed the deferral and was agreeable to treatment. Patient mainly isolated in her room and did not go to many groups however got along well with other patients on the unit and followed unit protocol. Patient was compliant with the medications and denied any side effects throughout hospital course. Patient was started on Cymbalta and titrated up to dose of 60 mg daily for mood/anxiety/pain. Patient was also started on Zyprexa and titrate up the dose of 50 mg daily at bedtime for mood stabilization/psychosis. Patient had ongoing pain complaints and was treated mainly with Tylenol and NSAIDs. Internal medicine it is Lyrica 100 mg twice a day for pain and this dose was not increased despite patient repeatedly asking for a further increase of her pain medications and not showing any overt signs of pain. Patient spoke of her stressors and engaged in therapy individual therapy mainly. Patient was also seen by medical team for history and physical exam. Throughout the course of the hospitalization patient gradually improved with regards to mood, anxiety, psychosis/paranoia, sleep and return back to her baseline level of functioning. On the day of discharge patient denied any suicidal or homicidal ideations intent or plan denied any auditory or visual hallucinations. Patient endorsed wanting to live for her future and her family. The patient denied any access to guns or weapons. Patient denied any paranoia and did not endorse any delusions. Patient does have a significant history of substance abuse and was counseled on abstaining from all substances including alcohol and marijuana. Patient was offered however declined inpatient substance-abuse rehab. Patient was also cou nseled on the medications and need for regular compliance and was encouraged to follow-up with their outpatient appointment for mental health and also for primary care. Mental status exam: General Appearance: Patient appears to be thin, a blonde weave, stated age is alert, pleasant, and attempts to be cooperative. Patient is in no acute distress and has improved hygiene and grooming Behavior: Patient is calmly seated without any agitated behavior. Speech: Patient's speech is fluent and nonpressured. Mood/Affect: Patient reports their mood is "better", affect is congruent Suicidality/Homicidality: Patient denies having any suicidal or homicidal ideation intent or plan. Perceptions: Patient denies any auditory or visual hallucinations. Though content/process: There is no evidence of any delusional thought content and thought process is linear and goal-directed. concrete and continues to be focused on her pain medications Memory and concentration: AOX3, grossly intact for the purposes of this session. Can spell "WORLD" backwards correctly. Judgment and insight: chronically poor, however has improved with guarded prognosis Impression: Bipolar disorder, mixed with psychotic features Opioid abuse Fibromyalgia Hepatitis C Benzodiazepine abuse Methamphetamine abuse Nicotine dependence Plan: -Continue with discharge today as patient has improved and stabilized psychiatrically and is not currently an imminent threat to herself and/or others. Patient will remain at chronically elevated risk for harm to self and/or others due to her impulsivity, chronically poor insight and judgment and polysubstance abuse. -Continue medications: Cymbalta 60 mg daily for mood/anxiety/pain, Zyprexa 50 mg daily at bedtime for psychosis/mood stabilization, and will be given Mobic daily for pain along with Tylenol. Patient will be given a one-week supply of Lyrica 100 mg twice a day for neuropathic pain. MAPS was reviewed. -Patient was counseled on the need for medication compliance and appropriate follow-up at mental health and also primary care for medical issues. Patient verbalized understanding and agreed. -Social work to arrange for and conduct family meeting to ensure safety upon discharge and answer any questions/concerns. Social work also to arrange for patients follow up appointments for psychiatric care along with follow up with primary care provider. -Patient counseled on abstaining from recreational drugs and marijuana and alcohol. Was informed/educated on the adverse effects on their physical and mental health. Patient verbally agreed and understood. Patient was offered substance abuse treatment however declined at this time. -Patient was instructed to return to the hospital or seek immediate medical care if their psychiatric or medical symptoms do worsen or reoccur. Allergies Allergy/AdvReac Type Severity Reaction Status Date / Time No Known Allergies Allergy Verified 06/24/20 21:01 Laboratory Results WBC 5.5 k/uL (3.8-10.6) 06/26/20 07:44 RBC 4.56 m/uL (3.80-5.40) 06/26/20 07:44 Hgb 13.2 gm/dL (11.4-16.0) 06/26/20 07:44 Hct 39.1 % (34.0-46.0) 06/26/20 07:44 MCV 85.7 fL (80.0-100.0) 06/26/20 07:44 MCH 28.9 pg (25.0-35.0) 06/26/20 07:44 MCHC 33.8 g/dL (31.0-37.0) 06/26/20 07:44 RDW 13.1 % (11.5-15.5) 06/26/20 07:44 Plt Count 318 k/uL (150-450) 06/26/20 07:44 MPV 6.3 06/26/20 07:44 Neutrophils % 55 % 06/26/20 07:44 Lymphocytes % 33 % 06/26/20 07:44 Monocytes % 5 % 06/26/20 07:44 Eosinophils % 5 % 06/26/20 07:44 Basophils % 1 % 06/26/20 07:44 Neutrophils # 3.0 k/uL (1.3-7.7) 06/26/20 07:44 Lymphocytes # 1.8 k/uL (1.0-4.8) 06/26/20 07:44 Monocytes # 0.3 k/uL (0-1.0) 06/26/20 07:44 Eosinophils # 0.3 k/uL (0-0.7) 06/26/20 07:44 Basophils # 0.0 k/uL (0-0.2) 06/26/20 07:44 Sodium 137 mmol/L (137-145) 06/26/20 07:44 Potassium 4.2 mmol/L (3.5-5.1) 06/26/20 07:44 Chloride 107 mmol/L (98-107) 06/26/20 07:44 Carbon Dioxide 26 mmol/L (22-30) 06/26/20 07:44 Anion Gap 4 mmol/L 06/26/20 07:44 BUN 19 mg/dL (7-17) H 06/26/20 07:44 Creatinine 0.71 mg/dL (0.52-1.04) 06/26/20 07:44 Est GFR (CKD-EPI)AfAm >90 (>60 ml/min/1.73 sqM) 06/26/20 07:44 Est GFR (CKD-EPI)NonAf >90 (>60 ml/min/1.73 sqM) 06/26/20 07:44 Glucose 80 mg/dL (74-99) 06/26/20 07:[address] Glu mg/dL 105 06/26/20 07:44 Hemoglobin A1c 5.3 % (4.0-6.0) 06/26/20 07:44 Calcium 9.0 mg/dL (8.4-10.2) 06/26/20 07:44 Total Bilirubin 0.7 mg/dL (0.2-1.3) 06/26/20 07:44 AST 23 U/L (14-36) 06/26/20 07:44 ALT 16 U/L (4-34) 06/26/20 07:44 Alkaline Phosphatase 58 U/L (38-126) 06/26/20 07:44 Total Protein 6.7 g/dL (6.3-8.2) 06/26/20 07:44 Albumin 3.7 g/dL (3.5-5.0) 06/26/20 07:44 Triglycerides 149 mg/dL (<150) 06/26/20 07:44 Cholesterol 186 mg/dL (<200) 06/26/20 07:44 LDL Cholesterol, Calc 119 mg/dL (0-99) H 06/26/20 07:44 HDL Cholesterol 37 mg/dL (40-60) L 06/26/20 07:44 TSH 0.541 mIU/L (0.465-4.680) 06/26/20 07:44 Urine HCG, Qual Not Detected (Not Detectd) 06/24/20 23:38 Urine Opiates Screen Not Detected (NotDetected) 06/24/20 23:38 Ur Oxycodone Screen Not Detected (NotDetected) 06/24/20 23:38 Urine Methadone Screen Detected (NotDetected) H 06/24/20 23:38 Ur Propoxyphene Screen Not Detected (NotDetected) 06/24/20 23:38 Ur Barbiturates Screen Not Detected (NotDetected) 06/24/20 23:38 U Tricyclic Antidepress Not Detected (NotDetected) 06/24/20 23:38 Ur Phencyclidine Scrn Not Detected (NotDetected) 06/24/20 23:38 Ur Amphetamines Screen Detected (NotDetected) H 06/24/20 23:38 U Methamphetamines Scrn Detected (NotDetected) H 06/24/20 23:38 U Benzodiazepines Scrn Detected (NotDetected) H 06/24/20 23:38 Urine Cocaine Screen Not Detected (NotDetected) 06/24/20 23:38 U Marijuana (THC) Screen Not Detected (NotDetected) 06/24/20 23:38 Coronavirus (PCR) Not Detected (Not Detectd) 06/24/20 22:40 Vital Signs Temp 97.6 F 06/30/20 06:41 Pulse 78 06/30/20 06:41 Resp 16 06/30/20 06:41 BP 114/66 06/30/20 06:41 Pulse Ox 96 06/25/20 00:48 Patient Condition at Discharge: Stable Plan - Discharge Summary Discharge Rx Participant: No New Discharge Prescriptions: New Nicotine 14Mg/24Hr Patch [Habitrol] 1 patch TRANSDERM DAILY 14 Days patch Pregabalin [Lyrica] 100 mg PO BID 7 Days cap Meloxicam [Mobic] 15 mg PO DAILY PRN 30 Days tab PRN Reason: Pain Acetaminophen Tab [Tylenol] 650 mg PO Q6HR PRN 30 Days tab PRN Reason: Pain/Discomfort DULoxetine HCL [Cymbalta] 60 mg PO DAILY 30 Days capsule. OLANZapine [ZyPREXA] 15 mg PO HS 30 Days tab Discontinued metroNIDAZOLE [Flagyl] 500 mg PO BID #10 tab Discharge Medication List Acetaminophen Tab [Tylenol] 650 mg PO Q6HR PRN 30 Days tab 06/30/20 [Rx] DULoxetine HCL [Cymbalta] 60 mg PO DAILY 30 Days capsule. 06/30/20 [Rx] Meloxicam [Mobic] 15 mg PO DAILY PRN 30 Days tab 06/30/20 [Rx] Nicotine 14Mg/24Hr Patch [Habitrol] 1 patch TRANSDERM DAILY 14 Days patch 06/30/20 [Rx] OLANZapine [ZyPREXA] 15 mg PO HS 30 Days tab 06/30/20 [Rx] Pregabalin [Lyrica] 100 mg PO BID 7 Days cap 06/30/20 [Rx] Follow up Appointment(s)/Referral(s): [facility] [Outside] - 07/01/20 1:00 am (Discharge and [facility] Intake appointment scheduled. In Person Appointment scheduled with Iraida Green 07/01 at 1pm.) [facility] [Primary Care Provider] - 1-2 days Activity/Diet/Wound Care/Special Instructions: Activity and diet as tolerated. Avoid the use of street drugs and alcohol. Take all medications as prescribed. When you are in need of refills on your medications please contact your medical provider and/or outpatient psychiatrist to have this done. Please go to scheduled outpatient appointment for aftercare treatment. If symptoms return or become worse, call the crisis line at and/or go to the nearest emergency room for evaluation. Discharge Disposition: HOME SELF-CARE
== END 2020-06-30 11:51 | disposition home or self-care (01) | DRG 885 ==
LOC: EC 20:24 → 3MHU 23:53
PROVIDERS: ADMIT Psychiatry & Neurology Psychiatry; ATTEND Psychiatry & Neurology Psychiatry
DX: F31.64 Bipolar disorder, current episode mixed, severe, with psychotic features (principal); B18.2 Chronic viral hepatitis C; F13.10 Sedative, hypnotic or anxiolytic abuse, uncomplicated; Z81.8 Family history of other mental and behavioral disorders; M79.7 Fibromyalgia; F11.10 Opioid abuse, uncomplicated; F15.10 Other stimulant abuse, uncomplicated; F17.200 Nicotine dependence, unspecified, uncomplicated; F43.10 Post-traumatic stress disorder, unspecified; F25.9 Schizoaffective disorder, unspecified
CPT/HCPCS: 36415; 80048; 80053; 80061; 80306; 81025; 83036; 84443; 85025; 87635; 99285

== ENCOUNTER 2020-08-13 09:34 | Inpatient (IN) | payer MEDICAID, OTHER ==
[2020-08-13] MEDS ORDERED: NALOXONE 0.4 MG/ML 1 ML VIAL IVP STA (09:49)
[2020-08-13] MEDS: LORazepam 2 MG/ML INJ IV STA ×2 (09:50→11:32)
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
[2020-08-13] MEDS ORDERED: SODIUM CHLORIDE 0.9% 500 ML 500 ML IV ONE (10:01)
[2020-08-13] MEDS ORDERED: SODIUM CHLORIDE 0.9% 1,000 ML IV ONE (10:01)
[2020-08-13] MEDS ORDERED: LORazepam 2 MG/ML INJ IV STA (10:11)
[2020-08-13 10:15] LABS: Glucose,Whole Blood 85 mg/dL (75-99)
[2020-08-13 10:41] LABS: ALT 38 U/L (4-34); AST 40 U/L (14-36); African American GFR (CKD) 76 (>60 ml/min/1.73 sqM); Albumin 4.5 g/dL (3.5-5.0); Alcohol <10 mg/dL; Alkaline Phosphatase 80 U/L (38-126); Anion Gap 12 mmol/L; Blood Urea Nitrogen 15 mg/dL (7-17); Calcium 9.8 mg/dL (8.4-10.2); Carbon Dioxide 29 mmol/L (22-30); Chloride 103 mmol/L (98-107); Glucose 84 mg/dL (74-99); Non-African American GFR(CKD) 66 (>60 ml/min/1.73 sqM); Potassium 4.1 mmol/L (3.5-5.1); Sodium 144 mmol/L (137-145); Total Bilirubin 0.5 mg/dL (0.2-1.3); Total Protein 7.5 g/dL (6.3-8.2)
[2020-08-13 10:46] LABS: Basophils # (A) 0.1 k/uL (0-0.2); Basophils % (A) 1 %; Eosinophils # (A) 0.2 k/uL (0-0.7); Eosinophils % (A) 2 %; HCT 39.1 % (34.0-46.0); HGB 13.4 gm/dL (11.4-16.0); Lymphocytes # (A) 3.8 k/uL (1.0-4.8); Lymphocytes % (A) 43 %; MCH 29.1 pg (25.0-35.0); MCHC 34.2 g/dL (31.0-37.0); MCV 84.9 fL (80.0-100.0); Mean Platelet Volume 6.5; Monocytes # (A) 0.5 k/uL (0-1.0); Monocytes % (A) 6 %; Neutrophils # (A) 3.9 k/uL (1.3-7.7); Neutrophils % (A) 45 %; Platelet Count 304 k/uL (150-450); RBC 4.61 m/uL (3.80-5.40); RDW 12.7 % (11.5-15.5); WBC 8.8 k/uL (3.8-10.6)
--- NOTE | 2020-08-13 10:47 | XR ---
EXAMINATION TYPE: XR chest 1V portable DATE OF EXAM: 08/13/2020 COMPARISON: Chest x-ray March 09, 2020 HISTORY: Altered mental status and weakness. TECHNIQUE: Single frontal view of the chest is obtained. FINDINGS: There is chronic parenchymal change without suspicious focal air space opacity, pleural effusion, or pneumothorax seen. The cardiac silhouette size is stab le and within normal limits. The osseous structures are intact. IMPRESSION: No acute process. No significant change from prior.
[2020-08-13 12:03] LABS: Amphetamine Screen,Urine Detected (NotDetected); Barbiturate Screen,Urine Not Detected (NotDetected); Benzodiazepines Screen,Urine Not Detected (NotDetected); Cocaine Screen,Urine Not Detected (NotDetected); Methadone Screen, Urine Detected (NotDetected); Opiate Screen,Urine Not Detected (NotDetected); Oxycodone Screen, Urine Not Detected (NotDetected); Phencyclidine Screen,Urine Not Detected (NotDetected); Tricyclic Antidepressant,Urine Not Detected (NotDetected); Urn Cannabinoid Scrn Not Detected (NotDetected)
[2020-08-13 12:16] LABS: Amorphous Sediment,Urine Rare /hpf; Appearance,Urine Cloudy (Clear); Bilirubin,Urine Negative (Negative); Blood,Urine Negative (Negative); Calcium Oxalate Crystals,Urine Rare /hpf; Color,Urine Yellow; Glucose,Urine (UA) Negative (Negative); Hyaline Casts,Urine 16 /lpf (0-2); Ketones,Urine Negative (Negative); Leukocyte Esterase,Urine Large (Negative); Mucus,Urine Moderate /hpf; Nitrite,Urine Negative (Negative); PH, Urine 5.5 (5.0-8.0); Protein,Urine Negative (Negative); Specific Gravity,Urine 1.022 (1.001-1.035); Squamous Epithelial Cell,Urine <1 /hpf (0-4); WBC,Urine 4 /hpf (0-5)
[2020-08-13] MEDS: NALOXONE (MDV) 2 MG in SODIUM CHLORIDE 0.9% 250 ML IV SCH ×2 (12:36→14:36)
[2020-08-13] MEDS ORDERED: NALOXONE 0.4 MG/ML 1 ML VIAL IVP SCH (13:45)
[2020-08-13] MEDS: NALOXONE 0.4 MG/ML 1 ML VIAL IVP SCH ×10 (14:57→22:35)
[2020-08-13] MEDS: NALOXONE 0.4 MG/ML 10 ML VIAL IVP SCH (23:56)
[2020-08-14] MEDS: NALOXONE 0.4 MG/ML 10 ML VIAL IVP SCH ×10 (00:43→09:31)
[2020-08-14 03:57] LABS: Glucose,Whole Blood 97 mg/dL (75-99)
[2020-08-14] MEDS ORDERED: NALOXONE 0.4 MG/ML 1 ML VIAL IVP PRN (11:18)
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
[2020-08-14] MEDS: NICOTINE 14MG/24HR PATCH TRANSDERM SCH (13:02)
[2020-08-14] MEDS: HEPARIN SODIUM,PORCINE/PF 5,000 UNIT/0.5 ML SYRINGE SQ SCH ×2 (15:41→23:18)
[2020-08-15 04:14] VITALS: RESP 18
[2020-08-15] MEDS ORDERED: PANTOPRAZOLE 40 MG TABLET PO SCH (07:30)
[2020-08-15] MEDS: HEPARIN SODIUM,PORCINE/PF 5,000 UNIT/0.5 ML SYRINGE SQ SCH (08:21)
[2020-08-15] MEDS: NICOTINE 14MG/24HR PATCH TRANSDERM SCH (08:21)
[2020-08-15] MEDS ORDERED: DULoxetine HCL 60 MG CAPSULE.DR PO SCH (09:15)
[2020-08-15] MEDS ORDERED: PREGABALIN 100 MG CAP PO SCH (09:15)
[2020-08-15] MEDS ORDERED: clonazePAM 0.5 MG TAB PO SCH (09:15)
[2020-08-15 10:21] VITALS: TEMP 98.3
[2020-08-15 12:24] VITALS: BP 128/70; PULSE 66
--- NOTE | 2020-08-15 14:47 | P.CN ---
Psychiatric Consult - . Consult date: 08/15/20 Consult:: 08/15/20 13:18 IDENTIFYING DATA: This patient is a 40-year-old female who currently lives with friends and is unemployed and has a history of polysubstance abuse. REASON FOR REFERRAL: Psychiatry was consulted for "drug overdose" HISTORY OF PRESENT ILLNESS: The patient presented to the hospital for altered mental status as she was picked up by EMS. Patient has a chronic history of polysubstance abuse. Patient was noted to have pinpoint pupils and was given 2 mg of Narcan. Patient's urine drug screen came back positive for methamphetamine and methadone. Patient was previously on Zyprexa Klonopin and Cymbalta. Nursing. Patient states that she is alert today and requesting to leave several times and has been fairly appropriate. Patient was seen at the bedside and was agreeable to speak to specification writer and was calm and superficially cooperative. She spoke in a soft tone of voice. She spoke about feeling "better today" and denies any current issues. She states that she hasn't taking her medications and sleep well last night. She states that she was possibly on "too much meds". She claims that she started taking methadone 30 mg daily from [facility] in [place] about one month ago and believes that there is some sort of interaction with her medications. She was fairly guarded about her substance use however she did at the end of it admit to using methamphetamine. She states that she used one gram of it. She is fairly minimizing her substance use. At this time patient denies any suicidal or homical ideations, intent or plan. Patient denies any auditory, visual hallucinations and denies any paranoia or delusions. Patients admits to using recreational drugs as noted above, she smokes cigarettes as well. PAST PSYCHIATRIC HISTORY: Patient has a a history of bipolar, psychosis and polysubstance abuse. Patient is currently on Zyprexa Klonopin and Cymbalta. Patient was psychiatrically hospitalized last on the mental health unit in early June 2020. Patient is most of the following up with [facility] for mental health resources. Patient denies any history of suicide attempts in the past. PAST MEDICAL HISTORY: Fibromyalgia, Carrie-Luna virus, hepatitis C ALLERGIES: as per EMR. CHEMICAL DEPENDENCY HISTORY: as per HPI. FAMILY PSYCHIATRIC/SUBSTANCE USE HISTORY: Claims that both her parents were depressed. SOCIAL HISTORY: she stated that she grew up with her mother and stepfather. She finished her high school and worked at a [employer] shop for about 15 years. She stated she is but was for 12 years prior to that. MENTAL STATUS EXAM: General Appearance: Patient appears to be thin, older than stated age is alert, pleasant, and superficially cooperative. Patient appears to have fair hygiene and grooming wearing hospital gown with fair eye contact. Behavior: Patient is calmly lying in bed without any agitated behavior. Superficially cooperative Speech: Patient's speech is fluent and nonpressured. Mood/Affect: Patient reports their mood is "good", affect is congruent Suicidality/Homicidality: Patient denies having any suicidal or homicidal ideation intent or plan. Perceptions: Patient denies any visual hallucinations and denies any auditory hallucinations Though content/process: There is no evidence of any delusional thought content and thought process is linear and goal-directed. Minimizing her drug use Memory and concentration: AOX3, grossly intact for the purposes of this session. Can spell "WORLD" backwards Judgment and insight: Chronically poor IMPRESSIONS: Bipolar disorder unspecified Fibromyalgia Hepatitis C Methamphetamine abuse Opioid abuse Nicotine dependence PLAN: -At this time patient DOES NOT meet criteria for inpatient psychiatric admission. -Would recommend the following medication changes/additions: Patient can continue her home dose of Zyprexa and Cymbalta however the Klonopin will be discontinued and should be discontinued by her outpatient providers. -poultry farm worker to provide patient with outpatient mental health/psychiatry resources for appropriate follow up upon discharge -Instrument Lens Grinder Apprentice spoke with patient about substance abuse and the harmful effects on medical and mental health, patient verbally understood and agreed. -poultry farm worker to provide patient substance use treatment resources including AA/NA meetings in the community. -Patient was offered inpatient rehab however declined at this time. -Communicated plan to patient's nurse -Psychiatry will sign off at this time -Please contact with any questions.
[2020-08-15] MEDS ORDERED: OLANZapine 7.5 MG TAB PO SCH (21:00)
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
== END 2020-08-15 15:07 | disposition home or self-care (01) | DRG 917 ==
LOC: EC 09:34 → 3SCARD 12:15 → 5NMEDONC 12:15 → UNDOADMIN 12:15 → 5NMEDONC 12:48 → 4SSUR 12:48 → 3SCARD 16:00
PROVIDERS: ADMIT Internal Medicine Geriatric Medicine; ATTEND Internal Medicine Geriatric Medicine
DX: T40.3X1A Poisoning by methadone, accidental (unintentional), initial encounter (principal); G92 Toxic encephalopathy; T43.621A Poisoning by amphetamines, accidental (unintentional), initial encounter; F11.10 Opioid abuse, uncomplicated; F15.10 Other stimulant abuse, uncomplicated; B19.20 Unspecified viral hepatitis C without hepatic coma; Z20.822 Contact with and (suspected) exposure to COVID-19; F14.11 Cocaine abuse, in remission; F17.210 Nicotine dependence, cigarettes, uncomplicated; M54.9 Dorsalgia, unspecified; F25.9 Schizoaffective disorder, unspecified; M32.9 Systemic lupus erythematosus, unspecified; F43.10 Post-traumatic stress disorder, unspecified; G47.419 Narcolepsy without cataplexy; G89.29 Other chronic pain; M79.7 Fibromyalgia; F31.9 Bipolar disorder, unspecified; Z79.899 Other long term (current) drug therapy; Z90.89 Acquired absence of other organs; Z90.49 Acquired absence of other specified parts of digestive tract; Z56.0 Unemployment, unspecified
CPT/HCPCS: 36415; 71045; 80053; 80306; 80320; 81001; 84484; 85025; 87635; 93005; 96361; 96374; 96375; 96376; 99285

== ENCOUNTER 2020-08-27 09:05 | Observation (INO) | payer OTHER ==
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
[2020-08-27] MEDS: NALOXONE 0.4 MG/ML 1 ML VIAL IVP SCH ×2 (09:52→10:31)
[2020-08-27] MEDS ORDERED: ACETAMINOPHEN TAB 500 MG TAB PO STA (10:06)
[2020-08-27 10:15] LABS: Basophils # (A) 0.1 k/uL (0-0.2); Basophils % (A) 1 %; Eosinophils # (A) 0.2 k/uL (0-0.7); Eosinophils % (A) 2 %; HCT 40.9 % (34.0-46.0); HGB 12.9 gm/dL (11.4-16.0); Lymphocytes # (A) 2.6 k/uL (1.0-4.8); Lymphocytes % (A) 25 %; MCH 27.4 pg (25.0-35.0); MCHC 31.6 g/dL (31.0-37.0); MCV 86.9 fL (80.0-100.0); Mean Platelet Volume 6.5; Monocytes # (A) 0.7 k/uL (0-1.0); Monocytes % (A) 6 %; Neutrophils # (A) 6.5 k/uL (1.3-7.7); Neutrophils % (A) 62 %; Platelet Count 363 k/uL (150-450); RDW 13.9 % (11.5-15.5); WBC 10.5 k/uL (3.8-10.6)
[2020-08-27 10:20] LABS: ALT 34 U/L (4-34); AST 49 U/L (14-36); African American GFR (CKD) >90 (>60 ml/min/1.73 sqM); Albumin 4.6 g/dL (3.5-5.0); Alkaline Phosphatase 73 U/L (38-126); Anion Gap 9 mmol/L; Blood Urea Nitrogen 27 mg/dL (7-17); Calcium 9.9 mg/dL (8.4-10.2); Carbon Dioxide 31 mmol/L (22-30); Chloride 101 mmol/L (98-107); Glucose 83 mg/dL (74-99); Non-African American GFR(CKD) >90 (>60 ml/min/1.73 sqM); Potassium 4.3 mmol/L (3.5-5.1); Sodium 141 mmol/L (137-145); Total Bilirubin 0.5 mg/dL (0.2-1.3); Total Protein 7.4 g/dL (6.3-8.2)
[2020-08-27 10:41] LABS: Amphetamine Screen,Urine Detected (NotDetected); Barbiturate Screen,Urine Not Detected (NotDetected); Benzodiazepines Screen,Urine Not Detected (NotDetected); Cocaine Screen,Urine Not Detected (NotDetected); Methadone Screen, Urine Detected (NotDetected); Opiate Screen,Urine Not Detected (NotDetected); Phencyclidine Screen,Urine Not Detected (NotDetected); Tricyclic Antidepressant,Urine Not Detected (NotDetected)
[2020-08-27 10:42] LABS: Oxycodone Screen, Urine Not Detected (NotDetected); Urn Cannabinoid Scrn Not Detected (NotDetected)
[2020-08-27] MEDS ORDERED: NALOXONE 0.4 MG/ML 1 ML VIAL IVP PRN (10:52)
[2020-08-27] MEDS ORDERED: SODIUM CHLORIDE 0.9% 1,000 ML IV ONE (10:54)
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
[2020-08-27] MEDS ORDERED: NICOTINE 14MG/24HR PATCH TRANSDERM STA (14:51)
[2020-08-27] MEDS ORDERED: PREGABALIN 100 MG CAP PO SCH (21:00)
[2020-08-27] MEDS ORDERED: OLANZapine 7.5 MG TAB PO SCH (21:00)
[2020-08-27 22:50] VITALS: BP 97/62; PULSE 94; RESP 18; TEMP 97.4
[2020-08-28] MEDS ORDERED: DULoxetine HCL 60 MG CAPSULE.DR PO SCH (09:00)
[2020-08-28] MEDS ORDERED: NICOTINE 14MG/24HR PATCH TRANSDERM SCH (09:00)
== END 2020-08-27 22:15 | disposition left against medical advice (07) ==
LOC: EC 09:05 → 4SSUR 10:55
PROVIDERS: ADMIT Internal Medicine Geriatric Medicine; ATTEND Internal Medicine Geriatric Medicine
DX: T40.3X1A Poisoning by methadone, accidental (unintentional), initial encounter (principal); G92 Toxic encephalopathy; F31.9 Bipolar disorder, unspecified; G47.419 Narcolepsy without cataplexy; B19.20 Unspecified viral hepatitis C without hepatic coma; Z20.822 Contact with and (suspected) exposure to COVID-19; F15.10 Other stimulant abuse, uncomplicated; Z53.29 Procedure and treatment not carried out because of patient's decision for other reasons; G89.29 Other chronic pain; M54.2 Cervicalgia; M54.9 Dorsalgia, unspecified; F41.9 Anxiety disorder, unspecified; F25.9 Schizoaffective disorder, unspecified; F43.10 Post-traumatic stress disorder, unspecified; F17.200 Nicotine dependence, unspecified, uncomplicated; M79.7 Fibromyalgia; Z79.899 Other long term (current) drug therapy
CPT/HCPCS: 96376; 96374; 99285; 36415; 80053; 85025; 80306; 87635; G0378; S4990; J2310

== ENCOUNTER 2020-10-13 16:49 | Observation (INO) | payer OTHER ==
[2020-10-13] MEDS ORDERED: SODIUM CHLORIDE 0.9% 1,000 ML IV ONE (17:11)
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
[2020-10-13 18:09] LABS: ALT 49 U/L (4-34); AST 71 U/L (14-36); Acetaminophen <10.0 ug/mL; African American GFR (CKD) >90 (>60 ml/min/1.73 sqM); Albumin 4.1 g/dL (3.5-5.0); Alcohol <10 mg/dL; Alkaline Phosphatase 99 U/L (38-126); Anion Gap 6 mmol/L; Appearance,Urine Clear (Clear); Bacteria,Urine Rare /hpf; Bilirubin,Urine Negative (Negative); Blood Urea Nitrogen 15 mg/dL (7-17); Blood,Urine Negative (Negative); Calcium 8.8 mg/dL (8.4-10.2); Carbon Dioxide 26 mmol/L (22-30); Chloride 109 mmol/L (98-107); Color,Urine Yellow; Creatine Kinase 600 U/L (30-135); Glucose 77 mg/dL (74-99); Glucose,Urine (UA) Negative (Negative); Hyaline Casts,Urine 5 /lpf (0-2); Ketones,Urine Negative (Negative); Leukocyte Esterase,Urine Small (Negative); Mucus,Urine Moderate /hpf; Nitrite,Urine Negative (Negative); Non-African American GFR(CKD) >90 (>60 ml/min/1.73 sqM); Protein,Urine Trace (Negative); RBC,Urine 2 /hpf (0-5); Salicylate <1.0 mg/dL; Sodium 141 mmol/L (137-145); Specific Gravity,Urine 1.031 (1.001-1.035); Squamous Epithelial Cell,Urine 1 /hpf (0-4); WBC,Urine 11 /hpf (0-5)
[2020-10-13 18:13] LABS: Potassium 5.2 mmol/L (3.5-5.1); Prothrombin Time 10.3 sec (9.0-12.0)
--- NOTE | 2020-10-13 18:18 | XR ---
EXAMINATION: XR chest 2V DATE AND TIME: 10/13/2020 6:13 PM CLINICAL INDICATION: PHH; altered mental status TECHNIQUE: Departmental protocol COMPARISON: AP upright portable chest 08/13/2020 FINDINGS: The lungs are clear. The pleural spaces are negative. The cardiac silhouette is not enlarged. The remainder of the mediastinal silhouette is unremarkable. The skeletal structures and soft tissues are negative for acute findings. IMPRESSION: No acute radiographic process.
[2020-10-13 18:20] LABS: Partial Thromboplastin Time 21.4 sec (22.0-30.0)
[2020-10-13 18:33] LABS: Phencyclidine Screen,Urine Not Detected (NotDetected); Urn Cannabinoid Scrn Detected (NotDetected)
[2020-10-13 18:34] LABS: Amphetamine Screen,Urine Detected (NotDetected); Barbiturate Screen,Urine Not Detected (NotDetected); Benzodiazepines Screen,Urine Not Detected (NotDetected); Cocaine Screen,Urine Detected (NotDetected); Methadone Screen, Urine Detected (NotDetected); Opiate Screen,Urine Not Detected (NotDetected); Oxycodone Screen, Urine Not Detected (NotDetected); Tricyclic Antidepressant,Urine Not Detected (NotDetected)
[2020-10-13 19:27] LABS: Basophils % (A) 1 %; Eosinophils # (A) 0.2 k/uL (0-0.7); Eosinophils % (A) 4 %; HGB 11.1 gm/dL (11.4-16.0); Lymphocytes # (A) 1.6 k/uL (1.0-4.8); Lymphocytes % (A) 37 %; MCH 28.7 pg (25.0-35.0); MCHC 32.5 g/dL (31.0-37.0); MCV 88.3 fL (80.0-100.0); Mean Platelet Volume 6.8; Monocytes # (A) 0.3 k/uL (0-1.0); Monocytes % (A) 7 %; Neutrophils # (A) 2.2 k/uL (1.3-7.7); Neutrophils % (A) 48 %; Platelet Count 221 k/uL (150-450); RBC 3.85 m/uL (3.80-5.40); WBC 4.5 k/uL (3.8-10.6)
[2020-10-13] MEDS ORDERED: NALOXONE 0.4 MG/ML 1 ML VIAL IV PRN (20:36)
--- NOTE | 2020-10-13 20:43 | CT ---
EXAMINATION: CT brain wo con DATE AND TIME: 10/13/2020 8:27 PM CLINICAL INDICATION: PHH; ams TECHNIQUE: Standard departmental protocol Total DLP: 1072.4 mGy-cm COMPARISON: 11/12/2019 FINDINGS: The calvarium is intact. There is no intracranial hemorrhage. There is no intracranial mass or mass effect. No definite new intra-axial or extra-axial attenuation defect. The paranasal sinuses, middle ear cavities, and mastoid sinus air cells are clear. The orbits are unremarkable. IMPRESSION: NO ACUTE PROCESS.
[2020-10-14] MEDS: SODIUM CHLORIDE 0.9% 1,000 ML IV SCH ×2 (00:14→04:58)
[2020-10-14 07:07] LABS: African American GFR (CKD) >90 (>60 ml/min/1.73 sqM); Anion Gap 3 mmol/L; Blood Urea Nitrogen 15 mg/dL (7-17); Calcium 9.1 mg/dL (8.4-10.2); Carbon Dioxide 30 mmol/L (22-30); Chloride 108 mmol/L (98-107); Glucose 112 mg/dL (74-99); Non-African American GFR(CKD) >90 (>60 ml/min/1.73 sqM); Potassium 3.7 mmol/L (3.5-5.1); Sodium 141 mmol/L (137-145)
[2020-10-14 08:19] VITALS: BP 99/63; PULSE 101; RESP 17; TEMP 98.1
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
--- NOTE | 2020-10-14 08:59 | P.DS ---
Providers Date of admission: 10/13/20 20:37 Attending physician: Daniel Ignacio MD Primary care physician: Stated None Hospital Course: Patient left AGAINST MEDICAL ADVICE Patient Condition at Discharge: Stable Plan - Discharge Summary Discharge Rx Participant: Yes New Discharge Prescriptions: No Action Dextroamphetamine/Amphetamine [Adderall] 30 mg PO BID@0900,1300 OLANZapine [ZyPREXA] 15 mg PO HS Nicotine 14Mg/24Hr Patch [Habitrol] 1 patch TRANSDERM DAILY #30 patch clonazePAM [KlonoPIN] 0.5 mg PO DAILY PRN PRN Reason: Anxiety DULoxetine HCL [Cymbalta] 60 mg PO DAILY 30 Days capsule. Pregabalin [Lyrica] 200 mg PO BID Discharge Medication List DULoxetine HCL [Cymbalta] 60 mg PO DAILY 30 Days capsule. 06/30/20 [Rx] Dextroamphetamine/Amphetamine [Adderall] 30 mg PO BID@0900,1300 08/13/20 [History] OLANZapine [ZyPREXA] 15 mg PO HS 08/13/20 [History] Pregabalin [Lyrica] 200 mg PO BID 08/13/20 [History] Nicotine 14Mg/24Hr Patch [Habitrol] 1 patch TRANSDERM DAILY #30 patch 08/15/20 [Rx] clonazePAM [KlonoPIN] 0.5 mg PO DAILY PRN 10/13/20 [History] Follow up Appointment(s)/Referral(s): None,Stated [Primary Care Provider] - 1-2 days Discharge Disposition: Left Against Medical Advice
[2020-10-14] MEDS ORDERED: DULoxetine HCL 60 MG CAPSULE.DR PO SCH (09:00)
[2020-10-14] MEDS ORDERED: NICOTINE 14MG/24HR PATCH TRANSDERM SCH (09:00)
[2020-10-14 09:46] LABS: Basophils # (A) 0.03 X 10*3/uL (0.00-0.10); Basophils % (A) 0.8 %; Eosinophils # (A) 0.17 X 10*3/uL (0.04-0.35); Eosinophils % (A) 4.5 %; HCT 39.1 % (37.2-46.3); Lymphocytes # (A) 1.57 X 10*3/uL (0.90-5.00); Lymphocytes % (A) 41.3 %; MCHC 30.7 g/dL (32.0-37.0); MCV 91.4 fL (80.0-97.0); Mean Platelet Volume 9.2 fL (9.5-12.2); Monocytes # (A) 0.45 X 10*3/uL (0.20-1.00); Monocytes % (A) 11.8 %; Neutrophils # (A) 1.57 X 10*3/uL (1.80-7.70); Neutrophils % (A) 41.3 %; Platelet Count 213 X 10*3/uL (140-440); RBC 4.28 X 10*6/uL (4.10-5.20)
[2020-10-14] MEDS ORDERED: OLANZapine 7.5 MG TAB PO SCH (21:00)
== END 2020-10-14 08:47 | disposition left against medical advice (07) ==
LOC: EC 16:49 → 6NMEDSUR 20:37
PROVIDERS: ADMIT Internal Medicine; ATTEND Internal Medicine
DX: T43.621A Poisoning by amphetamines, accidental (unintentional), initial encounter (principal); G93.40 Encephalopathy, unspecified; B19.20 Unspecified viral hepatitis C without hepatic coma; F19.10 Other psychoactive substance abuse, uncomplicated; F17.200 Nicotine dependence, unspecified, uncomplicated; Z53.29 Procedure and treatment not carried out because of patient's decision for other reasons; G89.29 Other chronic pain; M54.2 Cervicalgia; M54.9 Dorsalgia, unspecified; M79.7 Fibromyalgia; F25.9 Schizoaffective disorder, unspecified; F43.10 Post-traumatic stress disorder, unspecified; Z79.899 Other long term (current) drug therapy; Z86.69 Personal history of other diseases of the nervous system and sense organs; Z90.49 Acquired absence of other specified parts of digestive tract; Z90.89 Acquired absence of other organs
CPT/HCPCS: 99285; 36415; 93005; 80053; 80048; 82140; 82550; 84484; 85025 ×2; 85610; 85730; 81001; 81025; 80306; 80143; 87086; 80179; 71046; 70450; G0378 ×2; G0480; 80320

== ENCOUNTER → 2021-08-30 | Outpatient (CLI) | payer OTHER | END | disposition home or self-care (01) | LOC: LABWHC1 12:14 | PROVIDERS: ATTEND Nurse Practitioner Family | DX: Z86.19 Personal history of other infectious and parasitic diseases (principal) | CPT/HCPCS: 36415; 86803; 87522 ==

== ENCOUNTER → 2021-09-05 | Outpatient (CLI) | payer MEDICARE, OTHER ==
[2021-09-05 18:49] LABS: Hepatitis B Core IgM Nonreactive (Nonreactive); Hepatitis B Surface Antigen Nonreactive (Nonreactive)
== END | disposition home or self-care (01) ==
LOC: LABT 11:00
PROVIDERS: ATTEND Nurse Practitioner Family
DX: B18.2 Chronic viral hepatitis C (principal)
CPT/HCPCS: 36415; 82105; 86704; 86705; 87340

== ENCOUNTER → 2021-09-21 | Outpatient (CLI) | payer MEDICARE, OTHER ==
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
== END ==
LOC: SLEEP 14:03
PROVIDERS: ATTEND Internal Medicine
DX: G47.419 Narcolepsy without cataplexy (principal); M79.7 Fibromyalgia; M54.50 Low back pain, unspecified; M54.2 Cervicalgia; Z90.09 Acquired absence of other part of head and neck; Z87.81 Personal history of (healed) traumatic fracture; F17.200 Nicotine dependence, unspecified, uncomplicated

== ENCOUNTER → 2021-09-28 | Outpatient (CLI) | payer MEDICARE, OTHER ==
--- NOTE | 2021-09-28 10:13 | US ---
EXAMINATION TYPE: US liver DATE OF EXAM: 09/28/2021 COMPARISON: NONE CLINICAL HISTORY: B18.2 CHRONIC VIRAL HEP C. Hep C EXAM MEASUREMENTS: Liver Length: 17.2 cm Gallbladder Wall: .2 cm CBD: .7 cm Right Kidney: 10.6 x 4.1 x 5.0 cm Pancreas: wnl Liver: wnl Gallbladder: Echogenic foci visualized Evidence for sonographic Delong's sign: No CBD: wnl Right Kidney: wnl IMPRESSION: Cholelithiasis.
== END | disposition home or self-care (01) ==
LOC: RADUSWWP 09:31
PROVIDERS: ATTEND Internal Medicine Gastroenterology
DX: B18.2 Chronic viral hepatitis C (principal); K80.20 Calculus of gallbladder without cholecystitis without obstruction
CPT/HCPCS: 76705

== ENCOUNTER 2021-09-30 19:49 | Emergency (ER) | payer MEDICARE, OTHER ==
[2021-09-30 20:11] VITALS: BP 117/77; PULSE 108; RESP 18; TEMP 98.5
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
== END 2021-09-30 21:31 | disposition home or self-care (01) ==
LOC: EC 19:49
DX: B00.1 Herpesviral vesicular dermatitis (principal); F17.290 Nicotine dependence, other tobacco product, uncomplicated; M79.7 Fibromyalgia; Z79.899 Other long term (current) drug therapy
CPT/HCPCS: 99282

== ENCOUNTER → 2022-09-11 | Outpatient (CLI) | payer MEDICARE ==
[2022-09-11 19:14] LABS: Basophils # (A) 0.07 X 10*3/uL (0.00-0.10); Basophils % (A) 0.7 %; Eosinophils # (A) 0.18 X 10*3/uL (0.04-0.35); Eosinophils % (A) 1.7 %; HCT 42.6 % (37.2-46.3); HGB 13.8 d/dL (12.0-15.0); Lymphocytes # (A) 2.26 X 10*3/uL (0.90-5.00); Lymphocytes % (A) 21.2 %; MCH 28.9 pg (27.0-32.0); MCHC 32.4 d/dL (32.0-37.0); MCV 89.1 FL (80.0-97.0); Mean Platelet Volume 10.1 FL (9.5-12.2); Monocytes # (A) 0.55 X 10*3/uL (0.20-1.00); Monocytes % (A) 5.2 %; NRBC Per 100 WBC 0 X 10*3/uL (0.00-0.01); Neutrophils # (A) 7.46 X 10*3/uL (1.80-7.70); Platelet Count 277 X 10*3/uL (140-440); RBC 4.78 X 10*6/uL (4.10-5.20); RDW 12.8 % (11.5-14.5); WBC 10.65 X 10*3/uL (4.50-10.00)
[2022-09-12 05:21] LABS: ALT 22 U/L (8-44); AST 20 U/L (13-35); Albumin 4.5 d/dL (3.8-4.9); Albumin/Globulin Ratio 1.88 Ratio (1.60-3.17); Alkaline Phosphatase 128 U/L (41-126); BUN/Creat Ratio 12.44 Ratio (12.00-20.00); Blood Urea Nitrogen 11.2 mg/dL (9.0-27.0); Calcium 9.7 mg/dL (8.7-10.3); Carbon Dioxide 28.1 mmol/L (21.6-31.8); Chloride 102 mmol/L (96-109); Globulin 2.4 d/dL (1.6-3.3); Glucose 107 mg/dL (70-110); Potassium 4.3 mmol/L (3.5-5.5); Sodium 143 mmol/L (135-145); Total Bilirubin 0.3 mg/dL (0.3-1.2); Total Protein 6.9 d/dL (6.2-8.2)
[2022-09-12 11:45] LABS: HCV Qualitative Result Not detected (Not detected); HCV Quant Log <1.08 (<1.08); HCV Quantitative Result <12 IU/mL (<12)
== END | disposition home or self-care (01) ==
LOC: LABWHC1 10:10
PROVIDERS: ATTEND Nurse Practitioner Family
DX: B18.2 Chronic viral hepatitis C (principal)
CPT/HCPCS: 36415; 80053; 85025; 87522

== ENCOUNTER → 2022-10-25 | Outpatient (CLI) | payer MEDICARE, OTHER ==
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
== END ==
LOC: 3 N SLEEP 13:42
PROVIDERS: ATTEND Internal Medicine
DX: G47.33 Obstructive sleep apnea (adult) (pediatric) (principal); G47.419 Narcolepsy without cataplexy; M79.7 Fibromyalgia; Z79.899 Other long term (current) drug therapy; Z99.89 Dependence on other enabling machines and devices
CPT/HCPCS: 99212

== ENCOUNTER → 2023-05-30 | Outpatient (CLI) | payer MEDICARE, OTHER ==
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
== END ==
LOC: 3 N SLEEP 15:52
PROVIDERS: ATTEND Internal Medicine
DX: G47.419 Narcolepsy without cataplexy (principal); M51.9 Unspecified thoracic, thoracolumbar and lumbosacral intervertebral disc disorder; M54.9 Dorsalgia, unspecified; M54.2 Cervicalgia; F17.200 Nicotine dependence, unspecified, uncomplicated; F12.90 Cannabis use, unspecified, uncomplicated; Z98.890 Other specified postprocedural states; Z90.89 Acquired absence of other organs; Z87.39 Personal history of other diseases of the musculoskeletal system and connective tissue; Z87.828 Personal history of other (healed) physical injury and trauma; Z79.899 Other long term (current) drug therapy
CPT/HCPCS: 99212

== ENCOUNTER 2023-12-28 10:07 | Inpatient (IN) | payer MEDICARE, OTHER ==
[2023-12-28] MEDS: SODIUM CHLORIDE 0.9% 1,000 ML IV STA (10:47)
[2023-12-28] MEDS: methylPREDNISolone SOD SUCCI 125 MG/2 ML VIAL IV STA (10:48)
[2023-12-28 10:57] LABS: Basophils % (A) 0 %; Eosinophils # (A) 0.1 k/uL (0-0.7); Eosinophils % (A) 1 %; HCT 41.5 % (34.0-46.0); HGB 13.6 gm/dL (11.4-16.0); Lymphocytes # (A) 0.8 k/uL (1.0-4.8); Lymphocytes % (A) 12 %; MCH 29.4 pg (25.0-35.0); MCHC 32.8 g/dL (31.0-37.0); MCV 89.4 fL (80.0-100.0); Mean Platelet Volume 7.5; Monocytes # (A) 0.2 k/uL (0-1.0); Monocytes % (A) 3 %; Neutrophils # (A) 5.7 k/uL (1.3-7.7); Neutrophils % (A) 83 %; Platelet Count 179 k/uL (150-450); RBC 4.64 m/uL (3.80-5.40); RDW 13.1 % (11.5-15.5); WBC 6.9 k/uL (3.8-10.6)
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
[2023-12-28 11:06] LABS: INR 0.9 (<1.2); Partial Thromboplastin Time 27.8 sec (22.0-30.0); Prothrombin Time 10.5 sec (10.0-12.5)
[2023-12-28 11:07] LABS: ALT 15 U/L (4-34); AST 38 U/L (14-36); African American GFR (CKD) >90 (>60 ml/min/1.73 sqM); Albumin 3.6 g/dL (3.5-5.0); Alkaline Phosphatase 77 U/L (38-126); Anion Gap 6 mmol/L; Blood Urea Nitrogen 22 mg/dL (7-17); Calcium 8.9 mg/dL (8.4-10.2); Carbon Dioxide 31 mmol/L (22-30); Chloride 102 mmol/L (98-107); Glucose 118 mg/dL (74-99); Non-African American GFR(CKD) >90 (>60 ml/min/1.73 sqM); Potassium 3.9 mmol/L (3.5-5.1); Sodium 139 mmol/L (137-145); Total Bilirubin 0.6 mg/dL (0.2-1.3); Total Protein 6.2 g/dL (6.3-8.2)
--- NOTE | 2023-12-28 11:17 | XR ---
EXAMINATION TYPE: XR chest 2V DATE OF EXAM: 12/28/2023 COMPARISON: 10/13/2020 INDICATION: Difficulty breathing TECHNIQUE: 2 view chest FINDINGS: The heart size is normal. The pulmonary vasculature is prominent. Diffuse increased lung markings are present in the infrahilar regions bilaterally. Correlate for atyp ical pulmonary edema. Consider pneumonia and atelectasis within the differential. Follow-up is recomm ended IMPRESSION: 1. Bibasilar infrahilar infiltrates. Correlate for pulmonary edema, atelectasis, or pneumonia. Follow -up is recommended [facility] Goldy Mullins, Workstation: [facility], 12/28/2023 11:15 AM
[2023-12-28] MEDS: IPRATROPIUM 0.5 MG/2.5 ML NEBU INHALATION STA (11:34)
[2023-12-28] MEDS: ALBUTEROL NEBULIZED 2.5 MG/3 ML INHALATION STA (11:34)
[2023-12-28] MEDS ORDERED: IPRATROPIUM-ALBUTEROL 3 ML NEB INHALATION PRN ×2 (11:36→12:45)
[2023-12-28] MEDS ORDERED: NALOXONE 0.4 MG/ML 1 ML VIAL IVP PRN (11:36)
[2023-12-28] MEDS: methylPREDNISolone SOD SUCCI 125 MG/2 ML VIAL IV SCH (12:07)
[2023-12-28] MEDS: AZITHROMYCIN 500 MG in SODIUM CHLORIDE 0.9% 250 ML IVPB STA (12:15)
[2023-12-28] MEDS: IPRATROPIUM-ALBUTEROL 3 ML NEB INHALATION SCH (12:17)
[2023-12-28] MEDS ORDERED: PNEUMONIA PROTOCOL UTILIZED 1 EACH MISC PO PRN (12:45)
[2023-12-28] MEDS ORDERED: ACETAMINOPHEN TAB 325 MG TAB PO PRN (12:45)
[2023-12-28] MEDS ORDERED: ALBUTEROL NEBULIZED 2.5 MG/3 ML INHALATION PRN (12:45)
[2023-12-28] MEDS ORDERED: guaiFENesin 600 MG TABLET.ER PO SCH (13:00)
[2023-12-28 13:15] VITALS: BP 117/79; PULSE 117; RESP 20; TEMP 98.3
[2023-12-28] MEDS ORDERED: SODIUM CHLORIDE 0.9% 1,000 ML IV SCH (13:15)
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
[2023-12-28] MEDS ORDERED: IPRATROPIUM-ALBUTEROL 3 ML NEB INHALATION SCH (16:00)
[2023-12-28] MEDS ORDERED: ALBUTEROL NEBULIZED 2.5 MG/3 ML INHALATION SCH (16:00)
--- NOTE | 2023-12-28 18:20 | P.DS ---
Providers Date of admission: 12/28/23 11:37 Expected date of discharge: 12/28/23 Attending physician: Aristeo Blair MD Primary care physician: Zaid Castro Vidya [facility] Course: # Community-acquired pneumonia, unspecified organism #Hyperlidemia #Tobacco addiction #Fibromyalgia Nikki De La Torre a 43-year-old female with fibromyalgia, and tobacco addiction presents with new onset cough and shortness of breath. Initial lab work done in the ER showed WBC 6.9, hemoglobin 13.6, platelets 179, sodium 139, potassium 3.9, chloride 102, bicarb 31, anion gap 6, BUN 22, creatinine 0.79, glucose 118. EKG done in the ER independently interpreted showed heart rate of , no ST segment elevation or depression seen, no T-wave inversions seen. Chest x-ray done independently interpreted in the ER showed bibasilar infrahilar infiltrates more prominent on the left. Patient admitted to internal medicine service for treatment of community- acquired pneumonia, however, left AMA prior to further management of her acute illness. Patient Condition at Discharge: Good Plan - Discharge Summary New Discharge Prescriptions: No Action modafiniL [Provigil] 200 mg PO DAILY PRN PRN Reason: Narcolepsy Lisdexamfetamine Dimesylate [Vyvanse] 60 mg PO DAILY DULoxetine HCL [Cymbalta] 30 mg PO BID Simvastatin [Zocor] 10 mg PO DAILY Paliperidone IM [Invega Sustenna] 234 mg IM QMONTHLY Pregabalin [Lyrica] 200 mg PO BID Cholecalciferol [Vitamin D3 (125 Mcg = 5000 Iu)] 125 mcg PO DAILY Discharge Medication List Pregabalin [Lyrica] 200 mg PO BID 08/13/20 [History] Cholecalciferol [Vitamin D3 (125 Mcg = 5000 Iu)] 125 mcg PO DAILY 12/28/23 [History] DULoxetine HCL [Cymbalta] 30 mg PO BID 12/28/23 [History] Lisdexamfetamine Dimesylate [Vyvanse] 60 mg PO DAILY 12/28/23 [History] Paliperidone IM [Invega Sustenna] 234 mg IM QMONTHLY 12/28/23 [History] Simvastatin [Zocor] 10 mg PO DAILY 12/28/23 [History] modafiniL [Provigil] 200 mg PO DAILY PRN 12/28/23 [History] Follow up Appointment(s)/Referral(s): Zaid Dasilva DO [Primary Care Provider] - 1-2 days Discharge Disposition: LEFT AGAINST MEDICAL ADVICE
[2023-12-28] MEDS ORDERED: DULoxetine HCL 30 MG CAPSULE.DR PO SCH (21:00)
[2023-12-28] MEDS ORDERED: PREGABALIN 100 MG CAP PO SCH (21:00)
[2023-12-29] MEDS ORDERED: ATORVASTATIN 10 MG TAB PO SCH (09:00)
[2023-12-29] MEDS ORDERED: LISDEXAMFETAMINE DIMESYLATE 60 MG PO SCH (09:00)
[2023-12-29] MEDS ORDERED: ENOXAPARIN 40 MG/0.4 ML SYRINGE SQ SCH (09:00)
== END 2023-12-28 14:22 | disposition left against medical advice (07) | DRG 195 ==
LOC: EC 10:07 → 4SSUR 11:37
PROVIDERS: ADMIT Internal Medicine; ATTEND Internal Medicine
DX: J18.9 Pneumonia, unspecified organism (principal); E78.5 Hyperlipidemia, unspecified; F17.290 Nicotine dependence, other tobacco product, uncomplicated; M79.7 Fibromyalgia; Z11.52 Encounter for screening for COVID-19; Z79.899 Other long term (current) drug therapy
CPT/HCPCS: 36415; 71046; 80053; 83605; 84145; 85025; 85610; 85730; 87040; 87449; 87636; 93005; 94640; 96361; 96365; 96375; 99291

== ENCOUNTER → 2024-01-08 | Outpatient (CLI) | payer MEDICARE, OTHER ==
[2024-01-08 15:55] VITALS: BP 116/78; PULSE 106; RESP 16; TEMP 98.1
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
== END ==
LOC: 3 N SLEEP 15:36
PROVIDERS: ATTEND Internal Medicine
CPT/HCPCS: 99212

== ENCOUNTER → 2024-07-01 | Outpatient (CLI) | payer MEDICARE, OTHER ==
[2024-07-01 11:45] VITALS: BP 116/83; PULSE 104; RESP 16; TEMP 99
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
== END ==
LOC: 3 N SLEEP 11:20
PROVIDERS: ATTEND Internal Medicine
DX: G47.419 Narcolepsy without cataplexy (principal); M54.9 Dorsalgia, unspecified; M54.2 Cervicalgia; M79.7 Fibromyalgia; F17.200 Nicotine dependence, unspecified, uncomplicated; Z90.09 Acquired absence of other part of head and neck
CPT/HCPCS: 99212